=== PATIENT | female | born 1965 | race Caucasian/White ===

== ENCOUNTER → 2016-06-17 | Outpatient (CLI) | payer MEDICARE, MEDICAID ==
[~2016-06-17] MED LIST: /ADVA50050 IN; /AUGM875TA OR; /CARBXR20T PO; /DULO30CA OR; /ESOM40CA PO; /FEXO18TA OR; /LAMO10TA PO; /LINE60TA PO; /PANT40TA PO; /TRAZ15TA PO; ABIL5TAB OR; ADV500INH INH; AMOX875T OR; ASPI1TAB PO; ASPI325T OR; ASPI81TA85 PO; CALCCHW12 PO; CALCTAB75 PO; CARA1TAB2 PO; CEFD300C OR; CLIN300C PO; CLIN75CA PO; CLOP75TA2 PO; CORE25TA OR; CORE25TA PO; CRES40TA PO; CYMB1CAP5 PO; DETR4CAP PO; DETR4CAP10 PO; DIGO25TA PO; ELIQ5TAB PO; FLON0.05; FOLI1TAB86 PO; FURO40TA2 OR; GABA400C PO; IBUP200T2 PO; IMIT50TA PO; INSULANT SC; JANU25TA PO; LAMI1TAB8 PO; LAMI25TA OR; LASI40TA PO; LISI20TA5 OR; LYRI200C OR; LYRI300C PO; METF1000 PO; METF500T4 OR; NEUR600T PO; NEXI40CA PO; NITR4TASL SL; NORV5TAB PO; PERCOCET PO; PROZ20CA11 PO; SPIR25TA2 PO; SPIRIVA HANDIHALER INH; TEGR200T OR; TEGR200T PO; TIOT18INH INH; TOLT2TA OR; TRAZ100T OR; TRAZ100T4 PO; VITA100072 PO; ZETI10TA OR; ZOCO40TA OR; [UNRECOGNIZED DRUG - OTHER] PO; nicotine patch
--- NOTE | 2016-07-11 01:37 | ECWPNPC ---
PATIENT NAME: MONTANA HARDY : 1965 GENDER: FEMALE VISIT DATE: 06/17/2016 DISCHARGE DATE: 06/17/16 1304 VISIT LOCKED DATE TIME: PHYSICIAN: JEANNE DANIEL RESOURCE: JEANNE DANIEL REASON FOR APPOINTMENT 1. CHRONIC PAIN RECONSULT HISTORY OF PRESENT ILLNESS TODAY'S VISIT: NOTES: PT REFERRED BY Perez GARCIA AND DR FOUZIA MCKEON FOR LOW BACK PAIN AND OPTIONS FOR SPINAL COLUMN STIMULATOR THERAPY.HAS HAD BACK PAIN FOR SINCE WAS 19 YEARS OLD. . HAS BEEN GEETING WORSE OVER LAST FEW YEARS. 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 HAS HAD INJECTIONS TO LOW BACK HERE AT [facility] WITH DR GROSS. HAS BEEN IN PT IN PAST AND IS BEING SCHEDULED TO START AGAIN. IS CURRENTLY HAVING WEAKNESS IN MID THIGHS BILATERALLY. PAIN IS ACROSS THE BACK AND INTO THIGHS. EXPERIENCED A RECENT FELL AGAINST BUILDING WALL LEFT LEG GAVEAWAY.. IS HAVING NUMBNESS/TINGLING IN LEG TO FOOT BILATERALLY. . HAS HISTORY OF CONSTIPATION. NO LOSS OF BOWEL CONTROL EXCEPT FOR RECENT SEVERE SPASM IN BACK - WAS IN ER. PAIN AGGRAVATED BY PROLONGED SITTING, STANDING, LYING DOWN. HAD BEEN USING IBUPROFEN FOR PAIN WITH LIMITED EFFECTIVENESS.. . FALL RISK SCREENING: SCREENING :NO FALLS IN THE PAST YEAR PAIN SCREENING: PATIENT HAS A COMPLAINT OF ACUTE OR CHRONIC PAIN YES CURRENT MEDICATIONS TAKING ADVAIR DISKUS 500-50 MCG/DOSE AEROSOL POWDER BREATH ACTIVATED INHALE 1 DOSE BY MOUTH TWICE A DAY TAKING INCRUSE ELLIPTA 62.5 MCG/INH AEROSOL POWDER BREATH ACTIVATED 1 PUFF INHALATION ONCE A DAY TAKING ALBUTEROL SULFATE (2.5 MG/3ML) 0.083% NEBULIZATION SOLUTION 3 ML NEEDED INHALATION THREE TIMES A DAY NEEDED TAKING DETROL LA 4 MG CAPSULE EXTENDED RELEASE 24 HOUR 1 CAPSULE ORALLY ONCE A DAY TAKING IMITREX 50 MG TABLET 1 TABLET NEEDED ONE TIME ORALLY ONCE A DAY PRN MIGRAINE TAKING ONE TOUCH ULTRA TEST STRIPS . STRIPS 1 STRIP DX CODE E11.9 THREE TIMES DAILY NEEDED TAKING BD U/F SHORT PEN NEEDLE 31G X 8 MM MISCELLANEOUS USE DIRECTED WITH LANTUS TAKING JANUVIA 100MG TABLET 1 TABLET ORALLY ONCE A DAY TAKING LANCETS DX 250.00 ONE TOUCH LANCET - THREE TIMES DAILY TAKING ALCOHOL PREPS 70 % MISCELLANEOUS DIRECTED EXTERNALLY DAILY TAKING LANTUS SOLO STAR PEN NEEDLES DX E11.9 ... 55 UNITS SQ 2230 TAKING VICTOZA 18 MG/3ML SOLUTION PEN-INJECTOR 1.2 MG SUBCUTANEOUS ONCE A DAY TAKING TRIAMCINOLONE ACETONIDE 0.025 % CREAM 1 APPLICATION TO HER L EAR EXTERNALLY TWICE DAILY NEEDED TAKING TEGRETOL 400 MG TABLET 1 TABLET ORALLY TWICE A DAY TAKING VITAMIN B-12 1000 MCG TABLET 1 TABLET ORALLY ONCE A DAY TAKING DIGOXIN 0.25 MG TABLET 1 TABLET ORALLY ONCE A DAY TAKING METFORMIN XR 500 MG EXTENDED RELEASE 2 TABLET ORALLY TWICE A DAY TAKING NYSTATIN 862222 UNIT/GM CREAM 1 APPLICATION UNDER BREASTS EXTERNALLY TWICE A DAY X 10D WITH FLARES TAKING ZYRTEC 10 MG TABLET 1 TABLET ORALLY ONCE A DAY TAKING LANTUS SOLOSTAR 100 UNIT/ML SOLUTION PEN-INJECTOR 55 UNITS SUBCUTANEOUS DAJILY TAKING CALCIUM 600/VITAMIN D 600-400 MG-UNIT TABLET 1 TABLET WITH FOOD ORALLY TWICE A DAY TAKING ELIQUIS 5 MG TABLET 1 TABLET ORAL TWICE A DAY TAKING DRISDOL 50,000 UNITS TABLET 1 TABLET ORALLY ONCE A WEEK TAKING FUROSEMIDE 40 MG TABLET TAKE 1 TABLET BY MOUTH ONCE DAILY ORALLY ONCE DAILY TAKING FOLIC ACID 1 MG TABLET 1 TABLET ORALLY ONCE A DAY TAKING NEXIUM 40 MG CAPSULE DELAYED RELEASE 1 CAPSULE ORALLY: CHANTAL TWICE A DAY TAKING GABAPENTIN 800 MG TABLET 1 TABLET ORALLY THREE TIMES A DAY TAKING COLACE 100 MG CAPSULE 1 CAPSULE ORALLY BID TAKING MIRALAX - POWDER 1 CAP ORALLY ONCE DAILY NEEDED TAKING ALDACTONE 25 MG TABLET 1 TABLET ORALLY DAILY TAKING LAMICTAL 25 MG TABLET 3 TABLETS ORALLY TWICE A DAY TAKING PLAVIX 75 MG TABLET 1 TABLET ORALLY ONCE A DAY TAKING BD ULTRA-FINE PEN NEEDLES 32G 4MM 2 INJECTIONS SUBCUTANEOUSLY DAILY TAKING ATENOLOL 25 MG TABLET 1 TABLET ORALLY ONCE A DAY-STOCKTON TAKING CARVEDILOL 25 TABLET 1 TAB ORAL BID TAKING DULOXETINE HCL 30 MG CAPSULE DELAYED RELEASE PARTICLES 3 CAPSULES ORALLY DAILY TAKING LAMICTAL 200 MG TABLET 1 TABLET ORALLY TWICE A DAY TAKING TRAZODONE 100 100MG TABLET 2 TABLETS ORALLY AT BEDTIME TAKING IMDUR 30 MG TABLET EXTENDED RELEASE 24 HOUR 1 TABLET ORALLY ONCE A DAY TAKING NITROGLYCERIN 0.4 MG TABLET SUBLINGUAL 1 TABLET UNDER THE TONGUE SUBLINGUAL ONE TABLET TIMES 3 EVERY 5 MINUTES IF NO RELIEF GO TO THE ER TAKING CRESTOR 40 MG TABLET 1 TABLET ORALLY ONCE A DAY TAKING ZETIA 10 MG TABLET 1 TABLET ORALLY ONCE A DAY TAKING MIRAPEX 0.25 MG TABLET 1 TABLET BEFORE BEDTIME ORALLY ONCE A DAY TAKING FERREX 150 150 MG CAPSULE TAKE 1 CAPSULE BY MOUTH ONCE DAILY ORALLY BID NOT-TAKING CARVEDILOL 25 MG TABLET TAKE 1 TABLET BY MOUTH TWICE A DAY NOT-TAKING METFORMIN HCL ER 500 MG TABLET EXTENDED RELEASE 24 HOUR TAKE 2 TABLETS BY MOUTH TWICE A DAY DISCONTINUED VITAMIN D (ERGOCALCIFEROL) 04697 UNIT CAPSULE TAKE 1 CAPSULE BY MOUTH EVERY WEEK DISCONTINUED ADVAIR DISKUS 500-50 MCG/DOSE MISCELLANEOUS 1 INHALATION TWICE A DAY DISCONTINUED VENTOLIN HFA 108 (90 BASE) MCG/ACT AEROSOL SOLUTION 2 PUFFS NEEDED INHALATION EVERY 6 HRS MEDICATION LIST REVIEWED AND RECONCILED WITH THE PATIENT PAST MEDICAL HISTORY LUMBAR DJD WITH BILATERAL LOWER EXTREMITY RADICULOPATHY-2009 MRI WITH MULTILEVEL BULGES, AT L4/S1 CAUSING MODERATE TO SEVERE BILATERAL NEURAL FORAMEN NARROWING SEIZURE DISORDER HYPERTENSION HYPERLIPIDEMIA 2B OBESITY DEPRESSION/PANIC DISORDER/INSOMNIA-FOLLOWED BY DR. PABLO RESTLESS LEG SYNDROME URGE INCONTINENCE GERD MIGRAINE HEADACHES, COMMON TYPE FOLIC ACID DEFICIENCY NICOTINE ADDICTION ASTHMA, MILD PERSISTENT/COPD-09/2014 FEV1 2.2L (66%)/RATIO 72%-EVIN PERIPHERAL EDEMA SECONDARY TO VENOUS INSUFFICIENCY AND NSAID AND LYRICA USE-2009 TTE STOCKTON WITH BORDERLINE LAE, BORDERLINE DILATED AORTIC ROOT, NO DIASTOLIC NOR SYSTOLIC DYSFUNCTION CAD STATUS POST NON-Q WAVE IA APRIL 2011 STATUS POST ANGELICA TO MID LAD, CHRONIC OCCLUSION OF RCA WITH COLLATERALS SUPPLYING BLOOD FLOW TO DISTAL RCA AND PDA BRANCHES, LVEF 50% WITH MILD ANTERIOR AND INFERIOR HYPOKINESIS-PENDING SALE TO [facility]//09/25/13 CATHERIZATION-PATIENT LAD, CHRONICALLY OCCLUDED RCA, NORMAL LVEF-RITA//06/18/15 CATH PATIENT LAD STENTS, LVEF 59%-RITA HISTORY NARCOTIC ABUSE-IN REHAB AT [facility]-03/21-04/18/12 B TROCHANTERIC BURSITIS-04/2013 NORMAL B HIP XRAY + H PYLORI BY AB-TREATED C DOXY/FLAGYL/BISMUTH/PPI X 14D-06/2013 ATRIAL FIBRILLATION, PAROXYSMAL, NEW-ONSET-09/04/13 [facility] HEMISPHERIC TIA-11/2014 C L FACIAL/ARM NUMBNESS/VISUAL DISTURBANCE/DIZZINESS-MRI C B FRONTAL, R PARIETAL T2 HYPERINTENSITIES, B ICA 16-49% STENOSIS, -CTA CHEST FOR PE R NEPHROLITH BY 11/2014 CT ALLERGIES LATEX (FOR ALLERGY USE ONLY): RASH SURGICAL HISTORY REMAINING 8 TEETH EXTRACTION-DR. ANDERSON 07/2012 HERNIA REPAIR/INGUINAL 2004? APPENDECTOMY A CHILD STENTS- [place] X 6 10/2015 FAMILY HISTORY FATHER: 49 YRS, DIAGNOSED WITH OTHER MOTHER: 55 YRS, DIAGNOSED WITH HEART DISEASE SIBLINGS: 32 YRS, DIAGNOSED WITH OTHER SON(S): ALIVE 2 BROTHER(S) , 3 SISTER(S) . 1 SON(S) - HEALTHY. FATHER-CIRROHOSIS. SOCIAL HISTORY GENERAL: TOBACCO USE ARE YOU A:FORMER SMOKER ARE YOU A:FORMER SMOKER ALCOHOL SCREENING POINTS: 3, INTERPRETATION: POSITIVE. RECREATIONAL DRUG USE DENIES. CAFFEINE >5/DAY. SEXUAL HX HAD SEX IN THE LAST 12 MONTHS (VAGINAL, ORAL, OR ANAL)?: NO, HAVE YOU EVER HAD AN STD?: NO. 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 DIET: CARBOHYDRATE CONTROLLED. EXERCISE: NO REGULAR EXERCISE. MARITAL STATUS: . OTHERS AT HOME: SPOUSE AND HIS MOTHER. TAOISM: NO YAZIDISM BELIEFS THAT WOULD IMPACT HEALTH CARE. LANGUAGE: CITIZEN OF [place]. LEARNING BARRIERS / SPECIAL NEEDS CHANGE FROM LAST VISIT?NO BARRIERS TO LEARNING?NO HEARING IMPAIRED?NO VISION IMPAIRED?YES GLASSES LEARNING PREFERENCES?YES DEMONSTATION OR VIDEO ADVANCED DIRECTIVES HEALTH CARE PROXY?NO DECLINES INFORMATION POWER OF HOTEL SERVICE MANAGER?NO TRAVEL OUTSIDE US: NO TRAVEL IN LAST 21 DAYS. DOMESTIC VIOLENCE: NONE. SMOKING 1 PPD. DENIES ETOH. PRIOR H/O OF NARCOTIC ABUSE. HAD BEEN USING A FRIEND'S SUBOXONE, BUT STATES SHE STOPPED. HOSPITALIZATION/MAJOR DIAGNOSTIC PROCEDURE B AXILLARY MRSA ABSCESSES S/P B DRAINAGE BY DR. VARGAS, IV VANCOMYCIN, - BCX X2 05/30- R HEMISPHERIC TIA-WORKUP PER 11/28- CARDIAC CATH ([facility]) DR. SALINAS 07/23 [place] 2012,2014 REVIEW OF SYSTEMS CONSTITUTIONAL: ANY CHANGE IN YOUR MEDICAL CONDITION? NO . CHILLS NO . FEVER NO . INFECTION: DO YOU HAVE NEW INFECTIONS? NO . DO YOU HAVE HISTORY OF MRSA? YES, UNDER RIGHT ARM 2014 1 NEG CULTURE AFTER . MUSCULOSKELETAL: ANY NEW PATTERNS OF PAIN OR NUMBNESS? NO . SYTEMIC LUPUS NO . GASTROENTEROLOGY: ANY NEW CHANGE IN BOWEL CONTROL? HX OF CHRONIC CONSTIPATION . BARRETTS ESOPHAGUS NO . CIRRHOSIS NO . HEPATITIS NO . LIVER FAILURE NO . ACID REFLUX YES . UNEXPLAINED WEIGHT LOSS NO . GENITOURINARY: ANY NEW CHANGE IN BLADDER CONTROL? NO . IS THERE A CHANCE YOU COULD BE ? NO . HEMATOLOGY/LYMPH: DO YOU TAKE ANY BLOOD THINNERS? (FOR EXAMPLE- COUMADIN, PLAVIX, AGGRENOX, PLATEL, PRADAXA, OR XARELTO) YES PLAVIX, ELIQUIS . WHEN WAS YOUR LAST DOSE? DATE: TIME: . LOW PLATELET COUNT NO . SICKLE CELL DISEASE NO . VON WILLIEBRANDS NO . FACTOR V LEIDEN NO . THALLASEMIA NO . ANEMIA NO . EASY BRUISING NO . NEUROLOGY: HAVE YOU FALLEN IN THE PAST 6 MONTHS? NO . ANY NEW EXTREMITY NUMBNESS OR WEAKNESS? YES WEAKNESS IN HER LEGS . HEAD INJURY NO . DEMENTIA NO . CEREBRAL PALSY NO . MULTIPLE SCLEROSIS NO . DIZZINESS NO . HEADACHE YES, ASSOCIATED WITH PHOTOPHOBIA, POUNDING, OCCIPITAL, THROBBING . STROKES NO TIA . VERTIGO NO . CARDIOLOGY: DO YOU HAVE A PACEMAKER OR DEFIBRILLATOR? NO . ANGINA NO . HEART ATTACK YES X 2 . HEART SURGERY YES 6 STENTS . CONGESTIVE HEART FAILURE/FLUID OVERLOAD NO . CHEST PAIN HAS NEEDED NITROGLYCERIN IN THE LAST MONTH. LAST SAW DR STOCKTON. . HIGH BLOOD PRESSURE YES , ON MEDICATION(S) . IRREGULAR HEART BEAT YES AFIB . RESPIRATORY: TROUBLE SLEEPING DUE TO PAIN . SLEEP APNEA DENIES . HAVE YOU BEEN SICK IN THE PAST WEEK? NO . FEVER NO . FLU LIKE SYMPTOMS? NO . CPAP NO . BYPAP NO . ASTHMA YES . EMPHYSEMA NO . CHRONIC LUNG DISEASES YES . SHORTNESS OF BREATH ON EXERTION YES . DO YOU USE ANY TYPE OF TOBACCO (SMOKE, SMOKELESS, CHEW)? QUIT 2 YEARS AGO . COUGH NO . SNORING YES . INTEGUMENTARY: DO YOU HAVE ANY RASHES OR OPEN SORES? NO - FRAGILE SKIN, BRUISES EASILY . ALLERGIC/IMMUNO: ARE YOU ALLERGIC TO SHELLFISH OR IV DYE? NO . ANY NEW ALLERGIES? NO . PSYCHIATRIC: DO YOU HAVE THOUGHTS OF HURTING YOURSELF OR SOMEONE ELSE? NO . ARE YOU ABUSED, NEGLECTED, OR IN AN UNSAFE ENVIRONMENT? NO . ENDOCRINOLOGY: ARE YOU DIABETIC? YES - 105 OR LESS . THYROID DISORDER NO . OTHER: DO YOU NEED ANY PRESCRIPTIONS? NO . IF YES, PLEASE LIST: ____ . ANY NEW PROBLEMS WITH YOUR MEDICATIONS? NO . WHEN DID YOU LAST EAT? ____ . WHEN DID YOU LAST DRINK? ____ . WHAT DID YOU LAST DRINK? ____ . NAME OF PERSON DRIVING YOU HOME? ____ . DO YOU HAVE ANY OTHER QUESTIONS OR CONCERNS NO . REVIEWED BY: PROVIDER: JEANNE BAKER . VITAL SIGNS WT 258 LBS, HT 69 IN, BMI 38.10 INDEX, BP 152/78 MM HG, HR 72 /MIN, RR 16 /MIN, TEMP 98.9 F, OXYGEN SAT % 96, REVIEWED BY: AD. EXAMINATION GENERAL EXAMINATION: PSYCHALERT , ORIENTED X 3 , APPROPRIATE MOOD AND AFFECT . HEENT:NORMOCEPHALIC, NO LYPHADENOPATHY, NO THYROMEGLY. LUNGS:CLEAR TO AUSCULTATION BILATERALLY, NO WHEEZES, RALES OR RHONCHI. HEART:IRREGULAR. MUSCULOSKELETAL:FLEX TO 30 DEGREES, EXT 20, ROTATE FULLY. , PALPATION: POSITIVE FOR PAIN OVER L/S SPINE. POSITIVE FOR PAIN OVER L/S PARSPINALS AND AT BILATERAL SACRALILIAC JOINTS. NEUROLOGIC EXAM:DECREASED SENSATION RIGHT LOWER EXTREMITY THIGH AND LATERAL CALF. .DTR'S 3+RLE, 2+ LLE. ASSESSMENTS LUMBAR DISC DISEASE WITH RADICULOPATHY - M51.16 (PRIMARY) SACROILIITIS - M46.1 TREATMENT LUMBAR DISC DISEASE WITH RADICULOPATHY CAUDAL/LUMBAR EPIDURALJEANNE DANIEL 06/17/2016 12:48:25 PM > ON PLAVIX/ELIQUIS. RIGHT L5-S1 DISC EXTRUSION NOTES: START THERAPY FOR BACK. CONTINUE LYRICA AT CURRENT DOSE. CLINICAL NOTES: #128 - SCREENING BMI AND F/U PLAN IN : BMI ABOVE NORMAL TODAY. DISCUSSED WITH PATIENT NUTRITIONAL FOOD CHOICES TO ASSIST WITH WEIGHT LOSS. RECCOMMENDED REDUCING SALT, SUGAR, SODA INTAKE. RECOMMEND INCREASE ACTIVITY TO INCLUDE WALKING ON A REGULAR BASIS. REFERRAL TO:[facility] REASON:DORSAL COLUMN TRIAL - LOW BACK LEGS PREVENTIVE MEDICINE PAIN CLINIC TEACHING: MEDICATIONS WAITING FOR CLEARANCE FROM FINANCIAL INSTITUTION BRANCH MANAGER ON BLOOD THINNER. PROCEDURE TEACHING WENT OVER PRE PROCEDURE INSTRUCTIONS WITH PT WHO VERBALIZES UNDERSTANING. PROCEDURE CODES FA211 ESTABILISHED PATIENT [facility] FACILITY CHARGE G2293 BP SCR PRFRM RCMDD DEFIND SCR INTVL G8730 PAIN ASSESS POS TOOL F/U PLAN DOC 3016F PT SCRND UNHLTHY OH USE 1124F ACP DISCUSS-NO DSCNMKR DOCD 1036F TOBACCO NON-USER G8427 DOC MEDS VERIFIED W/PT OR RE G8417 BMI >=30 CALCUATE W/FOLLOWUP 3288F FALL RISK ASSESSMENT DOCD FOLLOW UP 3 WEEKS (REASON: LETTER TO DR STOCKTON ABOUT STOPPING PLAVIX AND ELIQUIS FOR LESB AND DORSAL COLUMN STIM TRIAL/PERRM PL) ELECTRONICALLY SIGNED BY MEHDI BOYKIN ON 07/10/2016 AT 01:39 PM EST DISCLAIMER : THIS IS A VISIT SUMMARY EXTRACTED FROM THE [email or web address] CHART. IT IS NOT A COPY OF THE [email or web address] PROGRESS NOTE. MTDD
== END ==
LOC: M PAIN 11:20
PROVIDERS: ATTEND Nurse Practitioner Family
DX: G89.29 Other chronic pain (principal); M51.16 Intervertebral disc disorders with radiculopathy, lumbar region; M51.27 Other intervertebral disc displacement, lumbosacral region; M46.1 Sacroiliitis, not elsewhere classified; E11.9 Type 2 diabetes mellitus without complications; G40.919 Epilepsy, unspecified, intractable, without status epilepticus; I10 Essential (primary) hypertension; E78.5 Hyperlipidemia, unspecified; E66.9 Obesity, unspecified; Z68.38 Body mass index [BMI] 38.0-38.9, adult; F32.9 Major depressive disorder, single episode, unspecified; F41.0 Panic disorder [episodic paroxysmal anxiety]; G47.00 Insomnia, unspecified; G25.81 Restless legs syndrome; K21.9 Gastro-esophageal reflux disease without esophagitis; G43.909 Migraine, unspecified, not intractable, without status migrainosus; D52.9 Folate deficiency anemia, unspecified; J44.9 Chronic obstructive pulmonary disease, unspecified; I51.9 Heart disease, unspecified; Z91.040 Latex allergy status; Z79.84 Long term (current) use of oral hypoglycemic drugs; Z79.4 Long term (current) use of insulin; Z79.899 Other long term (current) drug therapy; Z87.891 Personal history of nicotine dependence; Z79.01 Long term (current) use of anticoagulants; Z86.73 Personal history of transient ischemic attack (TIA), and cerebral infarction without residual deficits; I48.91 Unspecified atrial fibrillation; Z86.59 Personal history of other mental and behavioral disorders; Z86.14 Personal history of Methicillin resistant Staphylococcus aureus infection; Z95.9 Presence of cardiac and vascular implant and graft, unspecified

== ENCOUNTER → 2016-07-08 | Outpatient (CLI) | payer MEDICARE, MEDICAID ==
--- NOTE | 2016-07-30 01:47 | ECWPNPC ---
PATIENT NAME: MONTANA HARDY : 1965 GENDER: FEMALE VISIT DATE: 07/08/2016 DISCHARGE DATE: 07/08/16 1604 VISIT LOCKED DATE TIME: PHYSICIAN: JEANNE DANIEL RESOURCE: JEANNE DANIEL REASON FOR APPOINTMENT 1. BACK HISTORY OF PRESENT ILLNESS HISTORY OF PRESENT ILLNESS: PAIN THE PATIENT DESCRIBES THE PAIN... FALL RISK SCREENING: SCREENING :NO FALLS IN THE PAST YEAR TODAY'S VISIT: NOTES: RATES PAIN TODAY 10/10. NOTES PAIN EXTENDS FROM BASE OF NECK TO LOW BACK, AND INTO BOTH LEGS FAR CALVES/ - IS SCHEDULED TO SEEE DR QUIÑONEZ.. CURRENT MEDICATIONS TAKING ADVAIR DISKUS 500-50 MCG/DOSE AEROSOL POWDER BREATH ACTIVATED INHALE 1 DOSE BY MOUTH TWICE A DAY TAKING INCRUSE ELLIPTA 62.5 MCG/INH AEROSOL POWDER BREATH ACTIVATED 1 PUFF INHALATION ONCE A DAY TAKING ALBUTEROL SULFATE (2.5 MG/3ML) 0.083% NEBULIZATION SOLUTION 3 ML NEEDED INHALATION THREE TIMES A DAY NEEDED TAKING DETROL LA 4 MG CAPSULE EXTENDED RELEASE 24 HOUR 1 CAPSULE ORALLY ONCE A DAY TAKING IMITREX 50 MG TABLET 1 TABLET NEEDED ONE TIME ORALLY ONCE A DAY PRN MIGRAINE TAKING ONE TOUCH ULTRA TEST STRIPS . STRIPS 1 STRIP DX CODE E11.9 THREE TIMES DAILY NEEDED TAKING BD U/F SHORT PEN NEEDLE 31G X 8 MM MISCELLANEOUS USE DIRECTED WITH LANTUS TAKING LANCETS DX 250.00 ONE TOUCH LANCET - THREE TIMES DAILY TAKING ALCOHOL PREPS 70 % MISCELLANEOUS DIRECTED EXTERNALLY DAILY TAKING LANTUS SOLO STAR PEN NEEDLES DX E11.9 ... 55 UNITS SQ 2230 TAKING VICTOZA 18 MG/3ML SOLUTION PEN-INJECTOR 1.2 MG SUBCUTANEOUS ONCE A DAY TAKING TRIAMCINOLONE ACETONIDE 0.025 % CREAM 1 APPLICATION TO HER L EAR EXTERNALLY TWICE DAILY NEEDED TAKING TEGRETOL 400 MG TABLET 1 TABLET ORALLY TWICE A DAY TAKING VITAMIN B-12 1000 MCG TABLET 1 TABLET ORALLY ONCE A DAY TAKING DIGOXIN 0.25 MG TABLET 1 TABLET ORALLY ONCE A DAY TAKING METFORMIN XR 500 MG EXTENDED RELEASE 2 TABLET ORALLY TWICE A DAY TAKING NYSTATIN 030318 UNIT/GM CREAM 1 APPLICATION UNDER BREASTS EXTERNALLY TWICE A DAY X 10D WITH FLARES TAKING ZYRTEC 10 MG TABLET 1 TABLET ORALLY ONCE A DAY TAKING CALCIUM 600/VITAMIN D 600-400 MG-UNIT TABLET 1 TABLET WITH FOOD ORALLY TWICE A DAY TAKING ELIQUIS 5 MG TABLET 1 TABLET ORAL TWICE A DAY TAKING DRISDOL 50,000 UNITS TABLET 1 TABLET ORALLY ONCE A WEEK TAKING FUROSEMIDE 40 MG TABLET TAKE 1 TABLET BY MOUTH ONCE DAILY ORALLY ONCE DAILY TAKING FOLIC ACID 1 MG TABLET 1 TABLET ORALLY ONCE A DAY TAKING NEXIUM 40 MG CAPSULE DELAYED RELEASE 1 CAPSULE ORALLY: CHANTAL TWICE A DAY TAKING GABAPENTIN 800 MG TABLET 1 TABLET ORALLY THREE TIMES A DAY TAKING COLACE 100 MG CAPSULE 1 CAPSULE ORALLY BID TAKING MIRALAX - POWDER 1 CAP ORALLY ONCE DAILY NEEDED TAKING ALDACTONE 25 MG TABLET 1 TABLET ORALLY DAILY TAKING LAMICTAL 25 MG TABLET 3 TABLETS ORALLY TWICE A DAY TAKING PLAVIX 75 MG TABLET 1 TABLET ORALLY ONCE A DAY TAKING BD ULTRA-FINE PEN NEEDLES 32G 4MM 2 INJECTIONS SUBCUTANEOUSLY DAILY TAKING ATENOLOL 25 MG TABLET 1 TABLET ORALLY ONCE A DAY-[place]OCK[place] TAKING CARVEDILOL 25 TABLET 1 TAB ORAL BID TAKING DULOXETINE HCL 30 MG CAPSULE DELAYED RELEASE PARTICLES 3 CAPSULES ORALLY DAILY TAKING LAMICTAL 200 MG TABLET 1 TABLET ORALLY TWICE A DAY TAKING TRAZODONE 100 100MG TABLET 2 TABLETS ORALLY AT BEDTIME TAKING IMDUR 30 MG TABLET EXTENDED RELEASE 24 HOUR 1 TABLET ORALLY ONCE A DAY TAKING NITROGLYCERIN 0.4 MG TABLET SUBLINGUAL 1 TABLET UNDER THE TONGUE SUBLINGUAL ONE TABLET TIMES 3 EVERY 5 MINUTES IF NO RELIEF GO TO THE ER TAKING CRESTOR 40 MG TABLET 1 TABLET ORALLY ONCE A DAY TAKING MIRAPEX 0.25 MG TABLET 1 TABLET BEFORE BEDTIME ORALLY ONCE A DAY TAKING FERREX 150 150 MG CAPSULE TAKE 1 CAPSULE BY MOUTH ONCE DAILY ORALLY BID TAKING ZETIA 10 MG TABLET 1 TABLET ORALLY ONCE A DAY TAKING JANUVIA 100MG TABLET 1 TABLET ORALLY ONCE A DAY TAKING LANTUS SOLOSTAR 100 UNIT/ML SOLUTION PEN-INJECTOR INJECT 55 UNITS SUBCUTANEOUSLY ONCE DAILY NOT-TAKING CARVEDILOL 25 MG TABLET TAKE 1 TABLET BY MOUTH TWICE A DAY NOT-TAKING METFORMIN HCL ER 500 MG TABLET EXTENDED RELEASE 24 HOUR TAKE 2 TABLETS BY MOUTH TWICE A DAY MEDICATION LIST REVIEWED AND RECONCILED WITH THE PATIENT PAST MEDICAL HISTORY LUMBAR DJD WITH BILATERAL LOWER EXTREMITY RADICULOPATHY-2009 MRI WITH MULTILEVEL BULGES, AT L4/S1 CAUSING MODERATE TO SEVERE BILATERAL NEURAL FORAMEN NARROWING SEIZURE DISORDER HYPERTENSION HYPERLIPIDEMIA 2B OBESITY DEPRESSION/PANIC DISORDER/INSOMNIA-FOLLOWED BY DR. PABLO RESTLESS LEG SYNDROME URGE INCONTINENCE GERD MIGRAINE HEADACHES, COMMON TYPE FOLIC ACID DEFICIENCY NICOTINE ADDICTION ASTHMA, MILD PERSISTENT/COPD-09/2014 FEV1 2.2L (66%)/RATIO 72%-EVIN PERIPHERAL EDEMA SECONDARY TO VENOUS INSUFFICIENCY AND NSAID AND LYRICA USE-2009 TTE STOCKTON WITH BORDERLINE LAE, BORDERLINE DILATED AORTIC ROOT, NO DIASTOLIC NOR SYSTOLIC DYSFUNCTION CAD STATUS POST NON-Q WAVE [place] APRIL 2011 STATUS POST ANGELICA TO MID LAD, CHRONIC OCCLUSION OF RCA WITH COLLATERALS SUPPLYING BLOOD FLOW TO DISTAL RCA AND PDA BRANCHES, LVEF 50% WITH MILD ANTERIOR AND INFERIOR HYPOKINESIS-FISCHI//09/25/13 CATHERIZATION-PATIENT LAD, CHRONICALLY OCCLUDED RCA, NORMAL LVEF-RITA//06/18/15 CATH PATIENT LAD STENTS, LVEF 59%-RITA HISTORY NARCOTIC ABUSE-IN REHAB AT [facility]-03/21-04/18/12 B TROCHANTERIC BURSITIS-04/2013 NORMAL B HIP XRAY + H PYLORI BY AB-TREATED C DOXY/FLAGYL/BISMUTH/PPI X 14D-06/2013 ATRIAL FIBRILLATION, PAROXYSMAL, NEW-ONSET-09/04/13 [facility] HEMISPHERIC TIA-11/2014 C L FACIAL/ARM NUMBNESS/VISUAL DISTURBANCE/DIZZINESS-MRI C B FRONTAL, R PARIETAL T2 HYPERINTENSITIES, B ICA 16-49% STENOSIS, -CTA CHEST FOR PE R NEPHROLITH BY 11/2014 CT ALLERGIES LATEX (FOR ALLERGY USE ONLY): RASH SURGICAL HISTORY REMAINING 8 TEETH EXTRACTION-DR. ANDERSON 07/2012 HERNIA REPAIR/INGUINAL 2004? APPENDECTOMY A CHILD STENTS- [place] X 6 10/2015 SOCIAL HISTORY GENERAL: TOBACCO USE ARE YOU A:NONSMOKER LEARNING BARRIERS / SPECIAL NEEDS ORIENTED TO PLAN OF CARE: PATIENT, PAIN MANAGEMENT PATIENT, ORIENTED TO PLAN OF CARE: PATIENT, PAIN MANAGEMENT PATIENT. NEW PATIENT PAIN DIARY TODAY'S VISITNOTES FROM 0-10, WHAT LEVEL IS YOUR PAIN TODAY?0 PAIN CLINIC PFS, CLERGY, PUBLIC HEALTH REFERRALS PFS REFERRAL NEEDED?NO CLERGY REFERRAL NEEDED?NO PUBLIC HEALTH REFERRAL NEEDED?NO WAS THE PROVIDER NOTIFIED OF ANY PERTINENT INFO?NO PFS REFERRAL NEEDED?NO CLERGY REFERRAL NEEDED?NO PUBLIC HEALTH REFERRAL NEEDED?NO WAS THE PROVIDER NOTIFIED OF ANY PERTINENT INFO?NO HOSPITALIZATION/MAJOR DIAGNOSTIC PROCEDURE B AXILLARY MRSA ABSCESSES S/P B DRAINAGE BY DR. VARGAS, IV VANCOMYCIN, - BCX X2 05/30- R HEMISPHERIC TIA-WORKUP PER 11/28- [facility] SAL[facility] 07/23 [place] 2012,2014 REVIEW OF SYSTEMS CONSTITUTIONAL: ANY CHANGE IN YOUR MEDICAL CONDITION? NO . CHILLS NO . FEVER NO . INFECTION: DO YOU HAVE NEW INFECTIONS? NO . DO YOU HAVE HISTORY OF MRSA? YES RIGHT AXILLA . MUSCULOSKELETAL: ANY NEW PATTERNS OF PAIN OR NUMBNESS? NO . GASTROENTEROLOGY: ANY NEW CHANGE IN BOWEL CONTROL? NO . GENITOURINARY: ANY NEW CHANGE IN BLADDER CONTROL? NO . IS THERE A CHANCE YOU COULD BE ? NO . HEMATOLOGY/LYMPH: DO YOU TAKE ANY BLOOD THINNERS? (FOR EXAMPLE- COUMADIN, PLAVIX, AGGRENOX, PLATEL, PRADAXA, OR XARELTO) YES ELIQUIS/PLAVIX . WHEN WAS YOUR LAST DOSE? DATE: TIME: . NEUROLOGY: HAVE YOU FALLEN IN THE PAST 6 MONTHS? NO . ANY NEW EXTREMITY NUMBNESS OR WEAKNESS? NO . CARDIOLOGY: DO YOU HAVE A PACEMAKER OR DEFIBRILLATOR? NO . RESPIRATORY: HAVE YOU BEEN SICK IN THE PAST WEEK? NO . FEVER NO . FLU LIKE SYMPTOMS? NO . COUGH NO . INTEGUMENTARY: DO YOU HAVE ANY RASHES OR OPEN SORES? NO . ALLERGIC/IMMUNO: ARE YOU ALLERGIC TO SHELLFISH OR IV DYE? NO . ANY NEW ALLERGIES? NO . PSYCHIATRIC: DO YOU HAVE THOUGHTS OF HURTING YOURSELF OR SOMEONE ELSE? NO . ARE YOU ABUSED, NEGLECTED, OR IN AN UNSAFE ENVIRONMENT? NO . ENDOCRINOLOGY: ARE YOU DIABETIC? YES . OTHER: DO YOU NEED ANY PRESCRIPTIONS? NO . IF YES, PLEASE LIST: ____ . ANY NEW PROBLEMS WITH YOUR MEDICATIONS? NO . WHEN DID YOU LAST EAT? ____ . WHEN DID YOU LAST DRINK? ____ . WHAT DID YOU LAST DRINK? ____ . NAME OF PERSON DRIVING YOU HOME? ____ . DO YOU HAVE ANY OTHER QUESTIONS OR CONCERNS YES. ? INCREASE LYRICA . REVIEWED BY: PROVIDER: JEANNE BAKER . VITAL SIGNS WT 258 LBS, HT 69 IN, BMI 38.10 INDEX, BP 151/81 MM HG, HR 72 /MIN, RR 18 /MIN, TEMP 98.9 F, OXYGEN SAT % 94, NA INITIALS MP, REVIEWED BY: MLF. EXAMINATION GENERAL EXAMINATION: LUNGS:CLEAR TO AUSCULTATION BILATERALLY. HEART:HEART RATE REGULAR. MUSCULOSKELETAL:TRIGGER POINTS:, ELICITED WITH PALPATION OVER MID THORACIC MUSCLES WITH RESTRICITON OF RESPIRATORY EXCURCIOM NOTED. , ELICITED WITH PALPATION OVER LUMBAR PARAVERTEBRAL MUSCLES AND INTO THE SECRUM. RESTRICTION OF ROM IN THIS AREA. POINT TENDERNESS OVER LUMBAR SPINOUS PROCESSES AND ACROSS THE SACRUM.. EXTREMITIES:NO EDEMA. ASSESSMENTS LUMBAR DISC DISEASE WITH RADICULOPATHY - M51.16 (PRIMARY) SACROILIITIS - M46.1 TREATMENT LUMBAR DISC DISEASE WITH RADICULOPATHY START LYRICA CAPSULE, 75 MG, 1 CAPSULE, ORALLY, TWICE A DAY MDD=2 FILL TODAY, 15 DAYS, 30 CAPSULE, REFILLS 0 START LYRICA CAPSULE, 100 MG, 1 CAPSULE, ORALLY, TWICE A DAY MDD=2 FILL 07/20/16, 30 DAY(S), 60, REFILLS 1 START GABAPENTIN TABLET, 600 MG, 1 TABLET, ORALLY, THREE TIMES A DAY, 30 DAY(S), 90, REFILLS 1 NOTES: TENNIS BALL TO PUT PRESSURE ON TRIGGER POINTS OVER BACK. DISCUSS WITH BEHVIORAL HEALTH DOCTOR ABOUT DECREASING DOSE OF GABAPENTIN. WALK TOLERATED, #128 - SCREENING BMI AND F/U PLAN IN : BMI ABOVE NORMAL TODAY. DISCUSSED WITH PATIENT NUTRITIONAL FOOD CHOICES TO ASSIST WITH WEIGHT LOSS. RECCOMMENDED REDUCING SALT, SUGAR, SODA INTAKE. RECOMMEND INCREASE ACTIVITY TO INCLUDE WALKING ON A REGULAR BASIS. PROCEDURE CODES FA211 ESTABILISHED PATIENT [facility] FACILITY CHARGE G8783 BP SCR PRFRM RCMDD DEFIND SCR INTVL G8730 PAIN ASSESS POS TOOL F/U PLAN DOC 3016F PT SCRND UNHLTHY [place] USE 1124F ACP DISCUSS-NO DSCNMKR DOCD 1036F TOBACCO NON-USER G8427 DOC MEDS VERIFIED W/PT OR RE G8417 BMI >=30 CALCUATE W/FOLLOWUP 3288F FALL RISK ASSESSMENT DOCD DISPOSITION & COMMUNICATION FOLLOW UP AFTER INJECTION ELECTRONICALLY SIGNED BY MEHDI BOYKIN ON 07/29/2016 AT 10:02 AM EST DISCLAIMER : THIS IS A VISIT SUMMARY EXTRACTED FROM THE [employer] CHART. IT IS NOT A COPY OF THE [employer] PROGRESS NOTE. MTDD
== END ==
LOC: M PAIN 14:20
PROVIDERS: ATTEND Nurse Practitioner Family
DX: M51.16 Intervertebral disc disorders with radiculopathy, lumbar region (principal); M46.1 Sacroiliitis, not elsewhere classified; M54.5 Low back pain; G89.29 Other chronic pain; M54.2 Cervicalgia; Z79.899 Other long term (current) drug therapy; Z79.84 Long term (current) use of oral hypoglycemic drugs; Z79.4 Long term (current) use of insulin; J44.1 Chronic obstructive pulmonary disease with (acute) exacerbation; I50.9 Heart failure, unspecified; G43.909 Migraine, unspecified, not intractable, without status migrainosus; I25.10 Atherosclerotic heart disease of native coronary artery without angina pectoris; Z98.62 Peripheral vascular angioplasty status; Z91.040 Latex allergy status

== ENCOUNTER → 2016-07-15 | Outpatient (REF) | payer MEDICARE, MEDICAID ==
[2016-07-15 17:58] LABS: ALBUMIN/GLOBULIN RATIO 0.79 (1.00-1.93); ALKALINE PHOSPHATASE 111 U/L (45-117); ALT/SGPT 17 U/L (12-78); ANION GAP 9 MEQ/L (8-16); AST/SGOT 11 U/L (15-37); BILIRUBIN,TOTAL 0.2 MG/DL (0.2-1.0); BLOOD UREA NITROGEN 7 MG/DL (7-18); CALCIUM LEVEL 8.4 MG/DL (8.5-10.1); CARBON DIOXIDE LEVEL 30 MEQ/L (21-32); CHLORIDE LEVEL 95 MEQ/L (98-107); CHOLESTEROL LEVEL 139 MG/DL (<200); CREATININE FOR GFR 0.55 MG/DL (0.55-1.02); FERRITIN 10 NG/ML (8-252); GLOMERULAR FILTRATION RATE > 60.0 (>51); GLUCOSE, FASTING 148 MG/DL (70-105); PERCENT SATURATION 10.3 % (13.2-37.4); POTASSIUM SERUM 4.2 MEQ/L (3.5-5.1); SODIUM LEVEL 134 MEQ/L (136-145); TOTAL IRON BINDING CAPACITY 426 UG/DL (250-450); TOTAL PROTEIN 6.8 GM/DL (6.4-8.2); TRIGLYCERIDES LEVEL 201 MG/DL (<150)
[2016-07-15 18:02] LABS: BASO % 0.3 % (0.0-1.0); LARGE UNSTAINED CELL # 0.5 K/mm3 (0.0-0.4); LARGE UNSTAINED CELL % 4.5 % (0.0-4.0); LYMPH # 2.5 K/mm3 (1.5-4.5); LYMPH % 24.1 % (24.0-44.0); MEAN CORPUSCULAR HEMOGLOBIN 25.6 pg (27.0-33.0); MEAN CORPUSCULAR HGB CONC 30.6 g/dl (32.0-36.5); MEAN CORPUSCULAR VOLUME 83.7 fl (80.0-96.0); MONO # 0.5 K/mm3 (0.0-0.8); MONO % 4.4 % (0.0-5.0); NEUTROPHILS % 66.7 % (36.0-66.0); PLATELET COUNT, AUTOMATED 357 k/mm3 (150-450); RED CELL DISTRIBUTION WIDTH 15.9 % (11.5-14.5); WHITE BLOOD COUNT 10.5 K/mm3 (4.0-10.0)
== END ==
LOC: M SFHCPLAZ 15:25
PROVIDERS: ATTEND Physician Assistant Medical
DX: I10 Essential (primary) hypertension (principal); D50.9 Iron deficiency anemia, unspecified; E11.9 Type 2 diabetes mellitus without complications; I25.10 Atherosclerotic heart disease of native coronary artery without angina pectoris
CPT/HCPCS: 36415; 80053; 80061; 82043; 82728; 83036; 83550; 85025; G0463

== ENCOUNTER → 2016-07-16 | Outpatient (CLI) | payer MEDICARE, OTHER, MEDICAID ==
--- NOTE | 2016-07-16 15:05 | REPMRS ---
Patient History The patient states she had a clinical breast exam in No known family history of cancer. Digital Woman Screen Mammo: July 16, 2016 - Exam #: [id number] Bilateral CC and MLO view(s) were taken. Technologist: Nafisa Solis, Technologist Prior study comparison: August 29, 2013, digital mammo diagnostic bilateral, performed at [facility]. July 26, 2007, bilateral digital mammo screening bilat, performed at [facility]. FINDINGS: There are scattered fibroglandular densities. There has been no change in the appearance of the mammogram from the prior studies. There is a mild amount of scattered fibroglandular density which is fairly symmetric. There is no interval development of dominant mass, architectural distortion, or clustered microcalcification suggestive of malignancy. ASSESSMENT: BI-RADS/ACR category 1 mammogram. Negative. Recommendation Routine screening mammogram in 1 year (for women over age 40). This mammogram was interpreted with the aid of an FDA-approved computer-aided dectection system. Electronically Signed By: Ramon Higgins MD 07/16/16 [id number]
== END ==
LOC: M WHC 13:58
PROVIDERS: ATTEND Nurse Practitioner Family
DX: Z12.31 Encounter for screening mammogram for malignant neoplasm of breast (principal)
CPT/HCPCS: G0202; G0463

== ENCOUNTER → 2016-09-02 | Outpatient (CLI) | payer MEDICARE, MEDICAID | LOC: M LAB 16:49 | PROVIDERS: ATTEND Physician Assistant Medical | DX: I25.10 Atherosclerotic heart disease of native coronary artery without angina pectoris (principal) ==

== ENCOUNTER → 2016-09-11 | Outpatient (CLI) | payer MEDICARE, MEDICAID ==
--- NOTE | 2016-09-11 12:53 | REP ---
Right wrist four views : There is no fracture or dislocation. Mineralization and joint spaces are normal. There are no calcifications or foreign bodies. Impression: Negative right wrist . Signed by Kerwin Gtz MD 09/11/2016 12:44 P
== END ==
LOC: M WUC 11:58
PROVIDERS: ATTEND Physician Assistant Medical
DX: S60.211A Contusion of right wrist, initial encounter (principal); X58.XXXA Exposure to other specified factors, initial encounter; Y92.89 Other specified places as the place of occurrence of the external cause; Y93.9 Activity, unspecified

== ENCOUNTER → 2016-09-25 | Outpatient (CLI) | payer MEDICARE, OTHER, MEDICAID ==
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
== END ==
LOC: M PAIN 15:00
PROVIDERS: ATTEND Nurse Practitioner Family
DX: M47.816 Spondylosis without myelopathy or radiculopathy, lumbar region (principal); M51.16 Intervertebral disc disorders with radiculopathy, lumbar region; Z79.4 Long term (current) use of insulin; Z79.84 Long term (current) use of oral hypoglycemic drugs; Z79.899 Other long term (current) drug therapy; Z91.040 Latex allergy status; I10 Essential (primary) hypertension; D50.9 Iron deficiency anemia, unspecified; I25.10 Atherosclerotic heart disease of native coronary artery without angina pectoris; I48.0 Paroxysmal atrial fibrillation; E11.9 Type 2 diabetes mellitus without complications; E78.2 Mixed hyperlipidemia; I50.32 Chronic diastolic (congestive) heart failure; J45.30 Mild persistent asthma, uncomplicated; F32.9 Major depressive disorder, single episode, unspecified

== ENCOUNTER → 2016-09-29 | Outpatient (CLI) | payer MEDICARE, MEDICAID, OTHER ==
--- NOTE | 2016-10-05 00:15 | ECWPNPC ---
PATIENT NAME: MONTANA HARDY : 1965 GENDER: FEMALE VISIT DATE: 09/29/2016 DISCHARGE DATE: 09/29/16 1608 VISIT LOCKED DATE TIME: PHYSICIAN: JAYLA QUIÑONEZ RESOURCE: JAYLA QUIÑONEZ REASON FOR APPOINTMENT 1. DISCUSS DCS HISTORY OF PRESENT ILLNESS HISTORY OF PRESENT ILLNESS: PAIN THE PATIENT DESCRIBES THE PAIN... 51 YEAR OLD FEMALE PATIENT WITH HISTORY OF CHRONIC BACK PAIN. PATIENT DESCRIBES THE PAIN ACHING, BURNING, STABBING, THROBBING, SHOOTING AND HAVING IT ALL THE TIME WITH A PAIN SCORE OF 10/10 ON TODAY'S VISIT. PATIENT REPORTS THAT SHE IS IN A LOT OF PAIN TODAY. PATIENT STATES THAT SHE HAS RADIATING PAIN DOWN TO BOTH LEGS. PATIENT STATES THAT SHE WOULD LIKE TO PROCEED WITH A DCS. PATIENT REPORTS THAT INJECTIONS IN THE PAST HAVE NOT PROVIDED ANY PAIN RELIEF FOR HER PAIN. PATIENT DENIES UNEXPLAINABLE WEIGHT LOSS, FEVER, CHILLS, NEW CHANGES ON HER URINARY OR BOWEL CONTROL. FALL RISK SCREENING: SCREENING :NO FALLS IN THE PAST YEAR CURRENT MEDICATIONS TAKING POLYSACCHARIDE IRON COMPLEX 150 MG CAPSULE 1 CAPSULE ORALLY ONCE A DAY TAKING NEXIUM 40 MG CAPSULE DELAYED RELEASE 1 CAPSULE ORALLY TWICE A DAY TAKING CRESTOR 40 MG TABLET 1 TABLET ORALLY ONCE A DAY TAKING ZETIA 10 MG TABLET 1 TABLET ORALLY ONCE A DAY TAKING ELIQUIS 5 MG TABLET 1 TABLET ORAL TWICE A DAY TAKING DIGOXIN 0.25 MG TABLET 1 TABLET ORALLY ONCE A DAY TAKING CARVEDILOL 25 TABLET 1 TAB ORAL BID TAKING LANTUS SOLO STAR PEN NEEDLES DX 250.00 ... 55 UNITS SQ P.M. TAKING LANCETS DX 250.00 ONE TOUCH LANCET - ONCE A DAY TAKING METFORMIN XR 500 MG EXTENDED RELEASE 2 TABLET ORALLY TWICE A DAY TAKING DIFLUCAN 100 MG TABLET 1 TABLET ORALLY DAILY X 7 DAYS PRN TAKING IMDUR 30 MG TABLET EXTENDED RELEASE 24 HOUR 1 TABLET ORALLY ONCE A DAY TAKING PLAVIX 75 MG TABLET 1 TABLET ORALLY ONCE A DAY TAKING NITROGLYCERIN 0.4 MG TABLET SUBLINGUAL 1 TABLET UNDER THE TONGUE SUBLINGUAL ONE TABLET TIMES 3 EVERY 5 MINUTES IF NO RELIEF GO TO THE ER TAKING ONE TOUCH ULTRA TEST STRIPS . STRIPS 1 STRIP DX CODE E11.9 THREE TIMES DAILY NEEDED TAKING BD PEN NEEDLE SHORT U/F 31G X 8 MM MISCELLANEOUS USE DIRECTED WITH LANTUS TAKING ALCOHOL PREPS 70 % MISCELLANEOUS DIRECTED EXTERNALLY DAILY TAKING VITAMIN B-12 1000 MCG TABLET 1 TABLET ORALLY ONCE A DAY TAKING DRISDOL 50,000 UNITS TABLET 1 TABLET ORALLY ONCE A WEEK TAKING MIRALAX - POWDER 1 CAP ORALLY ONCE DAILY NEEDED TAKING BD ULTRA-FINE PEN NEEDLES 32G 4MM 2 INJECTIONS SUBCUTANEOUSLY DAILY TAKING TRAZODONE 100 100MG TABLET 2 TABLETS ORALLY AT BEDTIME TAKING TEGRETOL 400 MG TABLET 1 TABLET ORALLY TWICE A DAY TAKING FERREX 150 150 MG CAPSULE TAKE 1 CAPSULE BY MOUTH ONCE DAILY ORALLY TWICE DAILY TAKING CALCIUM 600/VITAMIN D 600-400 MG-UNIT TABLET 1 TABLET WITH FOOD ORALLY TWICE A DAY TAKING IMITREX STATDOSE SYSTEM 4 MG/0.5ML SOLUTION AUTO-INJECTOR 0.5 ML NEEDED SUBCUTANEOUS TWICE A DAY TAKING VICTOZA 18 MG/3ML SOLUTION PEN-INJECTOR INJECT 1.2 MILLIGRAM SUBCUTANEOUSLY DAILY TAKING MIRAPEX 0.5 MG TABLET 1 TABLET BEFORE BEDTIME ORALLY BID TAKING ALBUTEROL SULFATE (2.5 MG/3ML) 0.083% NEBULIZATION SOLUTION 3 ML NEEDED INHALATION THREE TIMES A DAY NEEDED TAKING ALDACTONE 25 MG TABLET 1 TABLET ORALLY DAILY TAKING FUROSEMIDE 40 MG TABLET TAKE 1/2 TABLET BY MOUTH ONCE DAILY ORALLY ONCE DAILY TAKING WRIST SPLINT/COCK-UP/RIGHT L - MISCELLANEOUS DIRECTED _ DAILY TAKING LYRICA 100 MG CAPSULE 1 CAPSULE ORALLY THREE TIMES A DAY TAKING DULOXETINE HCL 30 MG CAPSULE DELAYED RELEASE PARTICLES 2 CAPSULES ORALLY DAILY TAKING IBUPROFEN 800 MG TABLET 1 TABLET WITH FOOD OR MILK ORALLY THREE TIMES DAILY NEEDED TAKING GABAPENTIN 400 MG CAPSULE 1 CAPSULE ORALLY THREE TIMES A DAY TAKING LAMICTAL 25 MG TABLET 3 TABLETS ORALLY TWICE A DAY TAKING LAMICTAL 200 MG TABLET 1 TABLET ORALLY TWICE A DAY TAKING COLACE 100 MG CAPSULE 1 CAPSULE ORALLY BID TAKING LYRICA 150 MG CAPSULE 1 CAPSULE ORALLY BID TAKING JANUVIA 100MG TABLET 1 TABLET ORALLY ONCE A DAY TAKING ESOMEPRAZOLE MAGNESIUM 40 MG CAPSULE DELAYED RELEASE TAKE 1 CAPSULE BY MOUTH TWICE A DAY MEDICATION LIST REVIEWED AND RECONCILED WITH THE PATIENT PAST MEDICAL HISTORY LUMBAR DJD WITH BILATERAL LOWER EXTREMITY RADICULOPATHY-2009 MRI WITH MULTILEVEL BULGES, AT L4/S1 CAUSING MODERATE TO SEVERE BILATERAL NEURAL FORAMEN NARROWING SEIZURE DISORDER HYPERTENSION HYPERLIPIDEMIA 2B OBESITY DEPRESSION/PANIC DISORDER/INSOMNIA-FOLLOWED BY DR. 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 ASTHMA, MILD PERSISTENT/COPD-09/2014 FEV1 2.2L (66%)/RATIO 72%-EVIN PERIPHERAL EDEMA SECONDARY TO VENOUS INSUFFICIENCY AND NSAID AND LYRICA USE-2009 TTE STOCKTON WITH BORDERLINE LAE, BORDERLINE DILATED AORTIC ROOT, NO DIASTOLIC NOR SYSTOLIC DYSFUNCTION CAD STATUS POST NON-Q WAVE [place] APRIL 2011 STATUS POST ANGELICA TO MID LAD, CHRONIC OCCLUSION OF RCA WITH COLLATERALS SUPPLYING BLOOD FLOW TO DISTAL RCA AND PDA BRANCHES, LVEF 50% WITH MILD ANTERIOR AND INFERIOR HYPOKINESIS-FISCHI//09/25/13 CATHERIZATION-PATIENT LAD, CHRONICALLY OCCLUDED RCA, NORMAL LVEF-RITA//06/18/15 CATH PATIENT LAD STENTS, LVEF 59%-RITA HISTORY NARCOTIC ABUSE-IN [facility]HAB AT [facility]-03/21-04/18/12 B TROCHANTERIC BURSITIS-04/2013 NORMAL B HIP XRAY + H PYLORI BY AB-TREATED C DOXY/FLAGYL/BISMUTH/PPI X 14D-06/2013 ATRIAL FIBRILLATION, PAROXYSMAL, NEW-ONSET-09/04/13 [facility] HEMISPHERIC TIA-11/2014 C L FACIAL/ARM NUMBNESS/VISUAL DISTURBANCE/DIZZINESS-MRI C B FRONTAL, R PARIETAL T2 HYPERINTENSITIES, B ICA 16-49% STENOSIS, -CTA CHEST FOR PE R NEPHROLITH BY 11/2014 CT ALLERGIES LATEX (FOR ALLERGY USE ONLY): RASH SURGICAL HISTORY REMAINING 8 TEETH EXTRACTION-DR. ANDERSON 07/2012 HERNIA REPAIR/INGUINAL 2004? APPENDECTOMY A CHILD STENTS- [place] X 6 10/2015 FAMILY HISTORY MOTHER: MS HTN DM SIBLINGS: DM HTN MS SOCIAL HISTORY GENERAL: PAIN CLINIC PFS, CLERGY, PUBLIC HEALTH REFERRALS CLERGY REFERRAL NEEDED?NO WAS THE PROVIDER NOTIFIED OF ANY PERTINENT INFO?NO PFS REFERRAL NEEDED?NO PUBLIC HEALTH REFERRAL NEEDED?NO PATIENT: ____. SMOKING 1 PPD. DENIES ETOH. PRIOR H/O OF NARCOTIC ABUSE. HAD BEEN USING A FRIEND'S SUBOXONE, BUT STATES SHE STOPPED. HOSPITALIZATION/MAJOR DIAGNOSTIC PROCEDURE B AXILLARY MRSA ABSCESSES S/P B DRAINAGE BY DR. VARGAS, IV VANCOMYCIN, - BCX X2 05/30- B AXILLARY MRSA ABSCESSES S/P B DRAINAGE BY DR. VARGAS, IV VANCOMYCIN, - BCX X2 05/30- R HEMISPHERIC TIA-WORKUP PER 11/28- R HEMISPHERIC TIA-WORKUP PER 11/28- [facility] SALINAS 07/[facility] SALINAS 07/23 [place] 2012,2014 REVIEW OF SYSTEMS CONSTITUTIONAL: ANY CHANGE IN YOUR MEDICAL CONDITION? NO . CHILLS NO . FEVER NO . INFECTION: DO YOU HAVE NEW INFECTIONS? NO . DO YOU HAVE HISTORY OF MRSA? NO . MUSCULOSKELETAL: ANY NEW PATTERNS OF PAIN OR NUMBNESS? NO . GASTROENTEROLOGY: ANY NEW CHANGE IN BOWEL CONTROL? NO . GENITOURINARY: ANY NEW CHANGE IN BLADDER CONTROL? NO . IS THERE A CHANCE YOU COULD BE ? NO . HEMATOLOGY/LYMPH: DO YOU TAKE ANY BLOOD THINNERS? (FOR EXAMPLE- COUMADIN, PLAVIX, AGGRENOX, PLATEL, PRADAXA, OR XARELTO) NO . WHEN WAS YOUR LAST DOSE? DATE: TIME: . NEUROLOGY: HAVE YOU FALLEN IN THE PAST 6 MONTHS? NO . ANY NEW EXTREMITY NUMBNESS OR WEAKNESS? NO . CARDIOLOGY: DO YOU HAVE A PACEMAKER OR DEFIBRILLATOR? NO . RESPIRATORY: HAVE YOU BEEN SICK IN THE PAST WEEK? NO . FEVER NO . FLU LIKE SYMPTOMS? NO . COUGH NO . INTEGUMENTARY: DO YOU HAVE ANY RASHES OR OPEN SORES? NO . ALLERGIC/IMMUNO: ARE YOU ALLERGIC TO SHELLFISH OR IV DYE? NO . ANY NEW ALLERGIES? NO . PSYCHIATRIC: DO YOU HAVE THOUGHTS OF HURTING YOURSELF OR SOMEONE ELSE? NO . ARE YOU ABUSED, NEGLECTED, OR IN AN UNSAFE ENVIRONMENT? NO . ENDOCRINOLOGY: ARE YOU DIABETIC? YES . OTHER: DO YOU NEED ANY PRESCRIPTIONS? WILL DISCUSS . IF YES, PLEASE LIST: ____ . ANY NEW PROBLEMS WITH YOUR MEDICATIONS? NO . WHEN DID YOU LAST EAT? ____ . WHEN DID YOU LAST DRINK? ____ . WHAT DID YOU LAST DRINK? ____ . NAME OF PERSON DRIVING YOU HOME? ____ . DO YOU HAVE ANY OTHER QUESTIONS OR CONCERNS NO . REVIEWED BY: PROVIDER: JAYLA QUIÑONEZ MD . VITAL SIGNS WT 242 LBS, HT 69 IN, BMI 35.73 INDEX, BP 158/85 MM HG, HR 75 /MIN, RR 18 /MIN, OXYGEN SAT % 95%, NA INITIALS SC 14:46, REVIEWED BY: LS. EXAMINATION : PATIENT IS ALERT O X 3 AND COOPERATIVE. PATIENT AMBULATES WITH A LIMP ON THE LEFT LEG. PATIENT'S LEFT LEG IS WEAKER AT FLEXION AND EXTENSION. THERE IS TENDERNESS IN THE LUMBAR PARASPINAL MUSCLE GROUP. MRI OF THE LUMBAR SPINE DONE ON 04/20/2016 SHOWS DISC BULGE, CANAL STENOSIS, AND FACET HYPERTROPHY AT MULTIPLE LEVELS. ASSESSMENTS INTERVERTEBRAL DISC DISORDERS WITH RADICULOPATHY, LUMBAR REGION - M51.16 (PRIMARY) INTERVERTEBRAL DISC DISORDERS WITH RADICULOPATHY, LUMBOSACRAL REGION - M51.17 SPINAL STENOSIS, LUMBAR REGION - M48.06 SPINAL STENOSIS, LUMBOSACRAL REGION - M48.07 TREATMENT INTERVERTEBRAL DISC DISORDERS WITH RADICULOPATHY, LUMBAR REGION NOTES: WE DISCUSSED SEVERAL ISSUES WITH MS. HARDY'S PAIN MANAGEMENT CASE. I WAS WITH THE PATIENT MORE THAN 30 MINS IN THE ENCOUNTER TODAY, MORE THAN HALF THE TIME WAS DEDICATED TO DISCUSSING ALTERNATIVES, COUNSELING AND DISCUSSING HER CASE. AT THIS TIME WE WILL PROCEED FORWARD WITH THE DCS, I WILL WRITE A SCRIPT FOR A THORACIC MRI. PATIENT STATES THAT SHE WOULD LIKE TO GO TO DR. LEWIS OFFICE IN [place] FOR A PSYCH. EVAL. I DISCUSSED WITH THE PATIENT THAT I WILL REFER HER FOR A SURGICAL CONSULT OF HER BACK A SECOND OPINION. AFTER EXAMINING THE PATIENT AND REVIEWING THE MRI PATIENT IS A GOOD CANDIDATE FOR A LFBT OR A SIJ AND I WILL REVIEW UNDER X-RAY ON WHICH PROCEDURE TO PROCEED WITH. WE DISCUSSED THE RISKS, BENEFITS, AND ALTERNATIVES AND THE PATIENT WOULD LIKE TO PROCEED. PATIENT WILL BE BOOKED PENDING APPROVAL. INSTRUCTIONS WERE GIVEN, QUESTIONS WERE ANSWERED, PATIENT REPORTS UNDERSTANDING AND AGREES WITH THE PLAN. I, CLARIBEL HOLLIS, DOCUMENTED THE ABOVE INFORMATION ACTING A SCRIBE FOR DR. QUIÑONEZ. I HAVE REVIEWED THE ABOVE DOCUMENT, WRITTEN BY CLARIBEL HOLLIS SCRIBYvette AND I VERIFY THAT IT IS ACCURATE. OTHERS NOTES: WHAT IS LUMBAR EPIDURAL INJECTION? MATERIAL WAS PRINTED,FACET JOINT INJECTION MATERIAL WAS PRINTED. PROCEDURE CODES FA211 ESTABILISHED PATIENT [facility] FACILITY CHARGE G8730 PAIN ASSESS POS TOOL F/U PLAN DOC G8427 DOC MEDS VERIFIED W/PT OR RE DISPOSITION & COMMUNICATION FOLLOW UP LFBT VS SIJ PENDING APPROVALS ELECTRONICALLY SIGNED BY JAYLA QUIÑONEZ MD ON 10/04/2016 AT 11:42 AM EDT DISCLAIMER : THIS IS A VISIT SUMMARY EXTRACTED FROM THE [employer] CHART. IT IS NOT A COPY OF THE [employer] PROGRESS NOTE. MTDD
== END ==
LOC: M PAIN 14:40
PROVIDERS: ATTEND Anesthesiology
DX: M54.5 Low back pain (principal); M51.16 Intervertebral disc disorders with radiculopathy, lumbar region; M51.17 Intervertebral disc disorders with radiculopathy, lumbosacral region; M48.06 Spinal stenosis, lumbar region; M48.07 Spinal stenosis, lumbosacral region; G89.29 Other chronic pain; Z79.84 Long term (current) use of oral hypoglycemic drugs; Z79.899 Other long term (current) drug therapy; I10 Essential (primary) hypertension; D50.9 Iron deficiency anemia, unspecified; I25.10 Atherosclerotic heart disease of native coronary artery without angina pectoris; I48.0 Paroxysmal atrial fibrillation; E11.9 Type 2 diabetes mellitus without complications; E78.2 Mixed hyperlipidemia; J45.30 Mild persistent asthma, uncomplicated; F32.9 Major depressive disorder, single episode, unspecified; E11.69 Type 2 diabetes mellitus with other specified complication; Z91.040 Latex allergy status

== ENCOUNTER → 2016-10-13 | Outpatient (CLI) | payer MEDICARE, MEDICAID | LOC: M RAD 13:35 | PROVIDERS: ATTEND Anesthesiology | DX: M54.9 Dorsalgia, unspecified (principal); Z53.9 Procedure and treatment not carried out, unspecified reason ==

== ENCOUNTER → 2016-10-15 | Outpatient (CLI) | payer MEDICARE, MEDICAID | LOC: M SLEEP 19:35 | PROVIDERS: ATTEND Internal Medicine Pulmonary Disease | DX: G47.30 Sleep apnea, unspecified (principal) ==

== ENCOUNTER → 2016-10-16 | Outpatient (CLI) | payer MEDICARE, MEDICAID ==
--- NOTE | 2016-10-16 11:18 | REP ---
MRI STUDY OF THE THORACIC SPINE: HISTORY: Pain in the thoracic spine radiating down both upper extremities bilateral hand numbness. Comparison is made with MRI lumbar spine imaging from April 20, 2016. TECHNIQUE: Sagittal and axial T1 and T2-weighted scans are acquired in the usual fashion with and without fat saturation. Sequences include spin echo, turbo spin echo, and STIR imaging sequences. MRI FINDINGS: Thoracic vertebral body heights are preserved and alignment is normal. There is diffuse degenerative spondylosis change with multiple levels of large anterolateral right-sided paravertebral osteophyte formation from T6-7 through T9-10. There is a right posterior disc protrusion with discogenic spurring at the T3-4 level. This effaces the ventral subarachnoid space but does not compress the cord. There is a small central disc protrusion at T4-5. There is a small central disc protrusion at C5-6. These efface the ventral subarachnoid space but do not compress the cord. At T6-7, there is diffuse disc bulging and posterior osteophytic ridging effacing the ventral subarachnoid space. No cord compression is seen. At T8-9, there is a right posterior disc protrusion which effaces the right ventral lateral margin of the thecal sac and flattens the right ventral lateral margin of the cord. No central canal stenosis is seen. No neural foraminal encroachment is seen. A small central disc protrusion is seen at T9-10 without cord compression. At T10-T11, there is no abnormality. At T11-12, there is a moderate left posterior disc protrusion effacing the left ventral lateral margin of the thecal sac and the left ventral lateral margin of the cord. No neural foraminal narrowing is seen. The thoracic cord is normal in coarse, caliber and signal intensity on T1 and T2-weighted scans. No neural foraminal lesion is seen. No extra spinal abnormality is observed. IMPRESSION: Thoracic degenerative spondylosis changes. Multiple thoracic disc protrusions as noted above. Signed by Alexys Higgins MD 10/16/2016 12:57 P
== END ==
LOC: M PLARAD 09:51
PROVIDERS: ATTEND Anesthesiology
DX: M51.24 Other intervertebral disc displacement, thoracic region (principal); M47.814 Spondylosis without myelopathy or radiculopathy, thoracic region

== ENCOUNTER → 2016-10-28 | Outpatient (CLI) | payer MEDICARE, MEDICAID, OTHER ==
[~2016-10-28] MED LIST changes: +CARB400T4; +CARV25TA; +CLOP75TA2; +DIGI1TAB3; +DULO1CAP3; +FURO40TA2; +GABA600T; +ISOS30TA4; +JANU100T; +LAMO200T; +LANTINJ4; +LYRI150C; +METF500T4; +PRAM0.252; +ROSU40TA; +VICT18IN
--- NOTE | 2016-11-11 01:52 | ECWPNPC ---
PATIENT NAME: MONTANA HARDY : 1965 GENDER: FEMALE VISIT DATE: 10/28/2016 DISCHARGE DATE: 10/28/161728 VISIT LOCKED DATE TIME: PHYSICIAN: JAYLA QUIÑONEZ RESOURCE: JAYLA QUIÑONEZ REASON FOR APPOINTMENT 1. LOW BACK PAIN HISTORY OF PRESENT ILLNESS HISTORY OF PRESENT ILLNESS: PAIN THE PATIENT DESCRIBES THE PAIN... 51 YEAR OLD FEMALE PATIENT WITH HISTORY OF CHRONIC LOW BACK PAIN. PATIENT DESCRIBES THE PAIN ACHING, SORE, AND TENDER WITH A PAIN SCORE OF 6/10. PATIENT STATES THAT ANY TYPE OF ACTIVITY INCREASES THE PAIN IN HER LOWER BACK INCLUDING WALKING, STANDING AND SITTING. PATIENT DENIES UNEXPLAINABLE WEIGHT LOSS, FEVER, CHILLS, NEW CHANGES ON HER URINARY OR BOWEL CONTROL. FALL RISK SCREENING: SCREENING :NO FALLS IN THE PAST YEAR CURRENT MEDICATIONS TAKING POLYSACCHARIDE IRON COMPLEX 150 MG CAPSULE 1 CAPSULE ORALLY ONCE A DAY, NOTES: 10-28-16799 TAKING NEXIUM 40 MG CAPSULE DELAYED RELEASE 1 CAPSULE ORALLY TWICE A DAY, NOTES: 10-28-16799 TAKING CRESTOR 40 MG TABLET 1 TABLET ORALLY ONCE A DAY, NOTES: NONE RECENT TAKING ZETIA 10 MG TABLET 1 TABLET ORALLY ONCE A DAY, NOTES: 10-28-16799 TAKING ELIQUIS 5 MG TABLET 1 TABLET ORAL TWICE A DAY, NOTES: 10-25-162099 TAKING DIGOXIN 0.25 MG TABLET 1 TABLET ORALLY ONCE A DAY, NOTES: 10-28-16799 TAKING CARVEDILOL 25 TABLET 1 TAB ORAL BID, NOTES: 10-28-16799 TAKING LANTUS SOLO STAR PEN NEEDLES DX 250.00 ... 55 UNITS SQ P.M., NOTES: 10-27-162199 TAKING LANCETS DX 250.00 ONE TOUCH LANCET - ONCE A DAY TAKING METFORMIN XR 500 MG EXTENDED RELEASE 2 TABLET ORALLY TWICE A DAY, NOTES: 10-27-162199 TAKING IMDUR 30 MG TABLET EXTENDED RELEASE 24 HOUR 1 TABLET ORALLY TWICE A DAY, NOTES: 10-28-16799 TAKING PLAVIX 75 MG TABLET 1 TABLET ORALLY ONCE A DAY, NOTES: 10-20-16799 TAKING NITROGLYCERIN 0.4 MG TABLET SUBLINGUAL 1 TABLET UNDER THE TONGUE SUBLINGUAL ONE TABLET TIMES 3 EVERY 5 MINUTES IF NO RELIEF GO TO THE ER, NOTES: WEEK AGO TAKING ONE TOUCH ULTRA TEST STRIPS . STRIPS 1 STRIP DX CODE E11.9 THREE TIMES DAILY NEEDED TAKING BD PEN NEEDLE SHORT U/F 31G X 8 MM MISCELLANEOUS USE DIRECTED WITH LANTUS TAKING ALCOHOL PREPS 70 % MISCELLANEOUS DIRECTED EXTERNALLY DAILY TAKING VITAMIN B-12 1000 MCG TABLET 1 TABLET ORALLY ONCE A DAY, NOTES: 10-28-16799 TAKING DRISDOL 50,000 UNITS TABLET 1 TABLET ORALLY ONCE A WEEK, NOTES: 10-26-16799 TAKING MIRALAX - POWDER 1 CAP ORALLY ONCE DAILY NEEDED TAKING BD ULTRA-FINE PEN NEEDLES 32G 4MM 2 INJECTIONS SUBCUTANEOUSLY DAILY TAKING TRAZODONE 100 100MG TABLET 2 TABLETS ORALLY AT BEDTIME, NOTES: 10-27-162199 TAKING TEGRETOL 400 MG TABLET 1 TABLET ORALLY TWICE A DAY, NOTES: 10-28-16799 TAKING FERREX 150 150 MG CAPSULE TAKE 1 CAPSULE BY MOUTH ONCE DAILY ORALLY TWICE DAILY, NOTES: 10-28-16799 TAKING CALCIUM 600/VITAMIN D 600-400 MG-UNIT TABLET 1 TABLET WITH FOOD ORALLY TWICE A DAY, NOTES: 10-28-16799 TAKING IMITREX STATDOSE SYSTEM 4 MG/0.5ML SOLUTION AUTO-INJECTOR 0.5 ML NEEDED SUBCUTANEOUS TWICE A DAY, NOTES: NONE TAKING VICTOZA 18 MG/3ML SOLUTION PEN-INJECTOR INJECT 1.2 MILLIGRAM SUBCUTANEOUSLY DAILY , NOTES: 10-28-16799 TAKING MIRAPEX 0.5 MG TABLET 1 TABLET BEFORE BEDTIME ORALLY BID, NOTES: 10-28-16799 TAKING ALBUTEROL SULFATE (2.5 MG/3ML) 0.083% NEBULIZATION SOLUTION 3 ML NEEDED INHALATION THREE TIMES A DAY NEEDED, NOTES: NONE NEEDED TAKING ALDACTONE 25 MG TABLET 1 TABLET ORALLY DAILY, NOTES: 10-28-16799 TAKING WRIST SPLINT/COCK-UP/RIGHT L - MISCELLANEOUS DIRECTED _ DAILY TAKING DULOXETINE HCL 30 MG CAPSULE DELAYED RELEASE PARTICLES 2 CAPSULES ORALLY DAILY, NOTES: 10-28-16799 TAKING IBUPROFEN 800 MG TABLET 1 TABLET WITH FOOD OR MILK ORALLY THREE TIMES DAILY NEEDED, NOTES: 10-27-16 AM TAKING LAMICTAL 25 MG TABLET 3 TABLETS ORALLY TWICE A DAY, NOTES: 10-28-16799 TAKING LAMICTAL 200 MG TABLET 1 TABLET ORALLY TWICE A DAY, NOTES: 10-28-16799 TAKING COLACE 100 MG CAPSULE 1 CAPSULE ORALLY BID, NOTES: 10-28-16799 TAKING LYRICA 150 MG CAPSULE 1 CAPSULE ORALLY BID, NOTES: 10-28-16799 TAKING TIZANIDINE HCL 2 MG TABLET TAKE 1 TABLET BY MOUTH THREE TIMES A DAY IF NEEDED FOR MUSCLE SPASM ORAL , NOTES: NONE TAKING ISOSORBIDE MONONITRATE ER 30 MG TABLET EXTENDED RELEASE 24 HOUR ORAL , NOTES: 10-28-16799 TAKING CETIRIZINE HCL 10 MG TABLET TAKE 1 TABLET BY MOUTH AT BEDTIME ORAL , NOTES: 10-28-16799 TAKING JANUVIA 100MG TABLET 1 TABLET ORALLY ONCE A DAY, NOTES: 10-28-16799 TAKING ESOMEPRAZOLE MAGNESIUM 40 MG CAPSULE DELAYED RELEASE TAKE 1 CAPSULE BY MOUTH TWICE A DAY , NOTES: 10-28-16799 TAKING FUROSEMIDE 40 MG TABLET 1 TABLET ORALLY DAILY, NOTES: 10-27-16 AM NOT-TAKING DIFLUCAN 100 MG TABLET 1 TABLET ORALLY DAILY X 7 DAYS PRN DISCONTINUED CLONIDINE HCL 0.1 MG TABLET TAKE 1 TABLET BY MOUTH EVERY MORNING ORAL DISCONTINUED METFORMIN HCL ER 500 MG TABLET EXTENDED RELEASE 24 HOUR TAKE 2 TABLETS BY MOUTH TWICE A DAY DISCONTINUED FLUCONAZOLE 100 MG TABLET 1 TABLET ORALLY DAILY, NOTES: NONE MEDICATION LIST REVIEWED AND RECONCILED WITH THE PATIENT PAST MEDICAL HISTORY LUMBAR DJD WITH BILATERAL LOWER EXTREMITY RADICULOPATHY-2009 MRI WITH MULTILEVEL BULGES, AT L4/S1 CAUSING MODERATE TO SEVERE BILATERAL NEURAL FORAMEN NARROWING SEIZURE DISORDER HYPERTENSION HYPERLIPIDEMIA 2B OBESITY DEPRESSION/PANIC DISORDER/INSOMNIA-FOLLOWED BY DR. 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 ASTHMA, MILD PERSISTENT/COPD-09/2014 FEV1 2.2L (66%)/RATIO 72%-EVIN PERIPHERAL EDEMA SECONDARY TO VENOUS INSUFFICIENCY AND NSAID AND LYRICA USE-2009 TTE [place] WITH BORDERLINE LAE, BORDERLINE DILATED AORTIC ROOT, NO DIASTOLIC NOR SYSTOLIC DYSFUNCTION CAD STATUS POST NON-Q WAVE [place] APRIL 2011 STATUS POST ANGELICA TO MID LAD, CHRONIC OCCLUSION OF RCA WITH COLLATERALS SUPPLYING BLOOD FLOW TO DISTAL RCA AND PDA BRANCHES, LVEF 50% WITH MILD ANTERIOR AND INFERIOR HYPOKINESIS-FISCHI//09/25/13 CATHERIZATION-PATIENT LAD, CHRONICALLY OCCLUDED RCA, NORMAL LVEF-RITA//06/18/15 CATH PATIENT LAD STENTS, LVEF 59%-RITA HISTORY NARCOTIC ABUSE-IN REHAB AT [facility]-03/21-04/18/12 B TROCHANTERIC BURSITIS-04/2013 NORMAL B HIP XRAY + H PYLORI BY AB-TREATED C DOXY/FLAGYL/BISMUTH/PPI X 14D-06/2013 ATRIAL FIBRILLATION, PAROXYSMAL, NEW-ONSET-09/04/13 [facility] HEMISPHERIC TIA-11/2014 C L FACIAL/ARM NUMBNESS/VISUAL DISTURBANCE/DIZZINESS-MRI C B FRONTAL, R PARIETAL T2 HYPERINTENSITIES, B ICA 16-49% STENOSIS, -CTA CHEST FOR PE R NEPHROLITH BY 11/2014 CT ALLERGIES LATEX (FOR ALLERGY USE ONLY): RASH SURGICAL HISTORY REMAINING 8 TEETH EXTRACTION-DR. ANDERSON 07/2012 HERNIA REPAIR/INGUINAL 2004? APPENDECTOMY A CHILD STENTS- [place] X 6 10/2015 FAMILY HISTORY MOTHER: [place] HTN DM SIBLINGS: [place] HTN [place] SOCIAL HISTORY GENERAL: TOBACCO USE ARE YOU A:NONSMOKER BMI CARE GOAL FOLLOW-UP ABOVE NORMAL BMI FOLLOW-UPGIVING ENCOURAGEMENT TO EXERCISE MARITAL STATUS: . OTHERS AT HOME: SPOUSE. LEARNING BARRIERS / SPECIAL NEEDS CHANGE FROM LAST VISIT?NO BARRIERS TO LEARNING?NO HEARING IMPAIRED?NO VISION IMPAIRED?YES :CORRECTIVE LENSES COGNITIVELY IMPAIRED?NO READINESS TO LEARN?YES LEARNING PREFERENCES?NO LEARNING CAPABILITIES PRESENT?YES EMOTIONAL BARRIERS?NO SPECIAL DEVICES?NO NEW PATIENT PAIN DIARY TODAY'S VISIT NOTES, FROM 0-10, WHAT LEVEL IS YOUR PAIN TODAY? 0. PAIN CLINIC PFS, CLERGY, PUBLIC HEALTH REFERRALS PFS REFERRAL NEEDED? NO, CLERGY REFERRAL NEEDED? NO, PUBLIC HEALTH REFERRAL NEEDED? NO, WAS THE PROVIDER NOTIFIED OF ANY PERTINENT INFO? NO, PFS REFERRAL NEEDED? NO, CLERGY REFERRAL NEEDED? NO, PUBLIC HEALTH REFERRAL NEEDED? NO, WAS THE PROVIDER NOTIFIED OF ANY PERTINENT INFO? NO. SMOKING 1 PPD. DENIES ETOH. PRIOR H/O OF NARCOTIC ABUSE. HAD BEEN USING A FRIEND'S SUBOXONE, BUT STATES SHE STOPPED. HOSPITALIZATION/MAJOR DIAGNOSTIC PROCEDURE B AXILLARY MRSA ABSCESSES S/P B DRAINAGE BY DR. VARGAS, IV VANCOMYCIN, - BCX X2 05/30- B AXILLARY MRSA ABSCESSES S/P B DRAINAGE BY DR. VARGAS, IV VANCOMYCIN, - BCX X2 05/30- R HEMISPHERIC TIA-WORKUP PER 11/28- R HEMISPHERIC TIA-WORKUP PER 11/28- CARDIAC CATH ([facility]) DR. SALINAS 07/23 CARDIAC CATH ([facility]) DR. SALINAS 07/23 [place] 2012,2014 REVIEW OF SYSTEMS CONSTITUTIONAL: ANY CHANGE IN YOUR MEDICAL CONDITION? NO . CHILLS NO . FEVER NO . INFECTION: DO YOU HAVE NEW INFECTIONS? NO . DO YOU HAVE HISTORY OF MRSA? NO . MUSCULOSKELETAL: ANY NEW PATTERNS OF PAIN OR NUMBNESS? NO . GASTROENTEROLOGY: ANY NEW CHANGE IN BOWEL CONTROL? NO . GENITOURINARY: ANY NEW CHANGE IN BLADDER CONTROL? NO . IS THERE A CHANCE YOU COULD BE ? NO . HEMATOLOGY/LYMPH: DO YOU TAKE ANY BLOOD THINNERS? (FOR EXAMPLE- COUMADIN, PLAVIX, AGGRENOX, PLATEL, PRADAXA, OR XARELTO) NO . WHEN WAS YOUR LAST DOSE? DATE: TIME: . NEUROLOGY: HAVE YOU FALLEN IN THE PAST 6 MONTHS? YES, LOTS OF BACK PAIN AND FELL IN TRUCK, AND ON ICE IN THE WINTER. . ANY NEW EXTREMITY NUMBNESS OR WEAKNESS? NO . CARDIOLOGY: DO YOU HAVE A PACEMAKER OR DEFIBRILLATOR? NO . RESPIRATORY: HAVE YOU BEEN SICK IN THE PAST WEEK? NO . FEVER NO . FLU LIKE SYMPTOMS? NO . COUGH NO . INTEGUMENTARY: DO YOU HAVE ANY RASHES OR OPEN SORES? NO . ALLERGIC/IMMUNO: ARE YOU ALLERGIC TO SHELLFISH OR IV DYE? NO . ANY NEW ALLERGIES? NO . PSYCHIATRIC: DO YOU HAVE THOUGHTS OF HURTING YOURSELF OR SOMEONE ELSE? NO . ARE YOU ABUSED, NEGLECTED, OR IN AN UNSAFE ENVIRONMENT? NO . ENDOCRINOLOGY: ARE YOU DIABETIC? YES TAKES MEDS FOR IT. . OTHER: DO YOU NEED ANY PRESCRIPTIONS? NO . IF YES, PLEASE LIST: ____ . ANY NEW PROBLEMS WITH YOUR MEDICATIONS? NO . WHEN DID YOU LAST EAT? 10-28-16 MIDNIGHT . WHEN DID YOU LAST DRINK? 10-28-16 MIDNIGHT . WHAT DID YOU LAST DRINK? PEPSI . NAME OF PERSON DRIVING YOU HOME? WANDY- . DO YOU HAVE ANY OTHER QUESTIONS OR CONCERNS NO . REVIEWED BY: PROVIDER: JAYLA QUIÑONEZ MD . VITAL SIGNS WT 247 LBS, HT 69 IN, BMI 36.47 INDEX, BP 162/67 MM HG, HR 72 /MIN, RR 18 /MIN, TEMP 96.5 F, OXYGEN SAT % 94%, NA INITIALS SC 10:35. EXAMINATION : PATIENT IS ALERT O X 3 AND COOPERATIVE. TENDERNESS IN THE LOWER BACK AND PARASPINAL MUSCLE GROUP. MRI DONE ON 04/20/16 OF THE LUMBAR SPINE SHOWS FACET HYPERTROPHY, DISC BULGES FROM L1-L2 THROUGH L4-L5, DISC EXTRUSION AT L5-S1 AND CANAL STENOSIS AT L2-L3 AND L4-L5. ASSESSMENTS SACROILIITIS, NOT ELSEWHERE CLASSIFIED - M46.1 (PRIMARY) SPONDYLOSIS WITHOUT MYELOPATHY OR RADICULOPATHY, LUMBAR REGION - M47.816 SPONDYLOSIS WITHOUT MYELOPATHY OR RADICULOPATHY, LUMBOSACRAL REGION - M47.817 TREATMENT SACROILIITIS, NOT ELSEWHERE CLASSIFIED NOTES: WE DISCUSSED SEVERAL ISSUES WITH MRS. HARDY'S PAIN MANAGEMENT CASE. AT THIS TIME THE PATIENT WILL CONTINUE WITH THE SAME MEDICATION REGIME. PATIENT WILL RETURN TOMORROW MORNING AFTER SHE HAS BEEN OFF THE BLOOD THINNER THE CORRECT AMOUNT OF TIME. WE DISCUSSED MOVING FORWARD WITH THE LUMBAR FACET BLOCK OR A SACROILIAC JOINT BLOCK AND THE PATIENT AGREES WIT THE PLAN. WE DISCUSSED THE RISKS, BENENFITS, AND ALTNERATIVES OF THE INJECTION AND THE PATIENT WOULD LIKE TO PROCEED AT THIS TIME. INSTRUCTIONS WERE GIVEN, QUESTIONS WERE ANSWERED, PATIENT REPORTS UNDERSTANDING AND AGREES WITH THE PLAN. I, JESSICA CANALES, DOCUMENTED THE ABOVE INFORMATION ACTING A SCRIBE FOR DR. QUIÑONEZ. I HAVE REVIEWED THE ABOVE DOCUMENT, WRITTEN BY JESSICA VILLA AND I VERIFY THAT IT IS ACCURATE. PROCEDURE CODES FA211 ESTABILISHED PATIENT THE [facility] FACILITY CHARGE G8427 DOC MEDS VERIFIED W/PT OR RE G0097 PAIN ASSESS POS TOOL F/U PLAN DOC DISPOSITION & COMMUNICATION FOLLOW UP TOMORROW ELECTRONICALLY SIGNED BY JAYLA QUIÑONEZ MD ON 11/10/2016 AT 06:22 PM EDT DISCLAIMER : THIS IS A VISIT SUMMARY EXTRACTED FROM THE [employer] CHART. IT IS NOT A COPY OF THE [employer] PROGRESS NOTE. MTDD
== END ==
LOC: M PAIN 10:20
PROVIDERS: ATTEND Anesthesiology
DX: M46.1 Sacroiliitis, not elsewhere classified (principal); M47.816 Spondylosis without myelopathy or radiculopathy, lumbar region; M47.817 Spondylosis without myelopathy or radiculopathy, lumbosacral region; M54.5 Low back pain; G89.29 Other chronic pain; Z79.4 Long term (current) use of insulin; Z79.01 Long term (current) use of anticoagulants; Z79.899 Other long term (current) drug therapy; Z91.040 Latex allergy status; I10 Essential (primary) hypertension; D50.9 Iron deficiency anemia, unspecified; I25.10 Atherosclerotic heart disease of native coronary artery without angina pectoris; E11.9 Type 2 diabetes mellitus without complications; E78.2 Mixed hyperlipidemia; F32.9 Major depressive disorder, single episode, unspecified; J45.30 Mild persistent asthma, uncomplicated; G25.81 Restless legs syndrome; E53.8 Deficiency of other specified B group vitamins

== ENCOUNTER 2016-10-29 09:23 | Emergency (ER) | payer MEDICARE, MEDICAID ==
[~2016-10-29 09:23] MED LIST changes: -CARB400T4; -CARV25TA; -CLOP75TA2; -DIGI1TAB3; -DULO1CAP3; -FURO40TA2; -GABA600T; -ISOS30TA4; -JANU100T; -LAMO200T; -LANTINJ4; -LYRI150C; -METF500T4; -PRAM0.252; -ROSU40TA; +SPIRONOLACTONE 25 MG TAB PO SCH; -VICT18IN
[2016-10-29] MEDS ORDERED: LORazepam 2 MG/ML VIAL (J2060) IV STA ×2 (09:39→11:33)
[2016-10-29] MEDS ORDERED: NITROGLYCERIN 0.4 MG SUBL TABLET SL PRN (09:45)
[2016-10-29] MEDS ORDERED: ASPIRIN 81 MG CHEW TABLET PO ONE (09:45)
[2016-10-29] MEDS ORDERED: ISOS30TA4 (09:48)
[2016-10-29] MEDS ORDERED: DULO1CAP3 (09:48)
[2016-10-29] MEDS ORDERED: VICT18IN (09:48)
[2016-10-29] MEDS ORDERED: PRAM0.252 (09:48)
[2016-10-29] MEDS ORDERED: FURO40TA2 (09:48)
[2016-10-29] MEDS ORDERED: ROSU40TA (09:48)
[2016-10-29] MEDS ORDERED: LYRI150C (09:48)
[2016-10-29] MEDS ORDERED: CARV25TA (09:48)
[2016-10-29] MEDS ORDERED: LANTINJ4 (09:48)
[2016-10-29] MEDS ORDERED: CLOP75TA2 (09:48)
[2016-10-29] MEDS ORDERED: JANU100T (09:48)
[2016-10-29] MEDS ORDERED: DIGI1TAB3 (09:48)
[2016-10-29] MEDS ORDERED: LAMO200T (09:48)
[2016-10-29] MEDS ORDERED: CARB400T4 (09:48)
[2016-10-29] MEDS ORDERED: METF500T4 (09:48)
[2016-10-29] MEDS ORDERED: GABA600T (09:48)
[2016-10-29 10:08] LABS: BASO % 0.6 % (0.0-1.0); EOS % 0.1 % (0.0-3.0); LARGE UNSTAINED CELL # 0.3 K/mm3 (0.0-0.4); LARGE UNSTAINED CELL % 3.2 % (0.0-4.0); LYMPH # 1.9 K/mm3 (1.5-4.5); LYMPH % 19.9 % (24.0-44.0); MEAN CORPUSCULAR HEMOGLOBIN 28.2 pg (27.0-33.0); MEAN CORPUSCULAR HGB CONC 32.9 g/dl (32.0-36.5); MEAN CORPUSCULAR VOLUME 85.8 fl (80.0-96.0); MONO # 0.4 K/mm3 (0.0-0.8); MONO % 4.4 % (0.0-5.0); NEUTROPHILS # 5.9 K/mm3 (1.8-7.7); NEUTROPHILS % 71.8 % (36.0-66.0); PLATELET COUNT, AUTOMATED 299 k/mm3 (150-450); RED CELL DISTRIBUTION WIDTH 15.6 % (11.5-14.5); WHITE BLOOD COUNT 8.2 K/mm3 (4.0-10.0)
[2016-10-29 10:14] LABS: INR 0.92
[2016-10-29] MEDS ORDERED: NITROGLYCERIN 2% OINT 1 GM *U/D* PKT TOP ONE (10:15)
--- NOTE | 2016-10-29 10:18 | REP ---
Portable chest: Single view. History: Chest pain. Comparison study: February 15, 2016. Findings: EKG monitoring electrodes overlie the chest. The lungs are well inflated and clear. The pleural angles are sharp. Pulmonary vasculature is not increased. There are degenerative changes in the thoracic spine. No other bony abnormality is seen. Heart size is normal. Impression: No active disease. Signed by Alexys Higgins MD 10/29/2016 10:09 A
[2016-10-29 10:39] LABS: ALBUMIN/GLOBULIN RATIO 0.81 (1.00-1.93); ALKALINE PHOSPHATASE 125 U/L (45-117); ALT/SGPT 31 U/L (12-78); ANION GAP 10 MEQ/L (8-16); AST/SGOT 19 U/L (15-37); BILIRUBIN,DIRECT < 0.1 MG/DL (0.0-0.2); BILIRUBIN,TOTAL 0.2 MG/DL (0.2-1.0); BLOOD UREA NITROGEN 10 MG/DL (7-18); CALCIUM LEVEL 8.7 MG/DL (8.5-10.1); CARBON DIOXIDE LEVEL 27 MEQ/L (21-32); CHLORIDE LEVEL 99 MEQ/L (98-107); CREATININE FOR GFR 0.61 MG/DL (0.55-1.02); GLOMERULAR FILTRATION RATE > 60.0 (>51); GLUCOSE, FASTING 330 MG/DL (70-105); SODIUM LEVEL 136 MEQ/L (136-145); TOTAL PROTEIN 6.7 GM/DL (6.4-8.2)
[2016-10-29] MEDS ORDERED: FUROSEMIDE 40 MG TAB PO ONE (12:30)
[2016-10-29] MEDS ORDERED: CARVedilol 12.5 MG TAB PO ONE (12:30)
[2016-10-29 12:36] VITALS: BP 188/103
[2016-10-29] MEDS ORDERED: ISOVUE-370 76% 100ML VIAL (Q9967) As Ordered ONE (13:09)
--- NOTE | 2016-10-29 13:55 | REP ---
CT pulmonary angiogram: With IV contrast. History: Chest pain. Comparison studies: February 15, 2016. Contrast dose: 75 mL of Isovue [address] technique: Helical scanning is acquired and overlapping 1.5 mm and contiguous 3 mm axial images are reformatted. In addition, a 3-D work station is deployed to generate thick slab maximum intensity projection images in sagittal and coronal imaging projections. CT pulmonary angiographic findings: There is good opacification of the pulmonary arterial tree and there is no CT evidence of pulmonary embolism. There is extensive calcification versus stent material along the course of the left anterior descending coronary artery. There are scattered mediastinal lymph nodes, which are unchanged from the February 15, 2016 prior study. Lung window settings show no evidence of infiltrate, mass or significant pulmonary nodule. No bony destructive lesion is appreciated. The thoracic aorta is normal in caliber and homogeneous in contrast enhancement. Impression: 1. No CT evidence of pulmonary embolism. 2. Left coronary artery stent material versus vascular calcification. 3. Stable mediastinal lymph nodes. Signed by Alexys Higgins MD 10/29/2016 02:51 P
[2016-10-29 13:57] LABS: DIGOXIN LEVEL 0.5 NG/ML (0.5-2.0)
--- NOTE | 2016-10-29 14:16 | ECGEPIP ---
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
--- NOTE | 2016-10-29 14:17 | ECGEPIP ---
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
--- NOTE | 2016-10-29 14:17 | ECGEPIP ---
Stationary ECG Study [facility] - ED Test Date: 2016-10-29 Pat Name: MONTANA HARDY Department: Room: - Gender: F Manager Cancer: : 1965 Requested By: Mahnaz Mo Order Number: [id number] Reading MD: Cade Guy Measurements Intervals [place] Rate: 76 P: -7 [place]: 180 QRS: 32 QRSD: 101 T: 7 QT: 368 QTc: 416 Interpretive Statements SINUS RHYTHM NSTTW ABNORMALITIES SIMILAR TO PRIOR ON SAME DATE Electronically Signed On 10-29-2016 14:16:55 EDT by Cade Guy
--- NOTE | 2016-10-29 14:17 | ECGEPIP ---
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
[2016-10-29 16:01] VITALS: BP 200/84
--- NOTE | 2016-10-29 22:09 | ECGEPIP ---
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
== END 2016-10-29 16:36 | disposition home or self-care (01) ==
LOC: M ED 10:02
DX: R07.89 Other chest pain (principal); I10 Essential (primary) hypertension; I25.2 Old myocardial infarction; I25.10 Atherosclerotic heart disease of native coronary artery without angina pectoris; I48.91 Unspecified atrial fibrillation; E78.4 Other hyperlipidemia; Z86.73 Personal history of transient ischemic attack (TIA), and cerebral infarction without residual deficits
CPT/HCPCS: 36415; 71010; 71275; 80048; 80076; 80162; 82550; 82553; 83690; 83880; 84443; 84484; 85025; 85610; 93005; 93041; 94760; 96374; 96376; 99285; G0463; J2060; Q9967

== ENCOUNTER → 2016-10-29 | Outpatient (CLI) | payer MEDICARE, MEDICAID, OTHER ==
--- NOTE | 2016-11-11 00:37 | ECWPNPC ---
PATIENT NAME: MONTANA HARDY : 1965 GENDER: FEMALE VISIT DATE: 10/29/2016 DISCHARGE DATE: 10/29/16939 VISIT LOCKED DATE TIME: PHYSICIAN: JAYLA QUIÑONEZ RESOURCE: JAYLA QUIÑONEZ REASON FOR APPOINTMENT 1. LOW BACK PAIN HISTORY OF PRESENT ILLNESS HISTORY OF PRESENT ILLNESS: PAIN THE PATIENT DESCRIBES THE PAIN... 51 YEAR OLD FEMALE PATIENT WITH HISTORY OF CHRONIC LOW BACK PAIN. PATIENT DESCRIBES THE PAIN ACHING, SORE, AND TENDER WITH A PAIN SCORE OF 6/10. PATIENT COMPAING OF CHEST PAIN AND IN DISCOMFORT. PATIENT STATES THAT ANY TYPE OF ACTIVITY INCREASES THE PAIN IN HER LOWER BACK INCLUDING WALKING, STANDING AND SITTING. PATIENT DENIES UNEXPLAINABLE WEIGHT LOSS, FEVER, CHILLS, NEW CHANGES ON HER URINARY OR BOWEL CONTROL. FALL RISK SCREENING: SCREENING :NO FALLS IN THE PAST YEAR CURRENT MEDICATIONS TAKING POLYSACCHARIDE IRON COMPLEX 150 MG CAPSULE 1 CAPSULE ORALLY ONCE A DAY, NOTES: 10-28-16799 TAKING NEXIUM 40 MG CAPSULE DELAYED RELEASE 1 CAPSULE ORALLY TWICE A DAY, NOTES: 10-28-16799 TAKING CRESTOR 40 MG TABLET 1 TABLET ORALLY ONCE A DAY, NOTES: NONE RECENT TAKING ZETIA 10 MG TABLET 1 TABLET ORALLY ONCE A DAY, NOTES: 10-28-16799 TAKING ELIQUIS 5 MG TABLET 1 TABLET ORAL TWICE A DAY, NOTES: 10-25-162099 TAKING DIGOXIN 0.25 MG TABLET 1 TABLET ORALLY ONCE A DAY, NOTES: 10-28-16799 TAKING CARVEDILOL 25 TABLET 1 TAB ORAL BID, NOTES: 10-28-16799 TAKING LANTUS SOLO STAR PEN NEEDLES DX 250.00 ... 55 UNITS SQ P.M., NOTES: 10-27-162199 TAKING LANCETS DX 250.00 ONE TOUCH LANCET - ONCE A DAY TAKING METFORMIN XR 500 MG EXTENDED RELEASE 2 TABLET ORALLY TWICE A DAY, NOTES: 10-27-162199 TAKING IMDUR 30 MG TABLET EXTENDED RELEASE 24 HOUR 1 TABLET ORALLY TWICE A DAY, NOTES: 10-28-16799 TAKING PLAVIX 75 MG TABLET 1 TABLET ORALLY ONCE A DAY, NOTES: 10-20-16799 TAKING NITROGLYCERIN 0.4 MG TABLET SUBLINGUAL 1 TABLET UNDER THE TONGUE SUBLINGUAL ONE TABLET TIMES 3 EVERY 5 MINUTES IF NO RELIEF GO TO THE ER, NOTES: WEEK AGO TAKING ONE TOUCH ULTRA TEST STRIPS . STRIPS 1 STRIP DX CODE E11.9 THREE TIMES DAILY NEEDED TAKING BD PEN NEEDLE SHORT U/F 31G X 8 MM MISCELLANEOUS USE DIRECTED WITH LANTUS TAKING ALCOHOL PREPS 70 % MISCELLANEOUS DIRECTED EXTERNALLY DAILY TAKING VITAMIN B-12 1000 MCG TABLET 1 TABLET ORALLY ONCE A DAY, NOTES: 10-28-16799 TAKING DRISDOL 50,000 UNITS TABLET 1 TABLET ORALLY ONCE A WEEK, NOTES: 10-26-16799 TAKING MIRALAX - POWDER 1 CAP ORALLY ONCE DAILY NEEDED TAKING BD ULTRA-FINE PEN NEEDLES 32G 4MM 2 INJECTIONS SUBCUTANEOUSLY DAILY TAKING TRAZODONE 100 100MG TABLET 2 TABLETS ORALLY AT BEDTIME, NOTES: 10-27-162199 TAKING TEGRETOL 400 MG TABLET 1 TABLET ORALLY TWICE A DAY, NOTES: 10-28-16799 TAKING FERREX 150 150 MG CAPSULE TAKE 1 CAPSULE BY MOUTH ONCE DAILY ORALLY TWICE DAILY, NOTES: 10-28-16799 TAKING CALCIUM 600/VITAMIN D 600-400 MG-UNIT TABLET 1 TABLET WITH FOOD ORALLY TWICE A DAY, NOTES: 10-28-16799 TAKING IMITREX STATDOSE SYSTEM 4 MG/0.5ML SOLUTION AUTO-INJECTOR 0.5 ML NEEDED SUBCUTANEOUS TWICE A DAY, NOTES: NONE TAKING VICTOZA 18 MG/3ML SOLUTION PEN-INJECTOR INJECT 1.2 MILLIGRAM SUBCUTANEOUSLY DAILY , NOTES: 10-28-16799 TAKING MIRAPEX 0.5 MG TABLET 1 TABLET BEFORE BEDTIME ORALLY BID, NOTES: 10-28-16799 TAKING ALBUTEROL SULFATE (2.5 MG/3ML) 0.083% NEBULIZATION SOLUTION 3 ML NEEDED INHALATION THREE TIMES A DAY NEEDED, NOTES: NONE NEEDED TAKING ALDACTONE 25 MG TABLET 1 TABLET ORALLY DAILY, NOTES: 10-28-16799 TAKING WRIST SPLINT/COCK-UP/RIGHT L - MISCELLANEOUS DIRECTED _ DAILY TAKING DULOXETINE HCL 30 MG CAPSULE DELAYED RELEASE PARTICLES 2 CAPSULES ORALLY DAILY, NOTES: 10-28-16799 TAKING IBUPROFEN 800 MG TABLET 1 TABLET WITH FOOD OR MILK ORALLY THREE TIMES DAILY NEEDED, NOTES: 10-27-16 AM TAKING LAMICTAL 25 MG TABLET 3 TABLETS ORALLY TWICE A DAY, NOTES: 10-28-16799 TAKING LAMICTAL 200 MG TABLET 1 TABLET ORALLY TWICE A DAY, NOTES: 10-28-16799 TAKING COLACE 100 MG CAPSULE 1 CAPSULE ORALLY BID, NOTES: 10-28-16799 TAKING LYRICA 150 MG CAPSULE 1 CAPSULE ORALLY BID, NOTES: 10-28-16799 TAKING TIZANIDINE HCL 2 MG TABLET TAKE 1 TABLET BY MOUTH THREE TIMES A DAY IF NEEDED FOR MUSCLE SPASM ORAL , NOTES: NONE TAKING ISOSORBIDE MONONITRATE ER 30 MG TABLET EXTENDED RELEASE 24 HOUR ORAL , NOTES: 10-28-16799 TAKING CETIRIZINE HCL 10 MG TABLET TAKE 1 TABLET BY MOUTH AT BEDTIME ORAL , NOTES: 10-28-16799 TAKING JANUVIA 100MG TABLET 1 TABLET ORALLY ONCE A DAY, NOTES: 10-28-16799 TAKING ESOMEPRAZOLE MAGNESIUM 40 MG CAPSULE DELAYED RELEASE TAKE 1 CAPSULE BY MOUTH TWICE A DAY , NOTES: 10-28-16799 TAKING FUROSEMIDE 40 MG TABLET 1 TABLET ORALLY DAILY, NOTES: 10-27-16 AM NOT-TAKING DIFLUCAN 100 MG TABLET 1 TABLET ORALLY DAILY X 7 DAYS PRN PAST MEDICAL HISTORY LUMBAR DJD WITH BILATERAL LOWER EXTREMITY RADICULOPATHY-2009 MRI WITH MULTILEVEL BULGES, AT L4/S1 CAUSING MODERATE TO SEVERE BILATERAL NEURAL FORAMEN NARROWING SEIZURE DISORDER HYPERTENSION HYPERLIPIDEMIA 2B OBESITY DEPRESSION/PANIC DISORDER/INSOMNIA-FOLLOWED BY DR. 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 ASTHMA, MILD PERSISTENT/COPD-09/2014 FEV1 2.2L (66%)/RATIO 72%-EVIN PERIPHERAL EDEMA SECONDARY TO VENOUS INSUFFICIENCY AND NSAID AND LYRICA USE-2009 TTE STOCKTON WITH BORDERLINE LAE, BORDERLINE DILATED AORTIC ROOT, NO DIASTOLIC NOR SYSTOLIC DYSFUNCTION CAD STATUS POST NON-Q WAVE [place] APRIL 2011 STATUS POST ANGELICA TO MID LAD, CHRONIC OCCLUSION OF RCA WITH COLLATERALS SUPPLYING BLOOD FLOW TO DISTAL RCA AND PDA BRANCHES, LVEF 50% WITH MILD ANTERIOR AND INFERIOR HYPOKINESIS-FISCHI//09/25/13 CATHERIZATION-PATIENT LAD, CHRONICALLY OCCLUDED RCA, NORMAL LVEF-RITA//06/18/15 CATH PATIENT LAD STENTS, LVEF 59%-RITA HISTORY NARCOTIC ABUSE-IN REHAB AT [facility]-03/21-04/18/12 B TROCHANTERIC BURSITIS-04/2013 NORMAL B HIP XRAY + H PYLORI BY AB-TREATED C DOXY/FLAGYL/BISMUTH/PPI X 14D-06/2013 ATRIAL FIBRILLATION, PAROXYSMAL, NEW-ONSET-09/04/13 [facility] HEMISPHERIC TIA-11/2014 C L FACIAL/ARM NUMBNESS/VISUAL DISTURBANCE/DIZZINESS-MRI C B FRONTAL, R PARIETAL T2 HYPERINTENSITIES, B ICA 16-49% STENOSIS, -CTA CHEST FOR PE R NEPHROLITH BY 11/2014 CT ALLERGIES LATEX (FOR ALLERGY USE ONLY): RASH REVIEW OF SYSTEMS CONSTITUTIONAL: ANY CHANGE IN YOUR MEDICAL CONDITION? NO . CHILLS NO . FEVER NO . INFECTION: DO YOU HAVE NEW INFECTIONS? NO . DO YOU HAVE HISTORY OF MRSA? NO . MUSCULOSKELETAL: ANY NEW PATTERNS OF PAIN OR NUMBNESS? NO . GASTROENTEROLOGY: ANY NEW CHANGE IN BOWEL CONTROL? NO . GENITOURINARY: ANY NEW CHANGE IN BLADDER CONTROL? NO . IS THERE A CHANCE YOU COULD BE ? NO . HEMATOLOGY/LYMPH: DO YOU TAKE ANY BLOOD THINNERS? (FOR EXAMPLE- COUMADIN, PLAVIX, AGGRENOX, PLATEL, PRADAXA, OR XARELTO) NO . WHEN WAS YOUR LAST DOSE? DATE: TIME: . NEUROLOGY: HAVE YOU FALLEN IN THE PAST 6 MONTHS? NO . ANY NEW EXTREMITY NUMBNESS OR WEAKNESS? NO . CARDIOLOGY: DO YOU HAVE A PACEMAKER OR DEFIBRILLATOR? NO . RESPIRATORY: HAVE YOU BEEN SICK IN THE PAST WEEK? NO . FEVER NO . FLU LIKE SYMPTOMS? NO . COUGH NO . INTEGUMENTARY: DO YOU HAVE ANY RASHES OR OPEN SORES? NO . ALLERGIC/IMMUNO: ARE YOU ALLERGIC TO SHELLFISH OR IV DYE? NO . ANY NEW ALLERGIES? NO . PSYCHIATRIC: DO YOU HAVE THOUGHTS OF HURTING YOURSELF OR SOMEONE ELSE? NO . ARE YOU ABUSED, NEGLECTED, OR IN AN UNSAFE ENVIRONMENT? NO . ENDOCRINOLOGY: ARE YOU DIABETIC? NO . OTHER: DO YOU NEED ANY PRESCRIPTIONS? NO . IF YES, PLEASE LIST: ____ . ANY NEW PROBLEMS WITH YOUR MEDICATIONS? NO . WHEN DID YOU LAST EAT? ____ . WHEN DID YOU LAST DRINK? ____ . WHAT DID YOU LAST DRINK? ____ . NAME OF PERSON DRIVING YOU HOME? ____ . DO YOU HAVE ANY OTHER QUESTIONS OR CONCERNS YES, PT. STATES SHE HAS HAD CHEST PAIN THIS A.M. AND HAS TAKEN ONE NITRO. B/P 202/107, CLAUDINE 200/[address] QUIÑONEZ AWARE AND SPOKE WITH PT. AT 0908 PT TOOK 2ND NITRO. DR. QUIÑONEZ SPOKE WITH DR. FRITZ IN THE ED. PT TRANSFERRED TO ED VIA W/C.AD . REVIEWED BY: PROVIDER: . VITAL SIGNS WT 247 LBS, HT 69 IN, BMI 36.47 INDEX, BP 202/107 MM HG, REPEAT BP 200/100 MANUAL, HR 78 /MIN, RR 18 /MIN, TEMP 96.8 F, OXYGEN SAT % 97, NA INITIALS SC, REVIEWED BY: AD. EXAMINATION : PATIENT IS ALERT O X 3 AND COOPERATIVE. THE PATIENT IS ANXIOUS COMPLAINING OF SEVERE CHEST PAIN. ASSESSMENTS SACROILIITIS, NOT ELSEWHERE CLASSIFIED - M46.1 (PRIMARY) SPONDYLOSIS WITHOUT MYELOPATHY OR RADICULOPATHY, LUMBAR REGION - M47.816 SPONDYLOSIS WITHOUT MYELOPATHY OR RADICULOPATHY, LUMBOSACRAL REGION - M47.817 POSSIBLE CARDIAC EVENT. TREATMENT SACROILIITIS, NOT ELSEWHERE CLASSIFIED NOTES: WE DISCUSSED SEVERAL ISSUES WITH MRS. HARDY'S PAIN MANAGEMENT CASE. AT THIS TIME NO PROCEDURES WILL BE HELD DUE TO THE CHEST PAIN. PATIENT WAS SEND TO ED TO RULE OUT CARDIAC EVENTS. PATIENT WILL RETURN TO THE CLINIC ONCE SHE IS CLEARED. INSTRUCTIONS WERE GIVEN, QUESTIONS WERE ANSWERED, PATIENT REPORTS UNDERSTANDING AND AGREES WITH THE PLAN. I, JESSICA CANALES, DOCUMENTED THE ABOVE INFORMATION ACTING A SCRIBE FOR DR. QUIÑONEZ. I HAVE REVIEWED THE ABOVE DOCUMENT, WRITTEN BY JESSICA VILLA AND I VERIFY THAT IT IS ACCURATE. DISPOSITION & COMMUNICATION FOLLOW UP 4 WEEKS ELECTRONICALLY SIGNED BY JAYLA QUIÑONEZ MD ON 11/10/2016 AT 06:29 PM EDT DISCLAIMER : THIS IS A VISIT SUMMARY EXTRACTED FROM THE [employer] CHART. IT IS NOT A COPY OF THE [employer] PROGRESS NOTE. MTDD
== END ==
LOC: M PAIN 08:40
PROVIDERS: ATTEND Anesthesiology
DX: M46.1 Sacroiliitis, not elsewhere classified (principal); M47.816 Spondylosis without myelopathy or radiculopathy, lumbar region; M47.817 Spondylosis without myelopathy or radiculopathy, lumbosacral region; Z79.84 Long term (current) use of oral hypoglycemic drugs; Z79.4 Long term (current) use of insulin; Z79.899 Other long term (current) drug therapy; Z91.040 Latex allergy status

== ENCOUNTER → 2016-12-15 | Outpatient (REF) | payer MEDICARE, MEDICAID ==
[~2016-12-15] MED LIST changes: +ALBU17IN INH; +ALL10TAB27 PO; +AMLO5TAB2 PO; +AVAP150T31 PO; +BISO5TAB5 PO; +CALC1TAB55 PO; +CALC600T68 PO; +CARB400T4 PO; +CARV25TA; -DETR4CAP10 PO; +DIGI1TAB3 PO; +DOK100TA PO; +DULO1CAP2 PO; +DULO1CAP3; +DULO1CAP3 PO; +FERR1TAB8 PO; +FERR324T2 PO; +FLUC100T PO; +FLUC10TA PO; +FURO40TA2; +GABA-283 PO; +GABA600T; +GABA600T PO; +GABA800T PO; +INSULADS INJ; +IRBE300T10; +IRBE300T10 PO; +IRON50TA PO; +ISOS30TA4 PO; +JANU100T; +JANU100T PO; +LAMO200T; +LAMO250T PO; +LANTINJ4; +LANTINJ4 SQ; +LEXA1TAB PO; +LYRI150C; +LYRI200C PO; +METF-699 PO; -METF1000 PO; +METF10004 PO; +METF500T4; +MIRA0.5T PO; +PATIENT COMMENT; +PRAM0.252; +ROSU40TA; +ROSU40TA PO; +SPIR1CAP INH; -SPIRONOLACTONE 25 MG TAB PO SCH; +SUCR1TA PO; +SUMA4INJ3 SC; +TIZA2CAP3 PO; +TOLT1CAP PO; +TRAZ-136 PO; -TRAZ100T4 PO; +VICT18IN; +VICT18IN SC; +ZETI10TA30 PO; +[UNRECOGNIZED DRUG - CODE] PO
[2016-12-15 11:41] LABS: BASO % 0.5 % (0.0-1.0); LARGE UNSTAINED CELL # 0.3 K/mm3 (0.0-0.4); LARGE UNSTAINED CELL % 3.9 % (0.0-4.0); LYMPH # 1.4 K/mm3 (1.5-4.5); LYMPH % 18.4 % (24.0-44.0); MEAN CORPUSCULAR HEMOGLOBIN 27.6 pg (27.0-33.0); MEAN CORPUSCULAR HGB CONC 31.5 g/dl (32.0-36.5); MEAN CORPUSCULAR VOLUME 87.6 fl (80.0-96.0); MONO # 0.3 K/mm3 (0.0-0.8); MONO % 4.5 % (0.0-5.0); NEUTROPHILS # 5.3 K/mm3 (1.8-7.7); NEUTROPHILS % 72.7 % (36.0-66.0); PLATELET COUNT, AUTOMATED 269 k/mm3 (150-450); RED CELL DISTRIBUTION WIDTH 14.9 % (11.5-14.5); WHITE BLOOD COUNT 7.3 K/mm3 (4.0-10.0)
[2016-12-15 14:06] LABS: PERCENT SATURATION 8.9 % (13.2-37.4)
== END ==
LOC: M SFHCPLAZ 09:49
PROVIDERS: ATTEND Physician Assistant Medical
DX: D50.9 Iron deficiency anemia, unspecified (principal); E53.8 Deficiency of other specified B group vitamins
CPT/HCPCS: 36415; 82607; 82728; 83550; 85025; G0463

== ENCOUNTER → 2016-12-25 | Outpatient (CLI) | payer MEDICARE, MEDICAID ==
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
== END ==
LOC: M PAIN 13:00
PROVIDERS: ATTEND Nurse Practitioner Family
DX: M47.816 Spondylosis without myelopathy or radiculopathy, lumbar region (principal); M51.16 Intervertebral disc disorders with radiculopathy, lumbar region; D50.9 Iron deficiency anemia, unspecified; I25.10 Atherosclerotic heart disease of native coronary artery without angina pectoris; I48.0 Paroxysmal atrial fibrillation; E11.9 Type 2 diabetes mellitus without complications; E78.2 Mixed hyperlipidemia; K21.9 Gastro-esophageal reflux disease without esophagitis; J30.9 Allergic rhinitis, unspecified; G25.81 Restless legs syndrome; I50.32 Chronic diastolic (congestive) heart failure; E53.8 Deficiency of other specified B group vitamins; F32.9 Major depressive disorder, single episode, unspecified; G43.909 Migraine, unspecified, not intractable, without status migrainosus; M48.07 Spinal stenosis, lumbosacral region; M46.1 Sacroiliitis, not elsewhere classified; Z79.02 Long term (current) use of antithrombotics/antiplatelets; Z79.899 Other long term (current) drug therapy; Z91.040 Latex allergy status

== ENCOUNTER → 2016-12-30 | Outpatient (CLI) | payer MEDICARE, MEDICAID ==
[~2016-12-30] MED LIST changes: +E-Z-GAS II EFFERVESCENT PACKET (SODIUM BICARB./CITRIC ACID/SIMETHICONE) As Ordered ONE; +E-Z-HD 98% w/w 340GM SUSP BTL As Ordered ONE; +E-Z-PAQUE 96% w/w SUSP 176GM BTL As Ordered ONE
--- NOTE | 2016-12-30 15:46 | REP ---
UPPER GI, AIR CONTRAST: The procedure was performed under the direct supervision of Dr. Salazar. The images were reviewed with Dr. Salazar. 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 The intestinal gas pattern is nonspecific. There are surgical clips noted overlying the right pelvis. There are degenerative changes of the spine. Liquid barium and gas-producing granules were given in the erect position as well as liquid barium in the prone oblique positions in order to perform a double contrast upper GI examination. The oral and pharyngeal stages of deglutition are unremarkable. Esophageal transport is prompt and efficient and there is no esophagitis, stricture, mucosal ring or hiatal hernia. Gastroesophageal reflux is not demonstrated on this examination. The stomach mcmahan are normally outlined. The rugal folds are smooth and regular. There is no gastritis, neoplasm or ulcer disease. The duodenal mcmahan are normally outlined. The mucosal folds are smooth and regular. There is no duodenitis, pancreatitis, peptic ulcer disease or neoplasm. The visualized portion of the proximal small bowel appears normal in course and caliber. IMPRESSION: Essentially unremarkable double contrast upper GI examination. 3 minutes and 8 seconds of fluoroscopy time was utilized for this procedure. Reviewed by DAGO Quintana 12/31/2016 07:57 AEdited and Signed by Kerwin Salazar MD 12/31/2016 05:41 P
== END ==
LOC: M RAD 09:27
PROVIDERS: ATTEND Physician Assistant Medical
DX: K21.9 Gastro-esophageal reflux disease without esophagitis (principal)

== ENCOUNTER 2016-12-31 20:56 | Emergency (ER) | payer MEDICARE, MEDICAID ==
[~2016-12-31] VITALS: Ht 175.3 cm; Wt 116.8 kg
[2016-12-31 20:56] VITALS: BP 138/86
[~2016-12-31 20:56] MED LIST changes: -ALBU17IN INH; -ALL10TAB27 PO; -AMLO5TAB2 PO; -AVAP150T31 PO; -BISO5TAB5 PO; -CALC1TAB55 PO; -CALC600T68 PO; -DOK100TA PO; -DULO1CAP2 PO; -DULO1CAP3 PO; -E-Z-GAS II EFFERVESCENT PACKET (SODIUM BICARB./CITRIC ACID/SIMETHICONE) As Ordered ONE; -E-Z-HD 98% w/w 340GM SUSP BTL As Ordered ONE; -E-Z-PAQUE 96% w/w SUSP 176GM BTL As Ordered ONE; -FERR1TAB8 PO; -FERR324T2 PO; -FLUC100T PO; -FLUC10TA PO; -GABA-283 PO; -GABA600T PO; -GABA800T PO; -INSULADS INJ; -IRBE300T10; -IRBE300T10 PO; -IRON50TA PO; -JANU100T PO; -LAMO250T PO; -LANTINJ4 SQ; -LEXA1TAB PO; -LYRI200C PO; -METF-699 PO; -MIRA0.5T PO; -PATIENT COMMENT; -ROSU40TA PO; -SPIR1CAP INH; -SUCR1TA PO; -SUMA4INJ3 SC; -TIZA2CAP3 PO; -TOLT1CAP PO; -VICT18IN SC; -ZETI10TA30 PO; -[UNRECOGNIZED DRUG - CODE] PO
--- NOTE | 2016-12-31 22:10 | REPUSA ---
CT of the head Clinical history: Headache. Comparison: 04/23/2016. Technique: Multiple axial CT images were obtained through the head without administration of contrast . Findings: The ventricles and sulci are symmetric bilaterally. There is no evidence of acute hemorrhag e or infarct. There is no midline shift, mass effect, or extra-axial fluid collection. The osseous st ructures are unremarkable. The visualized paranasal sinuses and mastoid air cells are clear. Impression: Negative study.
[2016-12-31] MEDS ORDERED: KETOROLAC 30 MG/ML VIAL (J1885) IV ONE (22:15)
[2016-12-31] MEDS ORDERED: dexameTHASONE 20 MG/5 ML VIAL (J1100) IV ONE (22:15)
[2016-12-31] MEDS ORDERED: MORPHINE 2 MG/ML 1ML SYRINGE IV ONE (23:30)
== END 2017-01-01 01:31 | disposition home or self-care (01) ==
LOC: M ED 20:56
DX: G43.909 Migraine, unspecified, not intractable, without status migrainosus (principal); J44.9 Chronic obstructive pulmonary disease, unspecified; E11.9 Type 2 diabetes mellitus without complications; I10 Essential (primary) hypertension; K21.9 Gastro-esophageal reflux disease without esophagitis; E78.4 Other hyperlipidemia
CPT/HCPCS: 70450; 96374; 96375; 99283; J1100; J1885

== ENCOUNTER → 2017-01-20 | Outpatient (CLI) | payer MEDICARE, MEDICAID ==
[~2017-01-20] MED LIST changes: +ALBU17IN INH; +ALL10TAB27 PO; +AMLO5TAB2 PO; +AVAP150T31 PO; +BISO5TAB5 PO; +CALC1TAB55 PO; +CALC600T68 PO; +DOK100TA PO; +DULO1CAP2 PO; +DULO1CAP3 PO; +FERR1TAB8 PO; +FERR324T2 PO; +FLUC100T PO; +FLUC10TA PO; +GABA-283 PO; +GABA600T PO; +GABA800T PO; +INSULADS INJ; +IRBE300T10; +IRBE300T10 PO; +IRON50TA PO; +JANU100T PO; +LAMO250T PO; +LANTINJ4 SQ; +LEXA1TAB PO; +LYRI200C PO; +METF-699 PO; +MIRA0.5T PO; +PATIENT COMMENT; +ROSU40TA PO; +SPIR1CAP INH; +SUCR1TA PO; +SUMA4INJ3 SC; +TIZA2CAP3 PO; +TOLT1CAP PO; +VICT18IN SC; +ZETI10TA30 PO; +[UNRECOGNIZED DRUG - CODE] PO
--- NOTE | 2017-02-04 01:08 | ECWPNPC ---
PATIENT NAME: MONTANA HARDY : 1965 GENDER: FEMALE VISIT DATE: 01/20/2017 DISCHARGE DATE: 01/20/17 1249 VISIT LOCKED DATE TIME: PHYSICIAN: JEANNE DANIEL RESOURCE: JEANNE DANIEL REASON FOR APPOINTMENT 1. BACK HISTORY OF PRESENT ILLNESS HISTORY OF PRESENT ILLNESS: PAIN THE PATIENT DESCRIBES THE PAIN... FALL RISK SCREENING: SCREENING :NO FALLS IN THE PAST YEAR TODAY'S VISIT: NOTES: RATES PAIN TODAY 10/10. IS HAVING THE WORST PAIN IN LOW BACK WITH RADIATION TO THE HIPS AND LEGS,. CURRENT MEDICATIONS TAKING BD PEN NEEDLE SHORT U/F 31G X 8 MM MISCELLANEOUS USE DIRECTED WITH LANTUS TAKING DRISDOL 50,000 UNITS TABLET 1 TABLET ORALLY ONCE A WEEK TAKING TIZANIDINE HCL 2 MG TABLET TAKE 1 TABLET BY MOUTH THREE TIMES A DAY IF NEEDED FOR MUSCLE SPASM ORAL TAKING ONE TOUCH ULTRA TEST STRIPS . STRIPS 1 STRIP DX CODE E11.9 THREE TIMES DAILY NEEDED TAKING ALCOHOL PREPS 70 % MISCELLANEOUS DIRECTED EXTERNALLY DAILY TAKING BD ULTRA-FINE PEN NEEDLES 32G 4MM 2 INJECTIONS SUBCUTANEOUSLY DAILY TAKING MIRALAX - POWDER 1 CAP ORALLY ONCE DAILY NEEDED TAKING ELIQUIS 5 MG TABLET 1 TABLET ORAL TWICE A DAY TAKING DIGOXIN 0.25 MG TABLET 1 TABLET ORALLY ONCE A DAY TAKING LANTUS SOLO STAR PEN NEEDLES DX 250.00 ... 55 UNITS SQ 2230 TAKING LANCETS DX 250.00 ONE TOUCH LANCET - ONCE A DAY TAKING METFORMIN XR 500 MG EXTENDED RELEASE 2 TABLET ORALLY TWICE A DAY TAKING NYSTATIN 146394 UNIT/GM CREAM 1 APPLICATION UNDER BREASTS EXTERNALLY TWICE A DAY X 10D WITH FLARES TAKING WRIST SPLINT/COCK-UP/RIGHT L - MISCELLANEOUS DIRECTED _ DAILY TAKING DULOXETINE HCL 30 MG CAPSULE DELAYED RELEASE PARTICLES 2 CAPSULES ORALLY DAILY TAKING VICTOZA 18 MG/3ML SOLUTION PEN-INJECTOR INJECT 1.2 MILLIGRAM SUBCUTANEOUSLY DAILY TAKING TEGRETOL 400 MG TABLET 1 TABLET ORALLY TWICE A DAY TAKING ESCITALOPRAM OXALATE 5 MG TABLET 1 TABLET ORAL DAILY TAKING NITROGLYCERIN 0.4 MG TABLET SUBLINGUAL 1 TABLET UNDER THE TONGUE SUBLINGUAL ONE TABLET TIMES 3 EVERY 5 MINUTES IF NO RELIEF GO TO THE ER TAKING IMDUR 30 MG TABLET EXTENDED RELEASE 24 HOUR 1 TABLET ORALLY ONCE A DAY TAKING PLAVIX 75 MG TABLET 1 TABLET ORALLY ONCE A DAY TAKING CRESTOR 40 MG TABLET 1 TABLET ORALLY ONCE A DAY TAKING FUROSEMIDE 40 MG TABLET 1 TABLET ORALLY DAILY TAKING ALDACTONE 25 MG TABLET 1 TABLET ORALLY DAILY TAKING CARVEDILOL 25 MG TABLET 1 TAB ORALLY TWICE DAILY TAKING VITAMIN B12 1000 MCG TABLET EXTENDED RELEASE 1 TABLET ORALLY ONCE A DAY TAKING POLYSACCHARIDE IRON FORTE 150-25-1 MG-MCG-MG CAPSULE 1 CAPSULE ORALLY ONCE A DAY TAKING LYRICA 200 MG CAPSULE 1 CAPSULE ORALLY BID MDD=2 TAKING CALCIUM 600/VITAMIN D 600-400 MG-UNIT TABLET 1 TABLET WITH FOOD ORALLY TWICE A DAY TAKING AMLODIPINE BESYLATE 5 MG TABLET 1 TABLET ORALLY ONCE A DAY TAKING MIRAPEX 0.5 MG TABLET 1 TABLET BEFORE BEDTIME ORALLY BID TAKING IMITREX STATDOSE SYSTEM 4 MG/0.5ML SOLUTION AUTO-INJECTOR 0.5 ML NEEDED SUBCUTANEOUS TWICE A DAY TAKING TRAZODONE 100 100MG TABLET 2 TABLETS ORALLY AT BEDTIME TAKING COLACE 100 MG CAPSULE 1 CAPSULE ORALLY BID NEEDED TAKING JANUVIA 100MG TABLET 1 TABLET ORALLY ONCE A DAY TAKING DIFLUCAN 100 MG TABLET 1 TABLET ORALLY BID TAKING LAMICTAL 200 MG TABLET 2 TABLET ORALLY DAILY TAKES 250 MG 2 TABLETS ONCE A DAY NOT-TAKING ZETIA 10 MG TABLET 1 TABLET ORALLY ONCE A DAY NOT-TAKING LAMICTAL 25 MG TABLET 3 TABLETS ORALLY TWICE A DAY NOT-TAKING LAMICTAL 200 MG TABLET 1 TABLET ORALLY TWICE A DAY NOT-TAKING LANTUS SOLOSTAR 100 UNIT/ML SOLUTION PEN-INJECTOR INJECT 55 UNITS SUBCUTANEOUSLY ONCE DAILY NOT-TAKING CARBAMAZEPINE ER 400 MG TABLET EXTENDED RELEASE 12 HOUR TAKE 1 TABLET BY MOUTH TWICE A DAY NOT-TAKING DOXYCYCLINE HYCLATE 100 MG CAPSULE 1 CAPSULE ORALLY EVERY 12 HRS MEDICATION LIST REVIEWED AND RECONCILED WITH THE PATIENT PAST MEDICAL HISTORY LUMBAR DJD WITH BILATERAL LOWER EXTREMITY RADICULOPATHY-2009 MRI WITH MULTILEVEL BULGES, AT L4/S1 CAUSING MODERATE TO SEVERE BILATERAL NEURAL FORAMEN NARROWING SEIZURE DISORDER HYPERTENSION HYPERLIPIDEMIA 2B OBESITY DEPRESSION/PANIC DISORDER/INSOMNIA-FOLLOWED BY DR. 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 ASTHMA, MILD PERSISTENT/COPD-09/2014 FEV1 2.2L (66%)/RATIO 72%-EVIN PERIPHERAL EDEMA SECONDARY TO VENOUS INSUFFICIENCY AND NSAID AND LYRICA USE-2009 TTE [place] WITH BORDERLINE LAE, BORDERLINE DILATED AORTIC ROOT, NO DIASTOLIC NOR SYSTOLIC DYSFUNCTION CAD STATUS POST NON-Q WAVE RI APRIL 2011 STATUS POST ANGELICA TO MID LAD, CHRONIC OCCLUSION OF RCA WITH COLLATERALS SUPPLYING BLOOD FLOW TO DISTAL RCA AND PDA BRANCHES, LVEF 50% WITH MILD ANTERIOR AND INFERIOR HYPOKINESIS-FISCHI//09/25/13 CATHERIZATION-PATIENT LAD, CHRONICALLY OCCLUDED RCA, NORMAL LVEF-RITA//06/18/15 CATH PATIENT LAD STENTS, LVEF 59%-RITA HISTORY NARCOTIC ABUSE-IN REHAB AT [facility]-03/21-04/18/12 B TROCHANTERIC BURSITIS-04/2013 NORMAL B HIP XRAY + H PYLORI BY AB-TREATED C DOXY/FLAGYL/BISMUTH/PPI X 14D-06/2013 ATRIAL FIBRILLATION, PAROXYSMAL, [place]-09/04/13 [facility] HEMISPHERIC TIA-11/2014 C L FACIAL/ARM NUMBNESS/VISUAL DISTURBANCE/DIZZINESS-MRI C B FRONTAL, R PARIETAL T2 HYPERINTENSITIES, B ICA 16-49% STENOSIS, -CTA CHEST FOR PE R NEPHROLITH BY 11/2014 CT ALLERGIES LATEX (FOR ALLERGY USE ONLY): RASH SOCIAL HISTORY GENERAL: TOBACCO USE ARE YOU A:NONSMOKER BMI CARE GOAL FOLLOW-UP ABOVE NORMAL BMI FOLLOW-UPGIVING ENCOURAGEMENT TO EXERCISE ALCOHOL SCREENING DID YOU HAVE A DRINK CONTAINING ALCOHOL IN THE PAST YEAR?YES HOW OFTEN DID YOU HAVE A DRINK CONTAINING ALCOHOL IN THE PAST YEAR?MONTHLY OR LESS (1 POINT) HOW MANY DRINKS DID YOU HAVE ON A TYPICAL DAY WHEN YOU WERE DRINKING IN THE PAST YEAR?1 OR 2 (0 POINTS) HOW OFTEN DID YOU HAVE SIX OR MORE DRINKS ON ONE OCCASION IN THE PAST YEAR?NEVER (0 POINTS) POINTS1 INTERPRETATIONNEGATIVE RECREATIONAL DRUG USE DRUG USE?NO CAFFEINE CAFFEINE USE?YES HOW OFTEN AND HOW MUCH? 6 CUPS OF COFFEE DAILY SEXUAL HX HAD SEX IN THE LAST 12 MONTHS (VAGINAL, ORAL, OR ANAL)?YES WITHMEN ONLY USE PROTECTION?NO HIV / HEP-C SCREENING HIV TEST OFFERED TO PATIENT:YES DATE OFFERED:11/03/2016 TEST ACCEPTED:NO REASON:PATIENT DECLINED HEP-C TEST OFFERED TO PATIENT:YES DATE OFFERED:11/03/2016 TEST ACCEPTED:NO REASON:PATIENT DECLINED MARITAL STATUS: . OTHERS AT HOME: SPOUSE. MORMON [id number] BAPTISM LANGUAGE LANGUAGES SPOKEN:FRISIAN EDUCATION LEVEL OF EDUCATION:COLLEGE LEARNING BARRIERS / SPECIAL NEEDS CHANGE FROM LAST VISIT?NO BARRIERS TO LEARNING?NO HEARING IMPAIRED?NO VISION IMPAIRED?YES :CORRECTIVE LENSES COGNITIVELY IMPAIRED?NO READINESS TO LEARN?YES LEARNING PREFERENCES?NO LEARNING CAPABILITIES PRESENT?YES EMOTIONAL BARRIERS?NO SPECIAL DEVICES?NO HULLER OPERATOR NEEDED?NO NEW PATIENT PAIN DIARY TODAY'S VISITNOTES FROM 0-10, WHAT LEVEL IS YOUR PAIN TODAY?0 PAIN CLINIC PFS, CLERGY, PUBLIC HEALTH REFERRALS PFS REFERRAL NEEDED?NO CLERGY REFERRAL NEEDED?NO PUBLIC HEALTH REFERRAL NEEDED?NO WAS THE PROVIDER NOTIFIED OF ANY PERTINENT INFO?NO HAS THE PATIENT BEEN EDUCATED REGARDING HIS/HER PLAN OF CARE?YES HAS THE PATIENT BEEN EDUCATED REGARDING PAIN, THE RISK FOR PAIN, THE IMPORTANCE OF EFFECTIVE PAIN MANAGEMENT, AND THE PAIN ASSESSMENT PROCESS?YES SMOKING 1 PPD. DENIES ETOH. PRIOR H/O OF NARCOTIC ABUSE. HAD BEEN USING A FRIEND'S SUBOXONE, BUT STATES SHE STOPPED. SMOKING 1 PPD. DENIES ETOH. PRIOR H/O OF NARCOTIC ABUSE. HAD BEEN USING A FRIEND'S SUBOXONE, BUT STATES SHE STOPPED. REVIEW OF SYSTEMS REVIEWED BY: PROVIDER: JEANNE BAKER . CONSTITUTIONAL: ANY CHANGE IN YOUR MEDICAL CONDITION? NO . CHILLS NO . FEVER NO . INFECTION: DO YOU HAVE NEW INFECTIONS? NO . DO YOU HAVE HISTORY OF MRSA? NO . MUSCULOSKELETAL: ANY NEW PATTERNS OF PAIN OR NUMBNESS? NO . GASTROENTEROLOGY: ANY NEW CHANGE IN BOWEL CONTROL? NO . GENITOURINARY: ANY NEW CHANGE IN BLADDER CONTROL? NO . IS THERE A CHANCE YOU COULD BE ? NO . HEMATOLOGY/LYMPH: DO YOU TAKE ANY BLOOD THINNERS? (FOR EXAMPLE- COUMADIN, PLAVIX, AGGRENOX, PLATEL, PRADAXA, OR XARELTO) YES, ELIQUIS AND PLAVIX . WHEN WAS YOUR LAST DOSE? DATE: 01/20/17 TIME: 0800 . NEUROLOGY: HAVE YOU FALLEN IN THE PAST 6 MONTHS? NO . ANY NEW EXTREMITY NUMBNESS OR WEAKNESS? NO . CARDIOLOGY: DO YOU HAVE A PACEMAKER OR DEFIBRILLATOR? NO . RESPIRATORY: HAVE YOU BEEN SICK IN THE PAST WEEK? NO . FEVER NO . FLU LIKE SYMPTOMS? NO . COUGH NO . INTEGUMENTARY: DO YOU HAVE ANY RASHES OR OPEN SORES? NO . ALLERGIC/IMMUNO: ARE YOU ALLERGIC TO SHELLFISH OR IV DYE? NO . ANY NEW ALLERGIES? NO . PSYCHIATRIC: DO YOU HAVE THOUGHTS OF HURTING YOURSELF OR SOMEONE ELSE? NO . ARE YOU ABUSED, NEGLECTED, OR IN AN UNSAFE ENVIRONMENT? NO . ENDOCRINOLOGY: ARE YOU DIABETIC? YES BLOOD SUGAR 140 - 160'S&NBSP;. OTHER: DO YOU NEED ANY PRESCRIPTIONS? YES . IF YES, PLEASE LIST: LYRICA . ANY NEW PROBLEMS WITH YOUR MEDICATIONS? NO . WHEN DID YOU LAST EAT? ____ . WHEN DID YOU LAST DRINK? ____ . WHAT DID YOU LAST DRINK? ____ . NAME OF PERSON DRIVING YOU HOME? ____ . DO YOU HAVE ANY OTHER QUESTIONS OR CONCERNS NO . VITAL SIGNS WT 242 LBS, HT 69 IN, BMI 35.73 INDEX, BP 123/69 MM HG, HR 72 /MIN, RR 18 /MIN, TEMP 97.2 F, OXYGEN SAT % 95%, NA INITIALS AW 1153, REVIEWED BY: CS. EXAMINATION GENERAL EXAMINATION: PSYCHALERT , ORIENTED X 3 . LUNGS:CLEAR TO AUSCULTATION BILATERALLY. HEART:HEART RATE REGULAR. MUSCULOSKELETAL:TRIGGER POINTS:, ELICITED WITH PALPATION OVER MID THORACIC MUSCLES WITH RESTRICITON OF RESPIRATORY EXCURCIOM NOTED. , ELICITED WITH PALPATION OVER LUMBAR PARAVERTEBRAL MUSCLES AND INTO THE SECRUM. RESTRICTION OF ROM IN THIS AREA. POINT TENDERNESS OVER LUMBAR SPINOUS PROCESSES AND ACROSS THE SACRUM.. EXTREMITIES:NO EDEMA. ASSESSMENTS DJD (DEGENERATIVE JOINT DISEASE), LUMBAR - M47.816 (PRIMARY) LUMBAR DISC DISEASE WITH RADICULOPATHY - M51.16 BILATERAL SACROILIITIS - M46.1 TREATMENT DJD (DEGENERATIVE JOINT DISEASE), LUMBAR REFILL LYRICA CAPSULE, 200 MG, 1 CAPSULE, ORALLY, BID MDD=2, 30 DAY(S), 60, REFILLS 0 INJECTION ANESTHETIC SACROILIAC JOINTJEANNE DANIEL 01/20/2017 12:29:51 PM > BILATERAL IS ON PLAVIX - ELIQIS IS ON HOLD NOTES: HOLD ELIQUIS FOR 3 DAYS FOR PROCEDURE. DO NOT HOLD PLAVIXHOLD DIABETES MEDS MORNING OF PROCEDUREBRING OTHER PERSON, OWN BOTTLE OF LYRICA AND MED BUBBLEPACKS BACK TO THE CLINIC TODAY. CLINICAL NOTES: ISTOP REGISTRY REVIEWED AND DEMNOSTRATES COMPLLIANCE. WILL OBTAIN URINE TOX AT NEXT VISIT. PREVENTIVE MEDICINE PAIN CLINIC TEACHING: PROCEDURE TEACHING PRE-PROCEDURE TEACHING DONE AND PATIENT VERBALIZES UNDERSTANDING.. PROCEDURE CODES FA211 ESTABILISHED PATIENT [facility] FACILITY CHARGE J4725 PAIN ASSESS POS TOOL F/U PLAN DOC G8427 DOC MEDS VERIFIED W/PT OR RE DISPOSITION & COMMUNICATION FOLLOW UP AFTER INJECTION/1 MONTH (REASON: BACK PAIN) ELECTRONICALLY SIGNED BY MEHDI BOYKIN ON 02/03/2017 AT 07:10 PM EDT DISCLAIMER : THIS IS A VISIT SUMMARY EXTRACTED FROM THE [employer] CHART. IT IS NOT A COPY OF THE [employer] PROGRESS NOTE. MADHU
== END ==
LOC: M PAIN 10:45
PROVIDERS: ATTEND Nurse Practitioner Family
DX: M47.816 Spondylosis without myelopathy or radiculopathy, lumbar region (principal); M51.16 Intervertebral disc disorders with radiculopathy, lumbar region; M46.1 Sacroiliitis, not elsewhere classified; E11.9 Type 2 diabetes mellitus without complications; I50.32 Chronic diastolic (congestive) heart failure; I11.9 Hypertensive heart disease without heart failure; E53.8 Deficiency of other specified B group vitamins; I25.10 Atherosclerotic heart disease of native coronary artery without angina pectoris; D50.9 Iron deficiency anemia, unspecified; R56.9 Unspecified convulsions; E78.2 Mixed hyperlipidemia; F32.9 Major depressive disorder, single episode, unspecified; Z79.4 Long term (current) use of insulin; Z79.84 Long term (current) use of oral hypoglycemic drugs; Z79.899 Other long term (current) drug therapy; Z91.040 Latex allergy status

== ENCOUNTER 2017-01-27 11:10 | Inpatient (IN) | payer MEDICARE, MEDICAID ==
[~2017-01-27] VITALS: Ht 175.3 cm; Wt 116.7 kg
[2017-01-27] VITALS (29 sets, daily range): BP systolic 89–151; BP diastolic 59–113; O2SAT 96
[2017-01-27] MEDS: CHLORHEXIDINE GLUCONATE 0.12 % 15ML UDC (PERIDEX ORAL RINSE) MT SCH ×2 (09:00→20:15)
[~2017-01-27 11:10] MED LIST changes: -ALBU17IN INH; -ALL10TAB27 PO; -AMLO5TAB2 PO; -AVAP150T31 PO; -BISO5TAB5 PO; -CALC1TAB55 PO; -CALC600T68 PO; -DOK100TA PO; -DULO1CAP2 PO; -DULO1CAP3 PO; -FERR1TAB8 PO; -FERR324T2 PO; -FLUC100T PO; -FLUC10TA PO; -GABA-283 PO; -GABA600T PO; -GABA800T PO; -INSULADS INJ; -IRBE300T10; -IRBE300T10 PO; -IRON50TA PO; -JANU100T PO; -LAMO250T PO; -LANTINJ4 SQ; -LEXA1TAB PO; -LYRI200C PO; -METF-699 PO; -MIRA0.5T PO; -PATIENT COMMENT; -ROSU40TA PO; -SPIR1CAP INH; -SUCR1TA PO; -SUMA4INJ3 SC; -TIZA2CAP3 PO; -TOLT1CAP PO; -VICT18IN SC; -ZETI10TA30 PO; -[UNRECOGNIZED DRUG - CODE] PO
[2017-01-27] MEDS ORDERED: NALOXONE INJ 0.4 MG/1 ML VIAL (J2310) IV STA (11:25)
[2017-01-27] MEDS ORDERED: NS 500 ML IV ONE (11:30)
[2017-01-27 11:43] LABS: BASO # 0.1 K/mm3 (0.0-0.2); BASO % 0.7 % (0.0-1.0); LARGE UNSTAINED CELL # 0.2 K/mm3 (0.0-0.4); LARGE UNSTAINED CELL % 2.5 % (0.0-4.0); LYMPH # 1.9 K/mm3 (1.5-4.5); LYMPH % 20.5 % (24.0-44.0); MEAN CORPUSCULAR HEMOGLOBIN 28.9 pg (27.0-33.0); MEAN CORPUSCULAR HGB CONC 32.9 g/dl (32.0-36.5); MONO # 0.3 K/mm3 (0.0-0.8); NEUTROPHILS # 5.8 K/mm3 (1.8-7.7); NEUTROPHILS % 72.2 % (36.0-66.0); PLATELET COUNT, AUTOMATED 342 k/mm3 (150-450); RED CELL DISTRIBUTION WIDTH 15.9 % (11.5-14.5); WHITE BLOOD COUNT 8.1 K/mm3 (4.0-10.0)
--- NOTE | 2017-01-27 11:55 | REP ---
CT Head without contrast HISTORY: Altered mental status COMPARISON: 12/31/2016 There is no intraparenchymal hemorrhage, acute infarct, mass or midline shift. The ventricular system is normal in appearance. There is no extra cerebral collection. There is no fracture. 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 The visualized sinuses are clear. IMPRESSION: There is no intracranial lesion. Signed by Mohsen Moyer MD 01/27/2017 11:47 A
[2017-01-27] MEDS ORDERED: LAMO250T PO (11:58)
[2017-01-27] MEDS ORDERED: DOK100TA PO (11:58)
[2017-01-27] MEDS ORDERED: INSULADS INJ (11:58)
[2017-01-27] MEDS ORDERED: CALC600T68 PO (11:58)
[2017-01-27] MEDS ORDERED: ALL10TAB27 PO (11:58)
[2017-01-27] MEDS ORDERED: TIZA2CAP3 PO (11:58)
[2017-01-27] MEDS ORDERED: SUCR1TA PO (11:58)
[2017-01-27] MEDS ORDERED: CALC1TAB55 PO (11:58)
[2017-01-27] MEDS ORDERED: FLUC10TA PO (11:58)
[2017-01-27] MEDS ORDERED: LEXA1TAB PO (11:58)
[2017-01-27] MEDS ORDERED: VITA100072 PO (11:58)
[2017-01-27] MEDS ORDERED: IRON50TA PO (11:58)
[2017-01-27] MEDS ORDERED: JANU100T PO (11:58)
[2017-01-27] MEDS: HumaLOG INSULIN (NovoLOG) PER UNIT SC SCH ×2 (12:00→17:22)
[2017-01-27 12:11] LABS: ALBUMIN 3.2 GM/DL (3.2-5.2); ALBUMIN/GLOBULIN RATIO 0.74 (1.00-1.93); ALKALINE PHOSPHATASE 106 U/L (45-117); ALT/SGPT 29 U/L (12-78); ANION GAP 6 MEQ/L (8-16); AST/SGOT 9 U/L (15-37); BILIRUBIN,DIRECT < 0.1 MG/DL (0.0-0.2); BILIRUBIN,TOTAL 0.2 MG/DL (0.2-1.0); BLOOD UREA NITROGEN 12 MG/DL (7-18); CALCIUM LEVEL 8.5 MG/DL (8.5-10.1); CARBON DIOXIDE LEVEL 28 MEQ/L (21-32); CHLORIDE LEVEL 103 MEQ/L (98-107); CREATININE FOR GFR 0.67 MG/DL (0.55-1.02); GLOMERULAR FILTRATION RATE > 60.0 (>51); GLUCOSE, FASTING 163 MG/DL (70-105); POTASSIUM SERUM 3.8 MEQ/L (3.5-5.1); SODIUM LEVEL 137 MEQ/L (136-145); TOTAL PROTEIN 7.5 GM/DL (6.4-8.2)
[2017-01-27] MEDS ORDERED: PROPOFOL 1,000 MG/100 ML VIAL As Ordered ONE (12:23)
[2017-01-27] MEDS ORDERED: SUCCINYLCHOLINE INJ 200 MG/10 ML VIAL (J0330) IV STA (12:27)
[2017-01-27] MEDS ORDERED: ETOMIDATE INJ 20MG/10ML VIAL IV STA (12:27)
[2017-01-27] MEDS ORDERED: LABETALOL HCL 100 MG/20 ML VIAL IV STA (12:27)
[2017-01-27] MEDS ORDERED: FUROSEMIDE 100 MG/10 ML VIAL (J1940) IV ONE (12:30)
[2017-01-27] MEDS ORDERED: PROPOFOL 1,000 MG in APPROPRIATE DILUENT 1 EA IV SCH ×2 (12:30→14:00)
[2017-01-27] MEDS ORDERED: METAL LOCK LOOP XX ONE (12:32)
--- NOTE | 2017-01-27 12:37 | REP ---
AP PORTABLE CHEST: 01/27/2017 COMPARISON: 10/29/2016, 02/15/2016 chest x-ray and CT angiogram chest those dates. CLINICAL HISTORY: Altered mental status. FINDINGS: The lung rianldi are adequately inflated, however, they currently show vascular redistribution with pulmonary venous hypertension compared to the two prior studies. Some early interstitial edema is difficult to exclude. No gross effusion or dense consolidation. Heart is enlarged since the previous two studies, some of which may be related to vascular congestion and interstitial edema but there is a lesser degree of inflation overall. The aorta is mildly tortuous but normal for age. Airway intact. Widening of the mediastinum. IMPRESSION: 1. Interval increase in heart size and with significant interval development of pulmonary venous hypertension. Early interstitial edema difficult to exclude. No dense consolidation or gross effusion evident. Signed by Maverick Del Castillo MD 01/27/2017 04:12 P
[2017-01-27 12:41] LABS: ABG BASE EXCESS -15.9 (-2.0-2.0); ABG HCO3 19.4 MEQ/L (22.0-26.0); ABG STANDARD HCO3 12.7 MEQ/L (22.0-26.0); ABG TOTAL CO2 22.5 MEQ/L (22.0-29.0)
[2017-01-27 12:45] LABS: ABG pH (ARTERIAL) 6.907 UNITS (7.350-7.450)
[2017-01-27] MEDS ORDERED: hydrALAZINE INJ 20 MG/ML VIAL As Ordered ONE (12:45)
[2017-01-27] MEDS ORDERED: methylPREDNISolone INJ 125 MG/2 ML VIAL (J2930) As Ordered ONE (12:45)
[2017-01-27 12:46] LABS: ABG PARTIAL PRESSURE CO2 99.7 mmHg (35.0-45.0)
[2017-01-27] MEDS ORDERED: MIDAZOLAM INJ 2 MG/2 ML VIAL (J2250) As Ordered ONE ×2 (12:46→12:47)
[2017-01-27] MEDS ORDERED: PROPOFOL 200 MG/20 ML VIAL IV ONE (13:00)
[2017-01-27] MEDS ORDERED: MIDAZOLAM INJ 2 MG/2 ML VIAL (J2250) IV STA (13:10)
[2017-01-27] MEDS ORDERED: hydrALAZINE INJ 20 MG/ML VIAL IV ONE (13:15)
[2017-01-27] MEDS ORDERED: methylPREDNISolone INJ 125 MG/2 ML VIAL (J2930) IV ONE (13:15)
--- NOTE | 2017-01-27 13:30 | ECGEPIP ---
Stationary ECG Study [facility] - ED Test Date: 2017-01-27 Pat Name: MONTANA HARDY Department: Room: - Gender: F Anodic Treater: tk : 1965 Requested By: ARNOLD Todd Order Number: [id number] Reading MD: Mahnaz Mo Measurements Intervals [place] Rate: 74 P: 42 WV: 173 QRS: 54 QRSD: 116 T: 64 QT: 365 QTc: 405 Interpretive Statements SINUS RHYTHM MODERATE INTRAVENTRICULAR CONDUCTION DELAY NONSPECIFIC ST & T-WAVE ABNORMALITY SIMILAR 10/29/16 Electronically Signed On 01-27-2017 13:30:13 EDT by Mahnaz Mo
[2017-01-27 13:36] LABS: DIGOXIN LEVEL 0.4 NG/ML (0.5-2.0)
--- NOTE | 2017-01-27 14:11 | REP ---
CHEST: AP supine film of the chest was performed and compared to a prior exam earlier today. Current study is performed at 12:37 pm. There are increased bilateral infiltrates with increased atelectasis in the left lung. There is an endotracheal tube with its tip in the right mainstem bronchus. Left hemidiaphragm is elevated. The heart size is not well evaluated. Signed by Kerwin Salazar MD 01/27/2017 04:57 P
--- NOTE | 2017-01-27 14:13 | REP ---
CHEST, PORTABLE: AP supine film of the chest is performed at 12:40 p.m. and compared to a prior study. Endotracheal tube has been pulled back and the tip is about 2 cm above the gene, in good position. There are diffuse bilateral infiltrates. There is better aeration of the left lung. Left lung atelectasis has improved. IMPRESSION: Diffuse bilateral infiltrates. Endotracheal tube appears to be in good position with better aeration of the left lung. Signed by Kerwin Salazar MD 01/27/2017 04:57 P
[2017-01-27] MEDS ORDERED: GLUCOSE 4 GM CHEW TABLET PO PRN (14:15)
[2017-01-27] MEDS ORDERED: GLUCAGON FOR INJ 1 MG VIAL (J1610) SC PRN (14:15)
[2017-01-27] MEDS ORDERED: DEXTROSE 50% 50 ML SYRINGE IV PRN (14:15)
[2017-01-27] MEDS ORDERED: LYRI200C PO (14:26)
[2017-01-27] MEDS ORDERED: VICT18IN SC (14:26)
[2017-01-27] MEDS ORDERED: GABA600T PO (14:26)
[2017-01-27] MEDS ORDERED: LASI40TA PO (14:26)
[2017-01-27] MEDS ORDERED: FERR1TAB8 PO (14:26)
[2017-01-27] MEDS ORDERED: DULO1CAP2 PO (14:26)
[2017-01-27] MEDS ORDERED: DULO1CAP3 PO (14:26)
[2017-01-27] MEDS ORDERED: METF-699 PO (14:26)
[2017-01-27] MEDS ORDERED: ZETI10TA30 PO (14:26)
[2017-01-27] MEDS ORDERED: TOLT1CAP PO (14:26)
[2017-01-27] MEDS ORDERED: ALBU17IN INH (14:26)
[2017-01-27] MEDS ORDERED: MIRA0.5T PO (14:26)
[2017-01-27] MEDS ORDERED: NITR4TASL SL (14:26)
[2017-01-27] MEDS ORDERED: SUMA4INJ3 SC (14:26)
[2017-01-27] MEDS ORDERED: PATIENT COMMENT (14:30)
[2017-01-27 14:53] LABS: METHADONE URINE NEGATIVE (NEGATIVE)
[2017-01-27 15:27] LABS: CENTRAL VEN BASE EXCESS -2.6; CENTRAL VEN O2 SATURATION 70.1 %; CENTRAL VEN PARTL PRESSURE CO2 52.8 mmHg; CENTRAL VEN PARTL PRESSURE O2 44.9 mmHg; CENTRAL VEN STANDARD HCO3 21.6 MEQ/L; CENTRAL VEN TOTAL CO2 26.3 MEQ/L; CENTRAL VENOUS HCO3 24.6 MEQ/L; CENTRAL VENOUS PH 7.287 UNITS
[2017-01-27] MEDS ORDERED: MIDAZOLAM INJ 2 MG/2 ML VIAL (J2250) IV ONE (15:30)
[2017-01-27 15:42] LABS: OSMOLALITY SERUM 289 MOSM/KG (275-295)
[2017-01-27 15:45] LABS: ABG BASE EXCESS -3.1 (-2.0-2.0); ABG HCO3 22.4 MEQ/L (22.0-26.0); ABG PARTIAL PRESSURE O2 68.7 mmHg (75.0-100.0); ABG STANDARD HCO3 21.7 MEQ/L (22.0-26.0); ABG TOTAL CO2 23.7 MEQ/L (22.0-29.0); ABG pH (ARTERIAL) 7.345 UNITS (7.350-7.450)
[2017-01-27] MEDS ORDERED: REFRIGERATOR IV KEYS XX PRN (15:45)
[2017-01-27] MEDS: IPRATROPIUM 0.5MG/ALBUTEROL 2.5MG INH SOL UD 3ML (DUONEB)(J7620) NEB SCH ×2 (15:50→19:52)
--- NOTE | 2017-01-27 16:14 | CCN ---
DATE: 01/27/2017 CRITICAL CARE TIME: Two hours this excludes all procedures. This note is in addition to the history and physical performed by my technology risk intern. I was at the patient's bedside conducting critical care for 2 hours. I was called by the emergency room physician to urgently see this patient, whom he described as being in hypertensive urgency with a blood pressure systolic of 230 and having respiratory difficulty with hypoxia. He intubated the patient. The patient continued to have hypertension, placed on labetalol. On my arrival to the room the patient was cyanotic without any significant ventilation, despite being intubated on mechanical ventilation. I took her off the ventilator, bagged her slowly, and she had a significantly prolonged expiratory phase. After bagging, at a slow rate her oxygen saturation improved. Initial blood gas that was obtained prior to my arrival showed a pH of 6.9, pCO2 of 100, suggesting hypercarbic respiratory failure. According to the , the patient woke up confused this morning. She also woke up confusion yesterday morning. She had altered mental status, agitation, flailing her arms. He brought her to the emergency room; however, history is quite difficult. PHYSICAL EXAMINATION: Temperature is 97.9, pulse is 77, respiratory rate is 17 despite sedation on mechanical ventilation, blood pressure after addressing the ventilatory issue immediately dropped to 104/70. Oxygen saturation is now on 100% on 0.50 FiO2 instead of 100. GENERAL: The patient is sedated on mechanical ventilation. She is using accessory muscles to breathe. Significant abdominal recruitment. HEENT: Sclerae are clear and anicteric. Pupils equal and reactive to light. Mucous membranes are moist without lesions. Endotracheal tube is in place. I did pull it back another 2 cm based on the most recent chest x-ray. NECK: Supple. No tracheal deviation or mass. CARDIAC: Distant S1, S2 without audible murmur, rub, or gallop. No elevated jugular venous pulse (JVP). No significant peripheral edema. PULMONARY: Decreased breath sounds throughout with severe bronchospasm and severely prolonged expiratory phase. Again, using abdominal muscles for breathing. ABDOMEN: Soft, nontender, nondistended. No discernible hepatosplenomegaly. No masses or hernia. Extremities: No cyanosis or clubbing. SKIN: Without rash, jaundice, or bruising. MUSCULOSKELETAL: Moving all extremities appropriately. No evidence of unilateral weakness. NEUROLOGIC: No seizure activity. LABORATORY EVALUATION: Sodium is 137, potassium 3.8, chloride 103, bicarbonate of 28, BUN of 12, creatinine of 0.67. AST is 9, ALT is 29. Troponin is less than 0.02. TSH is 1.46. IMPRESSION: 1. Hypercarbic hypoxic respiratory failure, likely the cause of her extreme hypertension with the fact that she had significant difficulty with breathing, and this was simply a sympathetic reaction. After better mechanical ventilation , arterial blood gas showed significant ventilatory improvement with a pCO2 down to 42. I believe the lactic acid was elevated secondary to her work of breathing. Will place on Solu-Medrol and rule out any signs of pulmonary edema, as she currently does have increased interstitial markings. The patient was already given Lasix at 80 mg intravenous (IV) in the emergency room due to the thoughts of initial sepsis, hypertensive urgency. 2. Initial hypertension, now more on the hypotensive side. I have changed her propofol to Versed. Will avoid any antihypertensives. Will continue to monitor blood pressure for maintaining a mean arterial pressure greater than 65. 3. History of coronary artery disease status post stenting. Echocardiogram ordered to look at systolic function. I did quite bedside ultrasound, which did not show any evidence of cardiac tamponade. Negative troponin. Will rule out myocardial infarction (MN) with further troponin. 4. Hyperglycemia. The patient has diabetes. Will cover with sliding-scale insulin. 5. Lactic acidemia. No evidence of sepsis. She does not have a white count. No evidence of infection. I believe her increased lactate was from work of breathing. Critical care time as mentioned above. [facility]
[2017-01-27] MEDS: MIDAZOLAM HCL 100 MG in D5W 80 ML IV SCH (16:29)
[2017-01-27] MEDS: PANTOPRAZOLE 40MG INJ (PROTONIX) (C9113) IV SCH (16:30)
[2017-01-27 16:57] LABS: MEAN CORPUSCULAR HEMOGLOBIN 28.6 pg (27.0-33.0); MEAN CORPUSCULAR HGB CONC 31.8 g/dl (32.0-36.5); MEAN CORPUSCULAR VOLUME 90.1 fl (80.0-96.0); RED CELL DISTRIBUTION WIDTH 15.9 % (11.5-14.5)
--- NOTE | 2017-01-27 16:57 | REP ---
PORTABLE CHEST: AP, supine film of the chest is performed and compared to prior exams of the same day. There has been placement of a right central venous catheter. The tip is in the superior vena cava. There is no pneumothorax. A nasogastric tube traverses into the stomach. Endotracheal tube is again seen. There are diffuse bilateral infiltrates. Signed by Kerwin Salazar MD 01/27/2017 05:26 P
[2017-01-27 17:16] LABS: ANION GAP 9 MEQ/L (8-16); BLOOD UREA NITROGEN 17 MG/DL (7-18); CALCIUM LEVEL 8.2 MG/DL (8.5-10.1); CARBON DIOXIDE LEVEL 26 MEQ/L (21-32); CHLORIDE LEVEL 103 MEQ/L (98-107); CREATININE FOR GFR 0.94 MG/DL (0.55-1.02); GLOMERULAR FILTRATION RATE > 60.0 (>51); GLUCOSE, FASTING 248 MG/DL (70-105); POTASSIUM SERUM 4.9 MEQ/L (3.5-5.1); SODIUM LEVEL 138 MEQ/L (136-145)
[2017-01-27] MEDS ORDERED: SUCCINYLCHOLINE 100 MG/5 ML SYRINGE (J0330) ONE (17:53)
[2017-01-27] MEDS ORDERED: ROCURONIUM BROMIDE 50 MG/5 ML VIAL/SYRINGE ONE (17:53)
[2017-01-27] MEDS: MIDAZOLAM INJ 2 MG/2 ML VIAL (J2250) IV PRN ×7 (18:54→23:54)
[2017-01-27] MEDS: methylPREDNISolone INJ 125 MG/2 ML VIAL (J2930) IV SCH (18:55)
[2017-01-27 21:01] LABS: MEAN CORPUSCULAR HEMOGLOBIN 29.2 pg (27.0-33.0); MEAN CORPUSCULAR HGB CONC 32.8 g/dl (32.0-36.5); MEAN CORPUSCULAR VOLUME 89.1 fl (80.0-96.0); RED CELL DISTRIBUTION WIDTH 15.9 % (11.5-14.5); WHITE BLOOD COUNT 12.1 K/mm3 (4.0-10.0)
[2017-01-27] MEDS: MORPHINE 2 MG/ML 1ML SYRINGE IV PRN ×2 (21:38→23:54)
[2017-01-28] VITALS (14 sets, daily range): BP systolic 143–183; BP diastolic 65–91; O2SAT 89–94
[2017-01-28] MEDS: HumaLOG INSULIN (NovoLOG) PER UNIT SC SCH ×5 (00:21→21:00)
[2017-01-28] MEDS: methylPREDNISolone INJ 125 MG/2 ML VIAL (J2930) IV SCH ×4 (00:21→18:21)
[2017-01-28] MEDS: MIDAZOLAM INJ 2 MG/2 ML VIAL (J2250) IV PRN ×7 (00:44→05:51)
[2017-01-28] MEDS: MIDAZOLAM HCL 100 MG in D5W 80 ML IV SCH ×2 (01:12→05:52)
[2017-01-28] MEDS: MORPHINE 2 MG/ML 1ML SYRINGE IV PRN ×2 (03:46→05:50)
[2017-01-28 04:38] LABS: MEAN CORPUSCULAR HEMOGLOBIN 28.8 pg (27.0-33.0); MEAN CORPUSCULAR HGB CONC 33.2 g/dl (32.0-36.5); MEAN CORPUSCULAR VOLUME 86.7 fl (80.0-96.0); RED CELL DISTRIBUTION WIDTH 15.5 % (11.5-14.5); WHITE BLOOD COUNT 12.7 K/mm3 (4.0-10.0)
--- NOTE | 2017-01-28 05:49 | ECHO ---
DATE OF PROCEDURE: 01/27/2017 REFERRING PHYSICIAN: Dr. Kyle Asher. INDICATION: Heart failure, unspecified. HEIGHT: 175 cm. WEIGHT: 119 kg. MEASUREMENTS: Left atrium: 3.9 cm Aortic root: 3.6 cm Ventricular septum: 1.16 cm Posterior wall: 1.16 cm Left ventricle diastole: 5.1 cm LVOT: 2.4 cm Inferior vena cava: 2.4 cm with less than 50% respiratory variation. DOPPLER MEASUREMENTS: Aortic valve velocity: 121 cm/s LVOT velocity: 84.2 cm/s LVOT VTI: 16.4 cm Mild mitral regurgitation. Mitral E velocity: 62.7 cm/s Mitral A velocity: 56.3 cm/s Mitral deacceleration time: 218 ms Very mild tricuspid regurgitation. Pulmonary artery systolic pressure estimated to be 44 mmHg by pulmonary acceleration time method. MITRAL ANNULAR TISSUE DOPPLER: E-prime septal: 4.3 cm/s DESCRIPTION: Rhythm was sinus. This study was performed with patient supine on a ventilator. This is a moderately technically difficulty echocardiogram. No pericardial effusion. This is a 2D, M-mode, color flow Doppler and pulsed wave Doppler examination and included mitral annular tissue Doppler. CONCLUSIONS: 1. Normal left ventricle and diastolic dimension. Normal LV wall thickness. Mild reduction overall LV systolic function. LVEF 45% by visual estimate. Regional wall motion abnormalities of the left ventricle as follows: Akinesis of the basal inferior, basal inferolateral and basal anterolateral LV segments; hypokinesis of the basal inferoseptal segment; probably normal wall motion and wall thickening elsewhere. Grade 2 LV diastolic dysfunction (through normal LV diastolic filling pattern); suggestive of elevated mean left atrial pressure. 2. Suggestive of moderate elevation of pulmonary artery increased systolic pressure (44 mmHg). Moderate reduction of overall right ventricle systolic function. Elevated central venous pressure estimated to be 15-20 mmHg. Inferior vena cava plethora. 3. Mild left atrial dilatation. 4. No pericardial effusion. 5. Structurally normal and functionally normal cardiac valves.
[2017-01-28 06:12] LABS: ABG BASE EXCESS -2.1 (-2.0-2.0); ABG HCO3 20.8 MEQ/L (22.0-26.0); ABG PARTIAL PRESSURE CO2 30.9 mmHg (35.0-45.0); ABG PARTIAL PRESSURE O2 141.1 mmHg (75.0-100.0); ABG STANDARD HCO3 22.7 MEQ/L (22.0-26.0); ABG TOTAL CO2 21.8 MEQ/L (22.0-29.0); ABG pH (ARTERIAL) 7.447 UNITS (7.350-7.450)
[2017-01-28] MEDS ORDERED: PROPOFOL 1,000 MG/100 ML VIAL As Ordered ONE (06:41)
[2017-01-28] MEDS ORDERED: PROPOFOL 1,000 MG in APPROPRIATE DILUENT 1 EA IV SCH (06:45)
--- NOTE | 2017-01-28 06:46 | RO ---
DATE OF PROCEDURE: 01/27/2017 PREOPERATIVE DIAGNOSIS: Severe fluctuations in blood pressure hypotension, hypertension, possible shock, concern for cardiac disease with respiratory failure. POSTPROCEDURE DIAGNOSIS: Respiratory diaphoresis, question of shock. PROCEDURE: Right internal jugular vein triple-lumen catheter. PROCEDURALIST: Kyle Asher DO ADVERTISING INTERN: None. DESCRIPTION OF PROCEDURE: After informed consent was provided verbally by the , including all procedures to save her life, I have performed a right IJ. Chlorhexidine was used to prep the area and full sterile barrier precautions. A time out was performed with two patient identifiers, identifying correct site and correct procedure. Right IJ was then easily accessed with the Roslin syringe into the IJ with return of venous blood flow on the first pass. The wire was fed through the needle and the needle was removed. The triple lumen catheter was then placed via modified Seldinger technique. All three ports returned venous blood flow and flushed easily. This was sutured in at 15 cm. Sterile impregnated dressing was placed over the site and appropriate position was confirmed via chest x-ray. There were no observed complications.
[2017-01-28] MEDS ORDERED: SODIUM CHLORIDE 0.9% INJ 10 ML SYR IV PRN (07:30)
[2017-01-28] MEDS ORDERED: SLF 3 ML SYR IV PRN (07:30)
--- NOTE | 2017-01-28 07:52 | REP ---
PORTABLE CHEST X-RAY: Single view. HISTORY: Respiratory failure. COMPARISON STUDY: January 27, 2017. FINDINGS: Endotracheal tube remains in good position at the level of the proximal clavicles. An NG tube enters left upper quadrant of the abdomen. A right internal jugular catheter terminates in the expected location of the superior vena cava. EKG electrodes are seen. The lung rinaldi have cleared significantly since yesterday's radiograph. No new infiltrate is seen. Signed by Alexys Higgins MD 01/28/2017 08:54 A
[2017-01-28] MEDS: IPRATROPIUM 0.5MG/ALBUTEROL 2.5MG INH SOL UD 3ML (DUONEB)(J7620) NEB SCH ×4 (07:56→19:49)
[2017-01-28] MEDS ORDERED: metFORMIN (GLUCOPHAGE) 500 MG TAB PO SCH (08:00)
[2017-01-28] MEDS ORDERED: APIXABAN 5 MG TAB (ELIQUIS) PO ONE (08:15)
[2017-01-28] MEDS ORDERED: ENOXAPARIN 40 MG/0.4 ML SYRINGE (J1650) SC SCH (09:00)
[2017-01-28] MEDS: amLODIPine 10 MG TAB PO SCH (09:00)
[2017-01-28] MEDS ORDERED: amLODIPine 10 MG TAB PO SCH (09:00)
[2017-01-28] MEDS: CHLORHEXIDINE GLUCONATE 0.12 % 15ML UDC (PERIDEX ORAL RINSE) MT SCH (09:00)
[2017-01-28 09:17] LABS: ALBUMIN 3.1 GM/DL (3.2-5.2); ALBUMIN/GLOBULIN RATIO 0.82 (1.00-1.93); ALKALINE PHOSPHATASE 88 U/L (45-117); ALT/SGPT 30 U/L (12-78); ANION GAP 9 MEQ/L (8-16); AST/SGOT 17 U/L (15-37); BILIRUBIN,TOTAL 0.2 MG/DL (0.2-1.0); BLOOD UREA NITROGEN 20 MG/DL (7-18); CALCIUM LEVEL 8.4 MG/DL (8.5-10.1); CARBON DIOXIDE LEVEL 27 MEQ/L (21-32); CHLORIDE LEVEL 103 MEQ/L (98-107); GLOMERULAR FILTRATION RATE > 60.0 (>51); GLUCOSE, FASTING 233 MG/DL (70-105); POTASSIUM SERUM 3.8 MEQ/L (3.5-5.1); SODIUM LEVEL 139 MEQ/L (136-145); TOTAL PROTEIN 6.9 GM/DL (6.4-8.2)
[2017-01-28 09:26] LABS: DIGOXIN LEVEL 0.4 NG/ML (0.5-2.0)
[2017-01-28] MEDS: PANTOPRAZOLE 40MG INJ (PROTONIX) (C9113) IV SCH (09:52)
[2017-01-28] MEDS: LEVEMIR (INSULIN DETEMIR) 1 UNITS/0.01ML SC SCH ×2 (09:53→21:00)
--- NOTE | 2017-01-28 12:00 | HPE ---
DATE OF ADMISSION: 01/27/2017 This is a 51-year-old female presenting in the emergency room this morning for dizziness, altered mental status and "not feeling well". The patient was brought in via the emergency medical services (EMS) and was accompanied with her . History was obtained from her . The patient's states that this morning, after taking her a.m. medication around 8:30 a.m., the patient was complaining of "dizziness and that the room was spinning". states that she had a similar episode the day before, which improved after sitting down for a period of time. He states that today, the symptoms did not improve after doing the same thing. Instead the symptoms progressively got worse. The patient stated to him that "something was wrong" ans he proceeded to call EMS. The states his 's hands were flexing back and forth at the wrist and she was speaking "gibberish". He said that she can articulate words, but he could not understand them for they did not make sense. The patient's states that these symptoms are similar to 2 years ago when he thinks she had a prior stroke or a transient ischemic attack (TIA) episode. The patient's is unsure, though. The patient's denies fevers, chills, night sweats, nausea, and vomiting at home, diarrhea, abdominal pain. He denies her having any recent sick contact or having any flu-like symptoms. The patient's does admit to his having a snoring problem but denies her having any sleep apnea or getting evaluated for it as of now. The patient's does note that there was a change in patient's medication in the last couple of days where there was an increase in her depression medication and restarting Lyrica after running out of them earlier this week. The patient was unsure of which depression medication was increased. states that the takes all of her medications as prescribed and keeps up-to-date with physician care. At the emergency room, the patient had one episode of vomiting, aggressive behavior and was diaphoretic. The patient had a blood pressure at emergency room admission of 200/110 and emergency room was concerned for hypertensive urgency and the patient was in respiratory distress and the patient was intubated. When we saw her, Dr. Asher and Dmitri, the patient was cyanotic, using accessory muscles to breath and she appeared to be in respiratory distress. When we listened to her lungs, she had very poor aeration bilaterally, so we bagged the patient and gave the patient Versed to calm her down. Critical care time was 2 hours excluding all procedures that was done. The patient's home medications: - albuterol sulfate two puffs INH four times a day as needed - amlodipine 5 mg by mouth daily - Eliquis 5 mg by mouth twice a day - calcium/vitamin D one tablet by mouth twice a day - carbamazepine 400 mg by mouth twice a day - Coreg 25 mg by mouth - cetirizine 10 mg by mouth nightly - clopidogrel 75 mg by mouth daily - vitamin B12 1000 mcg by mouth daily - digoxin 0.25 mg by mouth daily - docusate sodium 100 mg by mouth daily - duloxetine HCL 30 mg capsule 90 mg total daily - duloxetine HCL 60 mg capsule 90 mg total daily by mouth - Lexapro 10 mg by mouth daily - Nexium 40 mg by mouth daily - Zetia 10 mg by mouth daily - ferrous sulfate 325 mg by mouth daily - Diflucan 100 mg by mouth twice a day filled on 01/21/2017 for 7 days - furosemide 40 mg by mouth daily as needed for swelling - gabapentin 600 mg by mouth daily - Lantus 55 units injection nightly - isosorbide mononitrate ER 30 mg by mouth daily - lamotrigine ER 500 mg by mouth daily - Victoza 1.2 mg subcu daily - metformin HCL ER 1000 mg by mouth twice a day - Nitrostat 0.4 mg sublingual every 5 minutes as needed for chest pain. - Mirapex 0.5 mg by mouth twice a day - Lyrica 200 mg by mouth twice a day - Januvia 100 mg by mouth twice a day - spironolactone 25 mg by mouth daily - Carafate 1 gram by mouth twice a day - sumatriptan succinate 4 mg sc twice a day, as needed for migraines. - tizanidine HCL 2 mg by mouth three times a day as needed for muscle spasm - tolterodine tartrate ER 4 mg by mouth daily - trazodone HCL 200 mg by mouth nightly. PAST MEDICAL HISTORY: ( from the ). Heart disease. Hypertension. Diabetes. Degenerative disc disease. TIA ? PAST SURGICAL HISTORY: None to the 's knowledge that he knew off SOCIAL HISTORY: The patient was a previous smoker who used to smoke to 20+ years and she used to smoke 1-1/2 pack to 2 packs daily. She quit 2 years ago in 2014. Currently, her admits that she vaps for the last 2-3 years. She is a social alcohol drinker and drinks about two to three gins at these events. He denies her having any illicit drug use. She is with one son from a previous relationship. The patient is currently disabled and lives with a pet dog that they have had for 1-1/2 years. FAMILY HISTORY: Obtained from the significant other. Mom of congestive heart failure in her 50 and 60s. Brother currently has throat cancer, unknown age. Dad hx is unknown to significant other. VITALS ON ADMISSION: Temperature 97.9, blood pressure 200/110, pulse 81, pulse ox 93% on nasal cannula with 2 liters. PHYSICAL EXAMINATION: GENERAL: This is an obese patient in acute distress and was intubated in the ER. The patient appeared cyanotic and diaphoretic. CARDIAC: Regular rate and rhythm. No murmurs were appreciated. Pedal pulses were 2+ bilaterally. LUNGS: Poor aeration was heard until patient was bagged. Lungs were very restricted and tight to auscultation. Accessory muscles were noted bilaterally: SKIN: Cool clammy extremities; distal extremities were cold, were cyanotic at first but as the patient was morally bagged, turned more pink in color to better perfusion. LABS: ABG was obtained. She had a pH 6.9, pCO2 99.7 and pO2 95. WBC 8.1, hemoglobin 13.6, hematocrit 41.5, platelet 342, sodium 137, potassium 3.8, chloride 103, bicarbonate of 28, BUN 12, creatinine of 0.67, glucose 163, lactate 2.4, troponin at the emergency room was less than 0.02. TSH 1.4. AST 9, ALT 29. Digoxin levels were 0.4, succinate levels were less than 1.7, acetaminophen levels were less than 2.0. Ethanol alcohol was less than 0.003. IMAGING: CT head without contrast was reviewed and showed no intracranial lesions and no history of any prior strokes. First chest x-ray: Interval increase in heart size with significant interval development of pulmonary venous hypertension. Early interstitial edema difficult to exclude. No dense consolidation or gross effusion evident. ASSESSMENT/PLAN: 1. Severe acute hypercapnic/hypoxic respiratory failure: The patient is to be intubated with low respiratory rate settings. Ventilation settings will be set at pressure control above a PEEP of 4, respiratory rate of 4, PEEP of 10, oxygen percent at 50%. 2. Hypertension: Likely secondary to the acute hypercapnic/hypoxic respiratory failure. 3. Coronary artery disease. The patient has a history of coronary artery disease. Has had placement of six stents placed, last one placed 1 year ago in [place]. Will be following the patient's troponin levels every 8. Will have an echo done. No electrocardiogram (EKG) changes were noted. For possible pulmonary edema, we will be giving 80 mg of Lasix. 4. For the increased lactic acid levels: Lactic at emergency room admission was 2.4. Will have a followup lactic acid at 1530 and we will reassess then. 5. Diabetes mellitus: We will be using the insulin sliding scale and will have insulin Lispro on board. 6. Gastrointestinal (GI) prophylaxis: Will be giving the patient Protonix. 7. Deep venous thrombosis (DVT prophylaxis: Will put the patient on thromboembolic deterrent stockings (TEDS) . My preceptor for this patient encounter was Dr. Kyle Asher. The preceptor was physically present in the room during the encounter and was fully available. As needed, all aspects of the patient interview, examination, medical decision making process, and medical care plan development were reviewed and approved by the preceptor. The preceptor is aware and concurs with the plan as stated in the body of this note and will attest to such by her cosignature. I, Kyle Asher, agree with the outlined critical care note above. I was at the patient's bedside performing critical care. Patient had significant air trapping and bronchospasm, I slowly bagged the patient to allow for additional exhalation time. This improved oxygenation, ventilation and blood pressure. My suspicion is asthma exacerbation with severe bronchospasm. Careful attention to mechanical ventilation will be required. MADHU
[2017-01-28] MEDS ORDERED: ACETAMINOPHEN TAB 650MG DOSE (2X325MG) As Ordered ONE (12:14)
[2017-01-28] MEDS: ACETAMINOPHEN TAB 650MG DOSE (2X325MG) PO PRN (12:47)
[2017-01-28] MEDS ORDERED: SODIUM CHLORIDE 0.9% INJ 10 ML SYR IV SCH (14:00)
--- NOTE | 2017-01-28 15:22 | IPNPDOC ---
Subjective Date Seen The patient was seen on 01/28/17. Subjective Chief Complaint/HPI The patient is a 51-year-old female admitted with a reason for visit of Acute Hypercapnic Respiratory Failure. Events since last encounter Suddenly became dyspneic 1D [employer] Constitutional: Denies: Chills, Fever Eyes: Denies: Pain Pulmonary: Reports: Dyspnea Cardiovascular: Denies: Chest Pain Gastrointestinal: Denies: Nausea, Vomiting Genitourinary: Denies: Dysuria Objective Physical Examination General Exam: Positive: Alert Eye Exam: Positive: PERRLA ENT Exam: Positive: Atraumatic Neck Exam: Negative: JVD Chest Exam: Positive: Wheezing Telemetry: Positive: No significant arrhythmia Abdomen Exam: Positive: Normal bowel sounds Extremity Exam: Negative: Edema Psych Exam: Positive: Mental status NL Assessment /Plan Problems (1) Respiratory failure Status: Acute Problem Text: favor 2 acute asthma exacerbation (URI and stopping high-dose ICS /LABA and LAMA, 01/27 - UDS) DM 80 q6H 01/28 extubated, appreciate Dr. Asher input-Medicine assumed as attending 01/28 CXR diffuse B interstitial infiltrate 01/28 resp panel P prior to admission: Advair 500 BID and Spiriva per last OV (although NOT on med rec) (2) T2DM (type 2 diabetes mellitus) Status: Chronic Response to Treatment: Stable Problem Text: sitaglipitin 100, Victoza 1.2 held/ Lantus 55 at 2200 split c SSNI, continue met 1000 BID HD (3) CAD (coronary artery disease) Status: Chronic Response to Treatment: Stable Problem Text: 08/2015 reversed CART procedure oening RCA c ANGELICA x 2-[facility] (done 2 intractable CP) continue clopidogrel , BB as per AF, Imdur//HD rosuva, ezet 01/28 no anginal type pain 01/27 T-I 0.17 (peak), 0.4 01/27/17 EKG NSR 84, IVCD, diffuse ST/T changes 01/27/17 TTE: 1. Normal left ventricle and diastolic dimension. Normal LV wall thickness. Mild reduction overall LV systolic function. LVEF 45% by visual estimate. Regional wall motion abnormalities of the left ventricle as follows: Akinesis of the basal inferior, basal inferolateral and basal anterolateral LV segments; hypokinesis of the basal inferoseptal segment; probably normal wall motion and wall thickening elsewhere. Grade 2 LV diastolic dysfunction (through normal LV diastolic filling pattern); suggestive of elevated mean left atrial pressure. 2. Suggestive of moderate elevation of pulmonary artery increased systolic pressure (44 mmHg). Moderate reduction of overall right ventricle systolic function. Elevated central venous pressure estimated to be 15-20 mmHg. Inferior vena cava plethora. 3. Mild left atrial dilatation. 4. No pericardial effusion. 5. Structurally normal and functionally normal cardiac valves. DD: Otilio Nicholas MD [facility] 01/27/17 1312 (4) Asthma, moderate persistent Status: Chronic Response to Treatment: Improving Problem Text: rx as per RF (5) Paroxysmal atrial fibrillation Status: Chronic Response to Treatment: Stable Problem Text: continue HD apixaban, dig (01/27 level 0.4 on 0.25 QD), spirolactone 01/28 changed non-selective carvedilol 25 BID to bisoprolol 5 BID (6) Hypertension Status: Chronic Response to Treatment: Stable Problem Text: Stable on HD amlo 5, shanique 25, Imdur, BB as per AF (7) Depression Status: Chronic Response to Treatment: Stable Problem Text: Stable on home regimen-escital 10, lamo 250 BID, duloxetine 90 discharged from ([facility])who had patient on dulox, lamo, traz, lisa 800 TID (8) Insomnia Status: Chronic Problem Text: decrease trazodone 200 to 100 qhs (9) Lumbar spinal stenosis Status: Chronic Response to Treatment: Stable Problem Text: Continue HD lisa 800 TID (hold pregalbin) (10) Seizure disorder Status: Chronic Response to Treatment: Stable Problem Text: Continue HD carba 01/28 level P (11) Opiate abuse, episodic Status: Chronic Problem Text: Would continue to avoid home theater specialist use-would not discharge on narcotics (12) CHELI (obstructive sleep apnea) Status: Chronic Problem Text: 10/2016 diagnostic NPSG c/w moderate CHELI c Dr. Orlando-patient never f/u for titration study (13) Diastolic congestive heart failure Status: Chronic Response to Treatment: Stable Problem Text: Euvolemic off Lasix 40 QD prn TTE as per CAD (14) Polypharmacy Status: Chronic Problem Text: on discharge will extensively review ML-have PFS bring in ALL old meds (15) GERD (gastroesophageal reflux disease) Status: Chronic Response to Treatment: Stable Problem Text: Stable on esomep 40 QD-here panto 40 QD Plan/VTE VTE Prophylaxis Ordered?: Yes Plan/Urinary Catheter Reason for insertion/continuin: Critical Pt monitoring VS, I&O, 24H, Fishbone Vital Signs/I&O Vital Signs Date Time Temp Pulse Resp B/P (MAP) Pulse Ox O2 Delivery O2 Flow Rate FiO2 01/28/17 14:00 81 22 152/72 (98) 95 Nasal Cannula 3.0 01/28/17 12:00 98.6 01/28/17 08:00 45 I&O- Last 24 Hours up to 6 AM 01/28/17 06:00 Intake Total 0 ml Output Total 2300 ml Balance -2300 ml Laboratory Data 24H LABS Laboratory Tests 2 01/27/17 15:20: Central Line Venous O2 Saturation 70.1 01/27/17 15:37: Blood Gas Bicarbonate Standard 21.7L, Arterial Blood pH 7.345L, Arterial Blood Partial Pressure CO2 42.0, Arterial Blood Partial Pressure O2 68.7L, Arterial Blood Total CO2 23.7, Arterial Blood HCO3 22.4, Arterial Blood Base Excess -3.1L , Arterial Blood Oxygen Saturation 91.8L, Arterial Blood Gas Puncture Site RT RADIAL, Lactic Acid Followup at 4 Hours 3.1*H 01/27/17 16:36: Anion Gap 9, Glomerular Filtration Rate > 60.0, Blood Urea Nitrogen 17, Creatinine 0.94, Sodium Level 138, Potassium Level 4.9#, Chloride Level 103, Carbon Dioxide Level 26, Calcium Level 8.2L 01/27/17 20:21: Total Creatine Kinase 78, Creatine Kinase MB 2.4, Creatine Kinase MB Relative Index 3.07, Troponin I 0.17#H 01/28/17 00:13: Bedside Glucose (Misc Panel) 248H 01/28/17 05:15: Bedside Glucose (Misc Panel) 241H 01/28/17 06:01: Blood Gas Bicarbonate Standard 22.7, Arterial Blood pH 7.447, Arterial Blood Partial Pressure CO2 30.9L, Arterial Blood Partial Pressure O2 141.1H, Arterial Blood Total CO2 21.8L, Arterial Blood HCO3 20.8L, Arterial Blood Base Excess - 2.1L, Arterial Blood Oxygen Saturation 98.9 01/28/17 08:37: Anion Gap 9, Glomerular Filtration Rate > 60.0, Blood Urea Nitrogen 20H, Creatinine 0.60, Sodium Level 139, Potassium Level 3.8#, Chloride Level 103, Carbon Dioxide Level 27, Calcium Level 8.4L, Aspartate Amino Transf (AST/SGOT) 17, Alanine Aminotransferase (ALT/SGPT) 30, Alkaline Phosphatase 88, Total Bilirubin 0.2, Total Protein 6.9, Albumin 3.1L, Troponin I 0.14H, Albumin/ Globulin Ratio 0.82L, Digoxin Level 0.4L 01/28/17 09:45: Bedside Glucose (Misc Panel) 208H 01/28/17 12:03: Bedside Glucose (Misc Panel) 189H CBC/BMP Laboratory Tests 01/27/17 16:36 Red Blood Count 4.45, Mean Corpuscular Volume 90.1, Mean Corpuscular Hemoglobin 28.6, Mean Corpuscular Hemoglobin Concent 31.8 L, Red Cell Distribution Width 15.9 H, Calcium Level 8.2 L 01/27/17 20:24 Red Blood Count 4.53, Mean Corpuscular Volume 89.1, Mean Corpuscular Hemoglobin 29.2, Mean Corpuscular Hemoglobin Concent 32.8, Red Cell Distribution Width 15.9 H 01/28/17 04:22 Red Blood Count 4.62, Mean Corpuscular Volume 86.7, Mean Corpuscular Hemoglobin 28.8, Mean Corpuscular Hemoglobin Concent 33.2, Red Cell Distribution Width 15.5 H 01/28/17 08:37 Calcium Level 8.4 L, Aspartate Amino Transf (AST/SGOT) 17, Alanine Aminotransferase (ALT/SGPT) 30, Alkaline Phosphatase 88, Total Bilirubin 0.2, Total Protein 6.9, Albumin 3.1 L Microbiology Microbiology 01/27/17 Urine Culture - Final, Complete Octavio Dowd M.D. Jan 28, 2017 15:22
[2017-01-28] MEDS: CLOPIDOGREL 75 MG TAB PO SCH (16:13)
[2017-01-28] MEDS: DULoxetine 30 MG CAP (CYMBALTA) PO SCH (16:13)
[2017-01-28] MEDS: ISOSORBIDE MON. (IMDUR) 30 MG XR TAB PO SCH (16:14)
[2017-01-28] MEDS: SLF 3 ML SYR IV SCH ×2 (16:15→22:00)
[2017-01-28] MEDS: DIGOXIN 0.25 MG TAB PO SCH (16:15)
[2017-01-28] MEDS: ESCITALOPRAM OXALATE 10 MG TAB (LEXAPRO) PO SCH (17:21)
[2017-01-28] MEDS: SPIRONOLACTONE 25 MG TAB PO SCH (17:22)
[2017-01-28] MEDS: metFORMIN (GLUCOPHAGE) 1000 MG TABLET PO SCH (17:22)
[2017-01-28] MEDS: FIORICET TAB PO PRN (18:21)
[2017-01-28] MEDS: traZODone 100 MG TAB PO SCH (21:00)
[2017-01-28] MEDS ORDERED: PREGABALIN 100 MG CAP (LYRICA) PO SCH (21:00)
[2017-01-28] MEDS: BISOPROLOL FUMARATE 5 MG TAB PO SCH (21:00)
[2017-01-28] MEDS: carBAMazepine XR 200 MG TAB PO SCH (21:00)
[2017-01-28] MEDS: APIXABAN 5 MG TAB (ELIQUIS) PO SCH (21:00)
[2017-01-28] MEDS: lamoTRIgine 100MG TAB PO SCH (21:00)
--- NOTE | 2017-01-28 21:45 | CCN ---
DATE: 01/28/2017 Ms. Varela is a 59-year-old female who was intubated yesterday on 01/27/2017, in the emergency room (ER). She has less airtrapping this am, ABG has normalized. This morning, the patient has been agitated after being on Versed 6 mg. The patient is very active despite sedation. The patient passed her spontaneous breathing trial and was extubated this morning. VITAL SIGNS: The patient's pulse was 85, irregular blood pressure 143/65 with a mean arterial pressure (MAP) of 91, temperature of 98.2, maximum temperature (Tmax) of 97.7, a respiratory rate of 23, and a pulse oximetry of 96%. The patient was on a ventilator, settings 14/7, but was extubated this morning. PHYSICAL EXAMINATION: GENERAL APPEARANCE: The patient was agitated, slightly sedated with Versed and was fighting the tube. She was extubated. Heent sclera clear, mmm without lesions, tongue midline. Lymph: No cervical or supraclavicular adenopathy. LUNGS: Clear on the apical bases bilaterally, slight wheezing on the posterior bases, but improvement since yesterday. Aeration is improving since 01/27/2017. HEART: Regular rate and rhythm. No murmurs, no gallops, no rubs were appreciated. Abd: soft, non tender, non distended, normactive bowel sounds. No hepatosplenomegaly Ext: No cyanosis, clubbing or edema. Skin: no rash jaundice or bruising. LABORATORY DATA: WBCs were 12.7, hemoglobin of 13.3, hematocrit of 40.0, platelets of 352. Sodium of 139, potassium of 3.8, chloride of 103, bicarbonate of 27, BUN of 20, creatinine of 0.60, glucose of 233, troponins were coming down from 0.17 to 0.14 , albumin was 3.1, total protein of 0.82. Urine culture showed no growth. MEDICATIONS: Are the following: - glycogen 1 mg - Solu-Medrol 80 mg IV every 6 hours - heparin - Lovenox - midazolam 100 mg - Versed was given last this morning of 6 mg ASSESSMENT AND PLAN: 1. Acute hypercapnic hypoxic respiratory failure due to bronchospasm, probable asthma versus COPD. Trial of extubation this morning. Continue nebs and solumedrol.. 2. Polypharmacy. Primary care provider (PCP) was consulted for polypharmacy and continue management of this patient. 3. Hypertension: I have added back norvasc but would express caution with any beta-manuela use. My preceptor for this patient encounter was Dr. Kyle Asher. The preceptor was physically present in the room during the encounter and was fully available. As needed, all aspects of the patient interview, examination, medical decision making process, and medical care plan development were reviewed and approved by the preceptor. The preceptor is aware and concurs with the plan as stated in the body of this note and will attest to such by her cosignature. I, Kyle Asher, was at the patient's bedside. I performed a spontaneous breathing trial and determined readiness for extubation. I agree with the plan as outlined above. MADHU
[2017-01-29] MEDS: FIORICET TAB PO PRN ×4 (01:19→21:48)
[2017-01-29] MEDS: methylPREDNISolone INJ 125 MG/2 ML VIAL (J2930) IV SCH ×3 (01:19→13:00)
[2017-01-29] MEDS: ACETAMINOPHEN TAB 650MG DOSE (2X325MG) PO PRN (03:09)
[2017-01-29] MEDS: SLF 3 ML SYR IV SCH ×3 (05:25→21:49)
[2017-01-29 06:00] VITALS: BP 180/88
[2017-01-29] MEDS: GABAPENTIN 400 MG CAP PO SCH ×3 (06:00→21:48)
[2017-01-29 06:32] LABS: MEAN CORPUSCULAR HEMOGLOBIN 28.9 pg (27.0-33.0); MEAN CORPUSCULAR HGB CONC 33.6 g/dl (32.0-36.5); MEAN CORPUSCULAR VOLUME 86.1 fl (80.0-96.0); RED CELL DISTRIBUTION WIDTH 15.9 % (11.5-14.5)
[2017-01-29 06:59] LABS: ALBUMIN 3.3 GM/DL (3.2-5.2); ALBUMIN/GLOBULIN RATIO 0.75 (1.00-1.93); ALKALINE PHOSPHATASE 98 U/L (45-117); ALT/SGPT 30 U/L (12-78); ANION GAP 11 MEQ/L (8-16); AST/SGOT 14 U/L (15-37); BILIRUBIN,TOTAL 0.2 MG/DL (0.2-1.0); BLOOD UREA NITROGEN 19 MG/DL (7-18); CALCIUM LEVEL 8.9 MG/DL (8.5-10.1); CARBON DIOXIDE LEVEL 25 MEQ/L (21-32); CHLORIDE LEVEL 102 MEQ/L (98-107); CREATININE FOR GFR 0.81 MG/DL (0.55-1.02); GLOMERULAR FILTRATION RATE > 60.0 (>51); GLUCOSE, FASTING 266 MG/DL (70-105); SODIUM LEVEL 138 MEQ/L (136-145); TOTAL PROTEIN 7.7 GM/DL (6.4-8.2)
[2017-01-29] MEDS: IPRATROPIUM 0.5MG/ALBUTEROL 2.5MG INH SOL UD 3ML (DUONEB)(J7620) NEB SCH ×2 (07:04→11:25)
[2017-01-29] MEDS: HumaLOG INSULIN (NovoLOG) PER UNIT SC SCH ×4 (08:53→21:00)
[2017-01-29] MEDS: amLODIPine 10 MG TAB PO SCH (08:57)
[2017-01-29] MEDS: DIGOXIN 0.25 MG TAB PO SCH (08:58)
[2017-01-29] MEDS: lamoTRIgine 100MG TAB PO SCH ×2 (08:59→21:48)
[2017-01-29] MEDS: ISOSORBIDE MON. (IMDUR) 30 MG XR TAB PO SCH (08:59)
[2017-01-29] MEDS: CLOPIDOGREL 75 MG TAB PO SCH (08:59)
[2017-01-29] MEDS: DULoxetine 30 MG CAP (CYMBALTA) PO SCH (09:00)
[2017-01-29] MEDS: LEVEMIR (INSULIN DETEMIR) 1 UNITS/0.01ML SC SCH ×2 (09:00→21:00)
[2017-01-29] MEDS: APIXABAN 5 MG TAB (ELIQUIS) PO SCH ×2 (09:01→21:48)
[2017-01-29] MEDS: ESCITALOPRAM OXALATE 10 MG TAB (LEXAPRO) PO SCH (09:01)
[2017-01-29] MEDS: BISOPROLOL FUMARATE 5 MG TAB PO SCH ×2 (09:01→21:47)
[2017-01-29] MEDS: carBAMazepine XR 200 MG TAB PO SCH ×2 (09:02→21:48)
[2017-01-29] MEDS: SPIRONOLACTONE 25 MG TAB PO SCH (09:02)
[2017-01-29] MEDS: PANTOPRAZOLE 40MG TAB (PROTONIX) PO SCH (09:02)
[2017-01-29] MEDS: metFORMIN (GLUCOPHAGE) 1000 MG TABLET PO SCH ×2 (09:02→18:51)
[2017-01-29] MEDS: ROSUVASTATIN 10 MG TAB (CRESTOR) PO SCH (10:47)
[2017-01-29 13:00] VITALS: BP 194/100
[2017-01-29] MEDS ORDERED: ALBUTEROL SULFATE 2.5 MG/0.5 ML INH NEB SOLN NEB PRN (13:15)
[2017-01-29] MEDS ORDERED: ALBUTEROL 90 MCG/ACT 8GM HFA INHALER INH PRN (13:15)
--- NOTE | 2017-01-29 16:03 | IPNPDOC ---
Subjective Date Seen The patient was seen on 01/29/17. Subjective Chief Complaint/HPI The patient is a 51-year-old female admitted with a reason for visit of Acute Hypercapnic Respiratory Failure. Objective Physical Examination General Exam: Positive: Alert Eye Exam: Positive: PERRLA ENT Exam: Positive: Atraumatic Neck Exam: Negative: JVD Chest Exam: Positive: Wheezing Telemetry: Positive: No significant arrhythmia Abdomen Exam: Positive: Normal bowel sounds Extremity Exam: Negative: Edema Psych Exam: Positive: Mental status NL Assessment /Plan Problems (1) Respiratory failure Status: Acute Problem Text: favor 2 acute asthma exacerbation (URI and stopping high-dose ICS /LABA and LAMA, 01/27 - UDS) 01/29 decreased to pred 40-plan restart Advair 500 BID on dc 01/28 DM 80 q6H 01/28 extubated, appreciate Dr. Asher input-Medicine assumed as attending 01/28 CXR diffuse B interstitial infiltrate 01/28 resp panel - prior to admission: Advair 500 BID and Spiriva per last OV (although NOT on med rec) (2) T2DM (type 2 diabetes mellitus) Status: Chronic Response to Treatment: Stable Problem Text: sitaglipitin 100, Victoza 1.2 held/ 01/29 Lantus 55 at 2200 split c SSNI, continue met 1000 BID HD-add back home regimen at dc 01/2017 A1C 8.2 (3) CAD (coronary artery disease) Status: Chronic Response to Treatment: Stable Problem Text: 08/2015 reversed CART procedure oening RCA c ANGELICA x 2-[facility] (done 2 intractable CP) continue clopidogrel , BB as per AF, Imdur//HD rosuva, ezet 01/28 no anginal type pain 01/27 T-I 0.17 (peak), 0.4 01/27/17 EKG NSR 84, IVCD, diffuse ST/T changes 01/27/17 TTE: 1. Normal left ventricle and diastolic dimension. Normal LV wall thickness. Mild reduction overall LV systolic function. LVEF 45% by visual estimate. Regional wall motion abnormalities of the left ventricle as follows: Akinesis of the basal inferior, basal inferolateral and basal anterolateral LV segments; hypokinesis of the basal inferoseptal segment; probably normal wall motion and wall thickening elsewhere. Grade 2 LV diastolic dysfunction (through normal LV diastolic filling pattern); suggestive of elevated mean left atrial pressure. 2. Suggestive of moderate elevation of pulmonary artery increased systolic pressure (44 mmHg). Moderate reduction of overall right ventricle systolic function. Elevated central venous pressure estimated to be 15-20 mmHg. Inferior vena cava plethora. 3. Mild left atrial dilatation. 4. No pericardial effusion. 5. Structurally normal and functionally normal cardiac valves. DD: Otilio Nicholas MD [facility] 01/27/17 8978 (4) Asthma, moderate persistent Status: Chronic Response to Treatment: Improving Problem Text: rx as per RF (5) Paroxysmal atrial fibrillation Status: Chronic Response to Treatment: Stable Problem Text: continue HD apixaban, dig (01/27 level 0.4 on 0.25 QD), spirolactone 01/28 changed non-selective carvedilol 25 BID to bisoprolol 5 BID (6) Hypertension Status: Chronic Response to Treatment: Stable Problem Text: Stable on HD amlo 5, shanique 25, Imdur, Lasix 40, BB as per AF 01/29 + irbesartan 150-should improve as steroid is reduced (7) Depression Status: Chronic Response to Treatment: Stable Problem Text: Stable on home regimen-escital 10, lamo 250 BID, duloxetine 90 discharged from ([facility])who had patient on dulox, lamo, traz, lisa 800 TID (8) Insomnia Status: Chronic Problem Text: decrease trazodone 200 to 100 qhs (9) Lumbar spinal stenosis Status: Chronic Response to Treatment: Stable Problem Text: Continue HD lisa 800 TID (hold pregalbin) (10) Seizure disorder Status: Chronic Response to Treatment: Stable Problem Text: Continue HD carba 01/28 level 6 (11) Opiate abuse, episodic Status: Chronic Problem Text: Would continue to avoid terminal operations manager use-would not discharge on narcotics (12) CHELI (obstructive sleep apnea) Status: Chronic Problem Text: 10/2016 diagnostic NPSG c/w moderate CHELI c Dr. Orlando-patient never f/u for titration study (13) Diastolic congestive heart failure Status: Chronic Response to Treatment: Stable Problem Text: 01/29 restarted HD Lasix 40 QD TTE as per CAD (14) Polypharmacy Status: Chronic Problem Text: on discharge will extensively review ML-have PFS bring in ALL old meds (15) GERD (gastroesophageal reflux disease) Status: Chronic Response to Treatment: Stable Problem Text: Stable on esomep 40 QD-here panto 40 QD Plan/VTE VTE Prophylaxis Ordered?: Yes Plan/Urinary Catheter Reason for insertion/continuin: Critical Pt monitoring VS, I&O, 24H, Fishbone Vital Signs/I&O Vital Signs Date Time Temp Pulse Resp B/P (MAP) Pulse Ox O2 Delivery O2 Flow Rate FiO2 01/29/17 15:02 18 01/29/17 10:47 95 Room Air 01/29/17 09:01 82 194/84 01/29/17 06:00 97.9 01/28/17 14:00 3.0 01/28/17 08:00 45 I&O- Last 24 Hours up to 6 AM 01/29/17 06:00 Intake Total 1026 ml Output Total 2035 ml Balance -1009 ml Laboratory Data 24H LABS Laboratory Tests 2 01/28/17 17:13: Bedside Glucose (Misc Panel) 280H 01/28/17 21:04: Bedside Glucose (Misc Panel) 349H 01/29/17 06:02: Anion Gap 11, Glomerular Filtration Rate > 60.0, Blood Urea Nitrogen 19H, Creatinine 0.81, Sodium Level 138, Potassium Level 4.0, Chloride Level 102, Carbon Dioxide Level 25, Calcium Level 8.9, Aspartate Amino Transf (AST/SGOT) 14L, Alanine Aminotransferase (ALT/SGPT) 30, Alkaline Phosphatase 98, Total Bilirubin 0.2, Total Protein 7.7, Albumin 3.3, Albumin/Globulin Ratio 0.75L 01/29/17 06:03: Estimated Mean Plasma Glucose 189H, Hemoglobin A1c 8.2H, Carbamazepine (Tegretol ) Level 6.0 01/29/17 11:23: Bedside Glucose (Misc Panel) 258H CBC/BMP Laboratory Tests 01/29/17 06:02 Calcium Level 8.9, Aspartate Amino Transf (AST/SGOT) 14 L, Alanine Aminotransferase (ALT/SGPT) 30, Alkaline Phosphatase 98, Total Bilirubin 0.2, Total Protein 7.7, Albumin 3.3 01/29/17 06:03 Red Blood Count 4.72, Mean Corpuscular Volume 86.1, Mean Corpuscular Hemoglobin 28.9, Mean Corpuscular Hemoglobin Concent 33.6, Red Cell Distribution Width 15.9 H Microbiology Microbiology 01/28/17 Respiratory Virus Panel (PCR) ([place]) - Final, Complete 01/27/17 Urine Culture - Final, Complete Octavio Dowd M.D. Jan 29, 2017 16:03
[2017-01-29] MEDS: EZETIMIBE 10 MG TAB (ZETIA) PO SCH (17:40)
[2017-01-29] MEDS: IRBESARTAN 150 MG TAB PO SCH (17:41)
[2017-01-29] MEDS ORDERED: IBUPROFEN 800 MG TAB PO SCH (17:45)
[2017-01-29] MEDS ORDERED: ACETAMINOPHEN 500 MG TAB PO PRN (18:00)
[2017-01-29] MEDS: SYMBICORT 160/4.5MCG INHALER 6GM INH SCH (19:39)
[2017-01-29 21:47] VITALS: BP 179/86
[2017-01-29] MEDS: traZODone 100 MG TAB PO SCH (21:48)
[2017-01-29 22:00] VITALS: BP 178/98
[2017-01-30 06:00] VITALS: BP 177/93
[2017-01-30] MEDS: SLF 3 ML SYR IV SCH (06:00)
[2017-01-30 06:03] LABS: BASO % 0.3 % (0.0-1.0); EOS % 0.1 % (0.0-3.0); LARGE UNSTAINED CELL # 0.2 K/mm3 (0.0-0.4); LARGE UNSTAINED CELL % 1.8 % (0.0-4.0); LYMPH % 20.6 % (24.0-44.0); MEAN CORPUSCULAR HEMOGLOBIN 28.4 pg (27.0-33.0); MEAN CORPUSCULAR HGB CONC 32.8 g/dl (32.0-36.5); MEAN CORPUSCULAR VOLUME 86.5 fl (80.0-96.0); MONO # 0.7 K/mm3 (0.0-0.8); MONO % 5.2 % (0.0-5.0); NEUTROPHILS # 9.5 K/mm3 (1.8-7.7); PLATELET COUNT, AUTOMATED 354 k/mm3 (150-450); WHITE BLOOD COUNT 13.2 K/mm3 (4.0-10.0)
[2017-01-30] MEDS: GABAPENTIN 400 MG CAP PO SCH (06:09)
[2017-01-30 06:26] LABS: ALBUMIN/GLOBULIN RATIO 0.77 (1.00-1.93); ALKALINE PHOSPHATASE 88 U/L (45-117); ALT/SGPT 27 U/L (12-78); ANION GAP 12 MEQ/L (8-16); AST/SGOT 10 U/L (15-37); BILIRUBIN,TOTAL 0.3 MG/DL (0.2-1.0); BLOOD UREA NITROGEN 19 MG/DL (7-18); CALCIUM LEVEL 8.4 MG/DL (8.5-10.1); CARBON DIOXIDE LEVEL 26 MEQ/L (21-32); CHLORIDE LEVEL 103 MEQ/L (98-107); CHOLESTEROL LEVEL 256 MG/DL (<200); CREATININE FOR GFR 0.68 MG/DL (0.55-1.02); GLOMERULAR FILTRATION RATE > 60.0 (>51); GLUCOSE, FASTING 168 MG/DL (70-105); MAGNESIUM LEVEL 1.6 MG/DL (1.8-2.4); POTASSIUM SERUM 3.2 MEQ/L (3.5-5.1); SODIUM LEVEL 141 MEQ/L (136-145); TOTAL PROTEIN 6.9 GM/DL (6.4-8.2); TRIGLYCERIDES LEVEL 460 MG/DL (<150)
[2017-01-30] MEDS: SYMBICORT 160/4.5MCG INHALER 6GM INH SCH (07:50)
[2017-01-30] MEDS: amLODIPine 10 MG TAB PO SCH (08:29)
[2017-01-30] MEDS: lamoTRIgine 100MG TAB PO SCH (08:29)
[2017-01-30] MEDS: ROSUVASTATIN 10 MG TAB (CRESTOR) PO SCH (08:31)
[2017-01-30] MEDS: DULoxetine 30 MG CAP (CYMBALTA) PO SCH (08:31)
[2017-01-30] MEDS: carBAMazepine XR 200 MG TAB PO SCH (08:31)
[2017-01-30] MEDS: metFORMIN (GLUCOPHAGE) 1000 MG TABLET PO SCH (08:31)
[2017-01-30] MEDS: EZETIMIBE 10 MG TAB (ZETIA) PO SCH (08:32)
[2017-01-30] MEDS: IRBESARTAN 150 MG TAB PO SCH (08:32)
[2017-01-30] MEDS: SPIRONOLACTONE 25 MG TAB PO SCH (08:32)
[2017-01-30] MEDS: APIXABAN 5 MG TAB (ELIQUIS) PO SCH (08:32)
[2017-01-30] MEDS: PANTOPRAZOLE 40MG TAB (PROTONIX) PO SCH (08:32)
[2017-01-30] MEDS: ISOSORBIDE MON. (IMDUR) 30 MG XR TAB PO SCH (08:32)
[2017-01-30] MEDS: ESCITALOPRAM OXALATE 10 MG TAB (LEXAPRO) PO SCH (08:33)
[2017-01-30] MEDS: CLOPIDOGREL 75 MG TAB PO SCH (08:33)
[2017-01-30] MEDS: DIGOXIN 0.25 MG TAB PO SCH (08:34)
[2017-01-30] MEDS: BISOPROLOL FUMARATE 5 MG TAB PO SCH (08:34)
[2017-01-30] MEDS: LEVEMIR (INSULIN DETEMIR) 1 UNITS/0.01ML SC SCH (08:35)
[2017-01-30] MEDS: HumaLOG INSULIN (NovoLOG) PER UNIT SC SCH (08:36)
[2017-01-30] MEDS ORDERED: FUROSEMIDE 40 MG TAB PO SCH (09:00)
[2017-01-30] MEDS ORDERED: predniSONE 20 MG TAB PO SCH (09:00)
[2017-01-30] MEDS ORDERED: AVAP150T31 PO (10:24)
[2017-01-30] MEDS ORDERED: FLUC100T PO (10:24)
[2017-01-30] MEDS ORDERED: GABA-283 PO (10:24)
--- NOTE | 2017-01-31 03:45 | DSES ---
DATE OF ADMISSION: 01/27/2017 DATE OF DISCHARGE: 01/30/2017 REASON FOR ADMISSION: Alta presented to the emergency department (ED) with findings of high blood pressure and difficulty breathing and seemed to be in status asthmaticus. Her pressure was dramatically elevated to 200/110 and she was in respiratory distress. The patient was using accessory muscles, was cyanotic, very poor aeration. She required 2 hours of bedside critical care from information systems security manager, Dr. Asher and resident. Previous was a former smoker, but had stopped, but has been using nicotine vapor inhalation recently. She consumes two to three alcoholic beverages daily. More importance perhaps is a history of psychiatric disorder with bipolar affective disease and a history of migraines and she is on multiple medications that could have created a serotonin syndrome in fact. Specifically 90 mg of duloxetine daily, 10 mg of Lexapro daily and as needed use of sumatriptan succinate for migraines. She was not febrile, however, at admission, primarily suffering from acute respiratory crisis. She was placed on steroids, continuous nebulizers, intubated and improved quickly and extubated and moved out of intensive care unit (ICU) and as of yesterday she was very close to being able to be discharged and today she is entirely wheeze-free. She is on oral prednisone. She has no fever. Her clinical status is satisfactory with only the pressure being out of range at 177/93, respiratory rate 18, pulse 68, temperature 98 and she is maintaining a 96% room air saturation. At this time, her mood is neutral to slightly bright. She is pleasant, cooperative, lucid. There are some facial movements that are suggestive of residual effects of tardive dyskinesia. Note that she is not currently receiving neuroleptic medications. DISCHARGE DIAGNOSES: 1. Acute respiratory failure. 2. Acute status asthmaticus. 3. Chronic asthma. 4. Hypertensive urgency. 5. History of bipolar affective disorder. 6. Diabetes mellitus type 2. 7. History of thrush. MEDICATIONS: At discharge her medications will be: - fluconazole 100 mg daily for 10 days - gabapentin 800 mg every 8 hours - irbesartan 300 mg by mouth daily Her blood pressure has been high in hospital. Irbesartan is a new medicine for her. Her potassium at discharge slightly low at 3.2 and will require followup at her followup appointment, recheck of her potassium level is recommended. She had been on higher dose steroids and anticipate that potassium should correct with resumption of normal diet and reduction in steroid dose and the increase in her blood pressure medicine irbesartan. Other laboratory that might be mentioned would include a magnesium of 1.6. Again, anticipate this will improve with resumption of normal calorie and food intake. Her triglycerides were 460, total cholesterol 256, but this fasting lipid profile is of dubious validity considering her recent acute crisis and current steroid use. Followup will be with Dr. Dowd in the clinic on Wednesday or Wednesday at which time again electrolytes should be rechecked and her blood pressure regimen may need to be adjusted. She will resume the following medications at discharge: - fluconazole 100 mg daily for 10 days - gabapentin 800 mg every 8 hours - irbesartan 300 mg by mouth daily - she will continue albuterol metered dose inhaler two puffs four times a day as needed for dyspnea and she is specifically instructed that if her rescue treatment either with the albuterol or nebulized albuterol which she also has available does not provide complete relief of her tight chest or wheezing or if she gets complete relief, but the relief does not last at least 4 hours then she should immediately contact the on-call physician or call the office Additional medications include: - amlodipine 5 mg daily - Eliquis 5 mg twice a day - calcium, vitamin D one tablet twice daily - carbamazepine 400 mg twice a day - cetirizine 10 mg at bedtime - clopidogrel 75 mg daily - cyanocobalamin 1000 mcg daily - digoxin 0.25 mg daily - docusate sodium 100 mg daily - duloxetine 90 mg daily - esomeprazole 40 mg daily - Zetia 10 mg daily - ferrous sulfate 325 daily - furosemide 40 mg daily - insulin glargine she will resume 55 units when she returns home - isosorbide mononitrate 30 mg daily - lamotrigine 500 mg daily - Victoza 1.2 mg subcutaneous daily - metformin 1000 mg by mouth twice a day - nitroglycerin sublingual 0.4 mg as needed for chest pain, may repeat every 5 minutes, if third dose is required, then she should call ambulance - Mirapex 0.5 mg by mouth twice a day - spironolactone 25 mg daily - sucralfate 1 gram twice a day - tizanidine 2 mg three times a day - tolterodine tartrate extended release 4 mg daily - trazodone 200 mg at bedtime Medications that were discontinued at this hospital stay include carvedilol, stopped because of its nonselective beta blocking status and is likely able to exacerbate asthma, escitalopram 10 mg stopped also because of concern of potential for serotonin syndrome in the context of ongoing treatment with Cymbalta. Gabapentin 600 mg was changed to 800. Lyrica was discontinued. Januvia was discontinued. Also at least temporarily discontinued is sumatriptan which in the context of the patient receiving selective serotonin reuptake inhibitor (SSRI) SNRI combined therapy as she has with Cymbalta has the potential to create a serotonin syndrome. Activity will be as tolerated, diet controlled carbohydrate diet. The patient, it should be noted, is not currently on a statin and restart of this class of agent should be considered for long-term cardiovascular risk reduction in type 2 diabetes patient. I will leave this to the primary care physician to address.
== END 2017-01-30 11:17 | disposition home or self-care (01) | DRG 208 ==
LOC: EDBD 11:10 → M ED 11:10 → M ED INP 13:18 → M ICU 13:47 → M MSPAV 01-28 16:21
PROVIDERS: ADMIT Internal Medicine Pulmonary Disease; ATTEND Family Medicine
PROC: 5A1935Z Respiratory Ventilation, Less than 24 Consecutive Hours (ICD-10-PCS; principal; 2017-01-27)
PROC: 02HV33Z Insertion of Infusion Device into Superior Vena Cava, Percutaneous Approach (ICD-10-PCS; 2017-01-27)
PROC: 0BH17EZ Insertion of Endotracheal Airway into Trachea, Via Natural or Artificial Opening (ICD-10-PCS; 2017-01-27)
DX: J96.02 Acute respiratory failure with hypercapnia (principal); J44.1 Chronic obstructive pulmonary disease with (acute) exacerbation; J45.42 Moderate persistent asthma with status asthmaticus; I50.32 Chronic diastolic (congestive) heart failure; J96.01 Acute respiratory failure with hypoxia; I16.0 Hypertensive urgency; I11.0 Hypertensive heart disease with heart failure; E11.65 Type 2 diabetes mellitus with hyperglycemia; I25.10 Atherosclerotic heart disease of native coronary artery without angina pectoris; I48.0 Paroxysmal atrial fibrillation; I95.9 Hypotension, unspecified; G47.00 Insomnia, unspecified; G40.909 Epilepsy, unspecified, not intractable, without status epilepticus; F11.10 Opioid abuse, uncomplicated; G47.33 Obstructive sleep apnea (adult) (pediatric); G24.01 Drug induced subacute dyskinesia; K21.9 Gastro-esophageal reflux disease without esophagitis; G43.909 Migraine, unspecified, not intractable, without status migrainosus; T43.215A Adverse effect of selective serotonin and norepinephrine reuptake inhibitors, initial encounter; T39.8X5A Adverse effect of other nonopioid analgesics and antipyretics, not elsewhere classified, initial encounter; F31.9 Bipolar disorder, unspecified; Z79.01 Long term (current) use of anticoagulants; Z95.5 Presence of coronary angioplasty implant and graft; Z79.899 Other long term (current) drug therapy; Z87.891 Personal history of nicotine dependence; Z79.4 Long term (current) use of insulin; Y99.8 Other external cause status

== ENCOUNTER → 2017-02-03 | Outpatient (CLI) | payer MEDICARE, MEDICAID ==
[~2017-02-03] MED LIST changes: +ALBU17IN INH; +ALL10TAB27 PO; +AMLO5TAB2 PO; +AVAP150T31 PO; +BISO5TAB5 PO; +CALC1TAB55 PO; +CALC600T68 PO; +DOK100TA PO; +DULO1CAP2 PO; +DULO1CAP3 PO; +FERR1TAB8 PO; +FERR324T2 PO; +FLUC100T PO; +FLUC10TA PO; +GABA-283 PO; +GABA600T PO; +GABA800T PO; +INSULADS INJ; +IRBE300T10; +IRBE300T10 PO; +IRON50TA PO; +JANU100T PO; +LAMO250T PO; +LANTINJ4 SQ; +LEXA1TAB PO; +LYRI200C PO; +METF-699 PO; +MIRA0.5T PO; +PATIENT COMMENT; +ROSU40TA PO; +SPIR1CAP INH; +SUCR1TA PO; +SUMA4INJ3 SC; +TIZA2CAP3 PO; +TOLT1CAP PO; +VICT18IN SC; +ZETI10TA30 PO; +[UNRECOGNIZED DRUG - CODE] PO
[2017-02-03 17:01] LABS: ANION GAP 7 MEQ/L (8-16); BLOOD UREA NITROGEN 14 MG/DL (7-18); CALCIUM LEVEL 9.1 MG/DL (8.5-10.1); CARBON DIOXIDE LEVEL 33 MEQ/L (21-32); CHLORIDE LEVEL 94 MEQ/L (98-107); CREATININE FOR GFR 0.62 MG/DL (0.55-1.02); GLOMERULAR FILTRATION RATE > 60.0 (>51); GLUCOSE, FASTING 297 MG/DL (70-105); POTASSIUM SERUM 3.7 MEQ/L (3.5-5.1); SODIUM LEVEL 134 MEQ/L (136-145)
[2017-02-03 17:59] LABS: BASO % 0.6 % (0.0-1.0); EOS % 0.1 % (0.0-3.0); LARGE UNSTAINED CELL # 0.2 K/mm3 (0.0-0.4); LARGE UNSTAINED CELL % 2.2 % (0.0-4.0); LYMPH # 2.4 K/mm3 (1.5-4.5); LYMPH % 25.2 % (24.0-44.0); MEAN CORPUSCULAR HEMOGLOBIN 29.1 pg (27.0-33.0); MEAN CORPUSCULAR HGB CONC 33.2 g/dl (32.0-36.5); MEAN CORPUSCULAR VOLUME 87.8 fl (80.0-96.0); MONO # 0.5 K/mm3 (0.0-0.8); MONO % 5.4 % (0.0-5.0); NEUTROPHILS # 5.9 K/mm3 (1.8-7.7); NEUTROPHILS % 66.6 % (36.0-66.0); PLATELET COUNT, AUTOMATED 304 k/mm3 (150-450); RED CELL DISTRIBUTION WIDTH 15.4 % (11.5-14.5); WHITE BLOOD COUNT 8.9 K/mm3 (4.0-10.0)
== END ==
LOC: M LAB 15:35
PROVIDERS: ATTEND Physician Assistant Medical
DX: E11.9 Type 2 diabetes mellitus without complications (principal)

== ENCOUNTER → 2017-02-22 | Outpatient (CLI) | payer MEDICARE, MEDICAID | LOC: M PAIN 13:45 | PROVIDERS: ATTEND Nurse Practitioner Family | DX: Z53.29 Procedure and treatment not carried out because of patient's decision for other reasons (principal) ==

== ENCOUNTER → 2017-02-25 | Outpatient (CLI) | payer MEDICARE, MEDICAID ==
--- NOTE | 2017-03-24 00:40 | ECWPNPC ---
PATIENT NAME: MONTANA HARDY : 1965 GENDER: FEMALE VISIT DATE: 02/25/2017 DISCHARGE DATE: 02/25/17 1148 VISIT LOCKED DATE TIME: PHYSICIAN: JEANNE DANIEL RESOURCE: JEANNE DANIEL REASON FOR APPOINTMENT 1. BACK HISTORY OF PRESENT ILLNESS HISTORY OF PRESENT ILLNESS: PAIN THE PATIENT DESCRIBES THE PAIN... FALL RISK SCREENING: SCREENING :NO FALLS IN THE PAST YEAR TODAY'S VISIT: NOTES: RATES PAINTODAY 03/16. STATES DR LOUIS HAS TAKEN HER OFF LYRICA. REVIEW OF [facility] RECORDS SHOW SHE WAS HOSPITALIZED AT [facility] AND WAS INTUBATED. PT STATES SHE WAS IN HOSP FOR A WEEK. IS SEEING DR CLEARY - HAD SLEEP STUDY WHICH SHOWS SLEEPT APNEA - COULD NOT TOLERATE THE CPAP DUE TO PANIC. PAIN IS WORST IN LOW BACK AND HIPS. . CURRENT MEDICATIONS TAKING PLAVIX 75 MG TABLET 1 TABLET ORALLY ONCE A DAY TAKING ELIQUIS 5 MG TABLET 1 TABLET ORAL TWICE A DAY TAKING DIFLUCAN 100 MG TABLET 1 TABLET ORALLY BID TAKING DIGOXIN 0.25 MG TABLET 1 TABLET ORALLY ONCE A DAY TAKING ALDACTONE 25 MG TABLET 1 TABLET ORALLY DAILY TAKING NITROGLYCERIN 0.4 MG TABLET SUBLINGUAL 1 TABLET UNDER THE TONGUE SUBLINGUAL ONE TABLET TIMES 3 EVERY 5 MINUTES IF NO RELIEF GO TO THE ER TAKING IMDUR 30 MG TABLET EXTENDED RELEASE 24 HOUR 1 TABLET ORALLY ONCE A DAY TAKING FERROUS SULFATE 324 (65 FE) MG TABLET DELAYED RELEASE 1 TABLET ORALLY ONCE A DAY TAKING COLACE 100 MG CAPSULE 1 CAPSULE NEEDED ORALLY ONCE A DAY TAKING METFORMIN XR 500 MG EXTENDED RELEASE 2 TABLET ORALLY TWICE A DAY TAKING VICTOZA 18 MG/3ML SOLUTION PEN-INJECTOR INJECT 1.2 MILLIGRAM SUBCUTANEOUSLY DAILY TAKING LANTUS SOLO STAR PEN NEEDLES DX 250.00 ... 55 UNITS SQ 2230 TAKING LANCETS DX 250.00 ONE TOUCH LANCET - ONCE A DAY TAKING ONE TOUCH ULTRA TEST STRIPS . STRIPS 1 STRIP DX CODE E11.9 THREE TIMES DAILY NEEDED TAKING ALCOHOL PREPS 70 % MISCELLANEOUS DIRECTED EXTERNALLY DAILY TAKING BD ULTRA-FINE PEN NEEDLES 32G 4MM 2 INJECTIONS SUBCUTANEOUSLY DAILY TAKING NEXIUM 40 MG CAPSULE DELAYED RELEASE 1 CAPSULE ORALLY ONCE A DAY TAKING CARAFATE 1 GM TABLET 1 TABLET ON AN EMPTY STOMACH ORALLY TWICE A DAY TAKING VITAMIN B12 1000 MCG TABLET EXTENDED RELEASE 1 TABLET ORALLY ONCE A DAY TAKING ADVAIR DISKUS 500-50 MCG/DOSE AEROSOL POWDER BREATH ACTIVATED 1 PUFF INHALATION TWICE A DAY TAKING VENTOLIN HFA 108 (90 BASE) MCG/ACT AEROSOL SOLUTION 2 PUFFS NEEDED INHALATION EVERY 4 HRS TAKING SPIRIVA HANDIHALER 18 MCG CAPSULE 1 CAPSULE INHALATION ONCE A DAY TAKING MIRAPEX 0.5 MG TABLET 1 TABLET BEFORE BEDTIME ORALLY BID TAKING TIZANIDINE HCL 2 MG TABLET TAKE 1 TABLET BY MOUTH THREE TIMES A DAY IF NEEDED FOR MUSCLE SPASM ORAL TAKING GABAPENTIN 800 MG TABLET 1 TABLET ORALLY THREE TIMES A DAY TAKING CRESTOR 40 MG TABLET 1 TABLET ORALLY ONCE A DAY TAKING BISOPROLOL FUMARATE 5 MG TABLET 1 TABLET ORALLY ONCE A DAY TAKING BD PEN NEEDLE SHORT U/F 31G X 8 MM MISCELLANEOUS USE DIRECTED WITH LANTUS TAKING DRISDOL 50,000 UNITS TABLET 1 TABLET ORALLY ONCE A WEEK TAKING WRIST SPLINT/COCK-UP/RIGHT L - MISCELLANEOUS DIRECTED _ DAILY TAKING IRBESARTAN 300 MG TABLET 1 TABLET ORALLY ONCE A DAY TAKING AMLODIPINE BESYLATE 5 MG TABLET 1 TABLET ORALLY ONCE A DAY TAKING TEGRETOL 400 MG TABLET 1 TABLET ORALLY TWICE A DAY TAKING TRAZODONE 100 100MG TABLET 2 TABLETS ORALLY AT BEDTIME TAKING LAMICTAL 200 MG TABLET 2 TABLET ORALLY DAILY TAKES 250 MG 2 TABLETS ONCE A DAY TAKING LAMICTAL 25 MG TABLET 3 TABLETS ORALLY TWICE A DAY TAKING FUROSEMIDE 40 MG TABLET 1 TABLET ORALLY DAILY TAKING METFORMIN HCL ER 500 MG TABLET EXTENDED RELEASE 24 HOUR TAKE 2 TABLETS BY MOUTH TWICE A DAY TAKING NYSTATIN 449936 UNIT/GM CREAM 1 APPLICATION UNDER BREASTS TWICE A DAY X 10D WITH FLARES EXTERNALLY 30 DAY(S) MEDICATION LIST REVIEWED AND RECONCILED WITH THE PATIENT PAST MEDICAL HISTORY LUMBAR DJD WITH BILATERAL LOWER EXTREMITY RADICULOPATHY-2009 MRI WITH MULTILEVEL BULGES, AT L4/S1 CAUSING MODERATE TO SEVERE BILATERAL NEURAL FORAMEN NARROWING SEIZURE DISORDER HYPERTENSION HYPERLIPIDEMIA 2B OBESITY DEPRESSION/PANIC DISORDER/INSOMNIA-FOLLOWED BY DR. 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 ASTHMA, MILD PERSISTENT/COPD-09/2014 FEV1 2.2L (66%)/RATIO 72%-EVIN PERIPHERAL EDEMA SECONDARY TO VENOUS INSUFFICIENCY AND NSAID AND LYRICA USE-2009 TTE [place] WITH BORDERLINE LAE, BORDERLINE DILATED AORTIC ROOT, NO DIASTOLIC NOR SYSTOLIC DYSFUNCTION CAD STATUS POST NON-Q WAVE [place] APRIL 2011 STATUS POST ANGELICA TO MID LAD, CHRONIC OCCLUSION OF RCA WITH COLLATERALS SUPPLYING BLOOD FLOW TO DISTAL RCA AND PDA BRANCHES, LVEF 50% WITH MILD ANTERIOR AND INFERIOR HYPOKINESIS-FISCHI//09/25/13 CATHERIZATION-PATIENT LAD, CHRONICALLY OCCLUDED RCA, NORMAL LVEF-RITA//06/18/15 CATH PATIENT LAD STENTS, LVEF 59%-RITA HISTORY NARCOTIC ABUSE-IN REHAB AT [facility]-03/21-04/18/12 B TROCHANTERIC BURSITIS-04/2013 NORMAL B HIP XRAY + H PYLORI BY AB-TREATED C DOXY/FLAGYL/BISMUTH/PPI X 14D-06/2013 ATRIAL FIBRILLATION, PAROXYSMAL, [place]-09/04/13 [facility] R HEMISPHERIC TIA-11/2014 C L FACIAL/ARM NUMBNESS/VISUAL DISTURBANCE/DIZZINESS-MRI C B FRONTAL, R PARIETAL T2 HYPERINTENSITIES, B ICA 16-49% STENOSIS, -CTA CHEST FOR PE R NEPHROLITH BY 11/2014 CT [place] X 2 ALLERGIES LATEX (FOR ALLERGY USE ONLY): RASH LYRICA: ANAPHYLAXIS-RESPIRATORY: ALLERGY SURGICAL HISTORY REMAINING 8 TEETH EXTRACTION-DR. ANDERSON 07/2012 HERNIA REPAIR/INGUINAL 2004? APPENDECTOMY A CHILD STENTS- [place] X 6 10/2015 HOSPITALIZATION/MAJOR DIAGNOSTIC PROCEDURE R HEMISPHERIC TIA-WORKUP PER 11/28- B AXILLARY MRSA ABSCESSES S/P B DRAINAGE BY DR. VARGAS, IV VANCOMYCIN, - BCX X2 05/30- CARD[facility]AC [facility]ATH [facility] DR. SALINAS 07/23 [place] 2012,2014 R HEMISPHERIC TIA-WORKUP PER 11/28- ADMIT FOR ARFAIL., ALTERED MENTAL STATUS, HYPERTENSIVE URGENCY 01/27- REVIEW OF SYSTEMS REVIEWED BY: PROVIDER: JEANNE BAKER . CONSTITUTIONAL: ANY CHANGE IN YOUR MEDICAL CONDITION? NO . CHILLS NO . FEVER NO . INFECTION: DO YOU HAVE NEW INFECTIONS? NO . DO YOU HAVE HISTORY OF MRSA? NO . MUSCULOSKELETAL: ANY NEW PATTERNS OF PAIN OR NUMBNESS? NO . GASTROENTEROLOGY: ANY NEW CHANGE IN BOWEL CONTROL? NO . GENITOURINARY: ANY NEW CHANGE IN BLADDER CONTROL? NO . IS THERE A CHANCE YOU COULD BE ? NO . HEMATOLOGY/LYMPH: DO YOU TAKE ANY BLOOD THINNERS? (FOR EXAMPLE- COUMADIN, PLAVIX, AGGRENOX, PLATEL, PRADAXA, OR XARELTO) YES, ELEQUIS & PLAVIX . WHEN WAS YOUR LAST DOSE? DATE: TIME: . NEUROLOGY: HAVE YOU FALLEN IN THE PAST 6 MONTHS? NO . ANY NEW EXTREMITY NUMBNESS OR WEAKNESS? NO . CARDIOLOGY: DO YOU HAVE A PACEMAKER OR DEFIBRILLATOR? NO . RESPIRATORY: HAVE YOU BEEN SICK IN THE PAST WEEK? NO . FEVER NO . FLU LIKE SYMPTOMS? NO . COUGH NO . INTEGUMENTARY: DO YOU HAVE ANY RASHES OR OPEN SORES? YES, PT STATES SHE HAS RASHES BILAT AXILLARY, PT STATES SHE TAKES DIFLUCAN FOR THIS. RASHES STARTED AFTER SOMEONE ELSE USED HER RAZOR . ALLERGIC/IMMUNO: ARE YOU ALLERGIC TO SHELLFISH OR IV DYE? NO . ANY NEW ALLERGIES? NO . PSYCHIATRIC: DO YOU HAVE THOUGHTS OF HURTING YOURSELF OR SOMEONE ELSE? NO . ARE YOU ABUSED, NEGLECTED, OR IN AN UNSAFE ENVIRONMENT? NO . ENDOCRINOLOGY: ARE YOU DIABETIC? YES . OTHER: DO YOU NEED ANY PRESCRIPTIONS? NO . IF YES, PLEASE LIST: ____ . ANY NEW PROBLEMS WITH YOUR MEDICATIONS? YES, PT STATES SHE WAS TAKEN OFF OF LYRICA BY DR LOUIS FOR ANAPHYLACTIC RXN. PT STATES SHE HAD TO BE ADMITTED AND INTUBATED, STAYED IN ICU, RECOVERED AND TAKEN OFF OF LYRICA . WHEN DID YOU LAST EAT? ____ . WHEN DID YOU LAST DRINK? ____ . WHAT DID YOU LAST DRINK? ____ . NAME OF PERSON DRIVING YOU HOME? ____ . DO YOU HAVE ANY OTHER QUESTIONS OR CONCERNS NO . VITAL SIGNS WT 253 LBS, HT 69 IN, BMI 37.36 INDEX, BP 157/107 MM HG, HR 73 /MIN, RR 16 /MIN, TEMP 98.6 F, OXYGEN SAT % 96, REVIEWED BY: EM. EXAMINATION GENERAL EXAMINATION: GENERAL APPEARANCE:NO ACUTE DISTRESS, WELL NOURISHED AND HYDRATED. HEENT:PERRLA, ATRAUMATIC, PHARYNX AND TONSILS NORMAL. NECK:NOJVD, LYMPHADENOPATHY, OR THYROMEGALY, NON-TENDER. LUNGS:NO WHEEZES, HAS RHONCHI, NO RALES. HEART:REGULAR RATE AND RHYTHM, NO MURMURS. ABDOMEN:OBESE, NO MASSES, SOFT AND NOT TENDER. EXTREMITIES:NO CLUBBING, NO EDEMA. PERIPHERAL PULSES:RADIAL PULSES 3/4 BILATERALLY. SKIN:NORMAL, NO RASH, L ANTECUB. FOSSA SMALL 1CM DIAM. OF ERYTHEMA. NEUROLOGIC EXAM:ALERT AND ORIENTED X 3, GAIT NORMAL, NO FOCAL DEFICITS. ASSESSMENTS DJD (DEGENERATIVE JOINT DISEASE), LUMBAR - M47.816 (PRIMARY) BILATERAL SACROILIITIS - M46.1 MYALGIA - M79.1 TREATMENT DJD (DEGENERATIVE JOINT DISEASE), LUMBAR NOTES: NO MEDS THROUGH THE PAIN CLINIC. HOLD BLOOD SUGAR MEDS. DO NOT STOP ELIQUIS OR PLAVIXBRING ALL MEDS TO NEXT PAIN CLINIC VISIT. MYALGIA TRIGGER POINT 3 + JEANNE ROSENBAUM 02/25/2017 11:27:03 AM > LOW BACK PROCEDURE CODES FA211 ESTABILISHED PATIENT [facility] FACILITY CHARGE DISPOSITION & COMMUNICATION FOLLOW UP AFTER INJECTION (REASON: CHECK AUTH FOR TRIGGER POINTS) ELECTRONICALLY SIGNED BY MEHDI BOYKIN ON 03/23/2017 AT 09:50 PM EDT DISCLAIMER : THIS IS A VISIT SUMMARY EXTRACTED FROM THE [employer] CHART. IT IS NOT A COPY OF THE [employer] PROGRESS NOTE. MTDD
== END ==
LOC: M PAIN 10:15
PROVIDERS: ATTEND Nurse Practitioner Family
DX: M47.816 Spondylosis without myelopathy or radiculopathy, lumbar region (principal); M46.1 Sacroiliitis, not elsewhere classified; M79.1 Myalgia; I11.9 Hypertensive heart disease without heart failure; D50.9 Iron deficiency anemia, unspecified; I50.42 Chronic combined systolic (congestive) and diastolic (congestive) heart failure; I25.10 Atherosclerotic heart disease of native coronary artery without angina pectoris; E11.9 Type 2 diabetes mellitus without complications; F32.9 Major depressive disorder, single episode, unspecified; G40.909 Epilepsy, unspecified, not intractable, without status epilepticus; J30.89 Other allergic rhinitis; E78.2 Mixed hyperlipidemia; K21.9 Gastro-esophageal reflux disease without esophagitis; Z79.4 Long term (current) use of insulin; Z79.899 Other long term (current) drug therapy; Z95.5 Presence of coronary angioplasty implant and graft; Z91.040 Latex allergy status; Z88.8 Allergy status to other drugs, medicaments and biological substances; Z86.73 Personal history of transient ischemic attack (TIA), and cerebral infarction without residual deficits

== ENCOUNTER 2017-03-11 11:37 | Inpatient (IN) | payer MEDICARE, MEDICAID ==
[~2017-03-11] VITALS: Ht 175.3 cm; Wt 116.7 kg
[~2017-03-11 11:37] MED LIST changes: -AMLO5TAB2 PO; -BISO5TAB5 PO; -FERR324T2 PO; -GABA800T PO; -IRBE300T10; -IRBE300T10 PO; -LANTINJ4 SQ; -ROSU40TA PO; -SPIR1CAP INH; -[UNRECOGNIZED DRUG - CODE] PO
[2017-03-11 12:15] LABS: BASO % 0.3 % (0.0-1.0); IMMATURE GRANULOCYTE % 0.4 % (0-0); LYMPH % 27.4 % (24.0-44.0); MEAN CORPUSCULAR HEMOGLOBIN 29.4 pg (27.0-33.0); MEAN CORPUSCULAR HGB CONC 33.2 g/dl (32.0-36.5); MEAN CORPUSCULAR VOLUME 88.5 fl (80.0-96.0); MONO # 0.5 10^3/uL (0.0-0.8); MONO % 7.5 % (0.0-5.0); NEUTROPHILS # 4.7 10^3/uL (1.8-7.7); NEUTROPHILS % 64.4 % (36.0-66.0); PLATELET COUNT, AUTOMATED 265 10^3/uL (150-450); RED CELL DISTRIBUTION WIDTH 15.6 % (11.5-14.5); WHITE BLOOD COUNT 7.2 10^3/uL (4.0-10.0)
[2017-03-11 12:16] LABS: ABG BASE EXCESS 3.6 (-2.0-2.0); ABG HCO3 27.9 MEQ/L (22.0-26.0); ABG PARTIAL PRESSURE CO2 41.1 mmHg (35.0-45.0); ABG PARTIAL PRESSURE O2 71.5 mmHg (75.0-100.0); ABG STANDARD HCO3 27.6 MEQ/L (22.0-26.0); ABG TOTAL CO2 29.1 MEQ/L (22.0-29.0); ABG pH (ARTERIAL) 7.449 UNITS (7.350-7.450)
[2017-03-11] MEDS ORDERED: JANU100T PO (12:26)
[2017-03-11] MEDS ORDERED: FURO40TA2 (12:26)
[2017-03-11] MEDS ORDERED: LEXA1TAB PO (12:26)
[2017-03-11] MEDS ORDERED: AMLO5TAB2 PO (12:26)
[2017-03-11] MEDS ORDERED: FERR324T2 PO (12:26)
[2017-03-11] MEDS ORDERED: IRBE300T10 (12:26)
[2017-03-11] MEDS ORDERED: ROSU40TA PO (12:26)
[2017-03-11] MEDS ORDERED: LANTINJ4 SQ (12:27)
[2017-03-11] MEDS ORDERED: [UNRECOGNIZED DRUG - CODE] PO (12:33)
--- NOTE | 2017-03-11 12:50 | REP ---
Portable chest: Single view. History: Dyspnea and cough. Comparison study: January 28, 2017. Findings: EKG monitoring electrodes overlie the chest. The lungs are well inflated and clear. Pleural angles are sharp. Cardiomediastinal silhouette is unremarkable. Pulmonary vasculature is not increased. No significant bony abnormality. Impression: No active disease. Signed by Alexys Higgins MD 03/11/2017 12:41 P
[2017-03-11 12:54] LABS: ALBUMIN 3.2 GM/DL (3.2-5.2); ALBUMIN/GLOBULIN RATIO 0.76 (1.00-1.93); ALKALINE PHOSPHATASE 110 U/L (45-117); ALT/SGPT 30 U/L (12-78); ANION GAP 8 MEQ/L (8-16); AST/SGOT 17 U/L (15-37); BILIRUBIN,DIRECT < 0.1 MG/DL (0.0-0.2); BILIRUBIN,TOTAL 0.1 MG/DL (0.2-1.0); BLOOD UREA NITROGEN 8 MG/DL (7-18); CALCIUM LEVEL 9.2 MG/DL (8.5-10.1); CARBON DIOXIDE LEVEL 31 MEQ/L (21-32); CHLORIDE LEVEL 99 MEQ/L (98-107); CREATININE FOR GFR 0.67 MG/DL (0.55-1.02); GLOMERULAR FILTRATION RATE > 60.0 (>51); GLUCOSE, FASTING 285 MG/DL (70-105); POTASSIUM SERUM 3.8 MEQ/L (3.5-5.1); SODIUM LEVEL 138 MEQ/L (136-145); TOTAL PROTEIN 7.4 GM/DL (6.4-8.2)
[2017-03-11 13:45] LABS: CARBAMAZEPINE (TEGRETOL) LEVEL 7.5 UG/ML (4.0-10.0); DIGOXIN LEVEL 0.7 NG/ML (0.5-2.0)
--- NOTE | 2017-03-11 13:53 | REP ---
CT Head without contrast HISTORY: Altered mental status COMPARISON: 01/27/2017 There is no intraparenchymal hemorrhage, acute infarct, mass or midline shift. The ventricular system is normal in appearance. There is no extra cerebral collection. There is no fracture. The visualized sinuses are clear. 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 IMPRESSION: There is no intracranial lesion. Signed by Mohsen Moyer MD 03/11/2017 01:45 P
[2017-03-11] MEDS ORDERED: ONDANSETRON 4MG/2ML VIAL (J2405) IV ONE (14:15)
[2017-03-11] MEDS ORDERED: hydrALAZINE INJ 20 MG/ML VIAL IV ONE (14:30)
[2017-03-11 14:53] LABS: METHADONE URINE NEGATIVE (NEGATIVE)
[2017-03-11] MEDS ORDERED: IRBE300T10 PO (16:56)
[2017-03-11] MEDS ORDERED: GABA800T PO (16:56)
[2017-03-11] MEDS ORDERED: SPIR1CAP INH (17:17)
[2017-03-11] MEDS ORDERED: ADV500INH INH (17:17)
[2017-03-11] MEDS ORDERED: BISO5TAB5 PO (17:17)
[2017-03-11] MEDS ORDERED: PATIENT COMMENT (17:20)
[2017-03-11] MEDS ORDERED: GLUCOSE 4 GM CHEW TABLET PO PRN (17:30)
[2017-03-11] MEDS ORDERED: NITROGLYCERIN 0.4 MG SUBL TABLET SL PRN (17:30)
[2017-03-11] MEDS: HumaLOG INSULIN (NovoLOG) PER UNIT SC SCH ×2 (17:30→21:00)
[2017-03-11] MEDS ORDERED: ALBUTEROL 90 MCG/ACT 8GM HFA INHALER INH PRN (17:30)
[2017-03-11] MEDS ORDERED: GLUCAGON FOR INJ 1 MG VIAL (J1610) SC PRN (17:30)
[2017-03-11] MEDS ORDERED: DEXTROSE 50% 50 ML SYRINGE IV PRN (17:30)
[2017-03-11] MEDS ORDERED: FUROSEMIDE 40 MG TAB PO PRN (17:30)
[2017-03-11] MEDS ORDERED: lamoTRIgine 100MG TAB PO ONE (18:00)
[2017-03-11] MEDS: ADVAIR HFA 230/21MCG INHALER INH SCH (19:54)
--- NOTE | 2017-03-11 20:04 | HPE ---
DATE OF ADMISSION: 03/11/2017 PRIMARY CARE PROVIDER: Octavio Dowd MD CHIEF COMPLAINT: Confusion. HISTORY OF PRESENT ILLNESS: The patient is a 51-year-old female who was reportedly found by her neighbor and home health aide, was reportedly found to be confused and not herself. She had had an episode of stiff limbs. There was concern that she had had a seizure and as such she was brought to the emergency room. As per the patient's neighbor and sister who were bedside for the ED provider, they were concerned the patient had not been taking her medications or not been taking them correctly as many of the medications appeared to be untaken and not popped out of their bowl of packaging as they have been prescribed to be taken. Initially, in the emergency room the patient was reportedly confused, however, over several hours she became more lucid. At the present time she is awake, alert, oriented times three. At the present time she tells me that she feels woozy and feels like she does after she has a seizure. She tells me that she is sweating profusely which also happens after she has a seizure, but she has not had a seizure in five years. She does have a known seizure disorder. At the present time she denies chest pain, fever, chills, palpitations, lightheadedness, dizziness, nausea, vomiting or diarrhea. She does not remember the events or the circumstances earlier this morning. She only remembers very early this a.m. eating breakfast. At the present time she feels though she is again improving. Of note she was recently admitted 01/27 to 01/30 for respiratory failure felt to be related to status asthmaticus versus a serotonin syndrome. PAST MEDICAL HISTORY: Type 2 diabetes. Seizure disorder. Bipolar disorder. Asthma. Hypertension. Coronary artery disease. Degenerative disc disease. Gastroesophageal reflux disease. Migraines. Obesity. Restless leg syndrome. Vitamin D deficiency. Constipation. Iron deficiency anemia. Chronic back pain. Atrial fibrillation, on anticoagulation with Eliquis. Dyslipidemia. Insomnia. HOME MEDICATIONS: - calcium with vitamin D 600/400 one tablet twice a day - Januvia 100 mg daily - vitamin B12 1000 mcg daily - docusate 100 mg daily - ferrous sulfate 324 mg daily - lamotrigine extended release 500 mg daily - Victoza 1.2 mg subcutaneously daily - metformin 1 gram twice a day - tizanidine 2 mg three times a day as needed muscle spasm - Ventolin HFA 2 puffs inhaled four times a day as needed shortness of breath - amlodipine 5 mg daily - Eliquis 5 mg by mouth twice a day - bisoprolol 5 mg daily - carbamazepine extended release 400 mg twice a day - cetirizine 10 mg by mouth at bedtime - Plavix 75 mg daily - digoxin 0.25 mg daily - duloxetine 90 mg daily - Lexapro 15 mg daily - Nexium 40 mg daily - Zetia 10 mg daily - Lasix 40 mg daily as needed leg swelling - gabapentin 800 mg three times a day - Lantus 55 units at bedtime - atorvastatin 300 mg daily - isosorbide mononitrate extended release 30 mg daily - nitroglycerin 0.4 mg sublingually every 5 hours as needed chest pain - pramipexole 0.5 mg by mouth twice a day - rosuvastatin 40 mg daily - Advair Diskus 500/50 1-2 puffs inhaled twice a day - spironolactone 25 mg daily - Carafate 1 gram twice a day - Spiriva HandiHaler 18 mcg inhaled daily - tolterodine extended release 4 mg daily - trazodone 200 mg by mouth at bedtime ALLERGIES: LATEX. PAST SURGICAL HISTORY: Eight teeth extractions. Hernia repair. Appendectomy. Stents. SOCIAL HISTORY: She is a former smoker, now she uses a vape. She lives with her who is away. He is a trash truck driver. FAMILY HISTORY: Noncontributory. REVIEW OF SYSTEMS: Negative other than HPI. PHYSICAL EXAMINATION: Temperature 97.8, pulse 82, respiratory rate 18, O2 saturation 91% on room air. Blood pressure 165/70. GENERAL: She is a disheveled obese middle-aged female, diaphoretic, laying in bed. She does not appear to be in any acute distress. HEENT: Cranial II-XII are grossly intact. She has dry mucous membranes. No elevation of central venous pressure (CVP). CARDIOVASCULAR: S1, S2, regular. RESPIRATORY: At this time respiratory exam is clear. ABDOMEN: Obese. EXTREMITIES: No clubbing, cyanosis. There is trace edema bilaterally. LABORATORY STUDIES: WBC 7.2, hemoglobin 13.3, platelet count 265. Chemistry panel: Sodium 138, potassium 3.8, chloride 99, bicarbonate 31, BUN 8, creatinine 0.6. Two sets of cardiac enzymes are negative. TSH is within normal limits. Arterial blood gas reveals a pH of 7.4, pCO2 41.1, pO2 of 71.5. Toxicology: Essentially negative. Blood cultures have been drawn and are pending. IMAGING: The patient did have a CT scan of the head which revealed no intracranial lesion. Chest x-ray which reveals no active disease. ASSESSMENT AND PLAN: This is a 51-year-old female with metabolic encephalopathy. 1. Metabolic encephalopathy. Possibly related to medication adverse affect which is resolving versus seizure. I think this is more likely given her history of seizures and her typical seizure presentation that this is more likely, however, given that it was unwitnessed we may likely never know. I will check an MRI of the brain and EEG. I will continue her home Lamictal and carbamazepine as well as Neurontin. Given there is a question that she may not have been accurately taking her medications, I will not titrate up her antiepileptic regimen unless she should have an additional seizure. At that point I would definitely consider inpatient neurology consultation. She does normally follow with neurology on an outpatient basis. 2. Hypertension. Will continue with her home regimen isosorbide mononitrate, irbesartan, digoxin, bisoprolol, amlodipine. 3. Atrial fibrillation. She is anticoagulated with Eliquis. She is on digoxin and bisoprolol. She is rate controlled. Although I do not see this documented previously, I suspect this is why she is anticoagulated. 4. Bipolar disorder. 5. Insomnia. Continue with carbamazepine, duloxetine, Lexapro, Neurontin, trazodone. 6. Insulin dependent diabetes. Continue with insulin with sliding scale, consistent carbohydrate 2 gram sodium diet. 7. Asthma. Continue with her home inhalers. 8. Reflux. Continue with proton pump inhibitor (PPI) and Carafate. 9. Peripheral edema. Continue with her home Lasix. 10. Coronary artery disease. The patient is on Plavix, beta manuela, and a statin. 11. Deep venous thrombosis (DVT). She is on apixaban. 12. Iron deficiency anemia. She is in supplementation. 13. B12 deficiency. She is on supplementation. 14. Chronic back pain. She is on muscle relaxants. 15. Vitamin D deficiency and calcium deficiency. She on supplementation. DISPOSITION: The patient is admitted to the progressive care unit with every 4 hours neuro checks and close monitoring. Dr. Medina's service will continue seeing the patient at 7:00 a.m.
[2017-03-11] MEDS ORDERED: CETIRIZINE (ZyrTEC) 10 MG TAB PO SCH (21:00)
[2017-03-11] MEDS ORDERED: LEVEMIR (INSULIN DETEMIR) 1 UNITS/0.01ML SQ SCH (21:00)
[2017-03-11] MEDS: SUCRALFATE 1 GM TAB PO SCH (21:33)
[2017-03-11] MEDS: traZODone 100 MG TAB PO SCH (21:33)
[2017-03-11] MEDS: PRAMIPEXOLE 0.25 MG TAB PO SCH (21:34)
[2017-03-11] MEDS: APIXABAN 5 MG TAB (ELIQUIS) PO SCH (21:34)
[2017-03-11] MEDS: GABAPENTIN 400 MG CAP PO SCH (21:34)
[2017-03-11] MEDS: carBAMazepine XR 200 MG TAB PO SCH (21:35)
[2017-03-12] VITALS (8 sets, daily range): BP systolic 100–192; BP diastolic 53–87
[2017-03-12 07:36] LABS: MEAN CORPUSCULAR HEMOGLOBIN 29.2 pg (27.0-33.0); MEAN CORPUSCULAR HGB CONC 32.4 g/dl (32.0-36.5); RED CELL DISTRIBUTION WIDTH 15.7 % (11.5-14.5); WHITE BLOOD COUNT 10.2 10^3/uL (4.0-10.0)
[2017-03-12 08:08] LABS: ANION GAP 6 MEQ/L (8-16); BLOOD UREA NITROGEN 11 MG/DL (7-18); CARBON DIOXIDE LEVEL 35 MEQ/L (21-32); CHLORIDE LEVEL 100 MEQ/L (98-107); CREATININE FOR GFR 0.49 MG/DL (0.55-1.02); GLOMERULAR FILTRATION RATE > 60.0 (>51); GLUCOSE, FASTING 114 MG/DL (70-105); POTASSIUM SERUM 3.3 MEQ/L (3.5-5.1); SODIUM LEVEL 141 MEQ/L (136-145)
--- NOTE | 2017-03-12 08:22 | ECGEPIP ---
Stationary ECG Study [facility] - ED Test Date: 2017-03-11 Pat Name: MONTANA HARDY Department: Room: - Gender: F Family Dinner Service Specialist: elisa : 1965 Requested By: Mahnaz Mo Order Number: [id number] Reading MD: Mahnaz Mo Measurements Intervals [place] Rate: 90 P: 31 ND: 187 QRS: 50 QRSD: 118 T: 265 QT: 354 QTc: 435 Interpretive Statements SINUS RHYTHM PROBABLE LATERAL MYOCARDIAL INFARCTION, OF INDETERMINATE AGE INFERIOR MYOCARDIAL INFARCTION, OF INDETERMINATE AGE ST DEPRESSION, CONSIDER SUBENDOCARDIAL INJURY, CLINICAL CORRELATION IVCD BASELINE ARTIFACT LIMITS INTERPRETATION Electronically Signed On 03-12-2017 8:21:58 EDT by Mahnaz Mo
[2017-03-12] MEDS ORDERED: DULoxetine 30 MG CAP (CYMBALTA) PO SCH ×2 (09:00)
[2017-03-12] MEDS ORDERED: lamoTRIgine 100MG TAB PO SCH (09:00)
[2017-03-12] MEDS: SPIRONOLACTONE 25 MG TAB PO SCH (09:00)
[2017-03-12] MEDS ORDERED: ESCITALOPRAM OXALATE 5MG TABLET (LEXAPRO) PO SCH (09:00)
[2017-03-12] MEDS ORDERED: EZETIMIBE 10 MG TAB (ZETIA) PO SCH (09:00)
[2017-03-12] MEDS: carBAMazepine XR 200 MG TAB PO SCH ×2 (09:00→09:21)
[2017-03-12] MEDS: TIOTROPIUM INHALER/CAPSULE (SPIRIVA) INH SCH (09:05)
[2017-03-12] MEDS: ADVAIR HFA 230/21MCG INHALER INH SCH ×2 (09:05→21:00)
[2017-03-12] MEDS: HumaLOG INSULIN (NovoLOG) PER UNIT SC SCH ×4 (09:17→21:15)
[2017-03-12] MEDS: BISOPROLOL FUMARATE 5 MG TAB PO SCH (09:17)
[2017-03-12] MEDS: CLOPIDOGREL 75 MG TAB PO SCH (09:17)
[2017-03-12] MEDS: PANTOPRAZOLE 40MG TAB (PROTONIX) PO SCH (09:18)
[2017-03-12] MEDS: DIGOXIN 0.25 MG TAB PO SCH (09:18)
[2017-03-12] MEDS: amLODIPine 5 MG TAB PO SCH (09:18)
[2017-03-12] MEDS: APIXABAN 5 MG TAB (ELIQUIS) PO SCH ×2 (09:18→21:14)
[2017-03-12] MEDS: ISOSORBIDE MON. (IMDUR) 30 MG XR TAB PO SCH (09:18)
[2017-03-12] MEDS: SUCRALFATE 1 GM TAB PO SCH ×2 (09:19→21:13)
[2017-03-12] MEDS: PRAMIPEXOLE 0.25 MG TAB PO SCH ×2 (09:19→21:20)
[2017-03-12] MEDS: GABAPENTIN 400 MG CAP PO SCH ×2 (09:20→21:14)
[2017-03-12] MEDS: TOLTERODINE TARTRATE 2 MG LA CAP (DETROL LA) PO SCH (09:20)
[2017-03-12] MEDS: IRBESARTAN 150 MG TAB PO SCH (09:21)
[2017-03-12] MEDS: ROSUVASTATIN 10 MG TAB (CRESTOR) PO SCH (09:22)
[2017-03-12] MEDS: ONDANSETRON 4MG/2ML VIAL (J2405) IV PRN ×3 (10:40→21:11)
[2017-03-12 11:06] LABS: MAGNESIUM LEVEL 1.3 MG/DL (1.8-2.4)
--- NOTE | 2017-03-12 11:23 | IPNPDOC ---
Subjective Date Seen The patient was seen on 03/12/17. Subjective Chief Complaint/HPI The patient is a 51-year-old female admitted with a reason for visit of Seizure D/O. Events since last encounter Patient vomited all of her medications this morning. No abd pain. Reports that she was not having n/v prior to admission. Normal BMs prior to admission. Admits that she "forgot" to take her meds for about 3 days prior to admission Constitutional: Denies: Chills, Fever Pulmonary: Denies: Dyspnea, Cough Cardiovascular: Denies: Chest Pain, Palpitations Gastrointestinal: Reports: Nausea, Vomiting, Denies: Abdominal Pain, Diarrhea, Constipation Objective Physical Examination General Exam: Positive: Alert (a little groggy), Mild Distress (vomited prior to my arrival, but currnetly looks well. ) Chest Exam: Positive: Clear to auscultation Heart Exam: Positive: Rate Normal, Regular Rhythm Abdomen Exam: Positive: Normal bowel sounds, Soft, Negative: Tenderness Extremity Exam: Negative: Edema Assessment /Plan Problems (1) Altered mental status Status: Acute Response to Treatment: Improving Problem Text: Etiology of this is uncertain Not sure if blood sugar was checked at the time, but will need to monitor for hypoglycemia She was apparently not taking her meds x 3 days so Seizure was thought to be a possibility. Her Tegretol level however was 7.5 EEG ordered and Neuro consult may be beneficial She is on multiple meds that can cause sedation and it sounds like she is not taking her meds properly she has CHELI - noncompliant with CPAP Her med list on her H & P however is not even remotely close to what her outpatient list is. Her meds have been recently adjusted by her PCP, but perhaps she is confused about what she is supposed to be on She had recently been admitted with acute resp failure and her Lyrica was stopped, however on 02/26 she was started on Gabapentin by her PCP. I will stop this. Her Duloxetine and Ecitalopram were stopped by PCP 02/26 as well but they are listed here. Per PCP she is supposed to be on Lamictal and Trazadone. (2) Polypharmacy Status: Chronic (3) Seizure disorder Status: Chronic Problem Text: Continue Tegretol EEG ordered (4) Acute vomiting Status: Acute Problem Text: Zofran ordered. No abd pain or clear etiology for thsi Monitor trend (5) Lumbar degenerative disc disease Status: Chronic Response to Treatment: Stable Problem Text: 02/26 - Gabapentin started, but I am holding this due to her AMS and recent admission for resp failure at which time her Lyrica was stopped. She is normally on Tizanidine, but I will hold this for now as well until her MS normalizes. (6) GERD (gastroesophageal reflux disease) Status: Chronic Response to Treatment: Stable Problem Text: Normally on Nexium and Carafate I will restart the Carafate due to n/v (7) Restless leg syndrome Status: Chronic Response to Treatment: Stable Problem Text: continue HD Mirapex (8) T2DM (type 2 diabetes mellitus) Status: Chronic Response to Treatment: Stable Problem Text: Moyuvia stopped recently but on ER med list Normally on Metformin, Lantus and Victoza (9) Depression Status: Chronic (10) Paroxysmal atrial fibrillation Status: Chronic Response to Treatment: Stable Problem Text: rate controlled on Dig - check level Continue ELiquis (11) CHELI (obstructive sleep apnea) Status: Chronic Problem Text: non-compliant with CPAP - did not tolerate mask to to panic disorder (12) CAD (coronary artery disease) Status: Chronic (13) Asthma, moderate persistent Status: Chronic Response to Treatment: Stable (14) Hypokalemia Status: Acute Problem Text: K Runs ordered (15) Hypomagnesemia Status: Acute Problem Text: mag run ordered Plan/VTE VTE Prophylaxis Ordered?: Yes (Meghan) Plan Therapy: PT Disposition will need PFS to arrange someone to supervise med administrationi n home VS, I&O, 24H, [facility] Vital Signs/I&O Vital Signs Date Time Temp Pulse Resp B/P (MAP) Pulse Ox O2 Delivery O2 Flow Rate FiO2 03/12/17 09:21 160/74 03/12/17 09:18 85 03/12/17 08:00 96.2 16 96 Room Air 03/12/17 04:00 2.0 I&O- Last 24 Hours up to 6 AM 03/13/17 06:00 Intake Total 120 ml Balance 120 ml Laboratory Data 24H LABS Laboratory Tests 2 03/11/17 11:58: Immature Granulocyte % (Auto) 0.4H, White Blood Count 7.2, Red Blood Count 4.53 , Hemoglobin 13.3, Hematocrit 40.1, Mean Corpuscular Volume 88.5, Mean Corpuscular Hemoglobin 29.4, Mean Corpuscular Hemoglobin Concent 33.2, Red Cell Distribution Width 15.6H, Platelet Count 265, Neutrophils (%) (Auto) 64.4, Lymphocytes (%) (Auto) 27.4, Monocytes (%) (Auto) 7.5H, Eosinophils (%) (Auto) 0.0, Basophils (%) (Auto) 0.3, Neutrophils # (Auto) 4.7, Lymphocytes # (Auto) 2.0, Monocytes # (Auto) 0.5, Eosinophils # (Auto) 0.0, Basophils # (Auto) 0.0, Immature Granulocyte # (Auto) 0.0, Nucleated Red Blood Cells % (auto) 0.0, Anion Gap 8, Glomerular Filtration Rate > 60.0, Calcium Level 9.2, Aspartate Amino Transf (AST/SGOT) 17, Alanine Aminotransferase (ALT/SGPT) 30, Alkaline Phosphatase 110, Total Bilirubin 0.1L, Direct Bilirubin < 0.1, Total Creatine Kinase 67, Creatine Kinase MB 1.9, Creatine Kinase MB Relative Index 2.83, Troponin I < 0.02, Total Protein 7.4, Albumin 3.2, Albumin/Globulin Ratio 0.76L , Thyroid Stimulating Hormone (TSH) 1.190 03/11/17 12:00: Blood Gas Bicarbonate Standard 27.6H, Arterial Blood pH 7.449, Arterial Blood Partial Pressure CO2 41.1, Arterial Blood Partial Pressure O2 71.5L, Arterial Blood Total CO2 29.1H, Arterial Blood HCO3 27.9H, Arterial Blood Base Excess 3.6H, Arterial Blood Oxygen Saturation 94.4L 03/11/17 13:00: Digoxin Level 0.7, Carbamazepine (Tegretol) Level 7.5 03/11/17 14:15: Urine Amphetamines Screen NEGATIVE, Urine Benzodiazepines Screen NEGATIVE, Urine Opiates Screen NEGATIVE, Urine Methadone Screen NEGATIVE, Urine Barbiturates Screen NEGATIVE, Urine Phencyclidine Screen NEGATIVE, Urine Cocaine Metabolite Screen NEGATIVE, Urine Cannabinoids Screen NEGATIVE 03/11/17 15:11: Total Creatine Kinase 59, Creatine Kinase MB 1.9, Creatine Kinase MB Relative Index 3.22, Troponin I < 0.02 03/11/17 18:13: Bedside Glucose (Misc Panel) 244H 03/11/17 20:31: Bedside Glucose (Misc Panel) 241H 03/11/17 21:08: Troponin I < 0.02 03/12/17 07:19: Anion Gap 6L, Glomerular Filtration Rate > 60.0, Blood Urea Nitrogen 11, Creatinine 0.49L, Sodium Level 141, Potassium Level 3.3L, Chloride Level 100, Carbon Dioxide Level 35H, Calcium Level 9.0, Magnesium Level 1.3L, Troponin I < 0.02 CBC/BMP Laboratory Tests 03/11/17 11:58 Red Blood Count 4.53, Mean Corpuscular Volume 88.5, Mean Corpuscular Hemoglobin 29.4, Mean Corpuscular Hemoglobin Concent 33.2, Red Cell Distribution Width 15.6 H, Neutrophils (%) (Auto) 64.4, Lymphocytes (%) (Auto) 27.4, Monocytes (%) (Auto) 7.5 H, Eosinophils (%) (Auto) 0.0, Basophils (%) (Auto) 0.3, Neutrophils # (Auto) 4.7, Lymphocytes # (Auto) 2.0, Monocytes # (Auto) 0.5, Eosinophils # ( Auto) 0.0, Basophils # (Auto) 0.0 03/12/17 07:19 Red Blood Count 4.32, Mean Corpuscular Volume 90.0, Mean Corpuscular Hemoglobin 29.2, Mean Corpuscular Hemoglobin Concent 32.4, Red Cell Distribution Width 15.7 H, Calcium Level 9.0 Microbiology Microbiology 03/11/17 Blood Culture, Received Pending 03/11/17 Blood Culture, Received Pending GEOFF VERGARA PA-C Mar 12, 2017 11:23
[2017-03-12] MEDS: NS 0.45% 1,000 ML IV SCH (11:40)
[2017-03-12] MEDS: KCL 10MEQ IN 100ML SWI (KRUN) 10 MEQ in APPROPRIATE DILUENT 1 EA IV SCH ×8 (11:41→18:09)
[2017-03-12] MEDS ORDERED: MAG SULF 1GM/100ML (MAG RUN) 1 GM in APPROPRIATE DILUENT 1 EA IV ONE ×2 (13:00→14:00)
[2017-03-12 14:07] LABS: CARBAMAZEPINE (TEGRETOL) LEVEL 8.7 UG/ML (4.0-10.0)
--- NOTE | 2017-03-12 15:52 | IPN ---
DATE: 03/12/2017 I was called urgently to the progressive care unit (PCU) for change in status. Patient was having involuntary movements and was unresponsive. Respiratory rates were depressed. Oxygen saturation was 90%. Stat fingerstick blood sugar was 260. She looked as though she was having seizure activity, which then transitioned into a postictal confusion. At this time she answered to verbal stimulation. She recognizes me and gives my name. She denies any headache. PHYSICAL EXAMINATION: VITAL SIGNS: Are pending. Oxygen saturation 90%. Her pulse is around 90 and brisk. GENERAL APPEARANCE: Roving eye movements. Follows commands. LUNGS: Clear. HEART: Regular rate and rhythm. ABDOMEN: Soft and nontender. Moves arms and legs with equal strength. IMPRESSION: Suspected seizure. PLAN: I will consult neurology. CT of the head was unremarkable. I will load with a gram of Dilantin. Ordered a sitter and seizure precautions. Addendum 03/12/2017, 3:55 pm Casper Medina MD Spoke with Dr. Medina. The case was discussed. He will be seeing the patient in consultation. He advised that we not give the gram of dilantin that I had ordered. He is going to come and suggest a different anticonvulsive regimen. The order was cancelled and this was discussed with nursing staff. divya LEUNG
[2017-03-12] MEDS ORDERED: PHENYTOIN INJection 1,000 MG in NS 100 ML IV ONE (16:15)
[2017-03-12] MEDS ORDERED: PHENYTOIN ER 100 MG CAP PO SCH (21:00)
[2017-03-12] MEDS ORDERED: LEVEMIR (INSULIN DETEMIR) 1 UNITS/0.01ML SQ SCH (21:00)
[2017-03-12] MEDS: traZODone 100 MG TAB PO SCH (21:14)
[2017-03-12] MEDS: THIAMINE 100 MG TAB PO SCH (21:27)
--- NOTE | 2017-03-12 22:06 | CR ---
DATE OF CONSULTATION: 03/12/2017 REFERRING PHYSICIAN: Dr. Duncan Blevins. REASON FOR CONSULTATION: Seizures. HISTORY OF PRESENT ILLNESS: Alta Varela is a 51-year-old woman who was admitted at [facility] after she was found to be confused and not herself. She had an episode of body becoming stiff, and she was brought to the emergency department due to concern for seizure. The patient has a history of seizures for 40 years or more. Her last seizure was five years ago. She was admitted in January 2017 due to respiratory failure, hypercapnia requiring bilevel positive airway pressure (BiPAP). The patient's sister states that she had been scared since then. She has made mistakes in her medications. She was waiting for blister packs so all of her medicines could be one pack on a daily basis. She did not take her Tegretol and Lamictal for 3-4 days. She states that she had 2-3 generalized tonic-clonic, grand mal seizures which are her typical seizures. There is no warning before her seizures. There is no aura. Her sister saw one of the episodes yesterday in the emergency department and nurses on floor saw one episode today. Her eyes were wide open. Her face was flushed, she was sweating profusely, pupils dilated, and her arms stiffened up in position and her legs moved up and her body shook side to side. She was postictal for one hour. She still has difficulty with her speech after her last seizure this evening. She has a history of chronic migraine. She has a history of chronic back pain. She denies dysphagia, orthopnea, diplopia or urinary incontinence. She has vomited after her seizure. PAST MEDICAL HISTORY: 1. Type 2 diabetes. 2. Seizures. 3. Bipolar disorder. 4. Asthma. 5. Hypertension. 6. Coronary artery disease. 7. Degenerative disc disease. 8. Obesity. 9. Migraines. 10. Restless leg syndrome. 11. Chronic back pain. 12. Atrial fibrillation. 13. Insomnia. CURRENT MEDICATIONS: - Januvia 100 mg by mouth daily - Lamictal 500 mg by mouth once a day in extended-release form; while in the hospital, it is ordered as 500 mg by mouth twice a day - Victoza 1.2 mg subcutaneous daily - metformin 1000 mg by mouth twice a day - tizanidine 2 mg by mouth three times a day as needed - Ventolin inhaler two puffs inhalation four times a day as needed - amlodipine 5 mg by mouth daily - Eliquis 5 mg by mouth twice a day - bisoprolol 5 mg by mouth daily - Tegretol extended release 400 mg by mouth twice a day - Plavix 75 mg by mouth daily - digoxin 0.25 mg by mouth daily - Cymbalta 90 mg by mouth daily - Lexapro 15 mg by mouth daily - Zetia 10 mg by mouth daily - Nexium 40 mg by mouth daily - gabapentin 800 mg by mouth three times a day - insulin Lantus 55 units subcutaneous at bedtime - Lipitor 30 mg by mouth daily - isosorbide mononitrate extended release 30 mg by mouth daily - nitroglycerin 0.4 mg by mouth every five minutes times three for chest pain as needed - pramipexole 0.5 mg by mouth twice a day - Crestor 40 mg by mouth daily, although I am not (please clarify) patient on Crestor and Lipitor - Advair Diskus 500/50, 1-2 puffs twice a day - spironolactone 25 mg by mouth daily - Spiriva 18 mcg inhalation daily - trazodone 200 mg by mouth at bedtime ALLERGIES: LATEX. SOCIAL HISTORY: She is a former smoker. She denies alcohol or illicit drugs. FAMILY HISTORY: Noncontributory. REVIEW OF SYSTEMS: All systems were reviewed and were found to be noncontributory except as mentioned in history of present illness. PHYSICAL EXAMINATION: VITAL SIGNS: Temperature 97.6, pulse 77, respiratory rate 20, blood pressure 186/85. HEART: Irregularly irregular. LUNGS: Clear to auscultation. ABDOMEN: Soft, nontender, nondistended. EXTREMITIES: No pedal edema. No gross musculoskeletal abnormalities. SKIN: No rash. NEUROLOGIC: The patient is awake, alert, oriented to place, person and time. Normal speech comprehension and repetition. Extraocular muscles are intact. No facial weakness. Tongue and uvula midline. 5/5 strength in all four extremities. Deep tendon reflexes are 1+ throughout. Normal sensation to light touch, pinprick vibration in hands, but she has decreased toe pinprick vibration sensation in her feet. There is no dysmetria. There is no ataxia. DIAGNOSTIC STUDIES: CT scan of her head was within normal limits. Her EEG is pending. ASSESSMENT: 1. Generalized tonic-clonic seizures, not intractable. 2. Atrial fibrillation. 3. Chronic back pain and diabetic peripheral neuropathy. 4. Restless leg syndrome. PLAN: 1. She only took one dose of Lamictal and Tegretol in the last 3-4 days. She is also on gabapentin. Due to polypharmacy, we should try to simplify her medications. Tegretol or Lamictal are not available intravenously (IV). We can change her to Dilantin monotherapy 400 mg by mouth at bedtime. She was given a 1000 mg IV loading dose earlier today. 2. Continue gabapentin 800 mg by mouth three times a day. 3. She should not be driving. Other seizure precautions were discussed as well. 4. Her electroencephalogram (EEG) report is pending. [address] Mckoy in one month after hospital discharge.
[2017-03-13 04:00] VITALS: BP 100/70
[2017-03-13] MEDS: NS 0.45% 1,000 ML IV SCH ×2 (04:59→08:56)
--- NOTE | 2017-03-13 05:26 | ECGEPIP ---
Stationary ECG Study [facility] - ED Test Date: 2017-03-11 Pat Name: MONTANA HARDY Department: Room: [place] [address] Gender: F Conveyor Installer: elisa : 1965 Requested By: JENNIFER [place] Order Number: [id number] Reading MD: Cade Guy Measurements Intervals [place] Rate: 90 P: 21 ME: 193 QRS: 53 QRSD: 121 T: -42 QT: 379 QTc: 464 Interpretive Statements SINUS RHYTHM PROBABLE LATERAL MYOCARDIAL INFARCTION, OF INDETERMINATE AGE INFERIOR MYOCARDIAL INFARCTION, OF INDETERMINATE AGE ST DEPRESSION, CONSIDER SUBENDOCARDIAL INJURY SIMILAR TO PRIOR ON SAME DATE Electronically Signed On 03-13-2017 5:26:22 EDT by Cade Guy
[2017-03-13 05:39] LABS: MEAN CORPUSCULAR HEMOGLOBIN 28.8 pg (27.0-33.0); MEAN CORPUSCULAR HGB CONC 31.6 g/dl (32.0-36.5); MEAN CORPUSCULAR VOLUME 91.1 fl (80.0-96.0); RED CELL DISTRIBUTION WIDTH 15.9 % (11.5-14.5); WHITE BLOOD COUNT 9.8 10^3/uL (4.0-10.0)
[2017-03-13 06:30] LABS: ANION GAP 7 MEQ/L (8-16); BLOOD UREA NITROGEN 13 MG/DL (7-18); CALCIUM LEVEL 8.1 MG/DL (8.5-10.1); CARBON DIOXIDE LEVEL 32 MEQ/L (21-32); CHLORIDE LEVEL 100 MEQ/L (98-107); CREATININE FOR GFR 0.53 MG/DL (0.55-1.02); DIGOXIN LEVEL 0.6 NG/ML (0.5-2.0); GLOMERULAR FILTRATION RATE > 60.0 (>51); GLUCOSE, FASTING 175 MG/DL (70-105); MAGNESIUM LEVEL 1.6 MG/DL (1.8-2.4); POTASSIUM SERUM 3.6 MEQ/L (3.5-5.1); SODIUM LEVEL 139 MEQ/L (136-145)
[2017-03-13] MEDS: TIOTROPIUM INHALER/CAPSULE (SPIRIVA) INH SCH (07:32)
[2017-03-13] MEDS: ADVAIR HFA 230/21MCG INHALER INH SCH (07:32)
[2017-03-13 08:13] VITALS: BP 172/81
[2017-03-13] MEDS: HumaLOG INSULIN (NovoLOG) PER UNIT SC SCH ×2 (08:57→11:43)
[2017-03-13] MEDS: SPIRONOLACTONE 25 MG TAB PO SCH (08:59)
[2017-03-13] MEDS: PRAMIPEXOLE 0.25 MG TAB PO SCH (09:00)
[2017-03-13] MEDS ORDERED: carBAMazepine XR 200 MG TAB PO SCH ×2 (09:00→21:00)
[2017-03-13] MEDS ORDERED: lamoTRIgine 100MG TAB PO SCH ×2 (09:00→21:00)
[2017-03-13] MEDS: SUCRALFATE 1 GM TAB PO SCH (09:01)
[2017-03-13] MEDS: IRBESARTAN 150 MG TAB PO SCH (09:01)
[2017-03-13] MEDS: ROSUVASTATIN 10 MG TAB (CRESTOR) PO SCH (09:02)
[2017-03-13] MEDS: APIXABAN 5 MG TAB (ELIQUIS) PO SCH (09:02)
[2017-03-13] MEDS: TOLTERODINE TARTRATE 2 MG LA CAP (DETROL LA) PO SCH (09:02)
[2017-03-13] MEDS: ISOSORBIDE MON. (IMDUR) 30 MG XR TAB PO SCH (09:02)
[2017-03-13] MEDS: GABAPENTIN 400 MG CAP PO SCH (09:03)
[2017-03-13] MEDS: amLODIPine 5 MG TAB PO SCH (09:03)
[2017-03-13] MEDS: DIGOXIN 0.25 MG TAB PO SCH (09:03)
[2017-03-13] MEDS: CLOPIDOGREL 75 MG TAB PO SCH (09:04)
[2017-03-13] MEDS: PANTOPRAZOLE 40MG TAB (PROTONIX) PO SCH (09:04)
[2017-03-13] MEDS: THIAMINE 100 MG TAB PO SCH (09:04)
[2017-03-13] MEDS: BISOPROLOL FUMARATE 5 MG TAB PO SCH (09:04)
[2017-03-13 12:10] VITALS: BP 168/72
--- NOTE | 2017-03-13 12:33 | EEG ---
DATE OF PROCEDURE: 03/12/2017 REFERRING PHYSICIAN: Dr. Casper Medina DIAGNOSIS: Altered mentation, seizure. EEG NUMBER: [id number] HISTORY: The patient is a 51-year-old woman with a history of seizures. She stopped taking her medications 2 or 3 days ago. She had two or three recurrent seizure-like spells. This EEG was done to rule out epileptic potential. She is currently on gabapentin, Tegretol, Lamictal, Cymbalta, Eliquis, Plavix, digoxin, amlodipine. TECHNICAL DESCRIPTION: This digital EEG was recorded by 21 scalp, ear and two EKG electrodes and was reviewed in bipolar and referential montages following reformatting in 10-20 international electrode placement system. INTERPRETATION: The patient was noted to be in awake and drowsy states during this EEG. Resting awake background rhythm consisted of 6 Hz theta activity measuring 15-40 microvolts in amplitude. Stage 1 and 2 sleep were reviewed and were symmetric bilaterally. Hyperventilation could not be performed. Photic stimulation remained unremarkble. Electrocardiogram (EKG) revealed irregular heartbeat and atrial fibrillation. No focal, lateralizing or epileptiform abnormalities were seen. No clinical or electrographic seizures were recorded. CONCLUSION: This EEG in awake, drowsy states, stage I and II sleep is abnormal due to presence of mild generalized slowing and disorganization of background, consistent with nonspecific diffuse cerebral dysfunction, such as seen in encephalopathy due to multiple potential causes, including postictal state, medication related, toxic, metabolic, infectious, multifocal structure of brain abnormalities. No epileptiform abnormalities were seen. Clinical correlation is recommended.
--- NOTE | 2017-03-13 14:27 | DS.PDOC ---
Discharge Summary General Date of Admission Mar 11, 2017 at 17:09 Date of Discharge 03/13/2017 Primary Care Physician: Octavio Dowd M.D. Attending Physician: Alex Worthy MD Specialist/Consultants Involve: ERIBERTO MEDINA MD Discharge Summary ADMITTING DIAGNOSES: 1. Metabolic encephalopathy. 2. Hypertension. 3. Atrial fibrillation. 4. Bipolar disorder. 5. Insomnia. 6. Insulin-dependent diabetes. 7. Asthma. 8. Reflux 9. Peripheral edema 10.Coronary artery disease 11. History of DVT 12. Iron deficiency anemia 13. B12 deficiency 14. Chronic back pain 15. Vitamin D deficiency 16. Hypocalcemia DISCHARGE DIAGNOSES: 1. Seizure disorder, recently uncontrolled with breakthrough seizures and postictal state. 2. Polypharmacy. 3. Lumbar degenerative disc disease. 4. GERD. 5. Restless leg syndrome. 6. Type 2 diabetes mellitus. 7. Paroxysmal atrial fibrillation. 8. Obstructive sleep apnea 9. Coronary artery disease 10. Hypokalemia 11. Hypomagnesemia PROCEDURES PERFORMED DURING STAY: Electroencephalogram. ADMISSION HISTORY: Ms. Varela came to the hospital after a neighbor and health aide worker found her not responding like herself. It seemed to them that she was not taking her medications as prescribed. Please see the admission history and physical for the remaining details. HOSPITAL COURSE: Ms. Varela came to the hospital with altered mental status. It became clear that she was having persistent seizures. She had not taken her medication in several days. She had an EEG done and a consultation by Dr. Medina of neurology. He made adjustments to her regimen specifically designed to simplify her regimen but still control her seizures. He recommended discharge with follow-up in the outpatient office. DISCHARGE CONDITION: Stable. FOLLOW-UP: Prior to discharge an appointment was scheduled with Dr. Octavio Dowd on 03/15/17 at 11:00 AM. DIET: Consistent carbohydrate. ACTIVITY: As tolerated. She should not be driving and was specifically counseled on this by neurology. DISCHARGE MEDICATIONS: Please see below. ALLERGIES: Please see below. LABORATORY DATA: Please see below. IMAGING: Chest x-ray, head CT DISCHARGE INSTRUCTIONS: 1. Beginning your new seizure medication and do not miss or skip doses. Vital Signs/I&Os Vital Signs Date Time Temp Pulse Resp B/P (MAP) Pulse Ox O2 Delivery O2 Flow Rate FiO2 03/13/17 12:10 97.1 70 18 168/72 (104) 93 Room Air 03/12/17 04:00 2.0 I&O- Last 24 Hours up to 6 AM 03/14/17 05:59 Intake Total 920 ml Output Total 600 ml Balance 320 ml Laboratory Data Labs 24H Laboratory Tests 2 03/12/17 15:40: Bedside Glucose (Misc Panel) 261H 03/12/17 16:56: Bedside Glucose (Misc Panel) 281H 03/12/17 20:52: Bedside Glucose (Misc Panel) 251H 03/13/17 04:42: Anion Gap 7L, Glomerular Filtration Rate > 60.0, Blood Urea Nitrogen 13, Creatinine 0.53L, Sodium Level 139, Potassium Level 3.6, Chloride Level 100, Carbon Dioxide Level 32, Calcium Level 8.1L, Magnesium Level 1.6L, Digoxin Level 0.6 03/13/17 11:14: Bedside Glucose (Misc Panel) 302H CBC/BMP Laboratory Tests 03/13/17 04:42 Red Blood Count 4.27, Mean Corpuscular Volume 91.1, Mean Corpuscular Hemoglobin 28.8, Mean Corpuscular Hemoglobin Concent 31.6 L, Red Cell Distribution Width 15.9 H, Calcium Level 8.1 L FSBS Laboratory Tests Test 03/12/17 15:40 03/12/17 16:56 03/12/17 20:52 03/13/17 11:14 Range/Units Bedside Glucose (Misc Panel) 261 281 251 302 70-105 MG/DL Microbiology Microbiology 03/11/17 Blood Culture - Preliminary, Resulted No Growth after 48 hours. All Specime... 03/11/17 Blood Culture - Preliminary, Resulted No Growth after 48 hours. All Specime... Discharge Medications Scheduled Amlodipine Besylate (Amlodipine Besylate) 5 Mg Tab, 5 MG PO DAILY, (Reported) Apixaban Base (Eliquis) 5 Mg Tab, 5 MG PO BID, (Reported) Bisoprolol Fumarate (Bisoprolol Fumarate) 5 Mg Tab, 5 MG PO DAILY, (Reported) Calcium/Vitamin D (Calcium 600+D3 600-400 mg-Unit) 1 Tab Tab, 1 TAB PO BID, ( Reported) Carbamazepine (Carbamazepine ER) 400 Mg Tab, 400 MG PO BID, (Reported) Cetirizine HCl (All Day Allergy) 10 Mg Tab, 10 MG PO QHS, (Reported) Clopidogrel Bisulfate (Clopidogrel) 75 Mg Tab, 75 MG PO DAILY, (Reported) Cyanocobalamin (Ra Vitamin B-12 Tr) 1,000 Mcg Tab, 1,000 MCG PO DAILY, (Reported ) Digoxin (Digitek) 0.25 Mg Tab, 0.25 MG PO DAILY, (Reported) Docusate Sodium (Dok) 100 Mg Tab, 100 MG PO DAILY, (Reported) Duloxetine Hcl (Duloxetine HCl) 30 Mg Cap, 30 MG PO DAILY, (Reported) 90MG TOTAL DAILY Duloxetine Hcl (Duloxetine HCl) 60 Mg Cap, 60 MG PO DAILY, (Reported) 90MG TOTAL DAILY Escitalopram Oxalate (Lexapro) 10 Mg Tab, 15 MG PO DAILY, (Reported) Esomeprazole Magnesium Trihydr (Nexium) 40 Mg Cap, 40 MG PO DAILY, (Reported) Ezetimibe (Zetia) 10 Mg Tab, 10 MG PO DAILY, (Reported) Ferrous Sulfate (Ferrous Sulfate) 324 Mg Tab, 324 MG PO DAILY, (Reported) Gabapentin (Gabapentin) 800 Mg Tab, 800 MG PO TID, (Reported) Insulin Glargine (Lantus Solostar) 100 Unit/Ml Inj, 55 UNITS SQ QHS, (Reported) Irbesartan (Irbesartan) 300 Mg Tab, 300 MG PO DAILY, (Reported) Isosorbide Mononitrate (Isosorbide Mononitrate ER) 30 Mg Tab, 30 MG PO DAILY, ( Reported) Lamotrigine (Lamotrigine ER) 250 Mg Tab, 500 MG PO DAILY, (Reported) Liraglutide (Victoza) 18 Mg/3 Ml Inj, 1.2 MG SC DAILY, (Reported) Metformin Hydrochloride (Metformin HCl ER) 500 Mg Tab, 1,000 MG PO BID, ( Reported) Pramipexole Dihydrochloride (Mirapex) 0.5 Mg Tab, 0.5 MG PO BID, (Reported) Rosuvastatin Calcium (Rosuvastatin Calcium) 40 Mg Tab, 40 MG PO DAILY, (Reported ) Salmeterol/Fluticasone (Advair Diskus 500-50 Mcg/Dose) 28 Puff/Inhaler Aerp, 1 PUFF INH BID, (Reported) Sitagliptin Phosphate (Januvia) 100 Mg Tab, 100 MG PO DAILY, (Reported) Spironolactone (Spironolactone) 25 Mg Tab, 25 MG PO DAILY, (Reported) Sucralfate (Carafate) 1 Gm Tab, 1 GM PO BID, (Reported) Tiotropium [place] Monohydrate (Spiriva Handihaler) 18 Mcg Cap, 1 INHALATION INH DAILY, (Reported) Tolterodine Tartrate (Tolterodine Tartrate ER) 4 Mg Cap, 4 MG PO DAILY, ( Reported) Trazodone HCl (Trazodone HCl) 100 Mg Tab, 200 MG PO QHS, (Reported) Scheduled PRN Albuterol Sulfate (Ventolin Hfa) 200 Puff/8 Gm Aers, 2 PUFF INH QID PRN for SHORTNESS OF BREATH, (Reported) Furosemide (Lasix) 40 Mg Tab, 40 MG PO DAILY PRN for SWELLING, (Reported) Nitroglycerin (Nitrostat) 0.4 Mg Subl, 0.4 MG SL Q5MP PRN for CHEST PAIN, ( Reported) Tizanidine Hydrochloride (Tizanidine HCl) 2 Mg Cap, 2 MG PO TID PRN for MUSCLE SPASMS, (Reported) Miscellaneous Medications [Patient Comment] , (Reported) UNABLE TO VERIFY MEDICATIONS WITH PATIENT. MED LIST OBTAINED FROM MD VISIT IN JANUARY AND EXT MED HX. PATIENT DID STATE THAT SHE TOOK ALL HER MORNING MEDICATIONS, HOWEVER, SHE IS UNABLE TO VERIFY WHICH ONES. NOTE FROM MD STATED TO D/C CYMBALTA 30MG, LEXAPRO, CALCIUM BUT PATIENT WAS ABLE TO TELL ME THAT SHE IS STILL TAKING THESE MEDS. Allergies Coded Allergies: Latex (Verified Allergy, Unknown, 12/31/16) Alex Worthy MD Mar 13, 2017 14:27
== END 2017-03-13 16:42 | disposition home health service (06) | DRG 101 ==
LOC: M ED 11:37 → M ED INP 17:09 → M PCU 03-12 14:57
PROVIDERS: ADMIT Internal Medicine; ATTEND Family Medicine
DX: G40.409 Other generalized epilepsy and epileptic syndromes, not intractable, without status epilepticus (principal); I10 Essential (primary) hypertension; E87.6 Hypokalemia; E11.40 Type 2 diabetes mellitus with diabetic neuropathy, unspecified; F31.9 Bipolar disorder, unspecified; J45.40 Moderate persistent asthma, uncomplicated; G47.33 Obstructive sleep apnea (adult) (pediatric); I25.10 Atherosclerotic heart disease of native coronary artery without angina pectoris; F17.290 Nicotine dependence, other tobacco product, uncomplicated; K21.9 Gastro-esophageal reflux disease without esophagitis; G25.81 Restless legs syndrome; E55.9 Vitamin D deficiency, unspecified; D50.9 Iron deficiency anemia, unspecified; I48.0 Paroxysmal atrial fibrillation; E78.5 Hyperlipidemia, unspecified; G47.00 Insomnia, unspecified; Z79.4 Long term (current) use of insulin; Z79.01 Long term (current) use of anticoagulants; Z79.899 Other long term (current) drug therapy; Z91.040 Latex allergy status; Z95.9 Presence of cardiac and vascular implant and graft, unspecified; Z91.19 Patient's noncompliance with other medical treatment and regimen

== ENCOUNTER → 2017-03-29 | Outpatient (CLI) | payer MEDICARE, MEDICAID ==
[~2017-03-29] MED LIST changes: +AMLO5TAB2 PO; +BISO5TAB5 PO; +FERR324T2 PO; +GABA800T PO; +IRBE300T10; +IRBE300T10 PO; +LANTINJ4 SQ; +ROSU40TA PO; +SPIR1CAP INH; +[UNRECOGNIZED DRUG - CODE] PO
== END ==
LOC: M PAIN 13:30
PROVIDERS: ATTEND Nurse Practitioner Family
DX: M47.816 Spondylosis without myelopathy or radiculopathy, lumbar region (principal); M46.1 Sacroiliitis, not elsewhere classified; M79.1 Myalgia; I10 Essential (primary) hypertension; E11.9 Type 2 diabetes mellitus without complications; F41.9 Anxiety disorder, unspecified; G40.909 Epilepsy, unspecified, not intractable, without status epilepticus; Z79.4 Long term (current) use of insulin; Z79.01 Long term (current) use of anticoagulants; Z79.899 Other long term (current) drug therapy; Z91.040 Latex allergy status; Z88.8 Allergy status to other drugs, medicaments and biological substances

== ENCOUNTER → 2017-04-20 | Outpatient (CLI) | payer MEDICARE, MEDICAID ==
[2017-04-20 15:33] LABS: ALBUMIN 3.1 GM/DL (3.2-5.2); ANION GAP 8 MEQ/L (8-16); BLOOD UREA NITROGEN 11 MG/DL (7-18); CALCIUM LEVEL 8.8 MG/DL (8.5-10.1); CARBON DIOXIDE LEVEL 28 MEQ/L (21-32); CHLORIDE LEVEL 101 MEQ/L (98-107); CREATININE FOR GFR 0.54 MG/DL (0.55-1.02); FERRITIN 22 NG/ML (8-252); GLOMERULAR FILTRATION RATE > 60.0 (>51); GLUCOSE, FASTING 121 MG/DL (70-105); MAGNESIUM LEVEL 1.7 MG/DL (1.8-2.4); PERCENT SATURATION 17.9 % (13.2-45.0); PHOSPHORUS LEVEL 3.4 MG/DL (2.5-4.9); POTASSIUM SERUM 4.1 MEQ/L (3.5-5.1); SODIUM LEVEL 137 MEQ/L (136-145); TOTAL IRON BINDING CAPACITY 390 UG/DL (250-450)
== END ==
LOC: M LAB 14:07
PROVIDERS: ATTEND Family Medicine
DX: I50.42 Chronic combined systolic (congestive) and diastolic (congestive) heart failure (principal)

== ENCOUNTER 2017-04-23 15:20 | Emergency (ER) | payer MEDICARE, MEDICAID ==
[~2017-04-23] VITALS: Ht 175.3 cm; Wt 110.0 kg
[2017-04-23] MEDS ORDERED: AVAP150T31 PO (15:38)
[2017-04-23] MEDS ORDERED: ASPIRIN 81 MG CHEW TABLET PO ONE (15:45)
[2017-04-23] MEDS ORDERED: MORPHINE 4 MG/ML 1ML SYRINGE IV ONE (15:45)
[2017-04-23 15:49] LABS: BASO # 0.1 10^3/uL (0.0-0.2); BASO % 0.6 % (0.0-1.0); IMMATURE GRANULOCYTE % 0.2 % (0-0); LYMPH # 2.2 10^3/uL (1.5-4.5); LYMPH % 25.3 % (24.0-44.0); MEAN CORPUSCULAR HEMOGLOBIN 29.3 pg (27.0-33.0); MEAN CORPUSCULAR HGB CONC 32.6 g/dl (32.0-36.5); MEAN CORPUSCULAR VOLUME 89.7 fl (80.0-96.0); MONO # 0.4 10^3/uL (0.0-0.8); MONO % 4.3 % (0.0-5.0); NEUTROPHILS % 69.6 % (36.0-66.0); PLATELET COUNT, AUTOMATED 333 10^3/uL (150-450); RED CELL DISTRIBUTION WIDTH 14.3 % (11.5-14.5); WHITE BLOOD COUNT 8.6 10^3/uL (4.0-10.0)
[2017-04-23 16:17] LABS: ALBUMIN/GLOBULIN RATIO 0.81 (1.00-1.93); ALKALINE PHOSPHATASE 91 U/L (45-117); ALT/SGPT 24 U/L (12-78); ANION GAP 9 MEQ/L (8-16); AST/SGOT 21 U/L (7-37); BILIRUBIN,DIRECT < 0.1 MG/DL (0.0-0.2); BILIRUBIN,TOTAL 0.2 MG/DL (0.2-1.0); BLOOD UREA NITROGEN 10 MG/DL (7-18); CALCIUM LEVEL 8.5 MG/DL (8.5-10.1); CARBON DIOXIDE LEVEL 28 MEQ/L (21-32); CHLORIDE LEVEL 100 MEQ/L (98-107); CREATININE FOR GFR 0.52 MG/DL (0.55-1.02); GLOMERULAR FILTRATION RATE > 60.0 (>51); GLUCOSE, FASTING 140 MG/DL (70-105); POTASSIUM SERUM 4.5 MEQ/L (3.5-5.1); SODIUM LEVEL 137 MEQ/L (136-145); TOTAL PROTEIN 6.7 GM/DL (6.4-8.2)
--- NOTE | 2017-04-23 16:42 | REP ---
CHEST, PORTABLE SINGLE VIEW: COMPARISON: 03/11/2017 There is no evidence of acute infiltrate. No pleural effusion is seen. The heart is normal in size. The mediastinal silhouette is unremarkable. The visualized osseous structures are intact. IMPRESSION: No acute pulmonary disease. Signed by Kerwin Salazar MD 04/23/2017 08:11 P
[2017-04-23] MEDS ORDERED: MORPHINE 2 MG/ML 1ML SYRINGE IV ONE (17:30)
[2017-04-23 18:26] VITALS: BP 134/63
--- NOTE | 2017-04-24 08:35 | ECGEPIP ---
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
== END 2017-04-23 18:42 | disposition short-term general hospital (02) ==
LOC: M ED 15:20
DX: I20.0 Unstable angina (principal); R06.02 Shortness of breath; E11.9 Type 2 diabetes mellitus without complications; J45.909 Unspecified asthma, uncomplicated; F41.9 Anxiety disorder, unspecified; F33.9 Major depressive disorder, recurrent, unspecified; G43.909 Migraine, unspecified, not intractable, without status migrainosus; R56.9 Unspecified convulsions; I25.2 Old myocardial infarction; Z87.442 Personal history of urinary calculi; Z87.440 Personal history of urinary (tract) infections; Z87.09 Personal history of other diseases of the respiratory system; Z82.49 Family history of ischemic heart disease and other diseases of the circulatory system; Z79.899 Other long term (current) drug therapy; Z79.4 Long term (current) use of insulin; Z79.51 Long term (current) use of inhaled steroids; Z91.040 Latex allergy status

== ENCOUNTER 2017-07-17 14:09 | Emergency (ER) | payer MEDICARE, MEDICAID | END 2017-07-17 15:40 | disposition home or self-care (01) | LOC: M ED 14:09 | DX: E11.40 Type 2 diabetes mellitus with diabetic neuropathy, unspecified (principal); Z76.0 Encounter for issue of repeat prescription; Z79.899 Other long term (current) drug therapy; Z79.4 Long term (current) use of insulin; Z79.01 Long term (current) use of anticoagulants; Z91.048 Other nonmedicinal substance allergy status; Z87.891 Personal history of nicotine dependence | CPT/HCPCS: 99283 ==

== ENCOUNTER → 2017-07-21 | Outpatient (REF) | payer MEDICARE, MEDICAID ==
[2017-07-21 12:12] LABS: ALBUMIN 3.5 GM/DL (3.2-5.2); ANION GAP 10 MEQ/L (8-16); BLOOD UREA NITROGEN 16 MG/DL (7-18); CALCIUM LEVEL 9.4 MG/DL (8.5-10.1); CARBON DIOXIDE LEVEL 26 MEQ/L (21-32); CHLORIDE LEVEL 99 MEQ/L (98-107); CREATININE FOR GFR 0.68 MG/DL (0.55-1.30); GLOMERULAR FILTRATION RATE > 60.0 (>51); GLUCOSE, FASTING 181 MG/DL (70-100); PHOSPHORUS LEVEL 4.8 MG/DL (2.5-4.9); POTASSIUM SERUM 4.8 MEQ/L (3.5-5.1); SODIUM LEVEL 135 MEQ/L (136-145)
== END ==
LOC: M LABDRAWP 11:31
DX: I50.32 Chronic diastolic (congestive) heart failure (principal); R94.31 Abnormal electrocardiogram [ECG] [EKG]; I48.0 Paroxysmal atrial fibrillation
CPT/HCPCS: 83735

== ENCOUNTER → 2017-07-21 | Outpatient (REF) | payer MEDICARE, MEDICAID ==
[2017-07-21 13:08] LABS: VITAMIN B12 LEVEL 1001 PG/ML (247-911)
== END ==
LOC: M SFHCPLAZ 10:43
DX: G62.9 Polyneuropathy, unspecified (principal)
CPT/HCPCS: 82607

== ENCOUNTER → 2017-07-22 | Outpatient (CLI) | payer MEDICARE, MEDICAID | LOC: M PAIN 09:15 | DX: G89.29 Other chronic pain (principal); M79.1 Myalgia; M51.37 Other intervertebral disc degeneration, lumbosacral region; G62.9 Polyneuropathy, unspecified; G40.909 Epilepsy, unspecified, not intractable, without status epilepticus; I11.0 Hypertensive heart disease with heart failure; E78.5 Hyperlipidemia, unspecified; E66.9 Obesity, unspecified; F32.9 Major depressive disorder, single episode, unspecified; G25.81 Restless legs syndrome; K21.9 Gastro-esophageal reflux disease without esophagitis; J45.40 Moderate persistent asthma, uncomplicated; E53.8 Deficiency of other specified B group vitamins; I25.10 Atherosclerotic heart disease of native coronary artery without angina pectoris; I25.2 Old myocardial infarction; G47.33 Obstructive sleep apnea (adult) (pediatric); I50.32 Chronic diastolic (congestive) heart failure; G43.009 Migraine without aura, not intractable, without status migrainosus; I48.0 Paroxysmal atrial fibrillation; N39.41 Urge incontinence; Z79.01 Long term (current) use of anticoagulants; Z79.4 Long term (current) use of insulin; Z79.899 Other long term (current) drug therapy; E11.42 Type 2 diabetes mellitus with diabetic polyneuropathy; Z68.36 Body mass index [BMI] 36.0-36.9, adult; Z91.040 Latex allergy status; Z88.8 Allergy status to other drugs, medicaments and biological substances | CPT/HCPCS: G0463 ==

== ENCOUNTER 2017-08-11 13:11 | Emergency (ER) | payer MEDICARE, MEDICAID ==
[2017-08-11 14:29] LABS: BASO % 0.4 % (0.0-1.0); HEMATOCRIT 43.9 % (36.0-47.0); HEMOGLOBIN 14.6 g/dl (12.0-16.0); IMMATURE GRANULOCYTE % 0.4 % (0-3.0); LYMPH # 2.2 10^3/uL (1.5-4.5); LYMPH % 21.3 % (24.0-44.0); MEAN CORPUSCULAR HEMOGLOBIN 29.6 pg (27.0-33.0); MEAN CORPUSCULAR HGB CONC 33.3 g/dl (32.0-36.5); MEAN CORPUSCULAR VOLUME 88.9 fl (80.0-96.0); MONO # 0.6 10^3/uL (0.0-0.8); MONO % 5.7 % (0.0-5.0); NEUTROPHILS # 7.3 10^3/uL (1.8-7.7); NEUTROPHILS % 72.2 % (36.0-66.0); PLATELET COUNT, AUTOMATED 271 10^3/uL (150-450); RED BLOOD COUNT 4.94 10^6/uL (4.00-5.40); RED CELL DISTRIBUTION WIDTH 14.1 % (11.5-14.5); WHITE BLOOD COUNT 10.1 10^3/uL (4.0-10.0)
[2017-08-11 14:42] LABS: ANION GAP 9 MEQ/L (8-16); BLOOD UREA NITROGEN 14 MG/DL (7-18); CALCIUM LEVEL 8.8 MG/DL (8.5-10.1); CARBON DIOXIDE LEVEL 27 MEQ/L (21-32); CHLORIDE LEVEL 99 MEQ/L (98-107); CPK CREATINE PHOSPHOKINASE 49 U/L (26-192); GLOMERULAR FILTRATION RATE > 60.0 (>51); GLUCOSE, FASTING 265 MG/DL (70-100); MB/CK RELATIVE INDEX 2.04 (< OR =4); POTASSIUM SERUM 3.6 MEQ/L (3.5-5.1); SODIUM LEVEL 135 MEQ/L (136-145); TROPONIN I < 0.02 NG/ML (< 0.10)
[2017-08-11] MEDS: ASPIRIN 81 MG CHEW TABLET PO (14:42)
[2017-08-11] MEDS ORDERED: NITROGLYCERIN 0.4 MG SUBL TABLET SL (15:15)
[2017-08-11] MEDS ORDERED: ISOVUE-370 76% 100ML VIAL (Q9967) As Ordered (15:27)
[2017-08-11] MEDS: ACETAMINOPHEN TAB 650MG DOSE (2X325MG) PO (15:32)
[2017-08-11 19:58] LABS: CPK CREATINE PHOSPHOKINASE 43 U/L (26-192); MB/CK RELATIVE INDEX 2.32 (< OR =4); TROPONIN I < 0.02 NG/ML (< 0.10)
== END 2017-08-11 23:06 | disposition home or self-care (01) ==
LOC: M ED 13:11
DX: R07.9 Chest pain, unspecified (principal); I48.91 Unspecified atrial fibrillation; I25.10 Atherosclerotic heart disease of native coronary artery without angina pectoris; I10 Essential (primary) hypertension; J45.909 Unspecified asthma, uncomplicated; E78.5 Hyperlipidemia, unspecified; K21.9 Gastro-esophageal reflux disease without esophagitis; E66.9 Obesity, unspecified; M51.36 Other intervertebral disc degeneration, lumbar region; G25.81 Restless legs syndrome; F33.9 Major depressive disorder, recurrent, unspecified; F41.0 Panic disorder [episodic paroxysmal anxiety]; G43.009 Migraine without aura, not intractable, without status migrainosus; Z79.4 Long term (current) use of insulin; Z79.51 Long term (current) use of inhaled steroids; Z79.899 Other long term (current) drug therapy; Z79.01 Long term (current) use of anticoagulants; Z91.048 Other nonmedicinal substance allergy status; Z98.890 Other specified postprocedural states; Z95.5 Presence of coronary angioplasty implant and graft; Z82.49 Family history of ischemic heart disease and other diseases of the circulatory system
CPT/HCPCS: Q9967

== ENCOUNTER → 2017-08-13 | Outpatient (REF) | payer MEDICARE, MEDICAID ==
[2017-08-13 12:58] LABS: RETIC HEMOGLOBIN EQUIVALENT 36.6 pg (24-36); RETICULOCYTE % 2.1 % (0.5-1.5)
[2017-08-13 13:34] LABS: TOTAL 25(OH) VITAMIN D 48.2 NG/ML (30.0-100.0)
[2017-08-13 13:35] LABS: PTH INTACT 28.1 PG/ML (18.5-88.0)
[2017-08-13 13:39] LABS: ESTIMATED AVERAGE GLUCOSE 194 MG/DL (60-110); HEMOGLOBIN A1c 8.4 %
[2017-08-13 13:54] LABS: ALBUMIN 3.5 GM/DL (3.2-5.2); ANION GAP 10 MEQ/L (8-16); BLOOD UREA NITROGEN 17 MG/DL (7-18); CARBAMAZEPINE (TEGRETOL) LEVEL 7.5 UG/ML (4.0-10.0); CARBON DIOXIDE LEVEL 27 MEQ/L (21-32); CHLORIDE LEVEL 98 MEQ/L (98-107); CHOLESTEROL LEVEL 166 MG/DL (<200); CHOLESTEROL RISK RATIO 3.772 (<5); CREATININE FOR GFR 0.59 MG/DL (0.55-1.30); FREE T4 0.66 NG/DL (0.76-1.46); GLOMERULAR FILTRATION RATE > 60.0 (>51); GLUCOSE, FASTING 194 MG/DL (70-100); HDL CHOLESTEROL 44 MG/DL (>40); NON-HDL-C 122 MG/DL; PHOSPHORUS LEVEL 3.8 MG/DL (2.5-4.9); POTASSIUM SERUM 4.4 MEQ/L (3.5-5.1); SODIUM LEVEL 135 MEQ/L (136-145); TRIGLYCERIDES LEVEL 300 MG/DL (<150)
== END ==
LOC: M SFHCPLAZ 12:10
DX: E11.9 Type 2 diabetes mellitus without complications (principal); G40.909 Epilepsy, unspecified, not intractable, without status epilepticus; D50.9 Iron deficiency anemia, unspecified; E78.2 Mixed hyperlipidemia; Z79.899 Other long term (current) drug therapy
CPT/HCPCS: 84443

== ENCOUNTER → 2017-11-22 | Outpatient (CLI) | payer OTHER, MEDICAID, MEDICARE | LOC: M PAIN 14:15 | DX: M79.1 Myalgia (principal); M51.37 Other intervertebral disc degeneration, lumbosacral region; G62.9 Polyneuropathy, unspecified; R26.9 Unspecified abnormalities of gait and mobility; I11.0 Hypertensive heart disease with heart failure; E78.5 Hyperlipidemia, unspecified; F41.9 Anxiety disorder, unspecified; F32.9 Major depressive disorder, single episode, unspecified; K21.9 Gastro-esophageal reflux disease without esophagitis; E11.9 Type 2 diabetes mellitus without complications; I48.91 Unspecified atrial fibrillation; I50.9 Heart failure, unspecified; G25.81 Restless legs syndrome; J45.909 Unspecified asthma, uncomplicated; Z79.84 Long term (current) use of oral hypoglycemic drugs; Z79.899 Other long term (current) drug therapy; Z91.048 Other nonmedicinal substance allergy status; Z86.73 Personal history of transient ischemic attack (TIA), and cerebral infarction without residual deficits | CPT/HCPCS: G0463 ==

== ENCOUNTER → 2017-12-17 | Outpatient (CLI) | payer MEDICARE, MEDICAID ==
[~2017-12-17] MED LIST changes: -/ADVA50050 IN; -/AUGM875TA OR; -/CARBXR20T PO; -/DULO30CA OR; -/ESOM40CA PO; -/FEXO18TA OR; -/LAMO10TA PO; -/LINE60TA PO; -/PANT40TA PO; -/TRAZ15TA PO; -ABIL5TAB OR; -ADV500INH INH; -ALBU17IN INH; -ALL10TAB27 PO; -AMLO5TAB2 PO; -AMOX875T OR; -ASPI1TAB PO; -ASPI325T OR; -ASPI81TA85 PO; -AVAP150T31 PO; -BISO5TAB5 PO; +BUPIVACAINE HCL 0.25% 10 ML VIAL As Ordered; +BUPIVACAINE HCL 0.25% 30 ML VIAL As Ordered; -CALC1TAB55 PO; -CALC600T68 PO; -CALCCHW12 PO; -CALCTAB75 PO; -CARA1TAB2 PO; -CARB400T4 PO; -CARV25TA; -CEFD300C OR; -CLIN300C PO; -CLIN75CA PO; -CLOP75TA2 PO; -CORE25TA OR; -CORE25TA PO; -CRES40TA PO; -CYMB1CAP5 PO; -DETR4CAP PO; -DIGI1TAB3 PO; -DIGO25TA PO; -DOK100TA PO; -DULO1CAP2 PO; -DULO1CAP3; -DULO1CAP3 PO; -ELIQ5TAB PO; -FERR1TAB8 PO; -FERR324T2 PO; -FLON0.05; -FLUC100T PO; -FLUC10TA PO; -FOLI1TAB86 PO; -FURO40TA2; -FURO40TA2 OR; -GABA-283 PO; -GABA400C PO; -GABA600T; -GABA600T PO; -GABA800T PO; -IBUP200T2 PO; -IMIT50TA PO; -INSULADS INJ; -INSULANT SC; -IRBE300T10; -IRBE300T10 PO; -IRON50TA PO; -ISOS30TA4 PO; -JANU100T; -JANU100T PO; -JANU25TA PO; -LAMI1TAB8 PO; -LAMI25TA OR; -LAMO200T; -LAMO250T PO; -LANTINJ4; -LANTINJ4 SQ; -LASI40TA PO; -LEXA1TAB PO; -LISI20TA5 OR; -LYRI150C; -LYRI200C OR; -LYRI200C PO; -LYRI300C PO; -METF-699 PO; -METF10004 PO; -METF500T4; -METF500T4 OR; -MIRA0.5T PO; -NEUR600T PO; -NEXI40CA PO; -NITR4TASL SL; -NORV5TAB PO; -PATIENT COMMENT; -PERCOCET PO; -PRAM0.252; -PROZ20CA11 PO; -ROSU40TA; -ROSU40TA PO; -SPIR1CAP INH; -SPIR25TA2 PO; -SPIRIVA HANDIHALER INH; -SUCR1TA PO; -SUMA4INJ3 SC; -TEGR200T OR; -TEGR200T PO; -TIOT18INH INH; -TIZA2CAP3 PO; -TOLT1CAP PO; -TOLT2TA OR; -TRAZ-136 PO; -TRAZ100T OR; +TRIAMCINOLONE ACETONIDE SUSP 40 MG/ML VIAL (J3301) As Ordered; -VICT18IN; -VICT18IN SC; -VITA100072 PO; -ZETI10TA OR; -ZETI10TA30 PO; -ZOCO40TA OR; -[UNRECOGNIZED DRUG - CODE] PO; -[UNRECOGNIZED DRUG - OTHER] PO; +diazePAM 5 MG TAB As Ordered; -nicotine patch; +oxyCODONE 5MG TAB As Ordered
== END ==
LOC: M PAIN 13:30
DX: G89.29 Other chronic pain (principal); M79.1 Myalgia; M51.16 Intervertebral disc disorders with radiculopathy, lumbar region; G40.909 Epilepsy, unspecified, not intractable, without status epilepticus; E78.5 Hyperlipidemia, unspecified; E66.9 Obesity, unspecified; F32.9 Major depressive disorder, single episode, unspecified; F41.0 Panic disorder [episodic paroxysmal anxiety]; G47.00 Insomnia, unspecified; G43.009 Migraine without aura, not intractable, without status migrainosus; K21.9 Gastro-esophageal reflux disease without esophagitis; G25.81 Restless legs syndrome; E53.8 Deficiency of other specified B group vitamins; J45.40 Moderate persistent asthma, uncomplicated; I25.10 Atherosclerotic heart disease of native coronary artery without angina pectoris; I25.2 Old myocardial infarction; I48.0 Paroxysmal atrial fibrillation; Z86.73 Personal history of transient ischemic attack (TIA), and cerebral infarction without residual deficits; G47.33 Obstructive sleep apnea (adult) (pediatric); I50.32 Chronic diastolic (congestive) heart failure; G62.9 Polyneuropathy, unspecified; Z95.5 Presence of coronary angioplasty implant and graft; Z87.891 Personal history of nicotine dependence; Z79.84 Long term (current) use of oral hypoglycemic drugs; Z79.899 Other long term (current) drug therapy; Z79.01 Long term (current) use of anticoagulants; Z91.048 Other nonmedicinal substance allergy status
CPT/HCPCS: J3301

== ENCOUNTER → 2018-01-06 | Outpatient (CLI) | payer MEDICARE, MEDICAID ==
[2018-01-06 12:27] LABS: RETIC HEMOGLOBIN EQUIVALENT 35.3 pg (24-36); RETICULOCYTE # 116.6 10^9/L (17-77); RETICULOCYTE % 2.4 % (0.5-1.5)
[2018-01-06 12:33] LABS: HEMATOCRIT 46.5 % (36.0-47.0)
[2018-01-06 13:05] LABS: ALBUMIN 3.2 GM/DL (3.2-5.2); ALBUMIN/GLOBULIN RATIO 0.94 (1.00-1.93); ALKALINE PHOSPHATASE 113 U/L (45-117); ALT/SGPT 24 U/L (12-78); ANION GAP 10 MEQ/L (8-16); AST/SGOT 15 U/L (7-37); BILIRUBIN,TOTAL 0.2 MG/DL (0.2-1.0); BLOOD UREA NITROGEN 12 MG/DL (7-18); CALCIUM LEVEL 8.7 MG/DL (8.5-10.1); CARBON DIOXIDE LEVEL 27 MEQ/L (21-32); CHLORIDE LEVEL 104 MEQ/L (98-107); CREATININE FOR GFR 0.75 MG/DL (0.55-1.30); GLOMERULAR FILTRATION RATE > 60.0 (>51); GLUCOSE, FASTING 228 MG/DL (70-100); MAGNESIUM LEVEL 1.4 MG/DL (1.8-2.4); SODIUM LEVEL 141 MEQ/L (136-145); TOTAL PROTEIN 6.6 GM/DL (6.4-8.2)
[2018-01-06 13:12] LABS: VITAMIN B12 LEVEL 646 PG/ML (247-911)
[2018-01-06 14:12] LABS: ESTIMATED AVERAGE GLUCOSE 214 MG/DL (60-110); HEMOGLOBIN A1c 9.1 %
[2018-01-07 10:01] LABS: PRETREATED FOLATE FOR RBCFOL 12.7 NG/ML; RBC FOLATE 573.5 NG/ML (280-791)
== END ==
LOC: M LAB 11:49
DX: I50.42 Chronic combined systolic (congestive) and diastolic (congestive) heart failure (principal); Z79.899 Other long term (current) drug therapy
CPT/HCPCS: 83735

== ENCOUNTER → 2018-01-07 | Outpatient (CLI) | payer MEDICARE, MEDICAID | LOC: M PAIN 13:30 | DX: M79.1 Myalgia (principal); M51.37 Other intervertebral disc degeneration, lumbosacral region; G62.9 Polyneuropathy, unspecified; R26.9 Unspecified abnormalities of gait and mobility; M25.562 Pain in left knee; G40.909 Epilepsy, unspecified, not intractable, without status epilepticus; I11.0 Hypertensive heart disease with heart failure; E78.5 Hyperlipidemia, unspecified; E66.9 Obesity, unspecified; F32.9 Major depressive disorder, single episode, unspecified; F41.0 Panic disorder [episodic paroxysmal anxiety]; G47.00 Insomnia, unspecified; N39.41 Urge incontinence; K21.9 Gastro-esophageal reflux disease without esophagitis; G43.009 Migraine without aura, not intractable, without status migrainosus; E11.42 Type 2 diabetes mellitus with diabetic polyneuropathy; E53.8 Deficiency of other specified B group vitamins; J45.40 Moderate persistent asthma, uncomplicated; I25.10 Atherosclerotic heart disease of native coronary artery without angina pectoris; I25.2 Old myocardial infarction; I48.0 Paroxysmal atrial fibrillation; G47.33 Obstructive sleep apnea (adult) (pediatric); I50.32 Chronic diastolic (congestive) heart failure; Z79.84 Long term (current) use of oral hypoglycemic drugs; Z95.5 Presence of coronary angioplasty implant and graft; Z91.048 Other nonmedicinal substance allergy status; Z68.36 Body mass index [BMI] 36.0-36.9, adult | CPT/HCPCS: G0463 ==

== ENCOUNTER → 2018-01-14 | Outpatient (CLI) | payer MEDICARE, MEDICAID | LOC: M RAD 10:03 | DX: Z12.31 Encounter for screening mammogram for malignant neoplasm of breast (principal) | CPT/HCPCS: 77067 ==

== ENCOUNTER → 2018-02-09 | Outpatient (CLI) | payer MEDICARE, MEDICAID | LOC: M PAIN 14:00 | DX: G89.29 Other chronic pain (principal); M79.1 Myalgia; M54.5 Low back pain; R56.9 Unspecified convulsions; E11.40 Type 2 diabetes mellitus with diabetic neuropathy, unspecified; I10 Essential (primary) hypertension; E78.5 Hyperlipidemia, unspecified; F32.9 Major depressive disorder, single episode, unspecified; F41.0 Panic disorder [episodic paroxysmal anxiety]; G47.00 Insomnia, unspecified; G25.81 Restless legs syndrome; K21.9 Gastro-esophageal reflux disease without esophagitis; G43.909 Migraine, unspecified, not intractable, without status migrainosus; E53.8 Deficiency of other specified B group vitamins; J45.40 Moderate persistent asthma, uncomplicated; G47.33 Obstructive sleep apnea (adult) (pediatric); I25.2 Old myocardial infarction; Z79.01 Long term (current) use of anticoagulants; Z79.84 Long term (current) use of oral hypoglycemic drugs; Z79.899 Other long term (current) drug therapy; Z91.09 Other allergy status, other than to drugs and biological substances; Z86.73 Personal history of transient ischemic attack (TIA), and cerebral infarction without residual deficits; Z86.79 Personal history of other diseases of the circulatory system; Z86.59 Personal history of other mental and behavioral disorders | CPT/HCPCS: J3301 ==

== ENCOUNTER 2018-02-19 11:12 | Emergency (ER) | payer MEDICARE, MEDICAID | END 2018-02-19 13:24 | disposition home or self-care (01) | LOC: M ED 11:12 | DX: S80.11XA Contusion of right lower leg, initial encounter (principal); X58.XXXA Exposure to other specified factors, initial encounter; Y92.89 Other specified places as the place of occurrence of the external cause; I10 Essential (primary) hypertension; E11.9 Type 2 diabetes mellitus without complications; J45.909 Unspecified asthma, uncomplicated; G62.9 Polyneuropathy, unspecified; K21.9 Gastro-esophageal reflux disease without esophagitis; F41.9 Anxiety disorder, unspecified; F33.9 Major depressive disorder, recurrent, unspecified; Z86.73 Personal history of transient ischemic attack (TIA), and cerebral infarction without residual deficits; Z95.5 Presence of coronary angioplasty implant and graft; Z79.899 Other long term (current) drug therapy; Z79.01 Long term (current) use of anticoagulants; Z79.4 Long term (current) use of insulin; Z91.048 Other nonmedicinal substance allergy status; Z87.891 Personal history of nicotine dependence | CPT/HCPCS: 73590 ==

== ENCOUNTER → 2018-02-23 | Outpatient (REF) | payer MEDICARE, MEDICAID ==
[2018-02-23 16:20] LABS: ALBUMIN 3.3 GM/DL (3.2-5.2); ALBUMIN/GLOBULIN RATIO 0.97 (1.00-1.93); ALKALINE PHOSPHATASE 107 U/L (45-117); ALT/SGPT 24 U/L (12-78); ANION GAP 10 MEQ/L (8-16); AST/SGOT 13 U/L (7-37); BILIRUBIN,TOTAL 0.2 MG/DL (0.2-1.0); BLOOD UREA NITROGEN 13 MG/DL (7-18); CALCIUM LEVEL 9.1 MG/DL (8.5-10.1); CARBON DIOXIDE LEVEL 28 MEQ/L (21-32); CHLORIDE LEVEL 98 MEQ/L (98-107); CREATININE FOR GFR 0.54 MG/DL (0.55-1.30); GLOMERULAR FILTRATION RATE > 60.0 (>51); GLUCOSE, FASTING 112 MG/DL (70-100); MAGNESIUM LEVEL 1.9 MG/DL (1.8-2.4); POTASSIUM SERUM 4.3 MEQ/L (3.5-5.1); SODIUM LEVEL 136 MEQ/L (136-145); TOTAL PROTEIN 6.7 GM/DL (6.4-8.2)
== END ==
LOC: M SFHCPLAZ 14:48
DX: S86.891D Other injury of other muscle(s) and tendon(s) at lower leg level, right leg, subsequent encounter (principal); X58.XXXA Exposure to other specified factors, initial encounter; Y92.89 Other specified places as the place of occurrence of the external cause
CPT/HCPCS: 83735

== ENCOUNTER → 2018-03-24 | Outpatient (CLI) | payer MEDICARE, MEDICAID | LOC: M RAD 12:28 | DX: M25.762 Osteophyte, left knee (principal); M25.562 Pain in left knee | CPT/HCPCS: 73564 ==

== ENCOUNTER → 2018-03-25 | Outpatient (CLI) | payer MEDICARE, MEDICAID | LOC: M PAIN 14:45 | DX: M79.18 Myalgia, other site (principal); M51.37 Other intervertebral disc degeneration, lumbosacral region; G62.9 Polyneuropathy, unspecified; R26.9 Unspecified abnormalities of gait and mobility; M25.562 Pain in left knee; E11.9 Type 2 diabetes mellitus without complications; R56.9 Unspecified convulsions; I10 Essential (primary) hypertension; E78.5 Hyperlipidemia, unspecified; F32.9 Major depressive disorder, single episode, unspecified; F41.0 Panic disorder [episodic paroxysmal anxiety]; G47.00 Insomnia, unspecified; G25.81 Restless legs syndrome; K21.9 Gastro-esophageal reflux disease without esophagitis; J45.40 Moderate persistent asthma, uncomplicated; I25.10 Atherosclerotic heart disease of native coronary artery without angina pectoris; I25.2 Old myocardial infarction; G43.909 Migraine, unspecified, not intractable, without status migrainosus; I69.354 Hemiplegia and hemiparesis following cerebral infarction affecting left non-dominant side; G47.33 Obstructive sleep apnea (adult) (pediatric); Z79.01 Long term (current) use of anticoagulants; Z79.84 Long term (current) use of oral hypoglycemic drugs; Z79.899 Other long term (current) drug therapy; Z91.09 Other allergy status, other than to drugs and biological substances; Z86.59 Personal history of other mental and behavioral disorders; Z86.79 Personal history of other diseases of the circulatory system | CPT/HCPCS: G0463 ==

== ENCOUNTER 2018-04-30 13:49 | Emergency (ER) | payer MEDICARE, MEDICAID ==
[2018-04-30 14:23] LABS: BASO # 0.1 10^3/uL (0.0-0.2); BASO % 0.6 % (0.0-1.0); HEMATOCRIT 52.1 % (36.0-47.0); HEMOGLOBIN 16.8 g/dl (12.0-15.5); IMMATURE GRANULOCYTE % 0.5 % (0-3.0); LYMPH # 2.5 10^3/uL (1.5-4.5); LYMPH % 23.5 % (24.0-44.0); MEAN CORPUSCULAR HEMOGLOBIN 29.9 pg (27.0-33.0); MEAN CORPUSCULAR HGB CONC 32.2 g/dl (32.0-36.5); MEAN CORPUSCULAR VOLUME 92.9 fl (80.0-96.0); MONO # 0.7 10^3/uL (0.0-0.8); MONO % 6.4 % (0.0-5.0); NEUTROPHILS # 7.4 10^3/uL (1.8-7.7); PLATELET COUNT, AUTOMATED 337 10^3/uL (150-450); RED BLOOD COUNT 5.61 10^6/uL (4.00-5.40); RED CELL DISTRIBUTION WIDTH 13.8 % (11.5-14.5); WHITE BLOOD COUNT 10.7 10^3/uL (4.0-10.0)
[2018-04-30] MEDS: GI COCKTAIL 50ML BTL(HYOSCYAMINE/MAALOX/LIDOCAINE VISCOUS)(1:3:1) PO (14:49)
[2018-04-30] MEDS: LORazepam 2 MG/ML VIAL (J2060) IV (14:49)
[2018-04-30] MEDS: PANTOPRAZOLE 40MG INJ (PROTONIX) (C9113) IV (14:49)
[2018-04-30 14:55] LABS: ANION GAP 5 MEQ/L (8-16); BLOOD UREA NITROGEN 15 MG/DL (7-18); CALCIUM LEVEL 8.7 MG/DL (8.5-10.1); CARBON DIOXIDE LEVEL 32 MEQ/L (21-32); CHLORIDE LEVEL 99 MEQ/L (98-107); CPK CREATINE PHOSPHOKINASE 70 U/L (26-192); CREATININE FOR GFR 0.59 MG/DL (0.55-1.30); GLOMERULAR FILTRATION RATE > 60.0 (>51); GLUCOSE, FASTING 122 MG/DL (70-100); MB/CK RELATIVE INDEX 1.86 (< OR =4); POTASSIUM SERUM 3.7 MEQ/L (3.5-5.1); SODIUM LEVEL 136 MEQ/L (136-145); TROPONIN I < 0.02 NG/ML (< 0.10)
[2018-04-30 17:21] LABS: CPK CREATINE PHOSPHOKINASE 61 U/L (26-192); MB/CK RELATIVE INDEX 1.97 (< OR =4); TROPONIN I < 0.02 NG/ML (< 0.10)
== END 2018-04-30 18:22 | disposition home or self-care (01) ==
LOC: M ED 13:49
DX: K29.70 Gastritis, unspecified, without bleeding (principal); I11.0 Hypertensive heart disease with heart failure; I50.9 Heart failure, unspecified; J45.909 Unspecified asthma, uncomplicated; I25.10 Atherosclerotic heart disease of native coronary artery without angina pectoris; E66.9 Obesity, unspecified; F33.9 Major depressive disorder, recurrent, unspecified; G40.909 Epilepsy, unspecified, not intractable, without status epilepticus; M51.9 Unspecified thoracic, thoracolumbar and lumbosacral intervertebral disc disorder; Z95.5 Presence of coronary angioplasty implant and graft; Z79.899 Other long term (current) drug therapy; Z79.01 Long term (current) use of anticoagulants; F11.10 Opioid abuse, uncomplicated; Z91.048 Other nonmedicinal substance allergy status; F17.210 Nicotine dependence, cigarettes, uncomplicated
CPT/HCPCS: C9113

== ENCOUNTER 2018-05-18 00:03 | Emergency (ER) | payer MEDICARE, MEDICAID ==
[2018-05-18] MEDS ORDERED: SILVER NITRATE APPLICATOR As Ordered (00:23)
[2018-05-18] MEDS: SILVER NITRATE APPLICATOR TOP (00:30)
[2018-05-18] MEDS: MORPHINE 10 MG/ML 1ML VIAL (J2270) IM (00:30)
== END 2018-05-18 01:25 | disposition home or self-care (01) ==
LOC: M ED 00:03
DX: G43.909 Migraine, unspecified, not intractable, without status migrainosus (principal); S40.811A Abrasion of right upper arm, initial encounter; X58.XXXA Exposure to other specified factors, initial encounter; Y92.89 Other specified places as the place of occurrence of the external cause; E11.9 Type 2 diabetes mellitus without complications; I10 Essential (primary) hypertension; J45.909 Unspecified asthma, uncomplicated; I25.10 Atherosclerotic heart disease of native coronary artery without angina pectoris; I48.91 Unspecified atrial fibrillation; D50.9 Iron deficiency anemia, unspecified; K21.9 Gastro-esophageal reflux disease without esophagitis; Z86.73 Personal history of transient ischemic attack (TIA), and cerebral infarction without residual deficits; Z95.5 Presence of coronary angioplasty implant and graft; Z79.899 Other long term (current) drug therapy; Z79.4 Long term (current) use of insulin; Z79.01 Long term (current) use of anticoagulants; Z91.048 Other nonmedicinal substance allergy status
CPT/HCPCS: J2270

== ENCOUNTER → 2018-06-03 | Outpatient (CLI) | payer MEDICARE, MEDICAID ==
[~2018-06-03] MED LIST changes: +/ADVA50050 IN; +/AUGM875TA OR; +/CARBXR20T PO; +/DULO30CA OR; +/ESOM40CA PO; +/FEXO18TA OR; +/LAMO10TA PO; +/LINE60TA PO; +/PANT40TA PO; +/TRAZ15TA PO; +ABIL5TAB OR; +ADV500INH INH; +ALBU17IN INH; +ALL10TAB28 PO; +AMLO5TAB6 PO; +AMOX875T OR; +ASPI1TAB PO; +ASPI325T OR; +ASPI81TA85 PO; +AVAP150T31 PO; +BISO5TAB5 PO; -BUPIVACAINE HCL 0.25% 10 ML VIAL As Ordered; -BUPIVACAINE HCL 0.25% 30 ML VIAL As Ordered; +CALC1TAB55 PO; +CALC600T68 PO; +CALCCHW12 PO; +CALCTAB75 PO; +CARA1TAB2 PO; +CARB400T4 PO; +CARV25TA; +CEFD300C OR; +CLIN300C PO; +CLIN75CA PO; +CLOP75TA2 PO; +CORE25TA OR; +CORE25TA PO; +CRES40TA PO; +CYMB1CAP5 PO; +DETR4CAP PO; +DIGI1TAB3 PO; +DIGO25TA PO; +DOK100TA PO; +DULO1CAP2 PO; +DULO1CAP3; +DULO1CAP3 PO; +ELIQ5TAB PO; +FERR1TAB8 PO; +FERR324T2 PO; +FLON0.05; +FLUC100T PO; +FLUC10TA PO; +FOLI1TAB86 PO; +FURO40TA2; +FURO40TA2 OR; +GABA-845 PO; +GABA400C PO; +GABA600T4; +GABA600T4 PO; +GABA800T4 PO; +IBUP200T2 PO; +IMIT50TA PO; +INSULADS INJ; +INSULANT SC; +IRBE300T10; +IRBE300T10 PO; +IRON50TA PO; +ISOS30TA4 PO; +JANU100T; +JANU100T PO; +JANU25TA PO; +LAMI1TAB8 PO; +LAMI25TA OR; +LAMO200T2; +LAMO250T PO; +LANTINJ4; +LANTINJ4 SQ; +LASI40TA PO; +LASI40TA9 PO; +LEXA1TAB PO; +LISI20TA5 OR; +LORA0.5T11; +LYRI150C; +LYRI200C OR; +LYRI200C PO; +LYRI300C PO; +METF-699 PO; +METF10004 PO; +METF500T4; +METF500T4 OR; +MIRA0.5T PO; +NEUR600T PO; +NEXI40CA PO; +NITR4TASL SL; +NORCOTAB PO; +NORV5TAB PO; +PATIENT COMMENT; +PERCOCET PO; +PRAM0.255; +PROZ20CA11 PO; +REXU1TAB2 PO; +REXU1TAB3 PO; +ROSU40TA3; +ROSU40TA3 PO; +SPIR-10 PO; +SPIR1CAP INH; +SPIRIVA HANDIHALER INH; +SUCR1TA PO; +SUMA4INJ3 SC; +TEGR200T OR; +TEGR200T PO; +TIOT18INH INH; +TIZA2CAP PO; +TOLT2TA OR; +TOLT4CAP3 PO; +TRAZ-163 PO; +TRAZ100T OR; -TRIAMCINOLONE ACETONIDE SUSP 40 MG/ML VIAL (J3301) As Ordered; +VICT18IN; +VICT18IN SC; +VITA100072 PO; +ZETI10TA OR; +ZETI10TA30 PO; +ZOCO40TA OR; +[UNRECOGNIZED DRUG - CODE] PO; +[UNRECOGNIZED DRUG - OTHER] PO; -diazePAM 5 MG TAB As Ordered; +nicotine patch; -oxyCODONE 5MG TAB As Ordered
--- NOTE | 2018-06-29 02:03 | ECWPNPC ---
PATIENT NAME: MONTANA HARDY : 1965 GENDER: FEMALE VISIT DATE: 06/03/2018 DISCHARGE DATE: 06/03/18 1224 VISIT LOCKED DATE TIME: PHYSICIAN: EMY ARAUZ RESOURCE: EMY ARAUZ REASON FOR APPOINTMENT 1. POST PROC HISTORY OF PRESENT ILLNESS HISTORY OF PRESENT ILLNESS: HERE FOR F/U OF CHRONIC LBP WITH BILATERAL LEG RADICULOPATHY.ALSO COMPLAINING OF MID BACK PAIN.RATING PAIN VAS 10/10.REPORTING GENERALIZED JOINT PAIN THAT IS SO SEVERE AND SHE REPORTS PAIN CAUSES HER TO CRY.SHE IS CURRENTLY TAKING GABAPENTIN 800 MG QID FOR SEVERAL YEARS AND THAT IS NOT EFFECTIVE ANYMORE.DISCUSSED MEDICATION AND TREATMENT OPTIONS.DESCRIBES PAIN CONSTANT BURNING AND ACHING. PAIN THE PATIENT DESCRIBES THE PAIN... FALL RISK SCREENING: SCREENING :NO FALLS IN THE PAST YEAR CURRENT MEDICATIONS TAKING DIFLUCAN 100 MG TABLET 1 TABLET ORALLY ONCE A DAY X 7 DAYS C THRUSH PRN TAKING NYSTATIN 161420 UNIT/GM CREAM 1 APPLICATION UNDER BREASTS EXTERNALLY TWICE A DAY X 10D WITH FLARES PRN TAKING ADVAIR DISKUS 500-50 MCG/DOSE AEROSOL POWDER BREATH ACTIVATED 1 PUFF INHALATION TWICE A DAY TAKING IRBESARTAN 300 MG TABLET 1 TABLET ORALLY ONCE A DAY TAKING ISOSORBIDE MONONITRATE ER 30 MG TABLET EXTENDED RELEASE 24 HOUR 1 TABLET IN THE MORNING ORALLY ONCE A DAY TAKING NITROGLYCERIN 0.4 MG TABLET SUBLINGUAL 1 TABLET UNDER THE TONGUE SUBLINGUAL ONE TABLET TIMES 3 EVERY 5 MINUTES IF NO RELIEF GO TO THE ER TAKING EZETIMIBE 10 MG TABLET 1 TABLET ORALLY ONCE A DAY TAKING ROSUVASTATIN CALCIUM 40 MG TABLET 1 TABLET ORALLY ONCE A DAY TAKING DULOXETINE HCL 30 MG CAPSULE DELAYED RELEASE PARTICLES 1 CAPSULE ORALLY EVERY AM TAKING DULOXETINE HCL 60 MG CAPSULE DELAYED RELEASE PARTICLES 1 CAPSULE ORALLY EVERY AM TAKING REXULTI 1 MG TABLET 1 TABLET ORALLY ONCE A DAY TAKING CYANOCOBALAMIN 500 MCG TABLET 1 TABLET ORALLY ONCE A DAY TAKING VITAMIN D (ERGOCALCIFEROL) 71907 UNIT CAPSULE 1 TAB ORALLY EVERY 7 DAYS TAKING BD ULTRA-FINE PEN NEEDLES 32G 4MM 2 INJECTIONS SUBCUTANEOUSLY DAILY TAKING ALCOHOL PREPS 70 % MISCELLANEOUS DIRECTED EXTERNALLY DAILY TAKING ONE TOUCH ULTRA TEST STRIPS . STRIPS 1 STRIP DX CODE E11.9 THREE TIMES DAILY NEEDED TAKING LANCETS DX 250.00 ONE TOUCH LANCET - ONCE A DAY TAKING NYSTATIN 513308 UNIT/ML SUSPENSION 5 ML ORALLY SWISH AND SWALLOW 4 TIMES A DAY TAKING NEXIUM 40 MG CAPSULE DELAYED RELEASE 1 CAPSULE ORALLY ONCE A DAY TAKING CETIRIZINE HCL 10 MG CAPSULE 1 CAPSULE ORALLY ONCE A DAY TAKING AMLODIPINE BESYLATE 5 MG TABLET 1 TABLET ORALLY ONCE A DAY TAKING CARAFATE 1 GM TABLET 1 TABLET ON AN EMPTY STOMACH TWICE A DAY ORALLY 30 DAY(S) TAKING TRAZODONE 100 100MG TABLET 1.5 TABLETS ORALLY AT BEDTIME TAKING MIRAPEX 0.5 MG TABLET 1 TABLET BID ORALLY 30 DAY(S) TAKING METFORMIN XR 500 MG EXTENDED RELEASE 2 TABLET ORALLY TWICE A DAY TAKING DIGOXIN 0.25 MG TABLET 1 TABLET ORALLY ONCE A DAY TAKING COLACE 100 MG CAPSULE 1 CAP ORALLY ONCE A DAY TAKING FERROUS SULFATE 324 (65 FE) MG TABLET DELAYED RELEASE 1 TABLET ORALLY ONCE A DAY TAKING CLOPIDOGREL BISULFATE 75 MG TABLET 1 TAB ORALLY ONCE DAILY TAKING VICTOZA 18 MG/3ML SOLUTION PEN-INJECTOR INJECT 1.8 MILLIGRAM SUBCUTANEOUSLY DAILY SUBCUTANEOUSLY DAILY TAKING CINNAMON 500 MG TABLET 2 TABS ORALLY DAILY TAKING MAGNESIUM CITRATE 100 MG TABLET ORALLY- OTC DAILY TAKING POTASSIUM GLUCONATE 595 (99 K) MG TABLET ORALLY- OTC DAILY TAKING TRESIBA FLEXTOUCH 100 UNIT/ML SOLUTION PEN-INJECTOR 55UNITS SUBCUTANEOUS BEFORE BEDTIME TAKING VENTOLIN HFA 108 (90 BASE) MCG/ACT AEROSOL SOLUTION 2 PUFFS NEEDED INHALATION EVERY 4 HRS TAKING BISOPROLOL FUMARATE 5 MG TABLET 1 TABLET ONCE A DAY ORALLY 90 DAY(S) TAKING ZETIA 10 MG TABLET 1 TABLET ORALLY ONCE A DAY TAKING ELIQUIS 5 MG TABLET 1 TABLET ORAL TWICE A DAY TAKING GABAPENTIN 800 MG TABLET 1 TABLET ORALLY FOUR TIMES DAILY TAKING FUROSEMIDE 40 MG TABLET 1 TABLET ORALLY DAILY IN AM, (THEN 1 IN PM PRN) TAKING APIXABAN 5 MG TABLET 1 TAB ORALLY BID TAKING SPIRONOLACTONE 25 MG TABLET 1 TABLET ORALLY DAILY TAKING NEXIUM 40 MG CAPSULE DELAYED RELEASE 1 CAPSULE ORALLY ONCE A DAY TAKING GABAPENTIN 100 MG CAPSULE 1 CAPSULE IN ADDITION TO 800MG ORALLY THREE TIMES DAILY TAKING INVOKANA 300 MG TABLET 1 TABLET ORALLY EVERY MORNING TAKING CARBAMAZEPINE 200 MG TABLET TAKE TWO TABLETS BY MOUTH TWICE DAILY ORALLY BID TAKING GABAPENTIN 600 MG TABLET 1 TABLET ORALLY FOUR TIMES DAILY MEDICATION LIST REVIEWED AND RECONCILED WITH THE PATIENT PAST MEDICAL HISTORY LUMBAR DJD WITH BILATERAL LOWER EXTREMITY RADICULOPATHY-2009 MRI WITH MULTILEVEL BULGES, AT L4/S1 CAUSING MODERATE TO SEVERE BILATERAL NEURAL FORAMEN NARROWING SEIZURE DISORDER HYPERTENSION HYPERLIPIDEMIA 2B OBESITY DEPRESSION/PANIC DISORDER/INSOMNIA-FOLLOWED BY DR. OSIRIS LOMBARDO RESTLESS LEG SYNDROME URGE INCONTINENCE GERD-12/2016 NORMAL DOUBLE CONTRAST UGI SERIES MIGRAINE HEADACHES, COMMON TYPE B12 DEFICIENCY H/O NICOTINE ADDICTION ASTHMA, MODERATE PERSISTENT/COPD-09/2014 FEV1 2.2L (66%)/RATIO 72%-EVIN CAD STATUS POST NON-Q WAVE ME APRIL 2011 STATUS POST ANGELICA TO MID LAD, CHRONIC OCCLUSION OF RCA WITH COLLATERALS SUPPLYING BLOOD FLOW TO DISTAL RCA AND PDA BRANCHES, LVEF 50% WITH MILD ANTERIOR AND INFERIOR HYPOKINESIS-FISCHI//09/25/13 CATHERIZATION-PATIENT LAD, CHRONICALLY OCCLUDED RCA, NORMAL LVEF-RITA DISTAL RCA ANGELICA THEN 04/26/17 MID LAD [id number] 2 STABLE ANGINA/ PATENT MAIN MAIN ARTERIES, STENTS-RITA HISTORY NARCOTIC ABUSE-IN REHAB AT [facility]-03/21-04/18/12 + H PYLORI BY AB-TREATED C DOXY/FLAGYL/BISMUTH/PPI X 14D-06/2013 ATRIAL FIBRILLATION, PAROXYSMAL, NEW-[place]-09/04/13 [facility] HEMISPHERIC TIA-11/2014 C L FACIAL/ARM NUMBNESS/VISUAL DISTURBANCE/DIZZINESS-MRI C B FRONTAL, R PARIETAL T2 HYPERINTENSITIES, B ICA 16-49% STENOSIS, -CTA CHEST FOR PE R NEPHROLITH BY 11/2014 CT CHELI CHF, CHRONIC 2 DIASTOLIC/SYSTOLIC DYSFUNCTION NEUROPATHY HANDS AND LEFT FOOT ALLERGIES TAPE: BLISTER: ALLERGY SURGICAL HISTORY REMAINING 8 TEETH EXTRACTION-DR. ANDERSON 07/2012 HERNIA REPAIR/INGUINAL 2004 APPENDECTOMY A CHILD NORMAL VIRTUAL COLONOSCOPY X PROMINENT COLONIC STOOL 10/2015 2 CARDIAC STENTS 2014 2 CARDIAC STENTS 2015 2 CARDIAC STENTS- CHROME STENTS 2016 2 CARDIAC STENTS 2017 FAMILY HISTORY MOTHER: , ME HTN DM SIBLINGS: DM HTN ME SOCIAL HISTORY GENERAL: TOBACCO USE ARE YOU A:NONSMOKER BMI CARE GOAL FOLLOW-UP ABOVE NORMAL BMI FOLLOW-UPGIVING ENCOURAGEMENT TO EXERCISE ALCOHOL SCREENING DID YOU HAVE A DRINK CONTAINING ALCOHOL IN THE PAST YEAR?YES HOW OFTEN DID YOU HAVE SIX OR MORE DRINKS ON ONE OCCASION IN THE PAST YEAR?NEVER (0 POINTS) HOW MANY DRINKS DID YOU HAVE ON A TYPICAL DAY WHEN YOU WERE DRINKING IN THE PAST YEAR?1 OR 2 (0 POINTS) HOW OFTEN DID YOU HAVE A DRINK CONTAINING ALCOHOL IN THE PAST YEAR?MONTHLY OR LESS (1 POINT) POINTS1 INTERPRETATIONNEGATIVE RECREATIONAL DRUG USE DRUG USE?NO CAFFEINE CAFFEINE USE?YES HOW OFTEN AND HOW MUCH? 6 CUPS OF COFFEE DAILY SEXUAL HX HAD SEX IN THE LAST 12 MONTHS (VAGINAL, ORAL, OR ANAL)?YES WITHMEN ONLY USE PROTECTION?NO HIV / HEP-C SCREENING HIV TEST OFFERED TO PATIENT:YES DATE OFFERED:11/03/2016 TEST ACCEPTED:NO HEP-C TEST OFFERED TO PATIENT:YES DATE OFFERED:11/03/2016 REASON:PATIENT DECLINED TEST ACCEPTED:NO REASON:PATIENT DECLINED BUDDHIST [id number] RASTAFARIAN LANGUAGE LANGUAGES SPOKEN:CITIZEN OF [place] EDUCATION LEVEL OF EDUCATION:COLLEGE LEARNING BARRIERS / SPECIAL NEEDS CHANGE FROM LAST VISIT?YES ER VISIT BARRIERS TO LEARNING?NO HEARING IMPAIRED?NO VISION IMPAIRED?YES COGNITIVELY IMPAIRED?NO :CORRECTIVE LENSES READINESS TO LEARN?YES LEARNING PREFERENCES?NO LEARNING CAPABILITIES PRESENT?YES EMOTIONAL BARRIERS?NO SPECIAL DEVICES?NO ANNEALER NEEDED?NO DOMESTIC VIOLENCE DO YOU FEEL SAFE IN YOUR ENVIRONMENT?YES MARITAL STATUS: . OTHERS AT HOME: SPOUSE. NEW PATIENT PAIN DIARY TODAY'S VISITNOTES FROM 0-10, WHAT LEVEL IS YOUR PAIN TODAY?10 PAIN CLINIC PFS, CLERGY, PUBLIC HEALTH REFERRALS PFS REFERRAL NEEDED?NO CLERGY REFERRAL NEEDED?NO PUBLIC HEALTH REFERRAL NEEDED?NO WAS THE PROVIDER NOTIFIED OF ANY PERTINENT INFO?YES HAS THE PATIENT BEEN EDUCATED REGARDING HIS/HER PLAN OF CARE?YES HAS THE PATIENT BEEN EDUCATED REGARDING PAIN, THE RISK FOR PAIN, THE IMPORTANCE OF EFFECTIVE PAIN MANAGEMENT, AND THE PAIN ASSESSMENT PROCESS?YES ADVANCE DIRECTIVE ADVANCE DIRECTIVE DISCUSSED WITH PATIENT:YES DECLINED HCP INFORMATION. SMOKING 1 PPD. DENIES ETOH. PRIOR H/O OF NARCOTIC ABUSE. HAD BEEN USING A FRIEND'S SUBOXONE, BUT STATES SHE STOPPED. SMOKING 1 PPD. DENIES ETOH. PRIOR H/O OF NARCOTIC ABUSE. HAD BEEN USING A FRIEND'S SUBOXONE, BUT STATES SHE STOPPED. REVIEWED WITH PATIENT 03/25/18 1519 JSREVIEWED WITH PATIENT 06/03/18 1132 JS. HOSPITALIZATION/MAJOR DIAGNOSTIC PROCEDURE R HEMISPHERIC TIA-WORKUP PER 11/28- B AXILLARY MRSA ABSCESSES S/P B DRAINAGE BY DR. VARGAS, IV VANCOMYCIN, - BCX X2 05/30- CARDIAC CATH ([facility]) DR. SALINAS 07/23 ME R HEMISPHERIC TIA-WORKUP PER 11/28- HYPOXIC RESPIRATORY FAILURE 2 STATUS ASTHMATICUS 01/27- TONIC-CLONIC SEIZURE-HAD MISSED CARBAMAZEPINE X 3D PRIOR, -CIP/T-1 X 3; -UDS BCX NG X 2, CT HEAD NAD, EEG NO-EPILEPIFROM ACTIVITY, DR. CHRISTIANSON FAVORED TO CONTINUE CURRENT REGIMEN 03/11-01/21 REVIEW OF SYSTEMS REVIEWED BY: PROVIDER: EMY BAKER . CONSTITUTIONAL: ANY CHANGE IN YOUR MEDICAL CONDITION? NO . CHILLS NO . FEVER NO . INFECTION: DO YOU HAVE NEW INFECTIONS? NO . DO YOU HAVE HISTORY OF MRSA? NO . MUSCULOSKELETAL: ANY NEW PATTERNS OF PAIN OR NUMBNESS? NO . GASTROENTEROLOGY: ANY NEW CHANGE IN BOWEL CONTROL? NO . GENITOURINARY: ANY NEW CHANGE IN BLADDER CONTROL? NO . IS THERE A CHANCE YOU COULD BE ? NO . HEMATOLOGY/LYMPH: DO YOU TAKE ANY BLOOD THINNERS? (FOR EXAMPLE- COUMADIN, PLAVIX, AGGRENOX, PLATEL, PRADAXA, OR XARELTO) YES, ELIQUIS AND PLAVIX . WHEN WAS YOUR LAST DOSE? DATE: 06/03/18 TIME: 0900 . NEUROLOGY: HAVE YOU FALLEN IN THE PAST 6 MONTHS? NO . ANY NEW EXTREMITY NUMBNESS OR WEAKNESS? NO . CARDIOLOGY: DO YOU HAVE A PACEMAKER OR DEFIBRILLATOR? NO . RESPIRATORY: HAVE YOU BEEN SICK IN THE PAST WEEK? YES, STATES HEAD AND CHEST COLD . FEVER NO . FLU LIKE SYMPTOMS? NO . COUGH YES . INTEGUMENTARY: DO YOU HAVE ANY RASHES OR OPEN SORES? NO . ALLERGIC/IMMUNO: ARE YOU ALLERGIC TO SHELLFISH OR IV DYE? NO . ANY NEW ALLERGIES? NO . PSYCHIATRIC: DO YOU HAVE THOUGHTS OF HURTING YOURSELF OR SOMEONE ELSE? NO . ARE YOU ABUSED, NEGLECTED, OR IN AN UNSAFE ENVIRONMENT? NO . ENDOCRINOLOGY: ARE YOU DIABETIC? YES . OTHER: DO YOU NEED ANY PRESCRIPTIONS? NO . IF YES, PLEASE LIST: ____ . ANY NEW PROBLEMS WITH YOUR MEDICATIONS? NO . WHEN DID YOU LAST EAT? ____ . WHEN DID YOU LAST DRINK? ____ . WHAT DID YOU LAST DRINK? ____ . NAME OF PERSON DRIVING YOU HOME? ____ . DO YOU HAVE ANY OTHER QUESTIONS OR CONCERNS FLU VACCINE END OF APRIL . VITAL SIGNS WT 231.4 LBS, HT 69 IN, BMI 34.17 INDEX, BP 172/95 MM HG, REPEAT BP 143/82 MM HG, HR 77 /MIN, RR 20 /MIN, TEMP 96.9 F, OXYGEN SAT % 97%, SAFE IN ENV? (Y/N) YES, NA INITIALS NV 11:25, REVIEWED BY: ANA. EXAMINATION GENERAL EXAMINATION: GENERAL APPEARANCE:AWAKE,ALERT ,PLEAASANT . PSYCHAFFECT NORMAL . LUNGS:LUNG DIAZ ARE CLEAR TO AUSCULTATION BILATERALLY. GOOD MOVEMENT OF AIR . HEART:S1, S2 IN A REGULAR RATE AND RHYTHM. NO SIGNIFICANT MURMURS, RUBS OR GALLOPS NOTED . MUSCULOSKELETAL:MULTIPLE AREAS OF TENDER SPOTS UPPER/LOWER TORSO INDICATIVE OF FIBROMYALGIA. ASSESSMENTS FIBROMYALGIA - M79.7 (PRIMARY) TREATMENT FIBROMYALGIA START LYRICA CAPSULE, 100 MG, 1 CAPSULE, ORALLY, BID MDD2, 30 DAY(S), 60, REFILLS 2 NOTES: DUE TO FAILURE ON GABAPENTIN AND HIGH LEVELS OF PAIN IT IS MEDICALLY NECESSARY TO TRIAL LYRICA. PROCEDURE CODES FA211 ESTABILISHED PATIENT [facility] CHARGE DISPOSITION & COMMUNICATION FOLLOW UP 2 MONTHS ELECTRONICALLY SIGNED BY OLIVIA CUEVAS ON 06/27/2018 AT 03:17 PM EST DISCLAIMER : THIS IS A VISIT SUMMARY EXTRACTED FROM THE [employer] CHART. IT IS NOT A COPY OF THE [employer] PROGRESS NOTE. MADHU
== END ==
LOC: M PAIN 11:30
PROVIDERS: ATTEND Nurse Practitioner Family
DX: M79.7 Fibromyalgia (principal); R56.9 Unspecified convulsions; I11.0 Hypertensive heart disease with heart failure; E11.9 Type 2 diabetes mellitus without complications; E78.5 Hyperlipidemia, unspecified; F32.9 Major depressive disorder, single episode, unspecified; F43.10 Post-traumatic stress disorder, unspecified; G47.00 Insomnia, unspecified; G25.81 Restless legs syndrome; K21.9 Gastro-esophageal reflux disease without esophagitis; G43.909 Migraine, unspecified, not intractable, without status migrainosus; E53.8 Deficiency of other specified B group vitamins; J45.40 Moderate persistent asthma, uncomplicated; I48.0 Paroxysmal atrial fibrillation; I50.9 Heart failure, unspecified; G47.33 Obstructive sleep apnea (adult) (pediatric); G57.92 Unspecified mononeuropathy of left lower limb; G62.9 Polyneuropathy, unspecified; Z79.01 Long term (current) use of anticoagulants; Z79.84 Long term (current) use of oral hypoglycemic drugs; Z79.899 Other long term (current) drug therapy; Z91.09 Other allergy status, other than to drugs and biological substances

== ENCOUNTER → 2018-07-20 | Outpatient (REF) | payer MEDICARE, MEDICAID ==
[2018-07-20 11:58] LABS: BASO # 0.1 10^3/uL (0.0-0.2); BASO % 0.6 % (0.0-1.0); HEMATOCRIT 47.8 % (36.0-47.0); HEMOGLOBIN 15.8 g/dl (12.0-15.5); LYMPH # 2.2 10^3/uL (1.5-4.5); LYMPH % 24.2 % (24.0-44.0); MEAN CORPUSCULAR HEMOGLOBIN 30.1 pg (27.0-33.0); MEAN CORPUSCULAR HGB CONC 33.1 g/dl (32.0-36.5); MONO # 0.4 10^3/uL (0.0-0.8); MONO % 4.8 % (0.0-5.0); NEUTROPHILS # 6.2 10^3/uL (1.8-7.7); NEUTROPHILS % 69.9 % (36.0-66.0); PLATELET COUNT, AUTOMATED 323 10^3/uL (150-450); RED BLOOD COUNT 5.25 10^6/uL (4.00-5.40); WHITE BLOOD COUNT 8.9 10^3/uL (4.0-10.0)
[2018-07-20 12:07] LABS: HEMOGLOBIN A1c 7.4 %
[2018-07-20 12:15] LABS: CREATININE, URINE 58.1 MG/DL; MALB URINE SIEMENS 14.6 MG/L; MAU/CREAT RATIO 25.1 MCG/MG (0.0-30.0)
[2018-07-20 12:23] LABS: ALBUMIN 3.1 GM/DL (3.2-5.2); ALT/SGPT 21 U/L (12-78); BILIRUBIN,TOTAL 0.1 MG/DL (0.2-1.0); BLOOD UREA NITROGEN 18 MG/DL (7-18); CALCIUM LEVEL 8.9 MG/DL (8.5-10.1); CARBAMAZEPINE (TEGRETOL) LEVEL 9.9 UG/ML (4.0-10.0); CARBON DIOXIDE LEVEL 29 MEQ/L (21-32); CHLORIDE LEVEL 100 MEQ/L (98-107); CHOLESTEROL LEVEL 165 MG/DL (<200); CHOLESTEROL RISK RATIO 3.928 (<5); CREATININE FOR GFR 0.57 MG/DL (0.55-1.30); FREE T4 0.65 NG/DL (0.76-1.46); GLOMERULAR FILTRATION RATE > 60.0 (>51); GLUCOSE, FASTING 128 MG/DL (70-100); HDL CHOLESTEROL 42 MG/DL (>40); LDL CHOLESTEROL 80 MG/DL (<100); MAGNESIUM LEVEL 1.7 MG/DL (1.8-2.4); NON-HDL-C 123 MG/DL; POTASSIUM SERUM 4.5 MEQ/L (3.5-5.1); SODIUM LEVEL 137 MEQ/L (136-145); TOTAL PROTEIN 6.5 GM/DL (6.4-8.2); TRIGLYCERIDES LEVEL 213 MG/DL (<150)
== END ==
LOC: M SFHCPLAZ 09:30
PROVIDERS: ATTEND Family Medicine
DX: I10 Essential (primary) hypertension (principal); E78.2 Mixed hyperlipidemia; E11.9 Type 2 diabetes mellitus without complications; D50.9 Iron deficiency anemia, unspecified; G40.909 Epilepsy, unspecified, not intractable, without status epilepticus

== ENCOUNTER 2018-08-21 13:02 | Emergency (ER) | payer MEDICARE, MEDICAID ==
[~2018-08-21] VITALS: Ht 175.3 cm; Wt 104.5 kg
[2018-08-21] MEDS ORDERED: ESTRTAB6 PO (13:43)
[2018-08-21 13:45] LABS: BASO # 0.1 10^3/uL (0.0-0.2); BASO % 0.9 % (0.0-1.0); HEMATOCRIT 48.7 % (36.0-47.0); HEMOGLOBIN 15.8 g/dl (12.0-15.5); LYMPH # 1.9 10^3/uL (1.5-4.5); LYMPH % 21.2 % (24.0-44.0); MEAN CORPUSCULAR HGB CONC 32.4 g/dl (32.0-36.5); MEAN CORPUSCULAR VOLUME 92.4 fl (80.0-96.0); MONO # 0.4 10^3/uL (0.0-0.8); MONO % 4.6 % (0.0-5.0); NEUTROPHILS # 6.6 10^3/uL (1.8-7.7); PLATELET COUNT, AUTOMATED 372 10^3/uL (150-450); RED BLOOD COUNT 5.27 10^6/uL (4.00-5.40)
[2018-08-21] MEDS: NITROGLYCERIN 0.4 MG SUBL TABLET SL PRN ×2 (13:48→13:57)
--- NOTE | 2018-08-21 13:52 | REP ---
Chest one-view HISTORY: Chest pain Comparison: 04/30/2018 The lungs are clear. The heart is normal in size. The pulmonary vasculature is normal in appearance. Impression: No acute disease. Electronically Signed by Mohsen Moyer MD 08/21/2018 01:44 P
[2018-08-21 13:56] LABS: INR 1.11; PROTHROMBIN TIME 14.5 SECONDS (12.1-14.4)
[2018-08-21 13:57] VITALS: BP 138/91
[2018-08-21 13:57] LABS: PARTIAL THROMBOPLASTIN TIME 32.1 SECONDS (25.4-37.6)
[2018-08-21 14:21] LABS: BLOOD UREA NITROGEN 21 MG/DL (7-18); CALCIUM LEVEL 8.5 MG/DL (8.5-10.1); CARBON DIOXIDE LEVEL 30 MEQ/L (21-32); CHLORIDE LEVEL 104 MEQ/L (98-107); CK-MB VALUE MASS < 1.0 NG/ML (<3.6); CPK CREATINE PHOSPHOKINASE 37 U/L (26-192); CREATININE FOR GFR 0.58 MG/DL (0.55-1.30); GLOMERULAR FILTRATION RATE > 60.0 (>51); GLUCOSE, FASTING 71 MG/DL (70-100); NT-PRO BNP 35 PG/ML (<125); POTASSIUM SERUM 4.1 MEQ/L (3.5-5.1); SODIUM LEVEL 140 MEQ/L (136-145); TROPONIN I < 0.02 NG/ML (< 0.10)
[2018-08-21 14:52] LABS: INFLUENZA A AMPLIFICATION NEGATIVE (NEGATIVE); INFLUENZA B AMPLIFICATION NEGATIVE (NEGATIVE)
[2018-08-21] MEDS: IPRATROPIUM 0.5MG/ALBUTEROL 2.5MG INH SOL UD 3ML (DUONEB)(J7620) NEB SCH ×3 (15:19→16:37)
[2018-08-21 16:55] LABS: CPK CREATINE PHOSPHOKINASE 40 U/L (26-192); TROPONIN I < 0.02 NG/ML (< 0.10)
[2018-08-21] MEDS ORDERED: IPRA0.00 NEB (17:28)
[2018-08-21] MEDS ORDERED: PRED20TA PO (17:28)
[2018-08-21] MEDS ORDERED: DOXY100C37 PO (17:28)
[2018-08-21 17:30] VITALS: BP 124/63
--- NOTE | 2018-08-21 18:51 | ECGEPIP ---
Stationary ECG Study [facility] - ED Test Date: 2018-08-21 Pat Name: MONTANA HARDY Department: Room: - Gender: F Pipelines Supervisor: CT : 1965 Requested By: Cade Esteves Order Number: [id number] Reading MD: Mahnaz Mo Measurements Intervals [place] Rate: 70 P: -9 RI: 177 QRS: 56 QRSD: 102 T: 45 QT: 371 QTc: 402 Interpretive Statements SINUS RHYTHM NONSPECIFIC ST & T-WAVE ABNORMALITY SIMILAR 04/30/18 Electronically Signed On 08-21-2018 18:51:20 EDT by Mahnaz Mo
--- NOTE | 2018-08-21 18:53 | ECGEPIP ---
Stationary ECG Study [facility] - ED Test Date: 2018-08-21 Pat Name: MONTANA HARDY Department: Room: - Gender: F Capacity Planning Analyst: moriah : 1965 Requested By: Cade Esteves Order Number: [id number] Reading MD: Mahnaz Mo Measurements Intervals [place] Rate: 60 P: 0 [place]: 182 QRS: 46 QRSD: 104 T: 33 QT: 402 QTc: 404 Interpretive Statements SINUS RHYTHM NONSPECIFIC ST & T-WAVE ABNORMALITY DECREASED RATE 08/21/18 Electronically Signed On 08-21-2018 18:53:05 EDT by Mahnaz Mo
== END 2018-08-21 17:42 | disposition home or self-care (01) ==
LOC: M ED 13:02
DX: J44.1 Chronic obstructive pulmonary disease with (acute) exacerbation (principal); F41.9 Anxiety disorder, unspecified; I11.0 Hypertensive heart disease with heart failure; I50.9 Heart failure, unspecified; E78.5 Hyperlipidemia, unspecified; I48.91 Unspecified atrial fibrillation; I25.10 Atherosclerotic heart disease of native coronary artery without angina pectoris; F33.9 Major depressive disorder, recurrent, unspecified; G47.33 Obstructive sleep apnea (adult) (pediatric); G40.909 Epilepsy, unspecified, not intractable, without status epilepticus; F11.21 Opioid dependence, in remission; Z95.5 Presence of coronary angioplasty implant and graft; Z79.899 Other long term (current) drug therapy; Z79.82 Long term (current) use of aspirin; Z79.4 Long term (current) use of insulin; Z79.01 Long term (current) use of anticoagulants; Z91.048 Other nonmedicinal substance allergy status; F17.210 Nicotine dependence, cigarettes, uncomplicated

== ENCOUNTER 2018-10-26 17:03 | Emergency (ER) | payer MEDICARE, MEDICAID ==
[~2018-10-26] VITALS: Ht 170.2 cm; Wt 92.4 kg
[~2018-10-26 17:03] MED LIST changes: -/ADVA50050 IN; -/CARBXR20T PO; -/DULO30CA OR; -/ESOM40CA PO; -/LAMO10TA PO; -/LINE60TA PO; -/PANT40TA PO; -/TRAZ15TA PO; +ADVA1AER2 IN; +CALC1TAB8 PO; -CALC600T68 PO; +CYMB1CAP5 OR; +DOXY100C37 PO; +ESTRTAB6 PO; +HYDR-3715 PO; +IPRA0.00 NEB; +LAMI1TAB7 PO; +NEXI1CAP3 PO; -NORCOTAB PO; +OXYC1TAB23 PO; +PRED20TA PO; +PROT1TAB2 PO; +TEGR1TAB PO; +VITA100014 PO; +VITA100018 PO; +ZYVO100T PO; +[UNRECOGNIZED DRUG - CODE] PO; -[UNRECOGNIZED DRUG - CODE] PO
[2018-10-26 18:28] LABS: BASO # 0.1 10^3/uL (0.0-0.2); BASO % 0.6 % (0.0-1.0); HEMOGLOBIN 16.5 g/dl (12.0-15.5); LYMPH % 20.8 % (24.0-44.0); MEAN CORPUSCULAR HEMOGLOBIN 30.5 pg (27.0-33.0); MEAN CORPUSCULAR HGB CONC 32.4 g/dl (32.0-36.5); MEAN CORPUSCULAR VOLUME 94.3 fl (80.0-96.0); MONO # 0.5 10^3/uL (0.0-0.8); MONO % 4.8 % (0.0-5.0); NEUTROPHILS % 73.6 % (36.0-66.0); PLATELET COUNT, AUTOMATED 321 10^3/uL (150-450); RED BLOOD COUNT 5.41 10^6/uL (4.00-5.40); WHITE BLOOD COUNT 9.5 10^3/uL (4.0-10.0)
--- NOTE | 2018-10-26 19:03 | REP ---
Clinical: Chest pain . Comparison: 08/21/2018 . Findings: The mediastinum and cardiac silhouette are stable and within normal limits for portable technique. The lung rinaldi are clear without acute consolidation, effusion, or pneumothorax. Skeletal structures are intact. Impression: No acute cardiopulmonary process appreciated. Electronically Signed by Román Rich MD 10/26/2018 06:54 P
[2018-10-26 19:11] LABS: BLOOD UREA NITROGEN 16 MG/DL (7-18); CALCIUM LEVEL 8.5 MG/DL (8.5-10.1); CARBON DIOXIDE LEVEL 28 MEQ/L (21-32); CHLORIDE LEVEL 106 MEQ/L (98-107); CPK CREATINE PHOSPHOKINASE 62 U/L (26-192); CREATININE FOR GFR 0.57 MG/DL (0.55-1.30); GLOMERULAR FILTRATION RATE > 60.0 (>51); GLUCOSE, FASTING 84 MG/DL (70-100); SODIUM LEVEL 141 MEQ/L (136-145); TROPONIN I < 0.02 NG/ML (< 0.10)
[2018-10-26] MEDS ORDERED: FLON27.5 NARES (20:14)
[2018-10-26 20:25] VITALS: BP 135/74
--- NOTE | 2018-10-27 07:27 | ECGEPIP ---
[facility] - ED Test Date: 2018-10-26 Pat Name: MONTANA HARDY Department: Room: - Gender: Female Damage Inside Adjuster: : 1965 Requested By: JENNIFER [place] Order Number: [id number] Reading MD: Cade Guy Measurements Intervals [place] Rate: 58 P: 13 [place]: 180 QRS: 54 QRSD: 99 T: 23 QT: 413 QTc: 408 Interpretive Statements SINUS BRADYCARDIA NONSPECIFIC ST & T-WAVE ABNORMALITY SIMILAR TO 08/21/18 Electronically Signed on 10-27-2018 7:27:15 EDT by Cade Guy
== END 2018-10-26 20:26 | disposition home or self-care (01) ==
LOC: M ED 17:03
DX: J30.89 Other allergic rhinitis (principal); G43.909 Migraine, unspecified, not intractable, without status migrainosus; I10 Essential (primary) hypertension; E78.5 Hyperlipidemia, unspecified; I25.10 Atherosclerotic heart disease of native coronary artery without angina pectoris; G25.81 Restless legs syndrome; F33.9 Major depressive disorder, recurrent, unspecified; K21.9 Gastro-esophageal reflux disease without esophagitis; G89.29 Other chronic pain; M54.9 Dorsalgia, unspecified; Z79.899 Other long term (current) drug therapy; Z79.4 Long term (current) use of insulin; Z79.01 Long term (current) use of anticoagulants; Z91.048 Other nonmedicinal substance allergy status; F17.210 Nicotine dependence, cigarettes, uncomplicated

== ENCOUNTER → 2018-12-16 | Outpatient (REF) | payer MEDICARE, MEDICAID ==
[~2018-12-16] MED LIST changes: +CYAN100050 PO; -DULO1CAP2 PO; -DULO1CAP3; -DULO1CAP3 PO; +DULO1CAP5 PO; +DULO1CAP6; +DULO1CAP6 PO; +FLON27.5 NARES; -ROSU40TA3; -ROSU40TA3 PO; +ROSU40TA4; +ROSU40TA4 PO; -VITA100014 PO
[2018-12-16 17:23] LABS: BASO # 0.1 10^3/uL (0.0-0.2); BASO % 0.8 % (0.0-1.0); HEMATOCRIT 53.2 % (36.0-47.0); LYMPH % 28.4 % (24.0-44.0); MEAN CORPUSCULAR HEMOGLOBIN 30.1 pg (27.0-33.0); MEAN CORPUSCULAR VOLUME 94.2 fl (80.0-96.0); MONO # 0.4 10^3/uL (0.0-0.8); NEUTROPHILS # 4.6 10^3/uL (1.8-7.7); NEUTROPHILS % 64.5 % (36.0-66.0); PLATELET COUNT, AUTOMATED 309 10^3/uL (150-450); RED BLOOD COUNT 5.65 10^6/uL (4.00-5.40); WHITE BLOOD COUNT 7.2 10^3/uL (4.0-10.0)
[2018-12-16 17:37] LABS: ALBUMIN 3.1 GM/DL (3.2-5.2); ALT/SGPT 23 U/L (12-78); BILIRUBIN,TOTAL 0.1 MG/DL (0.2-1.0); BLOOD UREA NITROGEN 9 MG/DL (7-18); CALCIUM LEVEL 8.3 MG/DL (8.5-10.1); CARBAMAZEPINE (TEGRETOL) LEVEL 5.1 UG/ML (4.0-10.0); CARBON DIOXIDE LEVEL 26 MEQ/L (21-32); CHLORIDE LEVEL 107 MEQ/L (98-107); CHOLESTEROL LEVEL 144 MG/DL (<200); CHOLESTEROL RISK RATIO 2.823 (<5); CREATININE FOR GFR 0.59 MG/DL (0.55-1.30); FREE T4 0.76 NG/DL (0.76-1.46); GLOMERULAR FILTRATION RATE > 60.0 (>51); GLUCOSE, FASTING 95 MG/DL (70-100); HDL CHOLESTEROL 51 MG/DL (>40); LDL CHOLESTEROL 68 MG/DL (<100); NON-HDL-C 93 MG/DL; POTASSIUM SERUM 3.9 MEQ/L (3.5-5.1); SODIUM LEVEL 141 MEQ/L (136-145); TOTAL PROTEIN 6.7 GM/DL (6.4-8.2); TRIGLYCERIDES LEVEL 127 MG/DL (<150)
[2018-12-16 17:44] LABS: INR 1.02; PROTHROMBIN TIME 13.1 SECONDS (11.8-14.0)
[2018-12-16 17:45] LABS: PARTIAL THROMBOPLASTIN TIME 33.6 SECONDS (25.0-38.4)
[2018-12-16 19:26] LABS: HEMOGLOBIN A1c 6.2 %
== END ==
LOC: M SFHCPLAZ 15:33
PROVIDERS: ATTEND Nurse Practitioner Family
DX: I10 Essential (primary) hypertension (principal); E11.9 Type 2 diabetes mellitus without complications; E78.2 Mixed hyperlipidemia; I48.0 Paroxysmal atrial fibrillation; D50.9 Iron deficiency anemia, unspecified; G40.909 Epilepsy, unspecified, not intractable, without status epilepticus
CPT/HCPCS: 36415; 80053; 80061; 80156; 83036; 83735; 84439; 84443; 85025; 85046; 85610; 85730; G0463

== ENCOUNTER 2019-04-22 09:15 | Emergency (ER) | payer MEDICARE, MEDICAID ==
[~2019-04-22] VITALS: Ht 175.3 cm; Wt 80.5 kg
[~2019-04-22 09:15] MED LIST changes: -ALL10TAB28 PO; +ALL10TAB29 PO; -BISO5TAB5 PO; +BISO5TAB9 PO; +METF-791; -METF500T4; +ZETI10TA16 PO; -ZETI10TA30 PO
[2019-04-22] MEDS ORDERED: PANTOPRAZOLE 40MG INJ (PROTONIX) (C9113) IV ONE (09:45)
[2019-04-22] MEDS ORDERED: LORazepam 2 MG/ML VIAL (J2060) IV ONE (09:45)
--- NOTE | 2019-04-22 10:10 | REP ---
Portable chest x-ray: Single view. History: Chest pain. Comparison study: October 26, 2018. Findings: The lungs are symmetrically aerated and clear. There is mild linear fibrosis in the left base unchanged. Heart is not enlarged. Pulmonary vasculature is not increased. There are degenerative changes in the thoracic spine. Impression: No acute disease. Electronically Signed by Alexys Higgins MD 04/22/2019 10:03 A
[2019-04-22 10:19] LABS: BASO # 0.1 10^3/uL (0.0-0.2); BASO % 0.7 % (0.0-1.0); HEMATOCRIT 47.7 % (36.0-47.0); HEMOGLOBIN 15.9 g/dl (12.0-15.5); LYMPH # 2.4 10^3/uL (1.5-5.0); LYMPH % 23.2 % (24.0-44.0); MEAN CORPUSCULAR HEMOGLOBIN 31.1 pg (27.0-33.0); MEAN CORPUSCULAR HGB CONC 33.3 g/dl (32.0-36.5); MEAN CORPUSCULAR VOLUME 93.2 fl (80.0-96.0); MONO # 0.7 10^3/uL (0.0-0.8); MONO % 6.4 % (0.0-5.0); NEUTROPHILS # 7.3 10^3/uL (1.5-8.5); NEUTROPHILS % 69.5 % (36.0-66.0); PLATELET COUNT, AUTOMATED 300 10^3/uL (150-450); RED BLOOD COUNT 5.12 10^6/uL (4.00-5.40); WHITE BLOOD COUNT 10.5 10^3/uL (4.0-10.0)
[2019-04-22 10:50] LABS: ALT/SGPT 32 U/L (12-78); BILIRUBIN,DIRECT < 0.1 MG/DL (0.0-0.2); BILIRUBIN,TOTAL 0.2 MG/DL (0.2-1.0); BLOOD UREA NITROGEN 25 MG/DL (7-18); CALCIUM LEVEL 8.5 MG/DL (8.5-10.1); CARBON DIOXIDE LEVEL 28 MEQ/L (21-32); CHLORIDE LEVEL 106 MEQ/L (98-107); CK-MB VALUE MASS 2.4 NG/ML (<3.6); CPK CREATINE PHOSPHOKINASE 96 U/L (26-192); CREATININE FOR GFR 0.58 MG/DL (0.55-1.30); GLOMERULAR FILTRATION RATE > 60.0 (>51); GLUCOSE, FASTING 72 MG/DL (70-100); LIPASE 177 U/L (73-393); POTASSIUM SERUM 4.1 MEQ/L (3.5-5.1); SODIUM LEVEL 140 MEQ/L (136-145); TOTAL PROTEIN 6.3 GM/DL (6.4-8.2); TROPONIN I 0.02 NG/ML (< 0.10)
[2019-04-22 14:42] LABS: CK-MB VALUE MASS 2.4 NG/ML (<3.6); CPK CREATINE PHOSPHOKINASE 95 U/L (26-192); MB/CK RELATIVE INDEX 2.53 (< OR =4); TROPONIN I < 0.02 NG/ML (< 0.10)
[2019-04-22 15:15] VITALS: BP 96/58
--- NOTE | 2019-04-23 12:04 | ECGEPIP ---
[facility] - ED Test Date: 2019-04-22 Pat Name: MONTANA HARDY Department: Room: - Gender: Female Anthropological Linguist: JCisco : 1965 Requested By: Cade Esteves Order Number: [id number] Reading MD: Mahnaz Mo Measurements Intervals [place] Rate: 69 P: -21 [place]: 156 QRS: 78 QRSD: 102 T: 74 QT: 393 QTc: 422 Interpretive Statements SINUS RHYTHM MODERATE ST DEPRESSION INCREASED RATE 10/26/18 Electronically Signed on 04-23-2019 12:03:38 EST by Mahnaz Mo
--- NOTE | 2019-04-23 12:06 | ECGEPIP ---
[facility] - ED Test Date: 2019-04-22 Pat Name: MONTANA HARDY Department: Room: - Gender: Female Memory Care Program Director: JCisco : 1965 Requested By: Cade Esteves Order Number: [id number] Reading MD: Mahnaz Mo Measurements Intervals [place] Rate: 64 P: 66 [place]: 169 QRS: 54 QRSD: 100 T: 59 QT: 437 QTc: 451 Interpretive Statements SINUS RHYTHM NONSPECIFIC ST & T-WAVE ABNORMALITY SIMILAR 04/22/19 Electronically Signed on 04-23-2019 12:06:12 EST by Mahnaz Mo
== END 2019-04-22 15:37 | disposition home or self-care (01) ==
LOC: EDBD 09:15 → M ED 09:15
DX: F41.9 Anxiety disorder, unspecified (principal); E11.9 Type 2 diabetes mellitus without complications; I11.0 Hypertensive heart disease with heart failure; J44.9 Chronic obstructive pulmonary disease, unspecified; I50.9 Heart failure, unspecified; E78.5 Hyperlipidemia, unspecified; K21.9 Gastro-esophageal reflux disease without esophagitis; G25.81 Restless legs syndrome; G40.909 Epilepsy, unspecified, not intractable, without status epilepticus; G47.33 Obstructive sleep apnea (adult) (pediatric); I25.2 Old myocardial infarction; Z79.899 Other long term (current) drug therapy; Z79.4 Long term (current) use of insulin; Z79.01 Long term (current) use of anticoagulants; F11.21 Opioid dependence, in remission; F17.210 Nicotine dependence, cigarettes, uncomplicated
CPT/HCPCS: 71045; 80048; 80076; 82550; 82553; 83690; 84443; 84484; 85025; 93005; 93041; 94760; 96374; 96375; 99285; C9113; J2060

== ENCOUNTER 2019-04-25 14:04 | Emergency (ER) | payer MEDICARE, MEDICAID ==
[~2019-04-25] VITALS: Ht 175.3 cm; Wt 80.5 kg
[2019-04-25] MEDS ORDERED: diphenhydrAMINE INJ 50MG/ML VIAL (J1200) IV STA (14:23)
[2019-04-25] MEDS ORDERED: METOCLOPRAMIDE INJ 10MG/2ML VIAL (J2765) IV ONE (14:30)
[2019-04-25] MEDS ORDERED: NS 1,000 ML IV ONE (14:30)
[2019-04-25] MEDS ORDERED: IPRATROPIUM 0.5MG/ALBUTEROL 2.5MG INH SOL UD 3ML (DUONEB)(J7620) NEB ONE (14:30)
[2019-04-25 14:47] LABS: BASO # 0.1 10^3/uL (0.0-0.2); BASO % 0.6 % (0.0-1.0); HEMATOCRIT 48.4 % (36.0-47.0); HEMOGLOBIN 15.6 g/dl (12.0-15.5); LYMPH # 2.9 10^3/uL (1.5-5.0); LYMPH % 29.8 % (24.0-44.0); MEAN CORPUSCULAR HEMOGLOBIN 31.3 pg (27.0-33.0); MEAN CORPUSCULAR HGB CONC 32.2 g/dl (32.0-36.5); MEAN CORPUSCULAR VOLUME 97.2 fl (80.0-96.0); MONO # 0.4 10^3/uL (0.0-0.8); MONO % 4.6 % (0.0-5.0); NEUTROPHILS # 6.2 10^3/uL (1.5-8.5); NEUTROPHILS % 64.7 % (36.0-66.0); PLATELET COUNT, AUTOMATED 286 10^3/uL (150-450); RED BLOOD COUNT 4.98 10^6/uL (4.00-5.40); WHITE BLOOD COUNT 9.6 10^3/uL (4.0-10.0)
[2019-04-25 15:07] LABS: BLOOD UREA NITROGEN 14 MG/DL (7-18); CALCIUM LEVEL 8.3 MG/DL (8.5-10.1); CARBON DIOXIDE LEVEL 28 MEQ/L (21-32); CHLORIDE LEVEL 105 MEQ/L (98-107); CREATININE FOR GFR 0.66 MG/DL (0.55-1.30); GLOMERULAR FILTRATION RATE > 60.0 (>51); GLUCOSE, FASTING 130 MG/DL (70-100); POTASSIUM SERUM 4.1 MEQ/L (3.5-5.1); SODIUM LEVEL 138 MEQ/L (136-145)
--- NOTE | 2019-04-25 15:19 | REP ---
PORTABLE CHEST X-RAY: Single view. HISTORY: Seizure. Evaluate for infiltrate. Comparison chest x-ray April 22, 2019. FINDINGS: The lungs are well inflated and clear. Heart size is normal. EKG monitoring electrodes overlie the chest. Pulmonary vasculature is not increased. There are degenerative changes in the thoracic spine. IMPRESSION: No active disease. Electronically Signed by Alexys Higgins MD 04/25/2019 03:46 P
[2019-04-25 15:20] LABS: PROLACTIN 12.5 NG/ML
[2019-04-25 15:23] LABS: CARBAMAZEPINE (TEGRETOL) LEVEL 13.5 UG/ML (4.0-10.0); DIGOXIN LEVEL 0.7 NG/ML (0.5-2.0)
[2019-04-25 16:23] LABS: AMPHETAMINES LEVEL URINE NEGATIVE (NEGATIVE); BARBITURATES URINE NEGATIVE (NEGATIVE); BENZODIAZEPINES URINE NEGATIVE (NEGATIVE); CANNABINOIDS URINE NEGATIVE (NEGATIVE); COCAINE METABOLITE URINE POSITIVE (NEGATIVE); METHADONE URINE NEGATIVE (NEGATIVE); OPIATES URINE NEGATIVE (NEGATIVE); PHENCYCLIDINE URINE NEGATIVE (NEGATIVE)
[2019-04-25 17:04] VITALS: BP 115/78
== END 2019-04-25 18:46 | disposition home or self-care (01) ==
LOC: EDBD 14:04 → M ED 14:04
DX: E86.0 Dehydration (principal); E11.9 Type 2 diabetes mellitus without complications; I10 Essential (primary) hypertension; E78.9 Disorder of lipoprotein metabolism, unspecified; I25.2 Old myocardial infarction; Z79.899 Other long term (current) drug therapy; Z79.4 Long term (current) use of insulin; Z79.01 Long term (current) use of anticoagulants; F14.20 Cocaine dependence, uncomplicated
CPT/HCPCS: 71045; 80048; 80156; 80162; 80307; 81001; 83605; 84146; 85025; 94640; 96361; 96374; 96375; 99284; J1200; J2765

== ENCOUNTER → 2019-06-15 | Outpatient (REF) | payer MEDICARE, MEDICAID ==
[~2019-06-15] MED LIST changes: +BISO5TAB14 PO; -BISO5TAB9 PO; -LAMO200T2; +LAMO200T3; -LORA0.5T11; +LORA0.5T5; -TRAZ-163 PO; +TRAZ-257 PO
[2019-06-15 17:11] LABS: BASO % 0.5 % (0.0-1.0); HEMATOCRIT 48.9 % (36.0-47.0); HEMOGLOBIN 15.3 g/dl (12.0-15.5); LYMPH # 2.4 10^3/uL (1.5-5.0); LYMPH % 30.2 % (24.0-44.0); MEAN CORPUSCULAR HGB CONC 31.3 g/dl (32.0-36.5); MEAN CORPUSCULAR VOLUME 99.2 fl (80.0-96.0); MONO # 0.5 10^3/uL (0.0-0.8); MONO % 6.4 % (0.0-5.0); NEUTROPHILS # 4.9 10^3/uL (1.5-8.5); NEUTROPHILS % 62.6 % (36.0-66.0); PLATELET COUNT, AUTOMATED 338 10^3/uL (150-450); RED BLOOD COUNT 4.93 10^6/uL (4.00-5.40); WHITE BLOOD COUNT 7.9 10^3/uL (4.0-10.0)
[2019-06-15 17:22] LABS: ALBUMIN 3.2 GM/DL (3.2-5.2); ALT/SGPT 25 U/L (12-78); BILIRUBIN,TOTAL 0.2 MG/DL (0.2-1.0); BLOOD UREA NITROGEN 15 MG/DL (7-18); CALCIUM LEVEL 8.4 MG/DL (8.5-10.1); CARBAMAZEPINE (TEGRETOL) LEVEL 10.6 UG/ML (4.0-10.0); CARBON DIOXIDE LEVEL 24 MEQ/L (21-32); CHLORIDE LEVEL 107 MEQ/L (98-107); CREATININE FOR GFR 0.74 MG/DL (0.55-1.30); FREE T4 0.72 NG/DL (0.76-1.46); GLOMERULAR FILTRATION RATE > 60.0 (>51); GLUCOSE, FASTING 79 MG/DL (70-100); MAGNESIUM LEVEL 1.8 MG/DL (1.8-2.4); POTASSIUM SERUM 4.1 MEQ/L (3.5-5.1); SODIUM LEVEL 141 MEQ/L (136-145); TOTAL PROTEIN 6.5 GM/DL (6.4-8.2)
[2019-06-15 17:24] LABS: PTH INTACT 39.4 PG/ML (18.5-88.0)
[2019-06-15 17:38] LABS: HEMOGLOBIN A1c 5.4 %
== END ==
LOC: M SFHCPLAZ 15:00
PROVIDERS: ATTEND Family Medicine
DX: I10 Essential (primary) hypertension (principal); E11.9 Type 2 diabetes mellitus without complications; G40.909 Epilepsy, unspecified, not intractable, without status epilepticus; E55.9 Vitamin D deficiency, unspecified
CPT/HCPCS: 36415; 80053; 80156; 80307; 82306; 83036; 83735; 83970; 84439; 84443; 85025; 85046; G0463

== ENCOUNTER → 2019-09-13 | Outpatient (CLI) | payer OTHER, MEDICAID ==
[~2019-09-13] MED LIST changes: -IRBE300T10; -IRBE300T10 PO; +IRBE300T7; +IRBE300T7 PO
== END ==
LOC: M LABSMTC 13:30
PROVIDERS: ATTEND Family Medicine
DX: Z11.59 Encounter for screening for other viral diseases (principal); Z20.828 Contact with and (suspected) exposure to other viral communicable diseases

== ENCOUNTER 2019-11-11 17:06 | Emergency (ER) | payer OTHER, MEDICAID ==
[~2019-11-11] VITALS: Ht 175.3 cm; Wt 79.2 kg
[~2019-11-11 17:06] MED LIST changes: -METF-791; +METF-838
[2019-11-11] MEDS ORDERED: ALPR1TAB3 PO (17:24)
[2019-11-11] MEDS ORDERED: TELM1TAB37 PO (17:24)
[2019-11-11] MEDS ORDERED: DOXYCYCLINE HYCLATE 100MG TABLET PO ONE (17:30)
[2019-11-11 17:31] VITALS: BP 124/77
[2019-11-11] MEDS ORDERED: CALALOT4 TOP (17:38)
[2019-11-11] MEDS ORDERED: DOXY100C37 PO (17:38)
== END 2019-11-11 17:58 | disposition home or self-care (01) ==
LOC: M ED 17:06
DX: R21 Rash and other nonspecific skin eruption (principal); L03.211 Cellulitis of face; Z79.899 Other long term (current) drug therapy

== ENCOUNTER 2019-12-26 18:19 | Emergency (ER) | payer OTHER, MEDICAID ==
[~2019-12-26] VITALS: Ht 175.3 cm; Wt 81.5 kg
[~2019-12-26 18:19] MED LIST changes: +ALPR1TAB3 PO; +CALALOT4 TOP; +TELM1TAB37 PO
[2019-12-26 18:20] VITALS: BP 111/68
[2019-12-26] MEDS ORDERED: TRAM50TA2 PO (18:57)
[2019-12-26] MEDS ORDERED: CLEO300C2 PO (18:57)
[2019-12-26] MEDS ORDERED: traMADol 50 MG TAB (BULK 4 TAB ED) PO ONE (19:00)
[2019-12-26] MEDS ORDERED: traMADol 50 MG TAB PO ONE (19:00)
[2019-12-26] MEDS ORDERED: CLINDAMYCIN 150MG CAPSULE PO ONE (19:00)
== END 2019-12-26 19:21 | disposition home or self-care (01) ==
LOC: M ED 18:19
DX: L03.211 Cellulitis of face (principal); L03.113 Cellulitis of right upper limb; L03.114 Cellulitis of left upper limb; L03.116 Cellulitis of left lower limb; B95.62 Methicillin resistant Staphylococcus aureus infection as the cause of diseases classified elsewhere

== ENCOUNTER → 2020-01-19 | Outpatient (REF) | payer OTHER, MEDICAID ==
[~2020-01-19] MED LIST changes: -ALL10TAB29 PO; +AMLO1TAB24 PO; -AMLO5TAB6 PO; -ASPI81TA85 PO; +ASPI81TA86 PO; +CETI-24 PO; +CLEO300C2 PO; -METF-699 PO; +METF-817 PO; +TRAM50TA2 PO
== END ==
LOC: M LAB REF 13:30
PROVIDERS: ATTEND Dermatology
DX: D22.9 Melanocytic nevi, unspecified (principal)
CPT/HCPCS: 11102; 88305; G0463

== ENCOUNTER → 2020-02-08 | Outpatient (CLI) | payer OTHER, MEDICAID | LOC: M PAIN 02-06 13:51 | PROVIDERS: ATTEND Nurse Practitioner Family | DX: M79.18 Myalgia, other site (principal) ==

== ENCOUNTER 2020-03-03 14:25 | Emergency (ER) | payer OTHER, MEDICAID ==
[~2020-03-03] VITALS: Ht 175.3 cm; Wt 79.1 kg
[2020-03-03 15:40] VITALS: BP 123/66
== END 2020-03-03 15:40 | disposition home or self-care (01) ==
LOC: M ED 14:25
DX: R41.82 Altered mental status, unspecified (principal); T50.905A Adverse effect of unspecified drugs, medicaments and biological substances, initial encounter; F14.10 Cocaine abuse, uncomplicated; B18.2 Chronic viral hepatitis C; J44.9 Chronic obstructive pulmonary disease, unspecified; I11.9 Hypertensive heart disease without heart failure; E11.9 Type 2 diabetes mellitus without complications; E78.5 Hyperlipidemia, unspecified; F17.200 Nicotine dependence, unspecified, uncomplicated; Z79.1 Long term (current) use of non-steroidal anti-inflammatories (NSAID); Z79.51 Long term (current) use of inhaled steroids; Z79.84 Long term (current) use of oral hypoglycemic drugs

== ENCOUNTER → 2020-03-21 | Outpatient (CLI) | payer OTHER, MEDICAID ==
--- NOTE | 2020-03-26 15:20 | ECWPNPC ---
PATIENT NAME: MONTANA HARDY : 1965 GENDER: FEMALE VISIT DATE: 03/21/2020 DISCHARGE DATE: 03/21/20 1507 VISIT LOCKED DATE TIME: PHYSICIAN: EMY ARAUZ PHYSICIAN PAGER NO: ACTIVE RESOURCE: EMY ARAUZ HISTORY OF PRESENT ILLNESS DEPRESSION SCREENING: PHQ-2 (2015 EDITION) LITTLE INTEREST OR PLEASURE IN DOING THINGS?NOT AT ALL FEELING DOWN, DEPRESSED, OR HOPELESS?NOT AT ALL TOTAL SCORE0 GENERAL: HERE FOR FOLLOW-UP OF CHRONIC LOW BACK PAIN AND BILATERAL HIP PAIN. CONTINUES TO HAVE HIGH LEVEL OF PAIN. MEDICATION IS SOMEWHAT HELPFUL. SHE WOULD LIKE TO PURSUE INJECTION THERAPY. WE DO NOT HAVE ANY RECENT IMAGING OF HER LUMBAR SPINE. RATING PAIN LEVEL AN 8-10 OVER 10 VAS. -. FALL RISK SCREENING: SCREENING :NO FALLS REPORTED IN THE LAST YEAR NONE PAIN SCREENING: PATIENT HAS A COMPLAINT OF ACUTE OR CHRONIC PAIN :YES LOCATION OF PAIN:LOW BACK HIPS INTENSITY OF PAIN (SCALE OF 1 TO 10):10 HIPS AT A 8 WHAT DOES YOUR PAIN FEEL LIKE:THROBBING DURATION:CONTINOUS PAIN IS INCREASED BY:ACTIVITIES PAIN IS DECREASED BY:USE OF PAIN MEDICATIONS NURSING NOTE: -. PAIN CENTER INTAKE QUESTIONS: DO YOU HAVE A HISTORY OF MRSA? :YES ER 4 MONTHS AGO DO YOU TAKE A BLOOD THINNERS? :YES DO YOU HAVE ANY BLEEDING DISORDERS? :NO ANY NEW NUMBNESS OR WEAKNESS IN YOUR LEGS OR ARMS? :NO ANY PACEMAKER,DEFIBRILLATOR, OR DORSAL COLUMN STIMULATOR? :NO DO YOU HAVE ANY RASHES OR OPEN SORES? :NO ARE YOU ALLERGIC TO IV DYE? :NO ARE YOU DIABETIC? :YES ANY NEW PROBLEMS WITH YOUR MEDICATIONS? :NO HAVE YOU RECEIVED A VACCINE IN THE PAST 30 DAYS? :NO DO YOU PLAN TO RECEIVE A VACCINE IN THE NEXT 21 DAYS? :YES YES TO FLU VAC AT SOME POINT DO YOU NEED ANY PRESCRIPTION? :NO DO YOU TAKE ANY IMMUNOSUPPRESSIVE MEDICATIONS? :NO IS THERE A CHANCE YOU COULD BE ? :NO ARE YOU BREAST FEEDING? :NO CURRENT MEDICATIONS TAKING NYSTATIN 101931 UNIT/GM CREAM 1 APPLICATION UNDER BREASTS EXTERNALLY TWICE A DAY X 10D WITH FLARES TAKING FLUCONAZOLE 100 MG TABLET 1 TABLET ORALLY DAILY X 7 DAYS WITH THRUSH FLARE TAKING TRAZODONE HCL 100 MG TABLET TAKE 1 AND 1/2 TABLETS BY MOUTH @8PM TAKING ALCOHOL PREPS 70 % MISCELLANEOUS DIRECTED EXTERNALLY DAILY TAKING LANCETS DX 250.00 ONE TOUCH LANCET - ONCE A DAY TAKING CINNAMON 500 MG TABLET 2 TABS ORALLY DAILY TAKING POTASSIUM GLUCONATE 595 (99 K) MG TABLET 1 TABLET ORALLY-OTC DAILY TAKING MAGNESIUM CITRATE 100 MG TABLET 1 TAB ORALLY- OTC ONCE DAILY TAKING TIZANIDINE HCL 2 MG TABLET 1 TAB ORAL THREE TIMES DAILY NEEDED TAKING BD ULTRA-FINE PEN NEEDLES 32G 4MM 1 INJECTIONS SUBCUTANEOUSLY DAILY TAKING BLOOD GLUCOSE TEST - STRIP ONE TOUCH VERIO FLEX IN VITRO, DX: E11.9 THREE TIMES A DAY TAKING CARBAMAZEPINE 200 MG TABLET TAKE TWO TABLETS BY MOUTH TWICE DAILY ORALLY BID TAKING VICTOZA 18 MG/3ML SOLUTION PEN-INJECTOR INJECT 1.8 MILLIGRAM SUBCUTANEOUSLY DAILY SUBCUTANEOUSLY DAILY TAKING TRESIBA FLEXTOUCH 100 UNIT/ML SOLUTION PEN-INJECTOR 55UNITS SUBCUTANEOUS BEFORE BEDTIME TAKING ROSUVASTATIN CALCIUM 40 MG TABLET 1 TABLET ORALLY ONCE A DAY TAKING DOXYCYCLINE HYCLATE 100 MG CAPSULE 1 CAPSULE ORALLY EVERY 12 HRS TAKING MEDROL 4 MG TABLET THERAPY PACK DIRECTED ORALLY DAILY TAKING NITROGLYCERIN 0.4 MG TABLET SUBLINGUAL 1 TABLET UNDER THE TONGUE SUBLINGUAL ONE TABLET TIMES 3 EVERY 5 MINUTES IF NO RELIEF GO TO THE ER TAKING APIXABAN 5 MG TABLET 1 TAB ORALLY BID TAKING VITAMIN D (ERGOCALCIFEROL) 85913 UNIT CAPSULE 1 TAB ORALLY EVERY 7 DAYS TAKING VITAMIN D (ERGOCALCIFEROL) 1.25 MG (59921 UT) CAPSULE TAKE ONE CAPSULE BY MOUTH EVERY WEDNESDAY @8AM TAKING ADVAIR DISKUS 500-50 MCG/DOSE AEROSOL POWDER BREATH ACTIVATED 1 PUFF INHALATION TWICE A DAY TAKING INVOKANA 300 MG TABLET 1 TABLET ORALLY EVERY MORNING TAKING DIGOXIN 0.25 MG TABLET 1 TABLET ORALLY ONCE A DAY TAKING ZETIA 10 MG TABLET 1 TABLET ORALLY ONCE A DAY TAKING CYANOCOBALAMIN 500 MCG TABLET 1 TABLET ORALLY ONCE A DAY TAKING PANTOPRAZOLE SODIUM 40 MG TABLET DELAYED RELEASE 1 TABLET ORALLY EVERY MORNING TAKING CARAFATE 1 GM TABLET 1 TABLET ON AN EMPTY STOMACH TWICE A DAY ORALLY 30 DAY(S) TAKING TELMISARTAN 80 MG TABLET 1 TABLET ORALLY ONCE A DAY TAKING SPIRONOLACTONE 25 MG TABLET 1 TABLET ORALLY DAILY TAKING FERROUS SULFATE 324 (65 FE) MG TABLET DELAYED RELEASE 1 TABLET ORALLY ONCE A DAY TAKING SARNA SENSITIVE 1 % LOTION 1 APPLICATION NEEDED EXTERNALLY THREE TIMES A DAY TAKING TRIAMCINOLONE ACETONIDE 0.5 % OINTMENT 1 APPLICATION EXTERNALLY TWICE A DAY TAKING GABAPENTIN 600 MG TABLET 1 TABLET ORALLY FOUR TIMES DAILY TAKING PROTONIX 40 MG TABLET DELAYED RELEASE 1 TABLET ORALLY ONCE A DAY TAKING FUROSEMIDE 40 MG TABLET 1 TABLET ORALLY EVERY MORNING, PM IF NEEDED TAKING COLACE 100 MG CAPSULE 1 CAP ORALLY ONCE A DAY TAKING EZETIMIBE 10 MG TABLET 1 TABLET ORALLY ONCE A DAY TAKING DIGOXIN 250 MCG TABLET TAKE ONE TABLET BY MOUTH @8AM TAKING BISOPROLOL FUMARATE 5 MG TABLET 1 TABLET ONCE A DAY ORALLY 90 DAY(S) TAKING MIRAPEX 0.5 MG TABLET 1 TABLET ORALLY TWICE DAILY TAKING REXULTI 1 MG TABLET 1 TABLET ORALLY ONCE A DAY TAKING ISOSORBIDE MONONITRATE ER 30 MG TABLET EXTENDED RELEASE 24 HOUR 1 TABLET IN THE MORNING ORALLY ONCE A DAY TAKING CETIRIZINE HCL 10 MG TABLET 1 TABLET ORALLY DAILY TAKING METFORMIN XR 500 MG EXTENDED RELEASE 2 TABLET ORALLY TWICE A DAY TAKING VENTOLIN HFA 108 (90 BASE) MCG/ACT AEROSOL SOLUTION 2 PUFFS NEEDED INHALATION EVERY 4 HRS TAKING TRIAMCINOLONE ACETONIDE 0.1 % CREAM APPLY TO ENTIRE BODY TWICE DAILY MEDICATION LIST REVIEWED AND RECONCILED WITH THE PATIENT PAST MEDICAL HISTORY LUMBAR DJD WITH BILATERAL LOWER EXTREMITY RADICULOPATHY-2009 MRI WITH MULTILEVEL BULGES, AT L4/S1 CAUSING MODERATE TO SEVERE BILATERAL NEURAL FORAMEN NARROWING SEIZURE DISORDER, GENERALIZED HYPERTENSION HYPERLIPIDEMIA 2B OBESITY BIPOLAR DISORDER RESTLESS LEG SYNDROME URGE INCONTINENCE GERD-12/2016 NORMAL DOUBLE CONTRAST UGI SERIES MIGRAINE HEADACHES, COMMON TYPE B12 DEFICIENCY H/O NICOTINE ADDICTION ASTHMA, MODERATE PERSISTENT/COPD-09/2014 FEV1 2.2L (66%)/RATIO 72%-EVIN CAD STATUS POST NON-Q WAVE [place] APRIL 2011 STATUS POST ANGELICA TO MID LAD, CHRONIC OCCLUSION OF RCA WITH COLLATERALS SUPPLYING BLOOD FLOW TO DISTAL RCA AND PDA BRANCHES, LVEF 50% WITH MILD ANTERIOR AND INFERIOR HYPOKINESIS-FISCHI//09/25/13 CATHERIZATION-PATIENT LAD, CHRONICALLY OCCLUDED RCA, NORMAL LVEF-RITA//04/25 DISTAL RCA ANGELICA THEN 04/26/17 MID LAD XOD-ISMZRI-QMRV 2 STABLE ANGINA/ PATENT MAIN MAIN ARTERIES, STENTS-RITA HISTORY NARCOTIC ABUSE-IN REHAB AT [facility]-03/21-04/18/12 + H PYLORI BY AB-TREATED C DOXY/FLAGYL/BISMUTH/PPI X -06/2013 ATRIAL FIBRILLATION, PAROXYSMAL, NEW-ONSET-09/04/13 [facility] HEMISPHERIC TIA-11/2014 C L FACIAL/ARM NUMBNESS/VISUAL DISTURBANCE/DIZZINESS-MRI C B FRONTAL, R PARIETAL T2 HYPERINTENSITIES, B ICA 16-49% STENOSIS, -CTA CHEST FOR PE R NEPHROLITH BY 11/2014 CT CHELI CHF, CHRONIC 2 DIASTOLIC/SYSTOLIC DYSFUNCTION ALLERGIES TAPE: BLISTER - ALLERGY SURGICAL HISTORY REMAINING 8 TEETH EXTRACTION-DR. ANDERSON 07/2012 HERNIA REPAIR/INGUINAL 2004 APPENDECTOMY A CHILD NORMAL VIRTUAL COLONOSCOPY X PROMINENT COLONIC STOOL 10/2015 2 CARDIAC STENTS 2015 2 CARDIAC STENTS 2016 2 CARDIAC STENTS- CHROME STENTS 2017 2 CARDIAC STENTS 2018 FAMILY HISTORY MOTHER: , [place] HTN DM SIBLINGS: [place] HTN [place] SOCIAL HISTORY GENERAL: TOBACCO USE ARE YOU A:CURRENT SMOKER HOW OFTEN DO YOU SMOKE CIGARETTES?EVERY DAY HOW SOON AFTER YOU WAKE UP DO YOU SMOKE YOUR FIRST CIGARETTE?6-30 MIN HOW MANY CIGARETTES A DAY DO YOU SMOKE?5 OR LESS ARE YOU INTERESTED IN QUITTING?READY TO QUIT COUNSELED THE PATIENT ON TOBACCO USE, CESSATION [id number]/09/2020 SMOKING CESSATION INFORMATION GIVEN06/15/2019 PREVIOUS QUIT ATTEMPTS?NO. LATEX QUESTIONNAIRE LATEX ALLERGY : HAVE YOU EVER DEVELOPED ANY TYPE OF REACTION AFTER HANDLING LATEX PRODUCTS SUCH RUBBER GLOVES, CONDOMS, DIAPHRAGMS, BALLOONS, SOCKS, OR UNDERWEAR?YES - PLEASE INDICATE :OTHER (DOCUMENT IN NOTES) ADHESIVE LATEX ALLERGY : HAVE YOU EVER DEVELOPED ANY TYPE OF REACTION DURING OR AFTER DENTAL APPOINTMENT, VAGINAL/RECTAL EXAMINATION, SURGICAL PROCEDURE, OR ANY OTHER EXPOSURE?NO LATEX RISK : HAVE YOU EVER HAD ANY DIFFICULTY BREATHING OR HIVES AFTER EATING OR HANDLING ANY FRUITS, OR VEGETABLES; SUCH KIWI, BANANAS, STONE FRUITS, OR CHESTNUTSNO LATEX RISK : DO YOU HAVE A PREVIOUS PERSONAL HISTORY OF MORE THAN NINE SURGERIES, SPINA BIFIDA, OR REPEATED CATHERIZATIONS? NO LATEX RISK : ARE YOU FREQUENTLY EXPOSED TO LATEX PRODUCTS IN YOUR OCCUPATION?NO DATE ASKED : 03/21/2020 BMI CARE GOAL FOLLOW-UP ABOVE NORMAL BMI FOLLOW-UPGIVING ENCOURAGEMENT TO EXERCISE ALCOHOL SCREENING DID YOU HAVE A DRINK CONTAINING ALCOHOL IN THE PAST YEAR?YES HOW OFTEN DID YOU HAVE SIX OR MORE DRINKS ON ONE OCCASION IN THE PAST YEAR?NEVER (0 POINTS) HOW MANY DRINKS DID YOU HAVE ON A TYPICAL DAY WHEN YOU WERE DRINKING IN THE PAST YEAR?1 OR 2 (0 POINTS) HOW OFTEN DID YOU HAVE A DRINK CONTAINING ALCOHOL IN THE PAST YEAR?MONTHLY OR LESS (1 POINT) POINTS1 INTERPRETATIONNEGATIVE RECREATIONAL DRUG USE DRUG USE?NO CAFFEINE CAFFEINE USE?YES HOW OFTEN AND HOW MUCH? 6 CUPS OF COFFEE DAILY SEXUAL HX HAD SEX IN THE LAST 12 MONTHS (VAGINAL, ORAL, OR ANAL)?YES WITHMEN ONLY USE PROTECTION?NO HIV / HEP-C SCREENING HIV TEST OFFERED TO PATIENT:YES DATE OFFERED:11/03/2016 TEST ACCEPTED:NO HEP-C TEST OFFERED TO PATIENT:YES DATE OFFERED:11/03/2016 REASON:PATIENT DECLINED TEST ACCEPTED:NO REASON:PATIENT DECLINED ORIENTAL ORTHODOX [id number] RELIGIOUS LANGUAGE LANGUAGES SPOKEN:HEBREW EDUCATION LEVEL OF EDUCATION:COLLEGE LEARNING BARRIERS / SPECIAL NEEDS CHANGE FROM LAST VISIT?YES ER VISIT BARRIERS TO LEARNING?NO HEARING IMPAIRED?NO VISION IMPAIRED?YES COGNITIVELY IMPAIRED?NO :CORRECTIVE LENSES READINESS TO LEARN?YES LEARNING PREFERENCES?NO LEARNING CAPABILITIES PRESENT?YES EMOTIONAL BARRIERS?NO SPECIAL DEVICES?NO BUILDER OPERATOR NEEDED?NO DOMESTIC VIOLENCE DO YOU FEEL SAFE IN YOUR ENVIRONMENT?YES OCCUPATION: UNEMPLOYED. DIET: REGULAR. EXERCISE: DAILY. MARITAL STATUS: . OTHERS AT HOME: SPOUSE. NEW PATIENT PAIN DIARY TODAY'S VISIT NOTES, FROM 0-10, WHAT LEVEL IS YOUR PAIN TODAY? 10. PAIN CLINIC PFS, CLERGY, PUBLIC HEALTH REFERRALS PFS REFERRAL NEEDED?NO CLERGY REFERRAL NEEDED?NO PUBLIC HEALTH REFERRAL NEEDED?NO WAS THE PROVIDER NOTIFIED OF ANY PERTINENT INFO?YES HAS THE PATIENT BEEN EDUCATED REGARDING HIS/HER PLAN OF CARE?YES HAS THE PATIENT BEEN EDUCATED REGARDING PAIN, THE RISK FOR PAIN, THE IMPORTANCE OF EFFECTIVE PAIN MANAGEMENT, AND THE PAIN ASSESSMENT PROCESS?YES ADVANCE DIRECTIVE ADVANCE DIRECTIVE DISCUSSED WITH PATIENT:YES DECLINED HCP INFORMATION. SMOKING 1 PPD. DENIES ETOH. PRIOR H/O OF NARCOTIC ABUSE. HAD BEEN USING A FRIEND'S SUBOXONE, BUT STATES SHE STOPPED. SMOKING 1 PPD. DENIES ETOH. PRIOR H/O OF NARCOTIC ABUSE. HAD BEEN USING A FRIEND'S SUBOXONE, BUT STATES SHE STOPPED. REVIEWED WITH PATIENT 03/25/18 1519 JSREVIEWED WITH PATIENT 06/03/18 1132 JS. HOSPITALIZATION/MAJOR DIAGNOSTIC PROCEDURE R HEMISPHERIC TIA-WORKUP PER 11/28- B AXILLARY MRSA ABSCESSES S/P B DRAINAGE BY DR. VARGAS, IV VANCOMYCIN, - BCX X2 05/30- CARDIAC CATH ([facility] DR. SALINAS 07/23 [place] 2012,2014 R HEMISPHERIC TIA-WORKUP PER 11/28- HYPOXIC RESPIRATORY FAILURE 2 STATUS ASTHMATICUS 01/27- TONIC-CLONIC SEIZURE-HAD MISSED CARBAMAZEPINE X 3D PRIOR, -CIP/T-1 X 3; -UDS BCX NG X 2, CT HEAD NAD, EEG NO-EPILEPIFROM ACTIVITY, DR. CHRISTIANSON FAVORED TO CONTINUE CURRENT REGIMEN 03/11-01/21 REVIEW OF SYSTEMS REVIEWED BY: PROVIDER: EMY BAKER . CONSTITUTIONAL: ANY CHANGE IN YOUR MEDICAL CONDITION? NO . CHILLS NO . FEVER NO . INFECTION: DO YOU HAVE NEW INFECTIONS? NO . DO YOU HAVE HISTORY OF MRSA? NO . MUSCULOSKELETAL: ANY UNUSUAL JOINT PAIN OR SWELLING NOT MENTIONED NO . GASTROENTEROLOGY: ANY NEW CHANGE IN BOWEL CONTROL? NO . GENITOURINARY: ANY NEW CHANGE IN BLADDER CONTROL? NO . IS THERE A CHANCE YOU COULD BE ? NO . HEMATOLOGY/LYMPH: DO YOU TAKE ANY BLOOD THINNERS? (FOR EXAMPLE- COUMADIN, PLAVIX, AGGRENOX, PLATEL, PRADAXA, OR XARELTO) YES, ELIQUIS AND PLAVIX . WHEN WAS YOUR LAST DOSE? DATE: 06/03/18 TIME: 0900 . NEUROLOGY: HAVE YOU FALLEN IN THE PAST 12 MONTHS? NO . OTHER NEW NUMBNESS OR PAIN PATTERNS NOT MENTIONED NO . CARDIOLOGY: DO YOU HAVE A PACEMAKER OR DEFIBRILLATOR? NO . RESPIRATORY: HAVE YOU BEEN SICK IN THE PAST WEEK? YES, STATES HEAD AND CHEST COLD . FEVER NO . FLU LIKE SYMPTOMS? NO . COUGH YES . INTEGUMENTARY: DO YOU HAVE ANY RASHES OR OPEN SORES? NO . ALLERGIC/IMMUNO: ARE YOU ALLERGIC TO IV DYE? NO . ANY NEW ALLERGIES? NO . PSYCHIATRIC: DO YOU HAVE THOUGHTS OF HURTING YOURSELF OR SOMEONE ELSE? NO . ARE YOU ABUSED, NEGLECTED, OR IN AN UNSAFE ENVIRONMENT? NO . ENDOCRINOLOGY: ARE YOU DIABETIC? YES . OTHER: DO YOU NEED ANY PRESCRIPTIONS? NO . IF YES, PLEASE LIST: ____ . ANY NEW PROBLEMS WITH YOUR MEDICATIONS? NO . WHEN DID YOU LAST EAT? ____ . WHEN DID YOU LAST DRINK? ____ . WHAT DID YOU LAST DRINK? ____ . NAME OF PERSON DRIVING YOU HOME? ____ . DO YOU HAVE ANY OTHER QUESTIONS OR CONCERNS FLU VACCINE END OF APRIL . VITAL SIGNS WT 181.8 LBS, HT 69 IN, BMI 26.84 INDEX, BP 116/83 MM HG, HR 65 /MIN, RR 18 /MIN, TEMP 87.1 F, OXYGEN SAT % 96%, SAFE IN ENV? (Y/N) YES, NA INITIALS SC 14:49, REVIEWED BY: ANA. EXAMINATION GENERAL EXAMINATION: GENERALAWAKE,ALERT ,PLEAASANT . PSYCHAFFECT NORMAL . LUNGS:LUNG DIAZ ARE CLEAR TO AUSCULTATION BILATERALLY. GOOD MOVEMENT OF AIR . HEART:S1, S2 IN A REGULAR RATE AND RHYTHM. NO SIGNIFICANT MURMURS, RUBS OR GALLOPS NOTED . MUSCULOSKELETAL:MULTIPLE AREAS OF TENDER SPOTS UPPER/LOWER TORSO INDICATIVE OF FIBROMYALGIA. ASSESSMENTS OTHER SPONDYLOSIS, LUMBOSACRAL REGION - M47.897 (PRIMARY) TREATMENT OTHER SPONDYLOSIS, LUMBOSACRAL REGION [facility] MRI LUMBAR W/O CONTRAST (CPT 48758)[id number] PROCEDURE CODES FA211 ESTABILISHED PATIENT [facility] FACILITY CHARGE DISPOSITION & COMMUNICATION FOLLOW UP 2 MONTHS (REASON: REVIEW MRI L/S) ELECTRONICALLY SIGNED BY OLIVIA CUEVAS ON 03/26/2020 AT 01:46 PM EDT DISCLAIMER : THIS IS A VISIT SUMMARY EXTRACTED FROM THE [employer] CHART. IT IS NOT A COPY OF THE [employer] PROGRESS NOTE. MADHU
== END ==
LOC: M PAIN 14:30
PROVIDERS: ATTEND Nurse Practitioner Family
DX: M47.897 Other spondylosis, lumbosacral region (principal); G89.29 Other chronic pain; G40.909 Epilepsy, unspecified, not intractable, without status epilepticus; I10 Essential (primary) hypertension; G25.81 Restless legs syndrome; K21.9 Gastro-esophageal reflux disease without esophagitis; E11.9 Type 2 diabetes mellitus without complications; G43.909 Migraine, unspecified, not intractable, without status migrainosus; J44.9 Chronic obstructive pulmonary disease, unspecified; G47.33 Obstructive sleep apnea (adult) (pediatric); F17.210 Nicotine dependence, cigarettes, uncomplicated; Z86.59 Personal history of other mental and behavioral disorders; Z95.5 Presence of coronary angioplasty implant and graft; Z91.09 Other allergy status, other than to drugs and biological substances; Z79.4 Long term (current) use of insulin; Z79.899 Other long term (current) drug therapy

== ENCOUNTER 2020-03-25 14:09 | Emergency (ER) | payer OTHER, MEDICAID ==
[~2020-03-25] VITALS: Ht 175.3 cm; Wt 82.8 kg
[2020-03-25] MEDS ORDERED: dexameTHASONE 20MG/5ML VIAL (J1100 PER 1MG) IV ONE (14:45)
[2020-03-25] MEDS: COMBIVENT RESPIMAT 100-20MCG INHALER 4GM INH SCH ×3 (15:05→16:11)
[2020-03-25 15:24] LABS: BASO # 0.1 10^3/uL (0.0-0.2); BASO % 0.8 % (0.0-1.0); HEMATOCRIT 50.8 % (36.0-47.0); HEMOGLOBIN 15.9 g/dl (12.0-15.5); LYMPH # 1.7 10^3/uL (1.5-5.0); LYMPH % 26.2 % (24.0-44.0); MEAN CORPUSCULAR HEMOGLOBIN 30.6 pg (27.0-33.0); MEAN CORPUSCULAR HGB CONC 31.3 g/dl (32.0-36.5); MEAN CORPUSCULAR VOLUME 97.7 fl (80.0-96.0); MONO # 0.4 10^3/uL (0.0-0.8); MONO % 6.8 % (0.0-5.0); NEUTROPHILS # 4.2 10^3/uL (1.5-8.5); PLATELET COUNT, AUTOMATED 304 10^3/uL (150-450); WHITE BLOOD COUNT 6.3 10^3/uL (4.0-10.0)
[2020-03-25 16:11] LABS: ALBUMIN 2.9 GM/DL (3.2-5.2); ALT/SGPT 17 U/L (12-78); BILIRUBIN,DIRECT < 0.1 MG/DL (0.0-0.2); BILIRUBIN,TOTAL 0.2 MG/DL (0.2-1.0); TOTAL PROTEIN 6.3 GM/DL (6.4-8.2)
--- NOTE | 2020-03-25 16:24 | REPVR ---
PROCEDURE INFORMATION: Exam: XR Chest, 1 View Exam date and time: 03/25/2020 4:17 PM Age: 54 years old Clinical indication: Cough; Additional info: Dyspnea/cough TECHNIQUE: Imaging protocol: XR of the chest Views: 1 view. COMPARISON: NE Chest, 1 view 04/25/2019 2:39 PM FINDINGS: Lungs: Unremarkable. No consolidation. Pleural space: Unremarkable. No pleural effusion. No pneumothorax. Heart/Mediastinum: Unremarkable. No cardiomegaly. Bones/joints: Spinal degeneration. IMPRESSION: No acute findings. Electronically signed by: Hilda Robins On 03/25/2020 16:24:24 PM
[2020-03-25] MEDS ORDERED: DOXY100C37 PO (16:25)
[2020-03-25] MEDS ORDERED: PRED20TA PO (16:25)
[2020-03-25 17:30] VITALS: BP 128/79
--- NOTE | 2020-03-26 08:19 | ECGEPIP ---
[facility] - ED Test Date: 2020-03-25 Pat Name: MONTANA HARDY Department: Room: - Gender: Female Science Editor: : 1965 Requested By: JENNIFER [place] Order Number: [id number] Reading MD: Cade Guy Measurements Intervals [place] Rate: 63 P: -23 [place]: 183 QRS: 56 QRSD: 94 T: 25 QT: 361 QTc: 371 Interpretive Statements SINUS RHYTHM NONSPECIFIC ST & T-WAVE ABNORMALITY SIMILAR TO 04/22/19 Electronically Signed on 03-26-2020 8:18:42 EDT by Cade Guy
== END 2020-03-25 17:30 | disposition home or self-care (01) ==
LOC: M ED 14:09
DX: J44.0 Chronic obstructive pulmonary disease with (acute) lower respiratory infection (principal); E11.9 Type 2 diabetes mellitus without complications; I25.10 Atherosclerotic heart disease of native coronary artery without angina pectoris; I10 Essential (primary) hypertension; F17.200 Nicotine dependence, unspecified, uncomplicated; F19.99 Other psychoactive substance use, unspecified with unspecified psychoactive substance-induced disorder; Z79.01 Long term (current) use of anticoagulants; Z79.51 Long term (current) use of inhaled steroids; Z79.4 Long term (current) use of insulin; Z79.899 Other long term (current) drug therapy
CPT/HCPCS: 71045; 80047; 80076; 84443; 84484; 85025; 93005; 93041; 94760; 96374; 99285; J1100; U0003

== ENCOUNTER → 2020-04-30 | Outpatient (CLI) | payer OTHER, MEDICAID ==
--- NOTE | 2020-04-30 15:07 | REPMRS ---
Patient History The patient states she had a clinical breast exam in April 2020. Family history of breast cancer at age 52 in mother, breast cancer at age 54 in sister. 3D TOMOSYNTHESIS WAS PERFORMED. The Andrea Foster lifetime risk for breast cancer is 19.8%. Volpara breast density c. Digital Woman Screen Mammo: April 30, 2020 - Exam #: [id number] Bilateral CC and MLO view(s) were taken. Technologist: RT Julia Prior study comparison: January 14, 2018, bilateral digital mammo screening bilat, performed at [facility]. July 16, 2016, digital woman screen mammo performed at [facility]. FINDINGS: There are scattered fibroglandular densities. There has been no change in the appearance of the mammogram from the prior studies. There is a mild amount of residual fibroglandular tissue which is fairly symmetric. There is no interval development of dominant mass, architectural distortion, or clustered microcalcification suggestive of malignancy. Assessment: BI-RADS/ACR category 1 mammogram. Negative Mammogram. Recommendation Routine screening mammogram in 1 year (for women over age 40). This mammogram was interpreted with the aid of an FDA-approved computer-aided dectection system. Electronically Signed By: Kerwin Salazar MD 04/30/20 7720
== END ==
LOC: M WHC 14:10
PROVIDERS: ATTEND Family Medicine
DX: Z12.31 Encounter for screening mammogram for malignant neoplasm of breast (principal); Z80.3 Family history of malignant neoplasm of breast

== ENCOUNTER → 2020-04-30 | Outpatient (REF) | payer OTHER, MEDICAID ==
[~2020-04-30] MED LIST changes: -DOK100TA PO; +DOK100TA2 PO
== END ==
LOC: M SFHCWAGY 17:08
PROVIDERS: ATTEND Nurse Practitioner Family
DX: Z12.4 Encounter for screening for malignant neoplasm of cervix (principal); R87.615 Unsatisfactory cytologic smear of cervix
CPT/HCPCS: G0101; G0123

== ENCOUNTER 2020-05-09 11:06 | Emergency (ER) | payer OTHER, MEDICAID ==
[~2020-05-09] VITALS: Ht 175.3 cm; Wt 83.6 kg
[2020-05-09 11:07] VITALS: BP 102/75
== END 2020-05-09 12:19 | disposition home or self-care (01) ==
LOC: M ED 11:06
DX: R20.2 Paresthesia of skin (principal); E11.9 Type 2 diabetes mellitus without complications; I10 Essential (primary) hypertension; I25.10 Atherosclerotic heart disease of native coronary artery without angina pectoris; I25.2 Old myocardial infarction; F33.9 Major depressive disorder, recurrent, unspecified; F41.9 Anxiety disorder, unspecified; K21.9 Gastro-esophageal reflux disease without esophagitis; K44.9 Diaphragmatic hernia without obstruction or gangrene; G62.9 Polyneuropathy, unspecified; Z95.5 Presence of coronary angioplasty implant and graft; Z79.899 Other long term (current) drug therapy; Z79.4 Long term (current) use of insulin; Z79.01 Long term (current) use of anticoagulants; F14.20 Cocaine dependence, uncomplicated; F17.210 Nicotine dependence, cigarettes, uncomplicated

== ENCOUNTER 2020-05-10 19:20 | Emergency (ER) | payer OTHER, MEDICAID ==
[~2020-05-10] VITALS: Ht 175.3 cm; Wt 174.0 kg
[2020-05-10] MEDS ORDERED: LORazepam 2 MG TAB PO STA (20:34)
[2020-05-10] MEDS ORDERED: OLANZapine ORAL DISINTEGRATING TAB 5MG PO ONE (21:00)
[2020-05-10 21:24] LABS: BASO # 0.1 10^3/uL (0.0-0.2); BASO % 0.6 % (0.0-1.0); HEMATOCRIT 45.6 % (36.0-47.0); HEMOGLOBIN 14.8 g/dl (12.0-15.5); LYMPH # 1.6 10^3/uL (1.5-5.0); LYMPH % 15.4 % (24.0-44.0); MEAN CORPUSCULAR HEMOGLOBIN 30.1 pg (27.0-33.0); MEAN CORPUSCULAR HGB CONC 32.5 g/dl (32.0-36.5); MEAN CORPUSCULAR VOLUME 92.9 fl (80.0-96.0); MONO # 0.7 10^3/uL (0.0-0.8); NEUTROPHILS # 8.1 10^3/uL (1.5-8.5); NEUTROPHILS % 76.6 % (36.0-66.0); PLATELET COUNT, AUTOMATED 249 10^3/uL (150-450); RED BLOOD COUNT 4.91 10^6/uL (4.00-5.40); WHITE BLOOD COUNT 10.6 10^3/uL (4.0-10.0)
[2020-05-10 21:43] LABS: ERYTHROCYTE SEDIMENTATION RATE 22 mm/hr (0-30)
[2020-05-10 21:48] LABS: AMPHETAMINES LEVEL URINE POSITIVE (NEGATIVE); BARBITURATES URINE NEGATIVE (NEGATIVE); BENZODIAZEPINES URINE NEGATIVE (NEGATIVE); CANNABINOIDS URINE NEGATIVE (NEGATIVE); COCAINE METABOLITE URINE NEGATIVE (NEGATIVE); METHADONE URINE NEGATIVE (NEGATIVE); OPIATES URINE NEGATIVE (NEGATIVE); PHENCYCLIDINE URINE NEGATIVE (NEGATIVE)
[2020-05-10 21:50] LABS: ALBUMIN 3.2 GM/DL (3.2-5.2); BILIRUBIN,TOTAL 0.3 MG/DL (0.2-1.0); C REACTIVE PROTEIN QUANTITATIV 7.66 MG/DL (0.00-0.30); CREATININE FOR GFR 1.23 MG/DL (0.55-1.30); GLOMERULAR FILTRATION RATE 48.6 (>51); TOTAL PROTEIN 6.6 GM/DL (6.4-8.2)
[2020-05-11 13:49] VITALS: BP 117/65
== END 2020-05-11 13:50 | disposition home or self-care (01) ==
LOC: M ED 19:20
DX: F19.259 Other psychoactive substance dependence with psychoactive substance-induced psychotic disorder, unspecified (principal); E11.9 Type 2 diabetes mellitus without complications; I10 Essential (primary) hypertension; F33.9 Major depressive disorder, recurrent, unspecified; F41.9 Anxiety disorder, unspecified; K21.9 Gastro-esophageal reflux disease without esophagitis; K44.9 Diaphragmatic hernia without obstruction or gangrene; R56.9 Unspecified convulsions; I25.2 Old myocardial infarction; G62.9 Polyneuropathy, unspecified; Z79.899 Other long term (current) drug therapy; Z79.4 Long term (current) use of insulin; Z79.01 Long term (current) use of anticoagulants; F14.20 Cocaine dependence, uncomplicated; F17.210 Nicotine dependence, cigarettes, uncomplicated

== ENCOUNTER → 2020-05-21 | Outpatient (CLI) | payer OTHER, MEDICAID ==
--- NOTE | 2020-05-24 06:48 | ECWPNPC ---
PATIENT NAME: MONTANA HARDY : 1965 GENDER: FEMALE VISIT DATE: 05/21/2020 DISCHARGE DATE: 05/21/20 1518 VISIT LOCKED DATE TIME: PHYSICIAN: EMY ARAUZ PHYSICIAN PAGER NO: ACTIVE RESOURCE: EMY ARAUZ REASON FOR APPOINTMENT 1. REVIEW MRI L/S HISTORY OF PRESENT ILLNESS GENERAL: HERE FOR FOLLOW-UP OF CHRONIC LOW BACK PAIN. AWAITING APPROVAL THROUGH INSURANCE FOR MRI OF THE LS-SPINE. SHE IS HAVING THIS DONE AT [facility]. CONTINUES WITH HIGH LEVELS OF LOW BACK PAIN. RATING PAIN LEVEL 8/10 VAS.-. FALL RISK SCREENING: SCREENING :NO FALLS REPORTED IN THE LAST YEAR PAIN SCREENING: PATIENT HAS A COMPLAINT OF ACUTE OR CHRONIC PAIN :YES LOCATION OF PAIN:MID BACK INTENSITY OF PAIN (SCALE OF 1 TO 10):10 WHAT DOES YOUR PAIN FEEL LIKE:CONTINOUS, BURNING, STABBING PAIN IS INCREASED BY:ACTIVITIES NURSING NOTE: -. PAIN CENTER INTAKE QUESTIONS: DO YOU HAVE A HISTORY OF MRSA? :YES DO YOU TAKE A BLOOD THINNERS? :YES DO YOU HAVE ANY BLEEDING DISORDERS? :NO ANY NEW NUMBNESS OR WEAKNESS IN YOUR LEGS OR ARMS? :NO ANY PACEMAKER,DEFIBRILLATOR, OR DORSAL COLUMN STIMULATOR? :NO DO YOU HAVE ANY RASHES OR OPEN SORES? :NO ARE YOU ALLERGIC TO IV DYE? :NO ARE YOU DIABETIC? :YES ANY NEW PROBLEMS WITH YOUR MEDICATIONS? :NO HAVE YOU RECEIVED A VACCINE IN THE PAST 30 DAYS? :NO DO YOU PLAN TO RECEIVE A VACCINE IN THE NEXT 21 DAYS? :NO DO YOU NEED ANY PRESCRIPTION? :NO DO YOU TAKE ANY IMMUNOSUPPRESSIVE MEDICATIONS? :NO IS THERE A CHANCE YOU COULD BE ? :NO ARE YOU BREAST FEEDING? :NO CURRENT MEDICATIONS TAKING NYSTATIN [id number] UNIT/GM CREAM 1 APPLICATION UNDER BREASTS EXTERNALLY TWICE A DAY X 10D WITH FLARES TAKING FLUCONAZOLE 100 MG TABLET 1 TABLET ORALLY DAILY X 7 DAYS WITH THRUSH FLARE TAKING TRAZODONE HCL 100 MG TABLET TAKE 1 AND 1/2 TABLETS BY MOUTH @8PM TAKING ALCOHOL PREPS 70 % MISCELLANEOUS DIRECTED EXTERNALLY DAILY TAKING LANCETS DX 250.00 ONE TOUCH LANCET - ONCE A DAY TAKING POTASSIUM GLUCONATE 595 (99 K) MG TABLET 1 TABLET ORALLY-OTC DAILY TAKING MAGNESIUM CITRATE 100 MG TABLET 1 TAB ORALLY- OTC ONCE DAILY TAKING BD ULTRA-FINE PEN NEEDLES 32G 4MM 1 INJECTIONS SUBCUTANEOUSLY DAILY TAKING BLOOD GLUCOSE TEST - STRIP ONE TOUCH VERIO FLEX IN VITRO, DX: E11.9 THREE TIMES A DAY TAKING CARBAMAZEPINE 200 MG TABLET TAKE TWO TABLETS BY MOUTH TWICE DAILY ORALLY BID TAKING VICTOZA 18 MG/3ML SOLUTION PEN-INJECTOR INJECT 1.8 MILLIGRAM SUBCUTANEOUSLY DAILY SUBCUTANEOUSLY DAILY TAKING ROSUVASTATIN CALCIUM 40 MG TABLET 1 TABLET ORALLY ONCE A DAY TAKING DOXYCYCLINE HYCLATE 100 MG CAPSULE 1 CAPSULE ORALLY EVERY 12 HRS TAKING MEDROL 4 MG TABLET THERAPY PACK DIRECTED ORALLY DAILY TAKING NITROGLYCERIN 0.4 MG TABLET SUBLINGUAL 1 TABLET UNDER THE TONGUE SUBLINGUAL ONE TABLET TIMES 3 EVERY 5 MINUTES IF NO RELIEF GO TO THE ER TAKING APIXABAN 5 MG TABLET 1 TAB ORALLY BID TAKING VITAMIN D (ERGOCALCIFEROL) 62384 UNIT CAPSULE 1 TAB ORALLY EVERY 7 DAYS TAKING VITAMIN D (ERGOCALCIFEROL) 1.25 MG (13588 UT) CAPSULE TAKE ONE CAPSULE BY MOUTH EVERY WEDNESDAY @8AM TAKING ADVAIR DISKUS 500-50 MCG/DOSE AEROSOL POWDER BREATH ACTIVATED 1 PUFF INHALATION TWICE A DAY TAKING INVOKANA 300 MG TABLET 1 TABLET ORALLY EVERY MORNING TAKING DIGOXIN 0.25 MG TABLET 1 TABLET ORALLY ONCE A DAY TAKING ZETIA 10 MG TABLET 1 TABLET ORALLY ONCE A DAY TAKING CYANOCOBALAMIN 500 MCG TABLET 1 TABLET ORALLY ONCE A DAY TAKING PANTOPRAZOLE SODIUM 40 MG TABLET DELAYED RELEASE 1 TABLET ORALLY EVERY MORNING TAKING CARAFATE 1 GM TABLET 1 TABLET ON AN EMPTY STOMACH TWICE A DAY ORALLY 30 DAY(S) TAKING TELMISARTAN 80 MG TABLET 1 TABLET ORALLY ONCE A DAY TAKING SPIRONOLACTONE 25 MG TABLET 1 TABLET ORALLY DAILY TAKING FERROUS SULFATE 324 (65 FE) MG TABLET DELAYED RELEASE 1 TABLET ORALLY ONCE A DAY TAKING SARNA SENSITIVE 1 % LOTION 1 APPLICATION NEEDED EXTERNALLY THREE TIMES A DAY TAKING GABAPENTIN 600 MG TABLET 1 TABLET ORALLY FOUR TIMES DAILY TAKING PROTONIX 40 MG TABLET DELAYED RELEASE 1 TABLET ORALLY ONCE A DAY TAKING FUROSEMIDE 40 MG TABLET 1 TABLET ORALLY EVERY MORNING, PM IF NEEDED TAKING COLACE 100 MG CAPSULE 1 CAP ORALLY ONCE A DAY TAKING EZETIMIBE 10 MG TABLET 1 TABLET ORALLY ONCE A DAY TAKING DIGOXIN 250 MCG TABLET TAKE ONE TABLET BY MOUTH @8AM TAKING BISOPROLOL FUMARATE 5 MG TABLET 1 TABLET ONCE A DAY ORALLY 90 DAY(S) TAKING MIRAPEX 0.5 MG TABLET 1 TABLET ORALLY TWICE DAILY TAKING REXULTI 1 MG TABLET 1 TABLET ORALLY ONCE A DAY TAKING ISOSORBIDE MONONITRATE ER 30 MG TABLET EXTENDED RELEASE 24 HOUR 1 TABLET IN THE MORNING ORALLY ONCE A DAY TAKING CETIRIZINE HCL 10 MG TABLET 1 TABLET ORALLY DAILY TAKING METFORMIN XR 500 MG EXTENDED RELEASE 2 TABLET ORALLY TWICE A DAY TAKING VENTOLIN HFA 108 (90 BASE) MCG/ACT AEROSOL SOLUTION 2 PUFFS NEEDED INHALATION EVERY 4 HRS TAKING TRESIBA FLEXTOUCH 100 UNIT/ML SOLUTION PEN-INJECTOR 38 UNITS SUBCUTANEOUS BEFORE BEDTIME TAKING BETAMETHASONE DIPROPIONATE AUG 0.05 % OINTMENT 1 APPLICATION EXTERNALLY TWICE A DAY TO ITCHY ERUPTION ON BODY PAST MEDICAL HISTORY LUMBAR DJD WITH BILATERAL LOWER EXTREMITY RADICULOPATHY-2009 MRI WITH MULTILEVEL BULGES, AT L4/S1 CAUSING MODERATE TO SEVERE BILATERAL NEURAL FORAMEN NARROWING SEIZURE DISORDER, GENERALIZED HYPERTENSION HYPERLIPIDEMIA 2B OBESITY BIPOLAR DISORDER RESTLESS LEG SYNDROME URGE INCONTINENCE GERD-12/2016 NORMAL DOUBLE CONTRAST UGI SERIES MIGRAINE HEADACHES, COMMON TYPE B12 DEFICIENCY H/O NICOTINE ADDICTION ASTHMA, MODERATE PERSISTENT/COPD-09/2014 FEV1 2.2L (66%)/RATIO 72%-EVIN CAD STATUS POST NON-Q WAVE [place] APRIL 2011 STATUS POST ANGELICA TO MID LAD, CHRONIC OCCLUSION OF RCA WITH COLLATERALS SUPPLYING BLOOD FLOW TO DISTAL RCA AND PDA BRANCHES, LVEF 50% WITH MILD ANTERIOR AND INFERIOR HYPOKINESIS-FISCHI//09/25/13 CATHERIZATION-PATIENT LAD, CHRONICALLY OCCLUDED RCA, NORMAL LVEF-RITA//04/25 DISTAL RCA ANGELICA THEN 04/26/17 MID LAD EUL-[id number] 2 STABLE ANGINA/ PATENT MAIN MAIN ARTERIES, STENTS-RITA HISTORY NARCOTIC ABUSE-IN REHAB AT [facility]-03/21-04/18/12 + H PYLORI BY AB-TREATED C DOXY/FLAGYL/BISMUTH/PPI X 14D-06/2013 ATRIAL FIBRILLATION, PAROXYSMAL, NEW-ONSET-09/04/13 [facility] HEMISPHERIC TIA-11/2014 C L FACIAL/ARM NUMBNESS/VISUAL DISTURBANCE/DIZZINESS-MRI C B FRONTAL, R PARIETAL T2 HYPERINTENSITIES, B ICA 16-49% STENOSIS, -CTA CHEST FOR PE R NEPHROLITH BY 11/2014 CT CHELI CHF, CHRONIC 2 DIASTOLIC/SYSTOLIC DYSFUNCTION ALLERGIES TAPE: BLISTER - ALLERGY SURGICAL HISTORY REMAINING 8 TEETH EXTRACTION-DR. ANDERSON 07/2012 HERNIA REPAIR/INGUINAL 2004 APPENDECTOMY A CHILD NORMAL VIRTUAL COLONOSCOPY X PROMINENT COLONIC STOOL 10/2015 2 CARDIAC STENTS 2015 2 CARDIAC STENTS 2016 2 CARDIAC STENTS- CHROME STENTS 2016 2 CARDIAC STENTS 2017 FAMILY HISTORY MOTHER: , [place] HTN DM SIBLINGS: DM HTN [place] DENIES FAMILY HX OF MM OR PANCREATIC CA. SOCIAL HISTORY GENERAL: TOBACCO USE ARE YOU A:CURRENT SMOKER ARE YOU INTERESTED IN QUITTING?READY TO QUIT PT IS HAVING A DISCUSSION WITH HER PRIMARY ABOUT MEDICATION TO QUIT PREVIOUS QUIT ATTEMPTS?NO. COUNSELED THE PATIENT ON TOBACCO USE, CESSATION [id number]/09/2020 HOW MANY CIGARETTES A DAY DO YOU SMOKE?11-20 HOW SOON AFTER YOU WAKE UP DO YOU SMOKE YOUR FIRST CIGARETTE?6-30 MIN HOW OFTEN DO YOU SMOKE CIGARETTES?EVERY DAY SMOKING CESSATION INFORMATION GIVEN05/21/2020 LATEX QUESTIONNAIRE LATEX ALLERGY : HAVE YOU EVER DEVELOPED ANY TYPE OF REACTION AFTER HANDLING LATEX PRODUCTS SUCH RUBBER GLOVES, CONDOMS, DIAPHRAGMS, BALLOONS, SOCKS, OR UNDERWEAR?YES LATEX ALLERGY : HAVE YOU EVER DEVELOPED ANY TYPE OF REACTION DURING OR AFTER DENTAL APPOINTMENT, VAGINAL/RECTAL EXAMINATION, SURGICAL PROCEDURE, OR ANY OTHER EXPOSURE?NO - PLEASE INDICATE :OTHER (DOCUMENT IN NOTES) ADHESIVE DATE ASKED : 04/30/2020 LATEX RISK : HAVE YOU EVER HAD ANY DIFFICULTY BREATHING OR HIVES AFTER EATING OR HANDLING ANY FRUITS, OR VEGETABLES; SUCH KIWI, BANANAS, STONE FRUITS, OR CHESTNUTSNO LATEX RISK : DO YOU HAVE A PREVIOUS PERSONAL HISTORY OF MORE THAN NINE SURGERIES, SPINA BIFIDA, OR REPEATED CATHERIZATIONS? NO LATEX RISK : ARE YOU FREQUENTLY EXPOSED TO LATEX PRODUCTS IN YOUR OCCUPATION?NO BMI CARE GOAL FOLLOW-UP ABOVE NORMAL BMI FOLLOW-UPGIVING ENCOURAGEMENT TO EXERCISE ALCOHOL SCREENING DID YOU HAVE A DRINK CONTAINING ALCOHOL IN THE PAST YEAR?NO POINTS0 INTERPRETATIONNEGATIVE RECREATIONAL DRUG USE DRUG USE?NO CAFFEINE CAFFEINE USE?YES HOW OFTEN AND HOW MUCH? 6 CUPS OF COFFEE DAILY SEXUAL HX HAD SEX IN THE LAST 12 MONTHS (VAGINAL, ORAL, OR ANAL)?YES WITHMEN ONLY USE PROTECTION?NO HIV / HEP-C SCREENING HIV TEST OFFERED TO PATIENT:YES DATE OFFERED:11/03/2016 TEST ACCEPTED:NO HEP-C TEST OFFERED TO PATIENT:YES DATE OFFERED:11/03/2016 REASON:PATIENT DECLINED TEST ACCEPTED:NO REASON:PATIENT DECLINED MORMON [id number] YARSANISM LANGUAGE LANGUAGES SPOKEN:[place] EDUCATION LEVEL OF EDUCATION:COLLEGE LEARNING BARRIERS / SPECIAL NEEDS CHANGE FROM LAST VISIT?YES ER VISIT BARRIERS TO LEARNING?NO HEARING IMPAIRED?NO VISION IMPAIRED?YES COGNITIVELY IMPAIRED?NO :CORRECTIVE LENSES READINESS TO LEARN?YES LEARNING PREFERENCES?NO LEARNING CAPABILITIES PRESENT?YES EMOTIONAL BARRIERS?NO SPECIAL DEVICES?NO SPORTS INFORMATION DIRECTOR NEEDED?NO DOMESTIC VIOLENCE DO YOU FEEL SAFE IN YOUR ENVIRONMENT?YES OCCUPATION: UNEMPLOYED. DIET: REGULAR. EXERCISE: DAILY. MARITAL STATUS: , . OTHERS AT HOME: NONE. TODAY'S VISIT NOTES, FROM 0-10, WHAT LEVEL IS YOUR PAIN TODAY? 10. PAIN CLINIC PFS, CLERGY, PUBLIC HEALTH REFERRALS PFS REFERRAL NEEDED?NO CLERGY REFERRAL NEEDED?NO PUBLIC HEALTH REFERRAL NEEDED?NO WAS THE PROVIDER NOTIFIED OF ANY PERTINENT INFO?YES HAS THE PATIENT BEEN EDUCATED REGARDING HIS/HER PLAN OF CARE?YES HAS THE PATIENT BEEN EDUCATED REGARDING PAIN, THE RISK FOR PAIN, THE IMPORTANCE OF EFFECTIVE PAIN MANAGEMENT, AND THE PAIN ASSESSMENT PROCESS?YES ADVANCE DIRECTIVE ADVANCE DIRECTIVE DISCUSSED WITH PATIENT:YES DECLINED HCP INFORMATION. SMOKING 1 PPD. DENIES ETOH. PRIOR H/O OF NARCOTIC ABUSE. HAD BEEN USING A FRIEND'S SUBOXONE, BUT STATES SHE STOPPED. SMOKING 1 PPD. DENIES ETOH. PRIOR H/O OF NARCOTIC ABUSE. HAD BEEN USING A FRIEND'S SUBOXONE, BUT STATES SHE STOPPED. REVIEWED WITH PATIENT 03/25/18 1519 JSREVIEWED WITH PATIENT 06/03/18 1132 JS. HOSPITALIZATION/MAJOR DIAGNOSTIC PROCEDURE R HEMISPHERIC TIA-WORKUP PER 11/28- B AXILLARY MRSA ABSCESSES S/P B DRAINAGE BY DR. VARGAS, IV VANCOMYCIN, - BCX X2 05/30- CARDIAC CATH ([facility]) DR. SALINAS 07/23 [place] R HEMISPHERIC TIA-WORKUP PER 11/28- HYPOXIC RESPIRATORY FAILURE 2 STATUS ASTHMATICUS 01/27- TONIC-CLONIC SEIZURE-HAD MISSED CARBAMAZEPINE X 3D PRIOR, -CIP/T-1 X 3; -UDS BCX NG X 2, CT HEAD NAD, EEG NO-EPILEPIFROM ACTIVITY, DR. CHRISTIANSON FAVORED TO CONTINUE CURRENT REGIMEN 03/11-01/21 ER VISIT 05/2020 REVIEW OF SYSTEMS CONSTITUTIONAL: ANY RECENT FEVER NO . CHILLS NO . WEIGHT CHANGE OF UNKNOWN REASONS NO . GASTROENTEROLOGY: NEW UNEXPLAINABLE CHANGES IN BOWEL CONTROL NO . CONSTIPATION NO . GENITOURINARY: ANY NEW CHANGE IN BLADDER CONTROL? NO . NEUROLOGY: NEW ONSET DIZZINESS OR NEUROLOGICAL CHANGES NOT MENTIONED NO . NEW NUMBNESS OR PAIN PATTERNS NOT MENTIONED AND PERTINENT TO TODAY'S VISIT NO . CARDIOLOGY: NEW CHEST PRESSURE NO . NEW CHEST PAIN NO . RESPIRATORY: UNEXPLAINABLE COUGH NO . NEW SHORTNESS OF BREATH NO . VITAL SIGNS WT 178.2 LBS, HT 69 IN, BMI 26.31 INDEX, BP 97/52 MM HG, HR 60 /MIN, RR 18 /MIN, TEMP 96.8 F, OXYGEN SAT % 95%, NA INITIALS SC 14:45. EXAMINATION GENERAL EXAMINATION: GENERALAWAKE,ALERT ,PLEASANT . PSYCHAFFECT NORMAL . LUNGS:LUNG DIAZ ARE CLEAR TO AUSCULTATION BILATERALLY. GOOD MOVEMENT OF AIR . HEART:S1, S2 IN A REGULAR RATE AND RHYTHM. NO SIGNIFICANT MURMURS, RUBS OR GALLOPS NOTED . ASSESSMENTS OTHER SPONDYLOSIS, LUMBOSACRAL REGION - M47.897 (PRIMARY) TREATMENT OTHER SPONDYLOSIS, LUMBOSACRAL REGION NOTES: PATIENT WILL CALL US AFTER MRI OF LS SPINE IS DONE TO SCHEDULE FOLLOW-UP APPOINTMENT TO DEVELOP TREATMENT PLAN. PROCEDURE CODES FA211 ESTABILISHED PATIENT [facility] CHARGE DISPOSITION & COMMUNICATION FOLLOW UP PATIENT WILL CALL FOR FOLLOW-UP APPOINTMENT AFTER MRI OF LS SPINE IS DONE (REASON: LOW BACK PAIN) ELECTRONICALLY SIGNED BY OLIVIA CUEVAS ON 05/23/2020 AT 11:46 AM EST DISCLAIMER : THIS IS A VISIT SUMMARY EXTRACTED FROM THE [facility] CHART. IT IS NOT A COPY OF THE [facility] PROGRESS NOTE. MADHU
== END ==
LOC: M PAIN 14:45
PROVIDERS: ATTEND Nurse Practitioner Family
DX: M47.26 Other spondylosis with radiculopathy, lumbar region (principal); G40.909 Epilepsy, unspecified, not intractable, without status epilepticus; I11.0 Hypertensive heart disease with heart failure; E78.5 Hyperlipidemia, unspecified; F31.9 Bipolar disorder, unspecified; E11.9 Type 2 diabetes mellitus without complications; G25.81 Restless legs syndrome; K21.9 Gastro-esophageal reflux disease without esophagitis; J45.40 Moderate persistent asthma, uncomplicated; J44.9 Chronic obstructive pulmonary disease, unspecified; G47.33 Obstructive sleep apnea (adult) (pediatric); I50.42 Chronic combined systolic (congestive) and diastolic (congestive) heart failure; F17.210 Nicotine dependence, cigarettes, uncomplicated; Z79.01 Long term (current) use of anticoagulants; Z79.84 Long term (current) use of oral hypoglycemic drugs; Z79.899 Other long term (current) drug therapy; Z91.048 Other nonmedicinal substance allergy status

== ENCOUNTER → 2020-06-01 | Outpatient (REF) | payer OTHER, MEDICAID, MEDICARE ==
[2020-06-01 18:54] LABS: APPEARANCE, URINE HAZY (CLEAR); BACTERIA, URINE AUTO NEGATIVE (NEGATIVE); BILIRUBIN, URINE AUTO NEGATIVE (NEGATIVE); BLOOD, URINE BLOOD NEGATIVE (NEGATIVE); COLOR, URINE YELLOW (YELLOW); GLUCOSE, URINE (UA) AUTO 3+ mg/dL (NEGATIVE); KETONE, URINE AUTO NEGATIVE (NEGATIVE); LEUKOCYTE ESTERASE, URINE AUTO NEGATIVE (NEGATIVE); NITRITE, URINE AUTO NEGATIVE (NEGATIVE); PROTEIN, URINE AUTO NEGATIVE (NEGATIVE); RBC, URINE AUTO 0 /HPF (0-3); SPECIFIC GRAVITY URINE AUTO 1.013 (1.002-1.035); SQUAMOUS EPITHELIAL CELL UR AU 2 /HPF (0-6); UROBILINOGEN, URINE AUTO 0.2 mg/dL (0.0-2.0); WBC, URINE AUTO 1 /HPF (0-3)
== END ==
LOC: M LAB REF 18:35
PROVIDERS: ATTEND Physician Assistant Medical
DX: N39.0 Urinary tract infection, site not specified (principal)

== ENCOUNTER 2020-06-02 15:10 | Emergency (ER) | payer OTHER, MEDICAID ==
[~2020-06-02] VITALS: Ht 175.3 cm; Wt 79.1 kg
[2020-06-02 16:43] LABS: BASO # 0.1 10^3/uL (0.0-0.2); BASO % 1.1 % (0.0-1.0); HEMOGLOBIN 15.5 g/dl (12.0-15.5); LYMPH # 2.3 10^3/uL (1.5-5.0); MEAN CORPUSCULAR HGB CONC 32.3 g/dl (32.0-36.5); MONO # 0.4 10^3/uL (0.0-0.8); MONO % 6.6 % (0.0-5.0); NEUTROPHILS # 3.8 10^3/uL (1.5-8.5); PLATELET COUNT, AUTOMATED 315 10^3/uL (150-450); WHITE BLOOD COUNT 6.6 10^3/uL (4.0-10.0)
[2020-06-02 17:07] LABS: ALT/SGPT 18 U/L (12-78); BILIRUBIN,DIRECT < 0.1 MG/DL (0.0-0.2); BILIRUBIN,TOTAL 0.3 MG/DL (0.2-1.0); BLOOD UREA NITROGEN 15 MG/DL (7-18); CALCIUM LEVEL 8.2 MG/DL (8.5-10.1); CARBON DIOXIDE LEVEL 33 MEQ/L (21-32); CHLORIDE LEVEL 102 MEQ/L (98-107); CREATININE FOR GFR 0.64 MG/DL (0.55-1.30); GLOMERULAR FILTRATION RATE > 60.0 (>51); GLUCOSE, FASTING 88 MG/DL (70-100); LIPASE 91 U/L (73-393); POTASSIUM SERUM 4.2 MEQ/L (3.5-5.1); SODIUM LEVEL 140 MEQ/L (136-145); TOTAL PROTEIN 6.4 GM/DL (6.4-8.2)
--- NOTE | 2020-06-02 17:18 | REP ---
INDICATION: lower abd pain and low back pain COMPARISON: None. TECHNIQUE: Upright view of the chest with supine and upright views of the abdomen and pelvis. FINDINGS: Frontal upright view of the chest demonstrates no acute cardiopulmonary process or free air below the diaphragm to suspect pneumoperitoneum. Supine and upright views of the abdomen and pelvis demonstrate nonspecific bowel gas pattern without obstruction or perforation. Surgical clips in the right lower quadrant suggest prior appendectomy. Skeletal structures demonstrate age-related degenerative changes of the lumbosacral spine. IMPRESSION: Nonspecific bowel gas pattern. <Electronically signed by Román Rich > 06/02/20 0110
[2020-06-02 18:52] VITALS: BP 112/64
== END 2020-06-02 19:02 | disposition home or self-care (01) ==
LOC: M ED 15:10
DX: R10.9 Unspecified abdominal pain (principal); E11.9 Type 2 diabetes mellitus without complications; I10 Essential (primary) hypertension; J44.9 Chronic obstructive pulmonary disease, unspecified; I48.91 Unspecified atrial fibrillation; R56.9 Unspecified convulsions; E78.5 Hyperlipidemia, unspecified; Z79.899 Other long term (current) drug therapy; Z79.4 Long term (current) use of insulin; Z79.01 Long term (current) use of anticoagulants; F17.210 Nicotine dependence, cigarettes, uncomplicated

== ENCOUNTER → 2020-06-17 | Outpatient (CLI) | payer OTHER, MEDICAID | LOC: M LABSMTC 13:08 | PROVIDERS: ATTEND Family Medicine | DX: Z20.828 Contact with and (suspected) exposure to other viral communicable diseases (principal) ==

== ENCOUNTER 2020-10-10 13:05 | Emergency (ER) | payer OTHER, MEDICAID ==
[~2020-10-10] VITALS: Ht 175.3 cm; Wt 79.1 kg
[~2020-10-10 13:05] MED LIST changes: -VICT18IN2
[2020-10-10 13:06] VITALS: BP 136/74
[2020-10-10] MEDS ORDERED: VICT18IN2 (13:16)
== END 2020-10-10 13:27 | disposition left against medical advice (07) ==
LOC: M ED 13:05
DX: Z53.21 Procedure and treatment not carried out due to patient leaving prior to being seen by health care provider (principal)

== ENCOUNTER → 2020-10-10 | Outpatient (REF) | payer OTHER, MEDICAID ==
[~2020-10-10] MED LIST changes: +ISOS1TAB35 PO; -ISOS30TA4 PO; +VICT18IN2
[2020-10-10 17:20] LABS: BASO % 0.7 % (0.0-1.0); HEMOGLOBIN 13.9 g/dl (12.0-15.5); LYMPH # 1.8 10^3/uL (1.5-5.0); LYMPH % 32.5 % (24.0-44.0); MEAN CORPUSCULAR HEMOGLOBIN 30.2 pg (27.0-33.0); MEAN CORPUSCULAR HGB CONC 31.6 g/dl (32.0-36.5); MEAN CORPUSCULAR VOLUME 95.4 fl (80.0-96.0); MONO # 0.3 10^3/uL (0.0-0.8); MONO % 6.1 % (2.0-8.0); NEUTROPHILS # 3.3 10^3/uL (1.5-8.5); NEUTROPHILS % 60.3 % (36.0-66.0); PLATELET COUNT, AUTOMATED 328 10^3/uL (150-450); RED BLOOD COUNT 4.61 10^6/uL (4.00-5.40); WHITE BLOOD COUNT 5.4 10^3/uL (4.0-10.0)
[2020-10-10 17:51] LABS: ALBUMIN 3.1 GM/DL (3.2-5.2); ALT/SGPT 18 U/L (12-78); BILIRUBIN,TOTAL 0.1 MG/DL (0.2-1.0); BLOOD UREA NITROGEN 22 MG/DL (7-18); CALCIUM LEVEL 8.7 MG/DL (8.5-10.1); CARBON DIOXIDE LEVEL 32 MEQ/L (21-32); CHLORIDE LEVEL 105 MEQ/L (98-107); CHOLESTEROL LEVEL 152 MG/DL (<200); CHOLESTEROL RISK RATIO 3.166 (<5); CREATININE FOR GFR 0.61 MG/DL (0.55-1.30); FERRITIN 97 NG/ML (8-252); FREE T4 0.81 NG/DL (0.76-1.46); GLOMERULAR FILTRATION RATE > 60.0 (>51); GLUCOSE, FASTING 46 MG/DL (70-100); HDL CHOLESTEROL 48 MG/DL (>40); IRON (FE) 79 UG/DL (50-170); LDL CHOLESTEROL 77 MG/DL (<100); NON-HDL-C 104 MG/DL; PERCENT SATURATION 27.2 % (13.2-45.0); POTASSIUM SERUM 3.8 MEQ/L (3.5-5.1); SODIUM LEVEL 141 MEQ/L (136-145); TOTAL IRON BINDING CAPACITY 290 UG/DL (250-450); TOTAL PROTEIN 7.1 GM/DL (6.4-8.2); TRIGLYCERIDES LEVEL 135 MG/DL (<150)
[2020-10-10 17:53] LABS: FOLATE 20.7 NG/ML
[2020-10-10 18:21] LABS: TOTAL 25(OH) VITAMIN D 75.4 NG/ML (30.0-100.0)
[2020-10-10 18:22] LABS: VITAMIN B12 LEVEL 1556 PG/ML
[2020-10-10 18:33] LABS: HIV 1&2 SCREEN CENTAUR NEGATIVE (NEGATIVE)
[2020-10-10 18:56] LABS: HEMOGLOBIN A1c 5.8 %
== END ==
LOC: M LAB REF 16:26
PROVIDERS: ATTEND Nurse Practitioner Family
DX: E11.65 Type 2 diabetes mellitus with hyperglycemia (principal); E78.5 Hyperlipidemia, unspecified; G89.29 Other chronic pain; F17.200 Nicotine dependence, unspecified, uncomplicated

== ENCOUNTER 2020-11-10 13:48 | Emergency (ER) | payer MEDICAID, MEDICARE, OTHER ==
[~2020-11-10] VITALS: Ht 175.3 cm; Wt 79.6 kg
[~2020-11-10 13:48] MED LIST changes: +GABA-283 PO; -GABA-845 PO; +VICT18IN2
[2020-11-10 16:53] LABS: BASO % 0.3 % (0.0-1.0); HEMOGLOBIN 13.6 g/dl (12.0-15.5); LYMPH # 0.3 10^3/uL (1.5-5.0); LYMPH % 2.4 % (24.0-44.0); MEAN CORPUSCULAR HEMOGLOBIN 30.6 pg (27.0-33.0); MEAN CORPUSCULAR HGB CONC 33.2 g/dl (32.0-36.5); MEAN CORPUSCULAR VOLUME 92.1 fl (80.0-96.0); MONO # 0.1 10^3/uL (0.0-0.8); MONO % 0.9 % (2.0-8.0); NEUTROPHILS # 10.2 10^3/uL (1.5-8.5); PLATELET COUNT, AUTOMATED 242 10^3/uL (150-450); RED BLOOD COUNT 4.45 10^6/uL (4.00-5.40); WHITE BLOOD COUNT 10.7 10^3/uL (4.0-10.0)
[2020-11-10 17:34] LABS: ACETAMINOPHEN LEVEL < 2.0 UG/ML (10.0-30.0); ALBUMIN 2.8 GM/DL (3.2-5.2); ALT/SGPT 206 U/L (12-78); BILIRUBIN,DIRECT 0.3 MG/DL (0.0-0.2); BILIRUBIN,TOTAL 0.5 MG/DL (0.2-1.0); BLOOD UREA NITROGEN 21 MG/DL (7-18); CALCIUM LEVEL 8.5 MG/DL (8.5-10.1); CARBON DIOXIDE LEVEL 28 MEQ/L (21-32); CHLORIDE LEVEL 104 MEQ/L (98-107); ETHYL ALCOHOL (ETHANOL) < 0.003 % (0.000-0.010); GLOMERULAR FILTRATION RATE 55.1 (>51); GLUCOSE, FASTING 147 MG/DL (70-100); POTASSIUM SERUM 3.4 MEQ/L (3.5-5.1); SALICYLATE LEVEL < 1.7 MG/DL (5.0-30.0); SODIUM LEVEL 139 MEQ/L (136-145); TOTAL PROTEIN 6.5 GM/DL (6.4-8.2)
[2020-11-10 17:42] VITALS: BP 82/57
[2020-11-10 18:07] LABS: CK-MB VALUE MASS < 1.0 NG/ML (<3.6); CPK CREATINE PHOSPHOKINASE 69 U/L (26-192); MB/CK RELATIVE INDEX 1.45 (< OR =4); TROPONIN I < 0.02 NG/ML (< 0.10)
[2020-11-11 12:06] LABS: HEPATITIS B SURFACE ANTIGEN NEGATIVE (NEGATIVE)
[2020-11-11 12:33] LABS: HEPATITIS C VIRUS ABY INDEX < 0.0 INDEX (<0.8)
[2020-11-11 12:34] LABS: HEPATITIS B CORE ANTIBODY IGM NEGATIVE (NEGATIVE)
[2020-11-11 12:36] LABS: HEPATITIS A ANTIBODY IGM NEGATIVE (NEGATIVE)
== END 2020-11-10 18:06 | disposition left against medical advice (07) ==
LOC: M ED 13:48
DX: F16.10 Hallucinogen abuse, uncomplicated (principal); I10 Essential (primary) hypertension; E11.9 Type 2 diabetes mellitus without complications; J44.9 Chronic obstructive pulmonary disease, unspecified; Z53.20 Procedure and treatment not carried out because of patient's decision for unspecified reasons

== ENCOUNTER → 2020-11-29 | Outpatient (REF) ==
[~2020-11-29] MED LIST changes: -DOXY100C37 PO; +DOXY1CAP62 PO
--- NOTE | 2020-11-29 12:08 | REPPI ---
INDICATION: LOWER BACK PAIN TECHNIQUE: Five views FINDINGS: There is mild tricompartmental marginal osteophytosis. The compartments are symmetric and relatively well maintained. There is no acute fracture, dislocation, or subluxation. IMPRESSION: Mild degenerative change. <Electronically signed by Salvatore May > 11/29/20 [id number]
--- NOTE | 2020-11-29 12:09 | REPPI ---
INDICATION: LOWER BACK PAIN. COMPARISON: None. TECHNIQUE: Three AP and lateral views lumbar spine. FINDINGS: There is no compression fracture. There is normal lumbar lordosis. There is moderate diffuse spurring. There is moderate disc space narrowing with subchondral sclerosis and vacuum phenomenon at L1-2, L2-3 and L5-S1. There is slight narrowing of the L3-4 disc space. There is sclerosis and spurring at the posterior facet joints of L4-5 and L5-S1. The posterior elements are intact. Metallic clips are seen in the right pelvis. IMPRESSION: Degenerative changes. No compression fracture. <Electronically signed by Kerwin Salazar > 11/29/20 [id number]
== END ==
LOC: M PLAIMG 11:03
PROVIDERS: ATTEND Internal Medicine
DX: Z02.71 Encounter for disability determination (principal); M54.5 Low back pain; M51.36 Other intervertebral disc degeneration, lumbar region; M51.37 Other intervertebral disc degeneration, lumbosacral region; M17.12 Unilateral primary osteoarthritis, left knee

== ENCOUNTER 2021-01-28 10:04 | Emergency (ER) | payer MEDICARE ==
[~2021-01-28] VITALS: Ht 175.3 cm; Wt 79.2 kg
[2021-01-28 10:05] VITALS: BP 116/57
[2021-01-28] MEDS ORDERED: SUBO4MIS SL (10:23)
== END 2021-01-28 12:44 | disposition left against medical advice (07) ==
LOC: M ED 10:04
DX: Z53.29 Procedure and treatment not carried out because of patient's decision for other reasons (principal)

== ENCOUNTER → 2021-10-08 | Outpatient (REF) | payer MEDICARE ==
[~2021-10-08] MED LIST changes: -CALC1TAB8 PO; +CALC600T67 PO; +DOXY-443 PO; -DOXY1CAP62 PO; -FLUC100T PO; +FLUC100T3 PO; +SUBO4MIS SL; -SUMA4INJ3 SC; +SUMA4INJ6 SC
== END ==
LOC: M LAB REF 20:04
PROVIDERS: ATTEND Physician Assistant
DX: J06.9 Acute upper respiratory infection, unspecified (principal)

== ENCOUNTER 2021-12-30 09:11 | Emergency (ER) | payer MEDICARE ==
[~2021-12-30] VITALS: Ht 175.3 cm; Wt 84.5 kg
[2021-12-30] MEDS ORDERED: DULO1CAP6 PO ×2 (09:29)
[2021-12-30] MEDS ORDERED: METH-1177 PO (09:29)
[2021-12-30] MEDS ORDERED: HYDR1CAP25 (09:29)
[2021-12-30] MEDS ORDERED: LAMO100T3 (09:30)
[2021-12-30] MEDS ORDERED: TRES1INJ2 (09:30)
[2021-12-30] MEDS ORDERED: JARD1TAB (09:30)
[2021-12-30] MEDS ORDERED: PRAM0.5T4 (09:30)
[2021-12-30] MEDS ORDERED: PANT40TA29 (09:30)
[2021-12-30 09:53] LABS: BASO # 0.1 10^3/uL (0.0-0.2); BASO % 0.7 % (0.0-1.0); HEMATOCRIT 45.5 % (36.0-47.0); HEMOGLOBIN 14.7 g/dl (12.0-15.5); LYMPH # 2.6 10^3/uL (1.5-5.0); LYMPH % 35.1 % (24.0-44.0); MEAN CORPUSCULAR HEMOGLOBIN 30.9 pg (27.0-33.0); MEAN CORPUSCULAR HGB CONC 32.3 g/dl (32.0-36.5); MEAN CORPUSCULAR VOLUME 95.6 fl (80.0-96.0); MONO # 0.5 10^3/uL (0.0-0.8); MONO % 6.4 % (2.0-8.0); NEUTROPHILS # 4.4 10^3/uL (1.5-8.5); NEUTROPHILS % 57.7 % (36.0-66.0); PLATELET COUNT, AUTOMATED 282 10^3/uL (150-450); RED BLOOD COUNT 4.76 10^6/uL (4.00-5.40); WHITE BLOOD COUNT 7.5 10^3/uL (4.0-10.0)
[2021-12-30 10:18] LABS: CK-MB VALUE MASS 1.4 NG/ML (<3.6); MB/CK RELATIVE INDEX 2.64 (< OR =4)
[2021-12-30 10:19] LABS: BLOOD UREA NITROGEN 28 MG/DL (7-18); CREATININE FOR GFR 0.88 MG/DL (0.55-1.30); GLUCOSE, FASTING 135 MG/DL (70-100)
[2021-12-30 10:20] LABS: CALCIUM LEVEL 9.1 MG/DL (8.5-10.1); CARBON DIOXIDE LEVEL 27 MEQ/L (21-32); CHLORIDE LEVEL 104 MEQ/L (98-107); GLOMERULAR FILTRATION RATE > 60.0 (>51); POTASSIUM SERUM 4.2 MEQ/L (3.5-5.1); SODIUM LEVEL 138 MEQ/L (136-145)
[2021-12-30] MEDS ORDERED: METOPROLOL TART 25 MG TABLET PO ONE (10:20)
[2021-12-30] MEDS ORDERED: METOPROLOL 5 MG/5 ML VIAL IV SCH (10:20)
[2021-12-30 10:30] VITALS: BP 123/69
== END 2021-12-30 10:48 | disposition home or self-care (01) ==
LOC: M ED 09:11 → EDBD 09:11 → M ED 10:48
DX: I48.0 Paroxysmal atrial fibrillation (principal); E11.9 Type 2 diabetes mellitus without complications; I10 Essential (primary) hypertension; I50.30 Unspecified diastolic (congestive) heart failure; J44.9 Chronic obstructive pulmonary disease, unspecified; E78.5 Hyperlipidemia, unspecified; G43.909 Migraine, unspecified, not intractable, without status migrainosus; G47.33 Obstructive sleep apnea (adult) (pediatric); G25.81 Restless legs syndrome; F11.10 Opioid abuse, uncomplicated; Z86.73 Personal history of transient ischemic attack (TIA), and cerebral infarction without residual deficits; Z95.5 Presence of coronary angioplasty implant and graft; Z79.899 Other long term (current) drug therapy; Z79.84 Long term (current) use of oral hypoglycemic drugs; Z79.4 Long term (current) use of insulin; Z79.01 Long term (current) use of anticoagulants; F17.200 Nicotine dependence, unspecified, uncomplicated

== ENCOUNTER → 2022-04-08 | Outpatient (CLI) | payer MEDICARE ==
[~2022-04-08] MED LIST changes: +HYDR1CAP25; +JARD1TAB; +LAMO100T3; +METH-1177 PO; +PANT40TA29; +PRAM0.5T4; +TRES1INJ2
== END ==
LOC: M WUC 11:43
PROVIDERS: ATTEND Physician Assistant
DX: M25.531 Pain in right wrist (principal); M79.641 Pain in right hand

== ENCOUNTER → 2022-05-20 | Outpatient (REF) | LOC: M LAB 11:07 ==